=== PATIENT | female | born 1960 | race Caucasian/White ===

== ENCOUNTER → 2020-03-14 14:18 | Outpatient (BNVA) | payer MEDICAID, SELFPAY | PROVIDERS: Family Provider Nurse Practitioner; PCP Nurse Practitioner; Visit Provider Nurse Practitioner Family | DX: E78.5 Hyperlipidemia, unspecified (principal); F41.9 Anxiety disorder, unspecified; F32.9 Major depressive disorder, single episode, unspecified; M19.91 Primary osteoarthritis, unspecified site; I10 Essential (primary) hypertension; R35.0 Frequency of micturition; J44.9 Chronic obstructive pulmonary disease, unspecified; F17.200 Nicotine dependence, unspecified, uncomplicated; F51.01 Primary insomnia | CPT/HCPCS: 80053; 80061; 84443; 85025 ==

== ENCOUNTER 2020-04-22 19:43 | Emergency (ER) | payer MEDICAID, SELFPAY ==
--- NOTE | 2020-04-22 19:47 | ED_ITS ---
HPI - Abdominal Pain General: Chief Complaint: Nausea/Vomiting/Diarrhea Stated Complaint: NAUSEA/ VOMITING Time Seen by Provider: 04/22/20 19:47 Source: patient Mode of arrival: ambulatory Limitations: no limitations History of Present Illness: HPI narrative: Patient was brought in by EMS with persistent nausea and vomiting. Patient is vomiting bile-like substance. Patient had been given p.o. ondansetron and then threw up shortly afterwards. Patient appears mildly unwell. Patient reports severe headache and episode starting this morning. Patient also reports some abdominal discomfort. Associated Symptoms: Reports nausea and vomiting Review of Systems General: Reports: 10 or more systems reviewed and unremarkable except in HPI and below GI: Reports: nausea and vomiting Neuro: Reports: headache(s) PFSH ED PFSH: Medical History (Updated 04/22/20 @ 21:52 by KRISTIE Ruby) Anxiety and depression COPD (chronic obstructive pulmonary disease) Dyslipidemia Essential (primary) hypertension Insomnia Osteoarthritis Smoker Urinary frequency Surgical History History of carpal tunnel release of both wrists Hx of arthroscopic knee surgery (~2012) left Family History Other COPD (chronic obstructive pulmonary disease) Cancer Social History Smoking and tobacco status: current every day smoker Second hand smoke exposure: Yes Smoking risk assessment/counseling performed?: Yes Alcohol intake: never Desire information about alcohol rehabilitation?: No Counseling given: No Desire information about substance/drug rehabilitation?: No Counseling given: No Adopted: No Caregiver/support person: No Lives independently: Yes Household members: spouse Housing: House Marital status: service: No History of recent travel: No Current gender identity: Female Physical Exam Const: COMMON NORMALS: no acute distress and patient oriented x3 GENERAL APPEARANCE: cooperative HENMT: COMMON NORMALS: normocephalic, TM's normal bilaterally and Normal external nose present HEAD & SCALP: normal to inspection and normocephalic NOSE: Normal external nose present TYMPANIC MEMBRANE: TM's normal bilaterally MOUTH: Normal oral and palatal mucosa present THROAT: posterior oropharynx normal Eye: GENERAL EYE: appearance normal, both eyes and all related structures Neck/C-Spine: COMMON NORMALS: full ROM Lymph: LYMPHATIC: no lymphadenopathy noted Chest: COMMONS NORMALS: normal inspection of the chest Resp: COMMON NORMALS: normal respiratory effort EFFORT & INSPECTION: Yes able to speak in complete sentences Cardio: COMMON NORMALS: regular rate and regular rhythm RATE: regular rate RHYTHM: regular rhythm GI: COMMON NORMALS: Soft to palpation PALPATION: Yes Soft to palpation and Yes Tenderness to palpation present (GI) (mild epigastric) : COMMON NORMALS: Yes no CVA tenderness BLADDER/KIDNEY EXAM: Yes no CVA tenderness Back/Pelvis: COMMON NORMALS: no CVA tenderness and thoracic and lumbar spine normal to inspection Extremity: COMMON NORMALS: normal to inspection Neuro: COMMON NORMALS: patient oriented x3 and moves all extremities Psych: COMMON NORMALS: mental status grossly normal and cooperative Skin: COMMON NORMALS: no rashes or lesions noted GENERAL SKIN EXAM: no rashes or lesions noted Course Vital Signs: Vital signs: Vital Signs Temperature 98.7 F 04/22/20 20:26 Pulse Rate 62 04/22/20 22:00 Respiratory Rate 20 H 04/22/20 20:26 Blood Pressure 163/88 04/22/20 22:00 Pulse Oximetry 98 04/22/20 22:00 MDM - Abdominal Pain MDM Narrative: Medical decision making narrative: Patient comes in today with complaints of nausea and vomiting starting this morning. Exam patient's abdomen soft nontender. Vital signs are normal. Respirations are even lungs are clear to auscultation. No CVA tenderness. Bowel sounds are normal. Differential diagnosis includes but not limited to cholecystitis, pancreatitis, gastroenteritis, gastritis. Laboratory values were normal. Patient was given medication for nausea and vomiting and IV fluids. Patient did have improvement in symptoms recommend to continue with medications to control nausea and vomiting. Patient was recommended to follow-up with primary care for further treatment. Lab Data: Labs: Lab Results 04/22/20 04/22/20 04/22/20 Range/Units 20: 20: 20:15 WBC 14.8 H (4.0-10.0) 10^3/ uL RBC 4.54 (4.1-5.3) 10^6/u L Hgb 14.5 (11.5-15.3) g/dL Hct 43.6 (37.0-47.0) % MCV 96.0 (81-99) fL MCH 31.9 (28.0-34.0) pg MCHC 33.3 (30.0-36.0) g/dL RDW 12.8 (12.1-15.1) % Plt Count 244 (130-400) 10^3/c mm MPV 9.7 (7.4-10.4) fL Neut % (Auto) 84.8 % Lymph % (Auto) 10.4 % Harper % (Auto) 4.3 % Eos % (Auto) 0.0 % Baso % (Auto) 0.1 % Neut # (Auto) 12.51 H (1.8-7.7) 10^3/u L Lymph # (Auto) 1.5 (0.8-4.8) 10^3/u L Harper # (Auto) 0.6 (0.2-0.9) 10^3/u L Eos # (Auto) 0.0 (0.0-0.8) 10^3/u L Baso # (Auto) 0.0 (0.0-0.1) 10^3/u L Nucleated RBC % (a uto) 0 % Nucleated RBCs # 0.0 /100WBC Sodium 138 (136-145) mmol/L Potassium 3.6 (3.5-5.1) mmol/L Chloride 103 (98-107) mmol/L Carbon Dioxide 18 L (22-29) mmol/L Anion Gap 20.6 H (5-19) BUN 17 (6-20) mg/dL Creatinine 0.7 (0.5-0.9) mg/dL GFR Calculation 85.6 L (90-130) mL/min Glucose 144 H (65-115) mg/dL Calculated Osmolal ity 285 (285-295) mOsm/k g Calcium 9.7 (8.5-10.5) mg/dL Total Bilirubin 0.4 (0.15-1.2) mg/dL AST 26 (0-32) U/L ALT 22 (0-33) U/L Alkaline Phosphata se 64 (35-105) IU/L Troponin T Baselin e 6 (0-10) ng/L Total Protein 8.4 (6.6-8.7) g/dL Albumin 5.0 (3.5-5.2) g/dL Globulin 3.4 (1.3-4.6) g/dL Lipase 19 (13-60) U/L EKG Data ^: EKG 1: Attestation: I personally reviewed and interpreted this EKG as follows: (2004, sinus bradycardia, regular rate at 51 bpm, no ectopy or st elevation) Discharge Plan Discharge Patient Disposition: Home Clinical Impression: Nausea & vomiting Qualifiers: Vomiting type: bilious vomiting Qualified Code(s): R11.14 - Bilious vomiting Condition: Stable Prescriptions: New ondansetron HCl 4 mg tablet 4 mg PO Q8H PRN (Reason: nausea and vomiting) Qty: 10 RF: 0 No Action Anoro Ellipta 62.5-25 mcg/actuation blister with device 1 inh INHALATION Q24H Qty: 60 RF: 2 albuterol sulfate [ProAir HFA] 90 mcg/actuation HFA aerosol inhaler 2 puff INHALATION QID PRN (Reason: shortness of breath or wheezing) Qty: 18 RF: 2 aspirin [Adult Low Dose Aspirin] 81 mg tablet,delayed release (DR/EC) 81 mg PO DAILY RF: 0 atorvastatin 40 mg tablet 40 mg PO DAILY 30 Days Qty: 30 RF: 2 celecoxib 400 mg capsule 400 mg PO DAILY 30 Days Qty: 30 RF: 2 escitalopram oxalate 10 mg tablet 10 mg PO DAILY 30 Days Qty: 30 RF: 2 hydroxyzine pamoate 25 mg capsule 25 mg PO TID 30 Days Qty: 90 RF: 2 lisinopril 20 mg tablet 20 mg PO DAILY 30 Days Qty: 30 RF: 2 promethazine 6.25 mg/5 mL syrup 6.25 mg PO TID PRN (Reason: cough) 30 Days Qty: 473 RF: 0 oxybutynin chloride 5 mg tablet 5 mg PO TID 90 Days Qty: 270 RF: 0 trazodone 150 mg tablet 150 mg PO DAILY 30 Days Qty: 30 RF: 2 Referrals: Vero Moon FNP-C [Primary Care Provider] - Discharge Diet: Advance as tolerated Discharge Activity: Increase activity as tolerated Patient Instructions: Vomiting - Adult Activity Restrictions/Additional Instructions: Home and rest. Drink plenty of fluids. Start with sips increase as tolerated. Return to the emergency department for worsening symptoms, high fever, blood in vomit or stool. Follow-up with primary care as needed. Coding Level of Care Code ED Product Development Intern for Chg Fwd Exam Comprehensive
--- NOTE | 2020-04-22 19:51 | XRR_ITS ---
PROCEDURE INFORMATION: Exam: XR Chest, 1 View Exam date and time: 04/22/2020 8:22 PM Age: 59 years old Clinical indication: Dyspnea; Prior surgery; Surgery date: 6+ months; Additional info: N/v TECHNIQUE: Imaging protocol: XR of the chest Views: 1 view. COMPARISON: No relevant prior studies available. FINDINGS: Lungs: Unremarkable. No consolidation. Pleural space: Unremarkable. No pleural effusion. No pneumothorax. Heart/Mediastinum: Unremarkable. No cardiomegaly. Bones/joints: No acute abnormality. Postoperative clips in the left supraclavicular fossa are noted. XR/XR chest 1V portable [id number] IMPRESSION: No acute findings.
--- NOTE | 2020-04-22 19:52 | ECG_ITS ---
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 Measurements Intervals [place] Rate: 51 P: 74 TX: 148 QRS: 67 QRSD: 93 T: 71 QT: 460 QTc: 424 Interpretive Statements SINUS BRADYCARDIA MINIMAL ST DEPRESSION [0.025+ mV ST DEPRESSION] No previous ECG available for comparison Electronically Signed On 04-23-2020 18:10:52 CDT by Bassam Madden M.D. [id number]
--- NOTE | 2020-04-22 20:19 | CTR_ITS ---
PROCEDURE INFORMATION: Exam: CT Head Without Contrast Exam date and time: 04/22/2020 8:46 PM Age: 59 years old Clinical indication: Pain; Headache not specified; Patient HX: C/O HERBERT w n/v; Additional info: Headache, n/v TECHNIQUE: Imaging protocol: Computed tomography of the head without contrast. Radiation optimization: All CT scans at this facility use at least one of these dose optimization techniques: automated exposure control; mA and/or kV adjustment per patient size (includes targeted exams where dose is matched to clinical indication); or iterative reconstruction. COMPARISON: CT head wo con* [id number] 02/18/2015 4:20 PM RADIATION DOSE METRICS: Total DLP (mGy-cm): 620.26 FINDINGS: Brain: Normal. No hemorrhage. Unremarkable white matter. No mass effect. Ventricles: Normal. No ventriculomegaly. Bones/joints: Unremarkable. No acute fracture. Sinuses: Visualized sinuses are unremarkable. No fluid levels. Mastoid air cells: Visualized mastoid air cells are well aerated. Soft tissues: Unremarkable. CT/CT head wo con* [id number] IMPRESSION: No acute intracranial abnormality. Radiation Dose CTDIVOL = (mGy): DLP = 620.26 (mGy-cm)
[2020-04-22 20:20] LABS: Basophils % 0.1 %; Hematocrit 43.6 % (37.0-47.0); Hemoglobin 14.5 g/dL (11.5-15.3); Lymphocytes # 1.5 10^3/uL (0.8-4.8); Lymphocytes % 10.4 %; Mean Corpuscular HGB Conc 33.3 g/dL (30.0-36.0); Mean Corpuscular Hemoglobin 31.9 pg (28.0-34.0); Mean Platelet Volume 9.7 fL (7.4-10.4); Monocytes # 0.6 10^3/uL (0.2-0.9); Monocytes % 4.3 %; Neutrophils # 12.51 10^3/uL (1.8-7.7); Neutrophils % 84.8 %; Nucleated Red Blood Cells % 0 %; Platelet Count 244 10^3/cmm (130-400); Red Blood Count 4.54 10^6/uL (4.1-5.3); Red Cell Distribution Width 12.8 % (12.1-15.1); White Blood Count 14.8 10^3/uL (4.0-10.0)
[2020-04-22 20:26] VITALS: BP 156/95; PULSE 58; RESP 20; TEMP 37.1; O2SAT 99; BMI 25.3
[2020-04-22 20:43] LABS: Alanine Aminotransferase 22 U/L (0-33); Alkaline Phosphatase 64 IU/L (35-105); Blood Urea Nitrogen 17 mg/dL (6-20); Calcium 9.7 mg/dL (8.5-10.5); Carbon Dioxide 18 mmol/L (22-29); Chloride 103 mmol/L (98-107); Creatinine Clr Calc Pharmacy 72.3914; Globulin 3.4 g/dL (1.3-4.6); Glomerular Filtration Rate 85.6 mL/min (90-130); Glucose 144 mg/dL (65-115); Lipase 19 U/L (13-60); Osmolality Calculated 285 mOsm/kg (285-295); Sodium 138 mmol/L (136-145); Total Bilirubin 0.4 mg/dL (0.15-1.2); Total Protein 8.4 g/dL (6.6-8.7)
[2020-04-22] MEDS: diphenhydrAMINE 50 mg/mL SDV 1mL 25 MG IVP (20:43)
[2020-04-22] MEDS: pantoprazole 40 mg SDV 80 MG IVP (20:44)
[2020-04-22] MEDS: metoclopramide 5 mg/mL SDV 2 mL 10 MG IVP (20:44)
[2020-04-22] MEDS: sodium chloride 0.9% 500 ML 999 ML IV (20:45)
[2020-04-22 20:46] LABS: Anion Gap 20.6 (5-19); Aspartate Amino Transferase 26 U/L (0-32); Potassium 3.6 mmol/L (3.5-5.1); Troponin(5th) Baseline 6 ng/L (0-10)
--- NOTE | 2020-04-22 20:46 | PC.NURSE ---
VO WITH READBACK FROM [employer] TO JAMIE OSPINA.
[2020-04-22 21:00] VITALS: BP 155/89; PULSE 87; O2SAT 96
[2020-04-22] MEDS: sodium chloride 0.9% 1,000 ML 999 ML IV (21:58)
[2020-04-22 22:00] VITALS: BP 163/88; PULSE 62; O2SAT 98
--- NOTE | 2020-04-22 23:34 | PC.NURSE ---
REPORT GIVENVANDANA MERCEDES RN ASSUMED CARE.
[2020-04-23 00:31] VITALS: BP 133/74; PULSE 87; RESP 17; O2SAT 99
== END 2020-04-23 00:31 | disposition home or self-care (01) ==
PROVIDERS: Emergency Provider Nurse Practitioner Family; PCP Nurse Practitioner
DX: R11.14 Bilious vomiting (principal); Z79.82 Long term (current) use of aspirin; J44.9 Chronic obstructive pulmonary disease, unspecified; E78.5 Hyperlipidemia, unspecified; I10 Essential (primary) hypertension; F17.210 Nicotine dependence, cigarettes, uncomplicated
CPT/HCPCS: 12345; 70450; 71045; 80053; 83690; 84484; 85025; 93005; 96361; 96374; 96375; 99283; 99284; C9113; J1200; J2765; J7030; J7040

== ENCOUNTER → 2020-05-31 09:47 | Outpatient (BNVA) | payer MEDICAID, SELFPAY | PROVIDERS: PCP Nurse Practitioner; Visit Provider Nurse Practitioner | DX: M54.2 Cervicalgia (principal); M43.06 Spondylolysis, lumbar region; M54.6 Pain in thoracic spine; J90 Pleural effusion, not elsewhere classified | CPT/HCPCS: 72040; 72072; 72100 ==

== ENCOUNTER 2020-06-25 17:03 | Emergency (ER) | payer MEDICAID, SELFPAY ==
[2020-06-25] VITALS (8 sets, daily range): BP systolic 87–149; BP diastolic 51–97; PULSE 63–86; RESP 16–18; TEMP 36.7; O2SAT 93–100; BMI 27.1
--- NOTE | 2020-06-25 17:10 | ED_ITS ---
HPI - Nausea/Vomiting/Diarrhea General: Chief complaint: Nausea/Vomiting/Diarrhea Stated complaint: N/V Time Seen by Provider: 06/25/20 17:05 Source: patient and EMS Mode of arrival: EMS Limitations: no limitations History of Present Illness: HPI Narrative: 60-year-old female who states she woke up this morning at 630 minutes had nausea vomiting and diarrhea throughout the day. She states she has had multiple episodes of vomiting and also vomited Ruiz here. She has slight abdominal pain she states is cramping in nature. Denies any fever. Denies any worsening or improving factors. Associated nausea: Yes Associated symtoms: Reports nausea; Denies chest pain, dysuria or headache(s) Review of Systems Const: Denies: fever(s), chills, body aches or change in appetite Eyes: Denies: blurry vision or eye discomfort ENMT: Denies: throat pain or dental pain Card: Denies: chest pain Resp: Denies: dyspnea GI: Reports: nausea, vomiting and diarrhea : Denies: dysuria Musc: Denies: neck pain or back pain Skin/Breast: Denies: rash Neuro: Denies: headache(s) Psych: Denies: depression Phil/Lymph: Denies: easy bruising All/Imm: Denies: urticaria PFSH ED PFSH: Medical History Anxiety and depression COPD (chronic obstructive pulmonary disease) Dyslipidemia Essential (primary) hypertension Insomnia Osteoarthritis Smoker Urinary frequency Surgical History History of carpal tunnel release of both wrists Hx of arthroscopic knee surgery (~2012) left Family History Other COPD (chronic obstructive pulmonary disease) Cancer Social History Smoking and tobacco status: current every day smoker Second hand smoke exposure: Yes Smoking risk assessment/counseling performed?: Yes Alcohol intake: never Desire information about alcohol rehabilitation?: No Counseling given: No Desire information about substance/drug rehabilitation?: No Counseling given: No Adopted: No Caregiver/support person: No Lives independently: Yes Household members: spouse Housing: House Marital status: service: No History of recent travel: No Current gender identity: Female Physical Exam Const: COMMON NORMALS: no acute distress, patient oriented x3 and healthy appearing HENMT: COMMON NORMALS: normocephalic and atraumatic HEAD & SCALP: normocephalic and atraumatic Eye: COMMON NORMALS: Equal, round and reactive pupils present and EOMs intact bilaterally PUPIL: Yes Equal, round and reactive pupils present Neck/C-Spine: COMMON NORMALS: full ROM and supple Chest: COMMONS NORMALS: normal inspection of the chest and normal palpation of entire chest wall Resp: COMMON NORMALS: normal respiratory effort, No retractions, No use of accessory muscles and clear to auscultation bilaterally AUSCULTATION: clear to auscultation bilaterally Cardio: COMMON NORMALS: regular rate, regular rhythm and No murmurs present (Cardio) RATE: regular rate RHYTHM: regular rhythm GI: COMMON NORMALS: Normal to inspection, nondistended, normoactive bowel sounds present, Soft to palpation, non-tender and no masses PALPATION: Yes Soft to palpation Extremity: COMMON NORMALS: normal to inspection and full ROM Neuro: COMMON NORMALS: patient oriented x3, moves all extremities and no focal motor deficits Psych: COMMON NORMALS: mental status grossly normal, Normal thought process present and cooperative THOUGHT PROCESS: Normal thought process present Skin: COMMON NORMALS: no rashes or lesions noted and no wounds GENERAL SKIN EXAM: no rashes or lesions noted Course Vital Signs: Vital signs: Vital Signs Temperature 98.0 F 06/25/20 17:04 Pulse Rate 76 06/25/20 18:41 Respiratory Rate 17 06/25/20 19:17 Blood Pressure 145/97 06/25/20 17:11 Pulse Oximetry 96 06/25/20 19:17 MDM - Nausea/Vomiting/Diarrhea MDM Narrative: Medical decision making narrative: Patient presents here with nausea and vomiting that is likely viral in origin. Patient's blood work and CT scan are normal. She feels much improved here after IV nausea meds and been able to tolerate p.o. here and has had no more vomiting. She is to follow-up with PCP in 3 to 5 days return if worsening. Will prescribe her Zofran for home. Lab Data: Labs: Lab Results 06/25/20 06/25/20 06/25/20 Range/Units 17:40 17:40 18:33 WBC 15.4 H (4.0-10.0) 10^3/ uL RBC 4.60 (4.1-5.3) 10^6/u L Hgb 14.3 (11.5-15.3) g/dL Hct 42.7 (37.0-47.0) % MCV 92.8 (81-99) fL MCH 31.1 (28.0-34.0) pg MCHC 33.5 (30.0-36.0) g/dL RDW 12.8 (12.1-15.1) % Plt Count 258 (130-400) 10^3/c mm MPV 9.5 (7.4-10.4) fL Neut % (Auto) 85.9 % Lymph % (Auto) 10.6 % Mclean % (Auto) 3.0 % Eos % (Auto) 0.0 % Baso % (Auto) 0.1 % Neut # (Auto) 13.25 H (1.8-7.7) 10^3/u L Lymph # (Auto) 1.6 (0.8-4.8) 10^3/u L Mclean # (Auto) 0.5 (0.2-0.9) 10^3/u L Eos # (Auto) 0.0 (0.0-0.8) 10^3/u L Baso # (Auto) 0.0 (0.0-0.1) 10^3/u L Nucleated RBC % (a uto) 0 % Nucleated RBCs # 0.0 /100WBC Sodium 138 (136-145) mmol/L Potassium 3.4 L (3.5-5.1) mmol/L Chloride 101 (98-107) mmol/L Carbon Dioxide 21 L (22-29) mmol/L Anion Gap 19.4 H (5-19) BUN 17 (8-23) mg/dL Creatinine 0.8 (0.5-0.9) mg/dL GFR Calculation 73.2 L (90-130) mL/min Glucose 139 H (65-115) mg/dL Calculated Osmolal ity 290 (285-295) mOsm/k g Calcium 9.9 (8.5-10.5) mg/dL Total Bilirubin 0.3 (0.15-1.2) mg/dL AST 24 (0-32) U/L ALT 22 (0-33) U/L Alkaline Phosphata se 72 (35-105) IU/L Total Protein 7.9 (6.6-8.7) g/dL Albumin 4.9 (3.5-5.2) g/dL Globulin 3.0 (1.3-4.6) g/dL Lipase 20 (13-60) U/L Urine Color Yellow (Yellow) Urine Appearance Clear (CLEAR) Urine pH 6 (5-7) Ur Specific Gravit y 1.020 (1.005-1.030) Urine Protein Neg (Negative) Urine Glucose (UA) Norm (Normal) Urine Ketones 2+ H (Negative) Urine Blood 3+ H (Negative) Urine Nitrate Negative (Negative) Urine Bilirubin Neg (Negative) Urine Urobilinogen Norm (Negative) mg/dL Ur Leukocyte Elicia ase Negative (Negative) Urine RBC 25-40 H (0-2) /hpf Urine WBC 0-4 H (0-5) /hpf Ur Squamous Epith Cells 5-10 H (0-5) /hpf Amorphous Sediment Not Reportable Urine Bacteria 1+ H (NONE) /hpf Urine Mucus 2+ /hpf Imaging Data^: CT Abd/Pel: Radiologist's impression: [place] [address] CT Scan Report Signed Patient: Kasey Sousa Unit #: [id number] : 1960 Age/Sex: 60 / F ADM Date: 06/25/20 Loc: ER Room/Bed: Attending Dr: Ordering Provider/Ordering MD: Akil Benito MD Date of Service: 06/25/20 Procedure(s): CT abdomen pelvis w con* [id number] Accession Number(s): [id number] Report Number: [id number] PROCEDURE INFORMATION: Exam: CT Abdomen And Pelvis With Contrast Exam date and time: 06/25/2020 6:20 PM Age: 60 years old Clinical indication: Nausea and vomiting; Prior surgery; Surgery date: 6+ months; Surgery type: Hyst; Patient HX: C/O n/v/d and abd cramping; Additional info: Abd pain TECHNIQUE: Imaging protocol: Computed tomography of the abdomen and pelvis with intravenous contrast. Radiation optimization: All CT scans at this facility use at least one of these dose optimization techniques: automated exposure control; mA and/or kV adjustment per patient size (includes targeted exams where dose is matched to clinical indication); or iterative reconstruction. Contrast material: OMNI 300; Contrast volume: 95 ml; Contrast route: INTRAVENOUS (IV); COMPARISON: CR XR lumbar spine 2-3V* [id number] 05/31/2020 9:47 AM RADIATION DOSE METRICS: Total DLP (mGy-cm): 511.7 FINDINGS: Lungs: Limited assessment of the lung bases fails to reveal evidence for active cardiopulmonary process. Liver: Unremarkable. No mass. Gallbladder and bile ducts: Normal. No calcified stones. No ductal dilation. Pancreas: Normal. No ductal dilation. Spleen: Small benign splenic capsule calcifications most likely from an old traumatic event. Spleen otherwise unremarkable. Adrenals: Normal. No mass. Kidneys and ureters: Normal. No hydronephrosis. Stomach and bowel: Diverticulosis coli without visible evidence for diverticulitis. Nonobstructive bowel pattern. No visible adynamic or reactive ileus. Appendix: The appendix is visualized and appears noninflamed. Intraperitoneal space: No visible evidence of mesenteric lymphadenitis or active mesenteritis/panniculitis. Vasculature: The abdominal aorta is nonaneurysmal. Moderate arterial sclerotic disease. Lymph nodes: No current visible evidence of active mesenteric or retroperitoneal lymphadenopathy. Urinary bladder: Unremarkable as visualized. Reproductive: Status post hysterectomy. Bones/joints: No visible acute osseous abnormality. Bilateral spondylolysis L5/S1 with high grade 1 to early grade 2 spondylolisthesis. Advanced degenerative disc disease L5/S1 with vacuum disc phenomenon. Discogenic sclerosis. Soft tissues: Evidence of previous left herniorrhaphy. CT/CT abdomen pelvis w con* [id number] IMPRESSION: 1. Currently no visible evidence for acute abdominal or pelvic pathologic process. 2. Diverticulosis coli without evidence for diverticulitis. 3. Other nonurgent, nonemergent, chronic, and age related findings as detailed in text above. Discharge Plan Discharge Patient Disposition: Home Clinical Impression: Vomiting Qualifiers: Vomiting type: unspecified Vomiting Intractability: non-intractable Nausea presence: with nausea Qualified Code(s): R11.2 - Nausea with vomiting, unspecified Condition: Stable Prescriptions: New ondansetron 4 mg tablet,disintegrating 4 mg PO Q6H PRN (Reason: nausea and vomiting) Qty: 14 RF: 0 No Action albuterol sulfate [ProAir HFA] 90 mcg/actuation HFA aerosol inhaler 2 puff INHALATION QID PRN (Reason: shortness of breath or wheezing) Qty: 18 RF: 2 aspirin [Adult Low Dose Aspirin] 81 mg tablet,delayed release (DR/EC) 81 mg PO DAILY RF: 0 atorvastatin 40 mg tablet 40 mg PO DAILY 30 Days Qty: 30 RF: 2 celecoxib 400 mg capsule 400 mg PO DAILY 30 Days Qty: 30 RF: 2 escitalopram oxalate 10 mg tablet 10 mg PO DAILY 30 Days Qty: 30 RF: 2 hydroxyzine pamoate 25 mg capsule 25 mg PO TID 30 Days Qty: 90 RF: 2 lisinopril 20 mg tablet 20 mg PO DAILY 30 Days Qty: 30 RF: 2 trazodone 150 mg tablet 150 mg PO DAILY 30 Days Qty: 30 RF: 2 promethazine-DM 6.25-15 mg/5 mL syrup 5 ml PO Q6H PRN (Reason: cough) Qty: 120 RF: 0 Bevespi Aerosphere 9-4.8 mcg HFA aerosol inhaler 2 puff INHALATION Q12H Qty: 10.7 RF: 2 oxybutynin chloride 5 mg tablet 5 mg PO TID 30 Days Qty: 90 RF: 2 Discharge Orders: Discharge Order (Routine); Ordered 06/25/20 Ordered By: Akil Benito Referrals: Vero Moon, TOWEL INSPECTOR-C [Primary Care Provider] - 1-3 days Discharge Diet: Advance as tolerated Discharge Activity: Resume usual activity Patient Instructions: Acute Nausea and Vomiting (ED) Coding Level of Care Code ED Quality Assurance Coordinator for Chg Fwd Exam Comprehensive
[2020-06-25] MEDS: lactated ringers 1,000 ML 999 ML IV (17:38)
[2020-06-25] MEDS: ondansetron 2 mg/ML SDV 2 mL 4 MG IVP (17:39)
[2020-06-25] MEDS: morphine 4 mg/mL SDV 1 mL IVP (17:39)
[2020-06-25 17:48] LABS: Basophils % 0.1 %; Hematocrit 42.7 % (37.0-47.0); Hemoglobin 14.3 g/dL (11.5-15.3); Lymphocytes # 1.6 10^3/uL (0.8-4.8); Lymphocytes % 10.6 %; Mean Corpuscular HGB Conc 33.5 g/dL (30.0-36.0); Mean Corpuscular Hemoglobin 31.1 pg (28.0-34.0); Mean Corpuscular Volume 92.8 fL (81-99); Mean Platelet Volume 9.5 fL (7.4-10.4); Monocytes # 0.5 10^3/uL (0.2-0.9); Neutrophils # 13.25 10^3/uL (1.8-7.7); Neutrophils % 85.9 %; Nucleated Red Blood Cells % 0 %; Platelet Count 258 10^3/cmm (130-400); Red Cell Distribution Width 12.8 % (12.1-15.1); White Blood Count 15.4 10^3/uL (4.0-10.0)
--- NOTE | 2020-06-25 18:13 | CTR_ITS ---
PROCEDURE INFORMATION: Exam: CT Abdomen And Pelvis With Contrast Exam date and time: 06/25/2020 6:20 PM Age: 60 years old Clinical indication: Nausea and vomiting; Prior surgery; Surgery date: 6+ months; Surgery type: Hyst; Patient HX: C/O n/v/d and abd cramping; Additional info: Abd pain TECHNIQUE: Imaging protocol: Computed tomography of the abdomen and pelvis with intravenous contrast. Radiation optimization: All CT scans at this facility use at least one of these dose optimization techniques: automated exposure control; mA and/or kV adjustment per patient size (includes targeted exams where dose is matched to clinical indication); or iterative reconstruction. Contrast material: OMNI 300; Contrast volume: 95 ml; Contrast route: INTRAVENOUS (IV); COMPARISON: CR XR lumbar spine 2-3V* [id number] 05/31/2020 9:47 AM RADIATION DOSE METRICS: Total DLP (mGy-cm): 511.7 FINDINGS: Lungs: Limited assessment of the lung bases fails to reveal evidence for active cardiopulmonary process. Liver: Unremarkable. No mass. Gallbladder and bile ducts: Normal. No calcified stones. No ductal dilation. Pancreas: Normal. No ductal dilation. Spleen: Small benign splenic capsule calcifications most likely from an old traumatic event. Spleen otherwise unremarkable. Adrenals: Normal. No mass. Kidneys and ureters: Normal. No hydronephrosis. Stomach and bowel: Diverticulosis coli without visible evidence for diverticulitis. Nonobstructive bowel pattern. No visible adynamic or reactive ileus. Appendix: The appendix is visualized and appears noninflamed. Intraperitoneal space: No visible evidence of mesenteric lymphadenitis or active mesenteritis/panniculitis. Vasculature: The abdominal aorta is nonaneurysmal. Moderate arterial sclerotic disease. Lymph nodes: No current visible evidence of active mesenteric or retroperitoneal lymphadenopathy. Urinary bladder: Unremarkable as visualized. Reproductive: Status post hysterectomy. Bones/joints: No visible acute osseous abnormality. Bilateral spondylolysis L5/S1 with high grade 1 to early grade 2 spondylolisthesis. Advanced degenerative disc disease L5/S1 with vacuum disc phenomenon. Discogenic sclerosis. Soft tissues: Evidence of previous left herniorrhaphy. CT/CT abdomen pelvis w con* [id number] IMPRESSION: 1. Currently no visible evidence for acute abdominal or pelvic pathologic process. 2. Diverticulosis coli without evidence for diverticulitis. 3. Other nonurgent, nonemergent, chronic, and age related findings as detailed in text above. Radiation Dose CTDIVOL = (mGy): DLP = 511.7 (mGy-cm)
[2020-06-25 18:14] LABS: Alanine Aminotransferase 22 U/L (0-33); Albumin Level 4.9 g/dL (3.5-5.2); Alkaline Phosphatase 72 IU/L (35-105); Anion Gap 19.4 (5-19); Aspartate Amino Transferase 24 U/L (0-32); Blood Urea Nitrogen 17 mg/dL (8-23); Calcium 9.9 mg/dL (8.5-10.5); Carbon Dioxide 21 mmol/L (22-29); Chloride 101 mmol/L (98-107); Glomerular Filtration Rate 73.2 mL/min (90-130); Glucose 139 mg/dL (65-115); Lipase 20 U/L (13-60); Osmolality Calculated 290 mOsm/kg (285-295); Potassium 3.4 mmol/L (3.5-5.1); Sodium 138 mmol/L (136-145); Total Bilirubin 0.3 mg/dL (0.15-1.2); Total Protein 7.9 g/dL (6.6-8.7)
[2020-06-25] MEDS: iohexol 300 mg/mL 100 mL Btl IV (19:11)
[2020-06-25] MEDS: HYDROmorphone 1 mg/mL INJ 1 mL 0.5 MG IVP (19:17)
[2020-06-25] MEDS: metoclopramide 5 mg/mL SDV 2 mL IVP (19:24)
[2020-06-25] MEDS: diphenhydrAMINE 50 mg/mL SDV 1mL 25 MG IVP (19:25)
[2020-06-25 19:31] LABS: Add Urine Microscopic? YES; Bilirubin Urine Neg (Negative); Blood Urine 3+ (Negative); Glucose Urine UA Norm (Normal); Ketones Urine 2+ (Negative); Leukocyte Esterase Urine Negative (Negative); Nitrate Urine Negative (Negative); Protein Urine Neg (Negative); Urine Appearance Clear (CLEAR); Urine Color Yellow (Yellow); Urobilinogen Urine Norm (Negative); pH Urine 6 (5-7)
[2020-06-25 19:33] LABS: Bacteria Urine 1+ /hpf; Mucus Urine 2+ /hpf; RBC Urine 25-40 /hpf (0-2); WBC Urine 0-4 /hpf (0-5)
[2020-06-25 19:34] LABS: Add Urine Culture? Yes
[2020-06-25] MEDS: sodium chloride 0.9% 1,000 ML 999 ML IV (20:16)
== END 2020-06-25 21:28 | disposition home or self-care (01) ==
PROVIDERS: Emergency Provider Emergency Medicine; PCP Nurse Practitioner
DX: R11.2 Nausea with vomiting, unspecified (principal); Z79.82 Long term (current) use of aspirin; J44.9 Chronic obstructive pulmonary disease, unspecified; E78.5 Hyperlipidemia, unspecified; I10 Essential (primary) hypertension; F17.210 Nicotine dependence, cigarettes, uncomplicated
CPT/HCPCS: 12345; 74177; 80053; 81001; 83690; 85025; 87086; 96365; 96375; 99284; J1170; J1200; J2270; J2405; J2765; J7030; Q9967

== ENCOUNTER → 2020-06-27 14:47 | Outpatient (BNVA) | payer MEDICAID, SELFPAY | PROVIDERS: PCP Nurse Practitioner; Referring Provider Nurse Practitioner; Visit Provider Orthopaedic Surgery | DX: M25.562 Pain in left knee (principal) | CPT/HCPCS: 73560; 73565 ==

== ENCOUNTER 2020-08-01 17:36 | Emergency (ER) | payer MEDICAID, SELFPAY ==
[2020-08-01] VITALS (9 sets, daily range): BP systolic 96–192; BP diastolic 56–122; PULSE 62–93; RESP 16–21; TEMP 36.4; O2SAT 95–100; BMI 27.3
--- NOTE | 2020-08-01 17:41 | ECG_ITS ---
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: : 1960 Requested By: Amy Lewis Order Number: [id number] Reading MD: LISA MUÑOZ Measurements Intervals Cameron Rate: 54 P: 104 WA: 95 QRS: 65 QRSD: 85 T: 65 QT: 467 QTc: 443 Interpretive Statements SINUS BRADYCARDIA WITH SHORT WA INTERVAL WITH OCCASIONAL SUPRAVENTRICULAR PREMATURE COMPLEXES MINIMAL ST DEPRESSION [0.025+ mV ST DEPRESSION] Compared to ECG 04/22/2020 20:00:57 Short WA interval now present ST (T wave) deviation still present Electronically Signed On 08-03-2020 15:25:15 [employer] by LISA MUÑOZ [email or web address]
--- NOTE | 2020-08-01 17:44 | W.ED.NAVMDI ---
Documented by User: Amy Dumont MD 08/05/20 06:16 HPI - Nausea/Vomiting/Diarrhea General: Chief complaint: Nausea/Vomiting/Diarrhea Stated complaint: nausea, vomiting, constipation Time Seen by Provider: 08/01/20 17:38 History of Present Illness: HPI Narrative: This patient is a 60-year-old female who comes in by ambulance today with vomiting. The symptoms started this morning. She denies change in bowel habits with no diarrhea. She denies fever. She does not know why this is happening. She is difficult to get a history from. She tells me that her symptoms started in 1996. She has episodes like this apparently. She has been in the ER twice before with this in April and then again in June. It looks like prior to that she had lived in [place] so I do not have any records before the past few months. She is in quite a bit of distress and actively vomiting and not able to answer a lot of my questions. She took Zofran at home and was also given Zofran by EMS. She denies abdominal pain. When I asked her about medical history she does not answer. MD elicited complaint: nausea and vomiting Pertinent past history: other (Has had episodes like this since 1996 but she does not know why) Onset (ago): hour(s) (8) Review of Systems General: Reports: ROS unobtainable due to medical condition PFS ED PFSH: Medical History Anxiety and depression COPD (chronic obstructive pulmonary disease) Dyslipidemia Essential (primary) hypertension Glaucoma (increased eye pressure) Insomnia Osteoarthritis Smoker Urinary frequency Surgical History History of carpal tunnel release of both wrists Hx of arthroscopic knee surgery (~2012) left Family History Other COPD (chronic obstructive pulmonary disease) Cancer Social History (Updated 08/01/20 @ 17:52 by Roosevelt Hogan RN) Smoking and tobacco status: former smoker Second hand smoke exposure: Yes Smoking risk assessment/counseling performed?: Yes Alcohol intake: never Desire information about alcohol rehabilitation?: No Counseling given: No Substance/Drug Use: current Substance/Drug use frequency: daily Substance/Drug use type: Marijuana Adopted: No Caregiver/support person: No Lives independently: Yes Household members: spouse Housing: House Marital status: service: No History of recent travel: No Current gender identity: Female Physical Exam Const: EXAM LIMITATIONS: other limitations (Not answering questions due to distress over vomiting) GENERAL APPEARANCE: in distress ORIENTATION/CONSCIOUSNESS: Yes awake HENMT: HEAD & SCALP: normal to inspection FACE & SINUS: normal facial exam Eye: GENERAL EYE: appearance normal, both eyes and all related structures Neck/C-Spine: COMMON NORMALS: supple, no meningeal signs and no JVD Chest: COMMONS NORMALS: normal inspection of the chest Resp: COMMON NORMALS: normal respiratory effort, No use of accessory muscles and clear to auscultation bilaterally AUSCULTATION: clear to auscultation bilaterally Cardio: COMMON NORMALS: no JVD, regular rate, regular rhythm and No murmurs present (Cardio) RATE: regular rate RHYTHM: regular rhythm GI: COMMON NORMALS: Normal to inspection, nondistended, normoactive bowel sounds present, Soft to palpation and non-tender INSPECTION: Yes normal to inspection AUSCULTATION: Yes normoactive bowel sounds PALPATION: Yes Soft to palpation Back/Pelvis: COMMON NORMALS: thoracic and lumbar spine normal to inspection Extremity: COMMON NORMALS: normal to inspection Neuro: COMMON NORMALS: moves all extremities, no focal motor deficits and no sensory deficits noted MENINGEAL SIGNS: Yes no meningeal signs Psych: COMMON NORMALS: mental status grossly normal, cooperative and normal affect Skin: COMMON NORMALS: no rashes or lesions noted and turgor normal GENERAL SKIN EXAM: no rashes or lesions noted and turgor normal Course Vital Signs: Vital signs: Vital Signs Temperature 97.6 F 08/01/20 17:42 Pulse Rate 62 08/01/20 23:26 Respiratory Rate 18 08/01/20 22:41 Blood Pressure 96/56 08/01/20 23:26 Pulse Oximetry 95 08/01/20 23:26 MDM - Nausea/Vomiting/Diarrhea Lab Data: Labs: Lab Results 08/01/20 08/01/20 08/01/20 Range/Units 18:07 18:07 18:07 WBC 11.4 H (4.0-10.0) 10^3/ uL RBC 4.39 (4.1-5.3) 10^6/u L Hgb 13.7 (11.5-15.3) g/dL Hct 40.5 (37.0-47.0) % MCV 92.3 (81-99) fL MCH 31.2 (28.0-34.0) pg MCHC 33.8 (30.0-36.0) g/dL RDW 12.9 (12.1-15.1) % Plt Count 268 (130-400) 10^3/c mm MPV 9.8 (7.4-10.4) fL Neut % (Auto) 82.7 % Lymph % (Auto) 13.3 % Hopkins % (Auto) 3.4 % Eos % (Auto) 0.0 % Baso % (Auto) 0.1 % Neut # (Auto) 9.38 H (1.8-7.7) 10^3/u L Lymph # (Auto) 1.5 (0.8-4.8) 10^3/u L Hopkins # (Auto) 0.4 (0.2-0.9) 10^3/u L Eos # (Auto) 0.0 (0.0-0.8) 10^3/u L Baso # (Auto) 0.0 (0.0-0.1) 10^3/u L Nucleated RBC % (a uto) 0 % Nucleated RBCs # 0.0 /100WBC Sodium 139 (136-145) mmol/L Potassium 3.9 (3.5-5.1) mmol/L Chloride 104 (98-107) mmol/L Carbon Dioxide 20 L (22-29) mmol/L Anion Gap 18.9 (5-19) BUN 16 (8-23) mg/dL Creatinine 0.8 (0.5-0.9) mg/dL GFR Calculation 73.2 L (90-130) mL/min Glucose 153 H (65-115) mg/dL Calculated Osmolal ity 292 (285-295) mOsm/k g Lactic Acid 1.8 (0.5-2.2) mmol/L Calcium 9.6 (8.5-10.5) mg/dL Total Bilirubin 0.3 (0.15-1.2) mg/dL AST 26 (0-32) U/L ALT 27 (0-33) U/L Alkaline Phosphata se 71 (35-105) IU/L Troponin T Baselin e (0-10) ng/L Troponin T 120 Min [place] (0-10) ng/L Delta Troponin T (0-10) ABS# Total Protein 7.5 (6.6-8.7) g/dL Albumin 4.8 (3.5-5.2) g/dL Globulin 2.7 (1.3-4.6) g/dL Lipase 27 (13-60) U/L Urine Color (Yellow) Urine Appearance (CLEAR) Urine pH (5-7) Ur Specific Gravit y (1.005-1.030) Urine Protein (Negative) Urine Glucose (UA) (Normal) Urine Ketones (Negative) Urine Blood (Negative) Urine Nitrate (Negative) Urine Bilirubin (Negative) Prot Sulfosalicyli c Acd (Negative) Urine Urobilinogen (Negative) mg/dL Ur Leukocyte Elicia ase (Negative) Urine RBC (0-2) /hpf Urine WBC (0-5) /hpf Ur Squamous Epith Cells (0-5) /hpf Amorphous Sediment Urine Bacteria (NONE) /hpf Urine Opiates Scre en (Negative) ng/mL Ur Barbiturates Sc reen (Negative) ng/mL Ur Phencyclidine S crn (Negative) ng/mL Ur Amphetamines Sc reen (Negative) ng/mL U Benzodiazepines Scrn (Negative) ng/mL Urine Cocaine Scre en (Negative) ng/mL U Marijuana (THC) Screen (Negative) ng/mL Ethyl Alcohol < 10 (0-10) mg/dL 08/01/20 08/01/20 08/01/20 Range/Units 18:07 18:42 18:42 WBC (4.0-10.0) 10^3/ uL RBC (4.1-5.3) 10^6/u L Hgb (11.5-15.3) g/dL Hct (37.0-47.0) % MCV (81-99) fL MCH (28.0-34.0) pg MCHC (30.0-36.0) g/dL RDW (12.1-15.1) % Plt Count (130-400) 10^3/c mm MPV (7.4-10.4) fL Neut % (Auto) % Lymph % (Auto) % Hopkins % (Auto) % Eos % (Auto) % Baso % (Auto) % Neut # (Auto) (1.8-7.7) 10^3/u L Lymph # (Auto) (0.8-4.8) 10^3/u L Hopkins # (Auto) (0.2-0.9) 10^3/u L Eos # (Auto) (0.0-0.8) 10^3/u L Baso # (Auto) (0.0-0.1) 10^3/u L Nucleated RBC % (a uto) % Nucleated RBCs # /100WBC Sodium (136-145) mmol/L Potassium (3.5-5.1) mmol/L Chloride (98-107) mmol/L Carbon Dioxide (22-29) mmol/L Anion Gap (5-19) BUN (8-23) mg/dL Creatinine (0.5-0.9) mg/dL GFR Calculation (90-130) mL/min Glucose (65-115) mg/dL Calculated Osmolal ity (285-295) mOsm/k g Lactic Acid (0.5-2.2) mmol/L Calcium (8.5-10.5) mg/dL Total Bilirubin (0.15-1.2) mg/dL AST (0-32) U/L ALT (0-33) U/L Alkaline Phosphata se (35-105) IU/L Troponin T Baselin e 12 H (0-10) ng/L Troponin T 120 Min [place] (0-10) ng/L Delta Troponin T (0-10) ABS# Total Protein (6.6-8.7) g/dL Albumin (3.5-5.2) g/dL Globulin (1.3-4.6) g/dL Lipase (13-60) U/L Urine Color Yellow (Yellow) Urine Appearance Clear (CLEAR) Urine pH 8 H (5-7) Ur Specific Gravit y 1.015 (1.005-1.030) Urine Protein Neg (Negative) Urine Glucose (UA) Norm (Normal) Urine Ketones 1+ H (Negative) Urine Blood 2+ H (Negative) Urine Nitrate Negative (Negative) Urine Bilirubin Neg (Negative) Prot Sulfosalicyli c Acd Negative (Negative) Urine Urobilinogen Norm (Negative) mg/dL Ur Leukocyte Elicia ase Negative (Negative) Urine RBC 15-25 H (0-2) /hpf Urine WBC None (0-5) /hpf Ur Squamous Epith Cells 0-4 H (0-5) /hpf Amorphous Sediment Not Reportable Urine Bacteria Trace (NONE) /hpf Urine Opiates Scre en Negative (Negative) ng/mL Ur Barbiturates Sc reen Negative (Negative) ng/mL Ur Phencyclidine S crn Negative (Negative) ng/mL Ur Amphetamines Sc reen Negative (Negative) ng/mL U Benzodiazepines Scrn Negative (Negative) ng/mL Urine Cocaine Scre en Negative (Negative) ng/mL U Marijuana (THC) Screen Positive H (Negative) ng/mL Ethyl Alcohol (0-10) mg/dL 11/24/20 Range/Units 19:36 WBC (4.0-10.0) 10^3/ uL RBC (4.1-5.3) 10^6/u L Hgb (11.5-15.3) g/dL Hct (37.0-47.0) % MCV (81-99) fL MCH (28.0-34.0) pg MCHC (30.0-36.0) g/dL RDW (12.1-15.1) % Plt Count (130-400) 10^3/c mm MPV (7.4-10.4) fL Neut % (Auto) % Lymph % (Auto) % Hopkins % (Auto) % Eos % (Auto) % Baso % (Auto) % Neut # (Auto) (1.8-7.7) 10^3/u L Lymph # (Auto) (0.8-4.8) 10^3/u L Hopkins # (Auto) (0.2-0.9) 10^3/u L Eos # (Auto) (0.0-0.8) 10^3/u L Baso # (Auto) (0.0-0.1) 10^3/u L Nucleated RBC % (a uto) % Nucleated RBCs # /100WBC Sodium (136-145) mmol/L Potassium (3.5-5.1) mmol/L Chloride (98-107) mmol/L Carbon Dioxide (22-29) mmol/L Anion Gap (5-19) BUN (8-23) mg/dL Creatinine (0.5-0.9) mg/dL GFR Calculation (90-130) mL/min Glucose (65-115) mg/dL Calculated Osmolal ity (285-295) mOsm/k g Lactic Acid (0.5-2.2) mmol/L Calcium (8.5-10.5) mg/dL Total Bilirubin (0.15-1.2) mg/dL AST (0-32) U/L ALT (0-33) U/L Alkaline Phosphata se (35-105) IU/L Troponin T Baselin e (0-10) ng/L Troponin T 120 Min [place] 16.67 H (0-10) ng/L Delta Troponin T 4.67 (0-10) ABS# Total Protein (6.6-8.7) g/dL Albumin (3.5-5.2) g/dL Globulin (1.3-4.6) g/dL Lipase (13-60) U/L Urine Color (Yellow) Urine Appearance (CLEAR) Urine pH (5-7) Ur Specific Gravit y (1.005-1.030) Urine Protein (Negative) Urine Glucose (UA) (Normal) Urine Ketones (Negative) Urine Blood (Negative) Urine Nitrate (Negative) Urine Bilirubin (Negative) Prot Sulfosalicyli c Acd (Negative) Urine Urobilinogen (Negative) mg/dL Ur Leukocyte Elicia ase (Negative) Urine RBC (0-2) /hpf Urine WBC (0-5) /hpf Ur Squamous Epith Cells (0-5) /hpf Amorphous Sediment Urine Bacteria (NONE) /hpf Urine Opiates Scre en (Negative) ng/mL Ur Barbiturates Sc reen (Negative) ng/mL Ur Phencyclidine S crn (Negative) ng/mL Ur Amphetamines Sc reen (Negative) ng/mL U Benzodiazepines Scrn (Negative) ng/mL Urine Cocaine Scre en (Negative) ng/mL U Marijuana (THC) Screen (Negative) ng/mL Ethyl Alcohol (0-10) mg/dL Discharge Plan Discharge Patient Disposition: Home Clinical Impression: Vomiting and diarrhea Condition: Stable Prescriptions: New Reglan 10 mg tablet 10 mg PO Q6H PRN (Reason: nausea and vomiting) Qty: 20 RF: 0 No Action diclofenac sodium [Voltaren] 1 % gel 2 g topical QID Qty: 300 RF: 0 aspirin [Adult Low Dose Aspirin] 81 mg tablet,delayed release (DR/EC) 81 mg PO DAILY RF: 0 atorvastatin 40 mg tablet 40 mg PO DAILY 30 Days Qty: 30 RF: 2 celecoxib 400 mg capsule 400 mg PO DAILY 30 Days Qty: 30 RF: 2 escitalopram oxalate 10 mg tablet 10 mg PO DAILY 30 Days Qty: 30 RF: 2 hydroxyzine pamoate 25 mg capsule 25 mg PO TID 30 Days Qty: 90 RF: 2 lisinopril 20 mg tablet 20 mg PO DAILY 30 Days Qty: 30 RF: 2 trazodone 150 mg tablet 150 mg PO DAILY 30 Days Qty: 30 RF: 2 Bevespi Aerosphere 9-4.8 mcg HFA aerosol inhaler 2 puff INHALATION Q12H Qty: 10.7 RF: 2 oxybutynin chloride 5 mg tablet 5 mg PO TID 30 Days Qty: 90 RF: 2 albuterol sulfate [ProAir HFA] 90 mcg/actuation HFA aerosol inhaler 2 puff INHALATION QID PRN (Reason: shortness of breath or wheezing) Qty: 18 RF: 2 promethazine-DM 6.25-15 mg/5 mL syrup 5 ml PO Q6H PRN (Reason: cough) Qty: 120 RF: 0 ondansetron 4 mg tablet,disintegrating 4 mg PO Q6H PRN (Reason: nausea and vomiting) Qty: 14 RF: 0 Multivitamin Women 50 Plus 8 mg iron-400 mcg-300 mcg Tablet 1 tab PO DAILY RF: 0 latanoprost (PF) 0.005 % drops 1 drp ophthalmic (eye) BEDTIME RF: 0 Discharge Orders: Discharge Order (Routine); Ordered 08/01/20 Ordered By: Marlene Mora Referrals: Vero Moon, EP TECHNOLOGIST-C [Primary Care Provider] - 1-3 days Discharge Diet: Advance as tolerated and Clear Liquid Discharge Activity: Increase activity as tolerated Patient Instructions: Acute Nausea and Vomiting (ED), Abdominal Pain (ED) Activity Restrictions/Additional Instructions: Please return to the ER immediately for any of the signs or symptoms listed on your discharge instruction sheets, worsening/changing of your symptoms, you are not getting better as quickly as expected, or for ANY other cause or concerns. You have declined any further evaluation and care and have chosen to follow-up with your regular doctor. If your symptoms change or worsen in any way or you begin to feel sick again please return here to the ER immediately for recheck. Sign Out Sign Out Data: Patient Sign Out occurred on 08/01/20 at 18:13. Patient's care was discussed, and care was transferred from to Marlene Mora. Coding Level of Care Code ED Master Fire Control Technician for Chg Fwd Exam Comprehensive Documented by User: Marlene Mora 08/01/20 22:14 HPI - Nausea/Vomiting/Diarrhea General: Chief complaint: Nausea/Vomiting/Diarrhea Stated complaint: nausea, vomiting, constipation Time Seen by Provider: 08/01/20 17:38 PFSH ED PFSH: Medical History Anxiety and depression COPD (chronic obstructive pulmonary disease) Dyslipidemia Essential (primary) hypertension Glaucoma (increased eye pressure) Insomnia Osteoarthritis Smoker Urinary frequency Surgical History History of carpal tunnel release of both wrists Hx of arthroscopic knee surgery (~2012) left Family History Other COPD (chronic obstructive pulmonary disease) Cancer Social History (Updated 08/01/20 @ 17:52 by Roosevelt Hogan RN) Smoking and tobacco status: former smoker Second hand smoke exposure: Yes Smoking risk assessment/counseling performed?: Yes Alcohol intake: never Desire information about alcohol rehabilitation?: No Counseling given: No Substance/Drug Use: current Substance/Drug use frequency: daily Substance/Drug use type: Marijuana Adopted: No Caregiver/support person: No Lives independently: Yes Household members: spouse Housing: House Marital status: service: No History of recent travel: No Current gender identity: Female Course ED course: 1839 -Case turned over to me at change of shift from Dr. Dumont. Please see her note for history, physical exam and medical decision-making notes. Upon my examination the patient has stable vital signs but is complaining of a headache. She is no longer vomiting but continues to hold an emesis bag near her. Patient states that the symptoms today are just like all her previous episodes. She does not offer any more history than this. Patient appears to be alert and oriented x3, her heart is regular and her lungs are clear. Abdomen soft nontender. Neurologic exam is nonfocal without any deficits. I will add a head CT and continue to follow labs as they come in. Vital Signs: Vital signs: Vital Signs Temperature 97.6 F 08/01/20 17:42 Pulse Rate 62 08/01/20 23:26 Respiratory Rate 18 08/01/20 22:41 Blood Pressure 96/56 08/01/20 23:26 Pulse Oximetry 95 08/01/20 23:26 MDM - Nausea/Vomiting/Diarrhea MDM Narrative: Medical decision making narrative: 1949 -patient is feeling better at this time. States that she still feels achy all over. Patient states she has had the symptoms numerous times, several times per year. She states this time it is no different. I will get her some additional medicine of her discomfort and nausea and repeat an EKG and troponin. Patient is much more alert. Her mentation is appropriate and her neurologic exam is intact. 2212 -patient is feeling much better at this time. I have informed her about her slightly increased troponin but she adamantly denies any chest pain or shortness of breath. She states at this time she just feels achy and sore all over. When asked again the patient reiterates that she has had numerous episodes of this since 1996 of episodes of vomiting and diarrhea that at times she will have to come to the hospital for. Patient has been able to keep down fluids here but she did have a bowel movement that was diarrhea in nature. It was nonbloody and nonmelanotic. Patient still adamantly denies any abdominal pain. This time the patient appears to have a recurrence of what ever the disorder this is and she has had this worked up extensively in the outpatient setting. This time she is already called for a ride to come get her and she is asking for me to discharge her so she can be ready when they arrive. This time I see no evidence of acute life-threatening illness but I did inform the patient would like to observe her along her and even offer to admit her for observation but she declines. She does agree to return should her symptoms change or worsen. Lab Data: Attestation: I reviewed the patient's lab results. Labs: Lab Results 08/01/20 08/01/20 08/01/20 Range/Units 18:07 18:07 18:07 WBC 11.4 H (4.0-10.0) 10^3/ uL RBC 4.39 (4.1-5.3) 10^6/u L Hgb 13.7 (11.5-15.3) g/dL Hct 40.5 (37.0-47.0) % MCV 92.3 (81-99) fL MCH 31.2 (28.0-34.0) pg MCHC 33.8 (30.0-36.0) g/dL RDW 12.9 (12.1-15.1) % Plt Count 268 (130-400) 10^3/c mm MPV 9.8 (7.4-10.4) fL Neut % (Auto) 82.7 % Lymph % (Auto) 13.3 % Hopkins % (Auto) 3.4 % Eos % (Auto) 0.0 % Baso % (Auto) 0.1 % Neut # (Auto) 9.38 H (1.8-7.7) 10^3/u L Lymph # (Auto) 1.5 (0.8-4.8) 10^3/u L Hopkins # (Auto) 0.4 (0.2-0.9) 10^3/u L Eos # (Auto) 0.0 (0.0-0.8) 10^3/u L Baso # (Auto) 0.0 (0.0-0.1) 10^3/u L Nucleated RBC % (a uto) 0 % Nucleated RBCs # 0.0 /100WBC Sodium 139 (136-145) mmol/L Potassium 3.9 (3.5-5.1) mmol/L Chloride 104 (98-107) mmol/L Carbon Dioxide 20 L (22-29) mmol/L Anion Gap 18.9 (5-19) BUN 16 (8-23) mg/dL Creatinine 0.8 (0.5-0.9) mg/dL GFR Calculation 73.2 L (90-130) mL/min Glucose 153 H (65-115) mg/dL Calculated Osmolal ity 292 (285-295) mOsm/k g Lactic Acid 1.8 (0.5-2.2) mmol/L Calcium 9.6 (8.5-10.5) mg/dL Total Bilirubin 0.3 (0.15-1.2) mg/dL AST 26 (0-32) U/L ALT 27 (0-33) U/L Alkaline Phosphata se 71 (35-105) IU/L Troponin T Baselin e (0-10) ng/L Troponin T 120 Min [place] (0-10) ng/L Delta Troponin T (0-10) ABS# Total Protein 7.5 (6.6-8.7) g/dL Albumin 4.8 (3.5-5.2) g/dL Globulin 2.7 (1.3-4.6) g/dL Lipase 27 (13-60) U/L Urine Color (Yellow) Urine Appearance (CLEAR) Urine pH (5-7) Ur Specific Gravit y (1.005-1.030) Urine Protein (Negative) Urine Glucose (UA) (Normal) Urine Ketones (Negative) Urine Blood (Negative) Urine Nitrate (Negative) Urine Bilirubin (Negative) Prot Sulfosalicyli c Acd (Negative) Urine Urobilinogen (Negative) mg/dL Ur Leukocyte Elicia ase (Negative) Urine RBC (0-2) /hpf Urine WBC (0-5) /hpf Ur Squamous Epith Cells (0-5) /hpf Amorphous Sediment Urine Bacteria (NONE) /hpf Urine Opiates Scre en (Negative) ng/mL Ur Barbiturates Sc reen (Negative) ng/mL Ur Phencyclidine S crn (Negative) ng/mL Ur Amphetamines Sc reen (Negative) ng/mL U Benzodiazepines Scrn (Negative) ng/mL Urine Cocaine Scre en (Negative) ng/mL U Marijuana (THC) Screen (Negative) ng/mL Ethyl Alcohol < 10 (0-10) mg/dL 08/01/20 08/01/20 08/01/20 Range/Units 18:07 18:42 18:42 WBC (4.0-10.0) 10^3/ uL RBC (4.1-5.3) 10^6/u L Hgb (11.5-15.3) g/dL Hct (37.0-47.0) % MCV (81-99) fL MCH (28.0-34.0) pg MCHC (30.0-36.0) g/dL RDW (12.1-15.1) % Plt Count (130-400) 10^3/c mm MPV (7.4-10.4) fL Neut % (Auto) % Lymph % (Auto) % Hopkins % (Auto) % Eos % (Auto) % Baso % (Auto) % Neut # (Auto) (1.8-7.7) 10^3/u L Lymph # (Auto) (0.8-4.8) 10^3/u L Hopkins # (Auto) (0.2-0.9) 10^3/u L Eos # (Auto) (0.0-0.8) 10^3/u L Baso # (Auto) (0.0-0.1) 10^3/u L Nucleated RBC % (a uto) % Nucleated RBCs # /100WBC Sodium (136-145) mmol/L Potassium (3.5-5.1) mmol/L Chloride (98-107) mmol/L Carbon Dioxide (22-29) mmol/L Anion Gap (5-19) BUN (8-23) mg/dL Creatinine (0.5-0.9) mg/dL GFR Calculation (90-130) mL/min Glucose (65-115) mg/dL Calculated Osmolal ity (285-295) mOsm/k g Lactic Acid (0.5-2.2) mmol/L Calcium (8.5-10.5) mg/dL Total Bilirubin (0.15-1.2) mg/dL AST (0-32) U/L ALT (0-33) U/L Alkaline Phosphata se (35-105) IU/L Troponin T Baselin e 12 H (0-10) ng/L Troponin T 120 Min [place] (0-10) ng/L Delta Troponin T (0-10) ABS# Total Protein (6.6-8.7) g/dL Albumin (3.5-5.2) g/dL Globulin (1.3-4.6) g/dL Lipase (13-60) U/L Urine Color Yellow (Yellow) Urine Appearance Clear (CLEAR) Urine pH 8 H (5-7) Ur Specific Gravit y 1.015 (1.005-1.030) Urine Protein Neg (Negative) Urine Glucose (UA) Norm (Normal) Urine Ketones 1+ H (Negative) Urine Blood 2+ H (Negative) Urine Nitrate Negative (Negative) Urine Bilirubin Neg (Negative) Prot Sulfosalicyli c Acd Negative (Negative) Urine Urobilinogen Norm (Negative) mg/dL Ur Leukocyte Elicia ase Negative (Negative) Urine RBC 15-25 H (0-2) /hpf Urine WBC None (0-5) /hpf Ur Squamous Epith Cells 0-4 H (0-5) /hpf Amorphous Sediment Not Reportable Urine Bacteria Trace (NONE) /hpf Urine Opiates Scre en Negative (Negative) ng/mL Ur Barbiturates Sc reen Negative (Negative) ng/mL Ur Phencyclidine S crn Negative (Negative) ng/mL Ur Amphetamines Sc reen Negative (Negative) ng/mL U Benzodiazepines Scrn Negative (Negative) ng/mL Urine Cocaine Scre en Negative (Negative) ng/mL U Marijuana (THC) Screen Positive H (Negative) ng/mL Ethyl Alcohol (0-10) mg/dL 1124/20 Range/Units 19:36 WBC (4.0-10.0) 10^3/ uL RBC (4.1-5.3) 10^6/u L Hgb (11.5-15.3) g/dL Hct (37.0-47.0) % MCV (81-99) fL MCH (28.0-34.0) pg MCHC (30.0-36.0) g/dL RDW (12.1-15.1) % Plt Count (130-400) 10^3/c mm MPV (7.4-10.4) fL Neut % (Auto) % Lymph % (Auto) % Hopkins % (Auto) % Eos % (Auto) % Baso % (Auto) % Neut # (Auto) (1.8-7.7) 10^3/u L Lymph # (Auto) (0.8-4.8) 10^3/u L Hopkins # (Auto) (0.2-0.9) 10^3/u L Eos # (Auto) (0.0-0.8) 10^3/u L Baso # (Auto) (0.0-0.1) 10^3/u L Nucleated RBC % (a uto) % Nucleated RBCs # /100WBC Sodium (136-145) mmol/L Potassium (3.5-5.1) mmol/L Chloride (98-107) mmol/L Carbon Dioxide (22-29) mmol/L Anion Gap (5-19) BUN (8-23) mg/dL Creatinine (0.5-0.9) mg/dL GFR Calculation (90-130) mL/min Glucose (65-115) mg/dL Calculated Osmolal ity (285-295) mOsm/k g Lactic Acid (0.5-2.2) mmol/L Calcium (8.5-10.5) mg/dL Total Bilirubin (0.15-1.2) mg/dL AST (0-32) U/L ALT (0-33) U/L Alkaline Phosphata se (35-105) IU/L Troponin T Baselin e (0-10) ng/L Troponin T 120 Min [place] 16.67 H (0-10) ng/L Delta Troponin T 4.67 (0-10) ABS# Total Protein (6.6-8.7) g/dL Albumin (3.5-5.2) g/dL Globulin (1.3-4.6) g/dL Lipase (13-60) U/L Urine Color (Yellow) Urine Appearance (CLEAR) Urine pH (5-7) Ur Specific Gravit y (1.005-1.030) Urine Protein (Negative) Urine Glucose (UA) (Normal) Urine Ketones (Negative) Urine Blood (Negative) Urine Nitrate (Negative) Urine Bilirubin (Negative) Prot Sulfosalicyli c Acd (Negative) Urine Urobilinogen (Negative) mg/dL Ur Leukocyte Elicia ase (Negative) Urine RBC (0-2) /hpf Urine WBC (0-5) /hpf Ur Squamous Epith Cells (0-5) /hpf Amorphous Sediment Urine Bacteria (NONE) /hpf Urine Opiates Scre en (Negative) ng/mL Ur Barbiturates Sc reen (Negative) ng/mL Ur Phencyclidine S crn (Negative) ng/mL Ur Amphetamines Sc reen (Negative) ng/mL U Benzodiazepines Scrn (Negative) ng/mL Urine Cocaine Scre en (Negative) ng/mL U Marijuana (THC) Screen (Negative) ng/mL Ethyl Alcohol (0-10) mg/dL Imaging Data^: CT Head: Radiologist's impression: [facility] [id number] [address] Scan Report Signed Patient: Kasey Sousa Unit #: [id number] : 1960 Age/Sex: 60 / F ADM Date: 08/01/20 Loc: ER Room/Bed: Attending Dr: Ordering Provider/Ordering MD: Marlene Mora DO Date of Service: 08/01/20 Procedure(s): CT head wo con* [id number] Accession Number(s): [id number] Report Number: [id number] PROCEDURE INFORMATION: Exam: CT Head Without Contrast Exam date and time: 08/01/2020 6:43 PM Age: 60 years old Clinical indication: Pain; Other: N/v; Headache; Additional info: Headache/vomiting TECHNIQUE: Imaging protocol: Computed tomography of the head without contrast. Radiation optimization: All CT scans at this facility use at least one of these dose optimization techniques: automated exposure control; mA and/or kV adjustment per patient size (includes targeted exams where dose is matched to clinical indication); or iterative reconstruction. COMPARISON: CT head wo con* [id number] 04/22/2020 8:55 PM RADIATION DOSE METRICS: Total DLP (mGy-cm): 1333.83 FINDINGS: Limitations: The study is limited by patient motion artifact. Brain: Unremarkable. No hemorrhage. No significant white matter disease. No edema. Cerebral ventricles: No ventriculomegaly. Bones/joints: Unremarkable. No acute fracture. Paranasal sinuses: Visualized sinuses are unremarkable. No fluid levels. Mastoid air cells: Unremarkable as visualized. No mastoid effusion. Soft tissues: Unremarkable. CT/CT head wo con* [id number] IMPRESSION: 1. The study is limited by patient motion artifact. 2. No acute intracranial abnormality demonstrated. 3. There is no interval change from the prior examination. Radiation Dose CTDIVOL = (mGy): DLP = 1333.83 (mGy-cm) Dictated By: Aguilar Tillman MD Signed By: Aguilar Tillman MD Signed Date/Time: 08/01/201918 DD/ 16 EKG Data^: EKG 1: Attestation: I personally reviewed and interpreted this EKG as follows: EKG interpretation date: 08/01/20 EKG interpretation time: 18:44 Interpretation: Sinus bradycardia with a ventricular to 54 beats a minute, significant wandering baseline artifact, nonspecific ST and T wave changes. Similar to previous EKG 2: Attestation: I personally reviewed and interpreted this EKG as follows: EKG interpretation date: 08/01/20 EKG interpretation time: 20:48 Interpretation: Sinus bradycardia 58 beats a minute, no blocks, normal intervals, nonspecific ST-T wave changes. Similar to previous. Discharge Plan Discharge Patient Disposition: Home Clinical Impression: Vomiting and diarrhea Condition: Stable Prescriptions: New Reglan 10 mg tablet 10 mg PO Q6H PRN (Reason: nausea and vomiting) Qty: 20 RF: 0 No Action diclofenac sodium [Voltaren] 1 % gel 2 g topical QID Qty: 300 RF: 0 aspirin [Adult Low Dose Aspirin] 81 mg tablet,delayed release (DR/EC) 81 mg PO DAILY RF: 0 atorvastatin 40 mg tablet 40 mg PO DAILY 30 Days Qty: 30 RF: 2 celecoxib 400 mg capsule 400 mg PO DAILY 30 Days Qty: 30 RF: 2 escitalopram oxalate 10 mg tablet 10 mg PO DAILY 30 Days Qty: 30 RF: 2 hydroxyzine pamoate 25 mg capsule 25 mg PO TID 30 Days Qty: 90 RF: 2 lisinopril 20 mg tablet 20 mg PO DAILY 30 Days Qty: 30 RF: 2 trazodone 150 mg tablet 150 mg PO DAILY 30 Days Qty: 30 RF: 2 Bevespi Aerosphere 9-4.8 mcg HFA aerosol inhaler 2 puff INHALATION Q12H Qty: 10.7 RF: 2 oxybutynin chloride 5 mg tablet 5 mg PO TID 30 Days Qty: 90 RF: 2 albuterol sulfate [ProAir HFA] 90 mcg/actuation HFA aerosol inhaler 2 puff INHALATION QID PRN (Reason: shortness of breath or wheezing) Qty: 18 RF: 2 promethazine-DM 6.25-15 mg/5 mL syrup 5 ml PO Q6H PRN (Reason: cough) Qty: 120 RF: 0 ondansetron 4 mg tablet,disintegrating 4 mg PO Q6H PRN (Reason: nausea and vomiting) Qty: 14 RF: 0 Multivitamin Women 50 Plus 8 mg iron-400 mcg-300 mcg Tablet 1 tab PO DAILY RF: 0 latanoprost (PF) 0.005 % drops 1 drp ophthalmic (eye) BEDTIME RF: 0 Discharge Orders: Discharge Order (Routine); Ordered 08/01/20 Ordered By: Mralene Mora Referrals: Vero Moon, EP TECHNOLOGIST-C [Primary Care Provider] - 1-3 days Discharge Diet: Advance as tolerated and Clear Liquid Discharge Activity: Increase activity as tolerated Patient Instructions: Acute Nausea and Vomiting (ED), Abdominal Pain (ED) Activity Restrictions/Additional Instructions: Please return to the ER immediately for any of the signs or symptoms listed on your discharge instruction sheets, worsening/changing of your symptoms, you are not getting better as quickly as expected, or for ANY other cause or concerns. You have declined any further evaluation and care and have chosen to follow-up with your regular doctor. If your symptoms change or worsen in any way or you begin to feel sick again please return here to the ER immediately for recheck. Sign Out Sign Out Data: Patient Sign Out occurred on 08/01/20 at 18:13. Patient's care was discussed, and care was transferred from to Marlene Mora. Coding Level of Care Code ED Master Fire Control Technician for [place] [facility] Exam Comprehensive
[2020-08-01] MEDS: famotidine 20 mg/2 mL INJ 40 MG IVP (18:17)
[2020-08-01] MEDS: sodium chloride 0.9% 1,000 ML 999 ML IV (18:17)
[2020-08-01] MEDS: promethazine 25 mg/mL SDV 1 mL IM (18:17)
[2020-08-01 18:26] LABS: Basophils % 0.1 %; Hematocrit 40.5 % (37.0-47.0); Hemoglobin 13.7 g/dL (11.5-15.3); Lymphocytes # 1.5 10^3/uL (0.8-4.8); Lymphocytes % 13.3 %; Mean Corpuscular HGB Conc 33.8 g/dL (30.0-36.0); Mean Corpuscular Hemoglobin 31.2 pg (28.0-34.0); Mean Corpuscular Volume 92.3 fL (81-99); Mean Platelet Volume 9.8 fL (7.4-10.4); Monocytes # 0.4 10^3/uL (0.2-0.9); Monocytes % 3.4 %; Neutrophils # 9.38 10^3/uL (1.8-7.7); Neutrophils % 82.7 %; Nucleated Red Blood Cells % 0 %; Platelet Count 268 10^3/cmm (130-400); Red Blood Count 4.39 10^6/uL (4.1-5.3); Red Cell Distribution Width 12.9 % (12.1-15.1); White Blood Count 11.4 10^3/uL (4.0-10.0)
--- NOTE | 2020-08-01 18:35 | CTR_ITS ---
PROCEDURE INFORMATION: Exam: CT Head Without Contrast Exam date and time: 08/01/2020 6:43 PM Age: 60 years old Clinical indication: Pain; Other: N/v; Headache; Additional info: Headache/vomiting TECHNIQUE: Imaging protocol: Computed tomography of the head without contrast. Radiation optimization: All CT scans at this facility use at least one of these dose optimization techniques: automated exposure control; mA and/or kV adjustment per patient size (includes targeted exams where dose is matched to clinical indication); or iterative reconstruction. COMPARISON: CT head wo con* [id number] 04/22/2020 8:55 PM RADIATION DOSE METRICS: Total DLP (mGy-cm): 1333.83 FINDINGS: Limitations: The study is limited by patient motion artifact. Brain: Unremarkable. No hemorrhage. No significant white matter disease. No edema. Cerebral ventricles: No ventriculomegaly. Bones/joints: Unremarkable. No acute fracture. Paranasal sinuses: Visualized sinuses are unremarkable. No fluid levels. Mastoid air cells: Unremarkable as visualized. No mastoid effusion. Soft tissues: Unremarkable. CT/CT head wo con* [id number] IMPRESSION: 1. The study is limited by patient motion artifact. 2. No acute intracranial abnormality demonstrated. 3. There is no interval change from the prior examination. Radiation Dose CTDIVOL = (mGy): DLP = 1333.83 (mGy-cm)
[2020-08-01 18:53] LABS: Lactic Sepsis W/Reflex 1.8 mmol/L (0.5-2.2)
--- NOTE | 2020-08-01 18:53 | ECG_ITS ---
[facility] Test Date: 2020-08-01 Pat Name: Kasey Sousa Department: Room: Gender: Female Income Tax Adjuster: : 1960 Requested By: Marlene Iqbal Order Number: [id number] Zoe MD: LISA MUÑOZ Measurements Intervals [place] Rate: 58 P: 61 SD: 152 QRS: 64 QRSD: 89 T: 67 QT: 425 QTc: 419 Interpretive Statements SINUS BRADYCARDIA WITH SINUS ARRHYTHMIA Compared to ECG 08/01/2020 18:44:46 Short SD interval no longer present ST (T wave) deviation no longer present Electronically Signed On 08-03-2020 15:24:50 STORES LABORER by LISA MUÑOZ [id number]
[2020-08-01 18:54] LABS: Alanine Aminotransferase 27 U/L (0-33); Albumin Level 4.8 g/dL (3.5-5.2); Alkaline Phosphatase 71 IU/L (35-105); Anion Gap 18.9 (5-19); Aspartate Amino Transferase 26 U/L (0-32); Blood Urea Nitrogen 16 mg/dL (8-23); Calcium 9.6 mg/dL (8.5-10.5); Carbon Dioxide 20 mmol/L (22-29); Chloride 104 mmol/L (98-107); Globulin 2.7 g/dL (1.3-4.6); Glomerular Filtration Rate 73.2 mL/min (90-130); Glucose 153 mg/dL (65-115); Lipase 27 U/L (13-60); Osmolality Calculated 292 mOsm/kg (285-295); Potassium 3.9 mmol/L (3.5-5.1); Sodium 139 mmol/L (136-145); Total Bilirubin 0.3 mg/dL (0.15-1.2); Total Protein 7.5 g/dL (6.6-8.7)
[2020-08-01 18:57] LABS: Alcohol Level < 10 mg/dL (0-10)
[2020-08-01 19:02] LABS: Glucose Urine UA Norm (Normal); Protein Urine Neg (Negative); Specific Gravity, Urine 1.015 (1.005-1.030); Urine Appearance Clear (CLEAR); Urine Color Yellow (Yellow); pH Urine 8 (5-7)
[2020-08-01 19:03] LABS: Add Urine Microscopic? YES; Bilirubin Urine Neg (Negative); Blood Urine 2+ (Negative); Ketones Urine 1+ (Negative); Leukocyte Esterase Urine Negative (Negative); Nitrate Urine Negative (Negative); Sulfosalicylic Acid Urine Negative (Negative); Urobilinogen Urine Norm (Negative)
[2020-08-01 19:09] LABS: Amphetamines Screen Urine Negative (Negative); Barbiturates Screen Urine Negative (Negative); Benzodiazepines Screen Urine Negative (Negative); Cocaine Screen Urine Negative (Negative); Opiate Screen Urine Negative (Negative); PCP Screen Urine Negative (Negative); THC Screen Urine Positive (Negative)
--- NOTE | 2020-08-01 19:09 | PC.NURSE ---
Report received from ESTER Tan and care transferred to ESTER Francois
[2020-08-01 19:16] LABS: Troponin(5th) Baseline 12 ng/L (0-10)
[2020-08-01 19:17] LABS: Bacteria Urine TRACE /hpf; RBC Urine 15-25 /hpf (0-2); Squamous Epithelial Cell Urine 0-4 /hpf (0-5)
[2020-08-01 19:18] LABS: Add Urine Culture? No
[2020-08-01] MEDS: metoclopramide 5 mg/mL SDV 2 mL 10 MG IVP (20:08)
[2020-08-01] MEDS: ketorolac 30 mg/mL INJ 10 MG IVP (20:08)
[2020-08-01] MEDS: diphenhydrAMINE 50 mg/mL SDV 1mL 12.5 MG IVP (20:09)
[2020-08-01 20:16] LABS: Troponin 5 2HR 16.67 ng/L (0-10); Troponin 5 2HR Delta 4.67 ABS# (0-10)
[2020-08-01] MEDS: sodium chloride 0.9% 1,000 ML 100 ML IV (21:32)
--- NOTE | 2020-08-01 21:34 | PC.NURSE ---
patient drank water without vomiting.
[2020-08-01] MEDS: morphine 4 mg/mL SDV 1 mL 5 MG IVP (22:21)
== END 2020-08-01 23:33 | disposition home or self-care (01) ==
PROVIDERS: Emergency Medicine; Emergency Provider Emergency Medicine; PCP Nurse Practitioner
DX: R11.10 Vomiting, unspecified (principal); R19.7 Diarrhea, unspecified; Z79.82 Long term (current) use of aspirin; J44.9 Chronic obstructive pulmonary disease, unspecified; E78.5 Hyperlipidemia, unspecified; I10 Essential (primary) hypertension; Z87.891 Personal history of nicotine dependence
CPT/HCPCS: 12345; 70450; 80053; 80306; 80307; 81001; 83605; 83690; 84484; 85025; 93005; 96361; 96372; 96374; 96375; 99282; 99284; J0131; J1200; J1885; J2270; J2550; J2765; J3490; J7030

== ENCOUNTER 2020-08-18 09:41 | Emergency (ER) | payer MEDICAID, SELFPAY ==
[2020-08-18 09:46] VITALS: PULSE 62; RESP 16; TEMP 36.6; O2SAT 100; BMI 24.5
--- NOTE | 2020-08-18 09:49 | W.ED.NAVMDI ---
HPI - Nausea/Vomiting/Diarrhea General: Chief complaint: Nausea/Vomiting/Diarrhea Stated complaint: N/V Time Seen by Provider: 08/18/20 09:43 History of Present Illness: HPI Narrative: Patient is a 60-year-old female comes to the ED via EMS with nausea and vomiting. Patient says she has had these symptoms before and was seen here in the ED for same complaint on August 01. Acute nausea and vomiting started this morning when she woke up. Patient does admit to being a chronic THC user and states that the last time she was seen here in the ED on August 01 for same complaint they told her that it is likely due to the THC use. She says she has some abdominal pain that is due to her excessive vomiting this morning. Associated nausea: Yes Associated symtoms: Reports headache(s) and nausea; Denies change in vision, chest pain, dysuria, fatigue or palpitations Review of Systems Const: Denies: fever(s), chills or fatigue Eyes: Denies: change in vision or eye discomfort ENMT: Denies: throat pain, odynophagia, nasal discharge or nasal congestion Card: Denies: chest pain, palpitations, edema, swelling of feet/ankles, dyspnea on exertion or orthopnea Resp: Denies: dyspnea, productive cough or non-productive cough GI: Reports: nausea and vomiting; Denies: abdominal pain, diarrhea, constipation or hematochezia : Denies: flank pain, dysuria or hematuria Musc: Denies: neck pain, back pain or extremity swelling Skin/Breast: Denies: rash or new lesions Neuro: Reports: headache(s); Denies: numbness in extremities or weakness in extremities [facility] ED PFSH: Medical History Anxiety and depression COPD (chronic obstructive pulmonary disease) Dyslipidemia Essential (primary) hypertension Glaucoma (increased eye pressure) Insomnia Osteoarthritis Smoker Urinary frequency Surgical History History of carpal tunnel release of both wrists Hx of arthroscopic knee surgery (~2012) left Family History Other COPD (chronic obstructive pulmonary disease) Cancer Social History Smoking and tobacco status: current every day smoker Second hand smoke exposure: Yes Smoking risk assessment/counseling performed?: Yes Alcohol intake: never Desire information about alcohol rehabilitation?: No Counseling given: No Substance/Drug Use: current Substance/Drug use frequency: daily Substance/Drug use type: Marijuana Adopted: No Caregiver/support person: No Lives independently: Yes Household members: spouse Housing: House Marital status: service: No History of recent travel: No Current gender identity: Female Physical Exam Const: COMMON NORMALS: patient oriented x3 and alert GENERAL APPEARANCE: cooperative, comfortable and lethargic (Patient appears tired and sleepy.) HENMT: COMMON NORMALS: normocephalic HEAD & SCALP: normocephalic MOUTH: moist mucous membranes abnormal (mild to mod) Details: parched THROAT: posterior oropharynx normal and uvula midline Eye: COMMON NORMALS: Equal, round and reactive pupils present PUPIL: Yes Equal, round and reactive pupils present Neck/C-Spine: COMMON NORMALS: supple GENERAL: Yes normal visual inspection Resp: COMMON NORMALS: normal respiratory effort, No retractions, No use of accessory muscles and clear to auscultation bilaterally AUSCULTATION: clear to auscultation bilaterally Cardio: COMMON NORMALS: regular rate, regular rhythm, S1 normal heart sound present, S2 normal heart sound present, No gallops present (Cardio), No clicks present (Cardio), No murmurs present (Cardio) and Peripheral pulses 2+ throughout RATE: regular rate RHYTHM: regular rhythm HEART SOUNDS: S1 normal heart sound present and S2 normal heart sound present PERIPHERAL PULSES: Peripheral pulses 2+ throughout GI: COMMON NORMALS: Normal to inspection, nondistended, normoactive bowel sounds present, Soft to palpation, non-tender and no masses PALPATION: Yes Soft to palpation : COMMON NORMALS: Yes no CVA tenderness BLADDER/KIDNEY EXAM: Yes no CVA tenderness Back/Pelvis: COMMON NORMALS: no CVA tenderness Extremity: COMMON NORMALS: normal to inspection and no pedal edema Neuro: COMMON NORMALS: patient oriented x3 and moves all extremities SENSORIUM/ORIENTATION: Yes alert Skin: GENERAL SKIN EXAM: dry skin Course Reevaluation(s): Reevaluation #1: Patient has been given IV fluids and a dose of Reglan and a dose of Zofran to try to control nausea. Patient is still been nauseous and vomiting while here in the ED. I have ordered another dose of Reglan and some Ativan to see if I can get her nausea under control. Time: 13:48 Reevaluation #2: Patient says she feels better than she did earlier and her nausea has improved and she is ready to go home and rest and I told her I will send her home with some nausea meds. Time: 15:32 Vital Signs: Vital signs: Vital Signs Temperature 98 F 08/18/20 09:46 Pulse Rate 84 08/18/20 15:48 Respiratory Rate 16 08/18/20 15:48 Blood Pressure 128/91 08/18/20 15:48 Pulse Oximetry 96 08/18/20 15:48 MDM - Nausea/Vomiting/Diarrhea MDM Narrative: Medical decision making narrative: Patient is a 60-year-old female comes to the ED with acute nausea vomiting. Patient has been seen here in the ED for same complaint before and her last visit to the ED was on . Patient admits to being a chronic marijuana smoker. CBC, CMP, lipase and UA were unremarkable. Patient symptoms improved after 2 L of IV fluid and multiple doses of antinausea meds. Patient was discharged and diagnosed with cannabinoid hyperemesis syndrome. Cessation of marijuana encouraged to help with symptoms. She was sent home with a prescription for Reglan and given return to ED precautions. Follow-up with PCP in 7 to 10 days. Patient understood and agreed with plan. Lab Data: Attestation: I reviewed the patient's lab results. Labs: Lab Results 08/18/20 08/18/20 08/18/20 Range/Units 10:03 10:03 12:14 WBC 10.6 H (4.0-10.0) 10^3/ uL RBC 4.30 (4.1-5.3) 10^6/u L Hgb 13.2 (11.5-15.3) g/dL Hct 41.1 (37.0-47.0) % MCV 95.6 (81-99) fL MCH 30.7 (28.0-34.0) pg MCHC 32.1 (30.0-36.0) g/dL RDW 13.3 (12.1-15.1) % Plt Count 246 (130-400) 10^3/c mm MPV 9.8 (7.4-10.4) fL Neut % (Auto) 76.0 % Lymph % (Auto) 19.6 % [place] % (Auto) 2.8 % Eos % (Auto) 0.8 % Baso % (Auto) 0.3 % Neut # (Auto) 8.04 H (1.8-7.7) 10^3/u L Lymph # (Auto) 2.1 (0.8-4.8) 10^3/u L [place] # (Auto) 0.3 (0.2-0.9) 10^3/u L Eos # (Auto) 0.1 (0.0-0.8) 10^3/u L Baso # (Auto) 0.0 (0.0-0.1) 10^3/u L Nucleated RBC % (a uto) 0 % Nucleated RBCs # 0.0 /100WBC Sodium 137 (136-145) mmol/L Potassium 4.0 (3.5-5.1) mmol/L Chloride 105 (98-107) mmol/L Carbon Dioxide 21 L (22-29) mmol/L Anion Gap 15.0 (5-19) BUN 13 (8-23) mg/dL Creatinine 0.8 (0.5-0.9) mg/dL GFR Calculation 73.2 L (90-130) mL/min Glucose 120 H (65-115) mg/dL Calculated Osmolal ity 285 (285-295) mOsm/k g Calcium 9.1 (8.5-10.5) mg/dL Total Bilirubin 0.3 (0.15-1.2) mg/dL AST 21 (0-32) U/L ALT 17 (0-33) U/L Alkaline Phosphata se 64 (35-105) IU/L Total Protein 6.9 (6.6-8.7) g/dL Albumin 4.3 (3.5-5.2) g/dL Globulin 2.6 (1.3-4.6) g/dL Lipase 24 (13-60) U/L Urine Color Yellow (Yellow) Urine Appearance Clear (CLEAR) Urine pH 7 (5-7) Ur Specific Gravit y 1.010 (1.005-1.030) Urine Protein Neg (Negative) Urine Glucose (UA) Norm (Normal) Urine Ketones Negative (Negative) Urine Blood Neg (Negative) Urine Nitrate Negative (Negative) Urine Bilirubin Neg (Negative) Urine Urobilinogen Norm (Negative) mg/dL Ur Leukocyte Elicia ase Negative (Negative) Urine RBC 5-10 H (0-2) /hpf Urine WBC 0-4 H (0-5) /hpf Ur Squamous Epith Cells 0-4 H (0-5) /hpf Amorphous Sediment Not Reportable Urine Bacteria 1+ H (NONE) /hpf Urine Mucus Trace /hpf Discharge Plan Discharge Patient Disposition: Home Clinical Impression: Cannabinoid hyperemesis syndrome Condition: Stable Prescriptions: New Reglan 10 mg tablet 10 mg PO Q6H PRN (Reason: nausea and vomiting) Qty: 30 RF: 0 No Action diclofenac sodium [Voltaren] 1 % gel 2 g topical QID Qty: 300 RF: 0 aspirin [Adult Low Dose Aspirin] 81 mg tablet,delayed release (DR/EC) 81 mg PO DAILY@0800 RF: 0 ondansetron 4 mg tablet,disintegrating 4 mg PO Q6H PRN (Reason: nausea and vomiting) Qty: 14 RF: 2 promethazine-DM 6.25-15 mg/5 mL syrup 5 ml PO Q6H PRN (Reason: cough) Qty: 240 RF: 0 Bevespi Aerosphere 9-4.8 mcg HFA aerosol inhaler 2 puff INHALATION Q12H Qty: 10.7 RF: 2 albuterol sulfate [ProAir HFA] 90 mcg/actuation HFA aerosol inhaler 2 puff INHALATION QID PRN (Reason: shortness of breath or wheezing) Qty: 18 RF: 2 atorvastatin 40 mg tablet 40 mg PO DAILY@0800 RF: 0 lisinopril 20 mg tablet 20 mg PO DAILY@0800 RF: 0 trazodone 150 mg tablet 150 mg PO DAILY@1999 RF: 0 oxybutynin chloride 5 mg tablet 5 mg PO TID@08,12,20 RF: 0 hydroxyzine pamoate 25 mg capsule 25 mg PO TID@0800,12,20 RF: 0 escitalopram oxalate 10 mg tablet 10 mg PO DAILY@0800 RF: 0 celecoxib 400 mg capsule 400 mg PO DAILY@0800 RF: 0 Multivitamin Women 50 Plus 8 mg iron-400 mcg-300 mcg Tablet 1 tab PO DAILY@0800 RF: 0 latanoprost (PF) 0.005 % drops 1 drp ophthalmic (eye) BEDTIME@1999 RF: 0 Discharge Orders: Discharge ED (Routine); Ordered 08/18/20 Ordered By: Mg Marie Referrals: Vero Moon, SALES AND MARKETING SPECIALIST-C [Primary Care Provider] - Discharge Diet: Regular Discharge Activity: Increase activity as tolerated Patient Instructions: Acute Nausea and Vomiting (ED) Activity Restrictions/Additional Instructions: Follow-up with medical provider as directed in 5 to 7 days for reevaluation. Take medications as prescribed. Sending you with a prescription for Reglan for nausea. Make sure you are drinking plenty of fluids and staying hydrated. Cessation of THC use can help improve symptoms and reduce chances of recurrence. Return to the ER or your medical provider if condition worsens. Please read and understand discharge instructions. If any questions, please ask. Coding Level of Care Code ED Industrial Editor for [place] May[facility] Exam Comprehensive
[2020-08-18 10:08] VITALS: BP 148/103; PULSE 69; RESP 20; O2SAT 100
[2020-08-18 10:15] LABS: Basophils % 0.3 %; Eosinophils # 0.1 10^3/uL (0.0-0.8); Eosinophils % 0.8 %; Hematocrit 41.1 % (37.0-47.0); Hemoglobin 13.2 g/dL (11.5-15.3); Lymphocytes # 2.1 10^3/uL (0.8-4.8); Lymphocytes % 19.6 %; Mean Corpuscular HGB Conc 32.1 g/dL (30.0-36.0); Mean Corpuscular Hemoglobin 30.7 pg (28.0-34.0); Mean Corpuscular Volume 95.6 fL (81-99); Mean Platelet Volume 9.8 fL (7.4-10.4); Monocytes # 0.3 10^3/uL (0.2-0.9); Monocytes % 2.8 %; Neutrophils # 8.04 10^3/uL (1.8-7.7); Nucleated Red Blood Cells % 0 %; Platelet Count 246 10^3/cmm (130-400); Red Cell Distribution Width 13.3 % (12.1-15.1); White Blood Count 10.6 10^3/uL (4.0-10.0)
[2020-08-18 10:31] LABS: Alanine Aminotransferase 17 U/L (0-33); Albumin Level 4.3 g/dL (3.5-5.2); Alkaline Phosphatase 64 IU/L (35-105); Aspartate Amino Transferase 21 U/L (0-32); Blood Urea Nitrogen 13 mg/dL (8-23); Calcium 9.1 mg/dL (8.5-10.5); Carbon Dioxide 21 mmol/L (22-29); Chloride 105 mmol/L (98-107); Globulin 2.6 g/dL (1.3-4.6); Glomerular Filtration Rate 73.2 mL/min (90-130); Glucose 120 mg/dL (65-115); Lipase 24 U/L (13-60); Osmolality Calculated 285 mOsm/kg (285-295); Sodium 137 mmol/L (136-145); Total Bilirubin 0.3 mg/dL (0.15-1.2); Total Protein 6.9 g/dL (6.6-8.7)
[2020-08-18] MEDS: sodium chloride 0.9% 1,000 ML 999 ML IV ×2 (10:36→12:30)
[2020-08-18] MEDS: ondansetron 2 mg/ML SDV 2 mL 4 MG IVP (10:36)
[2020-08-18] MEDS: ketorolac 30 mg/mL INJ IVP (11:04)
[2020-08-18] MEDS: metoclopramide 5 mg/mL SDV 2 mL 10 MG IVP ×2 (12:31→14:12)
[2020-08-18 12:45] LABS: Bilirubin Urine Neg (Negative); Blood Urine Neg (Negative); Glucose Urine UA Norm (Normal); Ketones Urine Negative (Negative); Leukocyte Esterase Urine Negative (Negative); Nitrate Urine Negative (Negative); Protein Urine Neg (Negative); Urine Appearance Clear (CLEAR); Urine Color Yellow (Yellow); Urobilinogen Urine Norm (Negative); pH Urine 7 (5-7)
[2020-08-18 12:47] LABS: Add Urine Culture? No; Bacteria Urine 1+ /hpf; Mucus Urine TRACE /hpf; Squamous Epithelial Cell Urine 0-4 /hpf (0-5); WBC Urine 0-4 /hpf (0-5)
[2020-08-18] MEDS: LORazepam 2 mg/mL INJ 1 mL 1 MG IVP (14:12)
[2020-08-18 14:52] VITALS: BP 128/91; PULSE 82; RESP 18; O2SAT 99
[2020-08-18 15:48] VITALS: BP 128/91; PULSE 84; RESP 16; O2SAT 96
== END 2020-08-18 15:56 | disposition home or self-care (01) ==
PROVIDERS: Emergency Provider Physician Assistant; PCP Nurse Practitioner
DX: R11.2 Nausea with vomiting, unspecified (principal); F12.90 Cannabis use, unspecified, uncomplicated; Z79.82 Long term (current) use of aspirin; J44.9 Chronic obstructive pulmonary disease, unspecified; E78.5 Hyperlipidemia, unspecified; I10 Essential (primary) hypertension; F17.210 Nicotine dependence, cigarettes, uncomplicated
CPT/HCPCS: 12345; 80053; 81001; 83690; 85025; 96361; 96374; 96375; 96376; 99283; J1885; J2060; J2405; J2765; J7030

== ENCOUNTER 2020-08-31 13:33 | Emergency (ER) | payer MEDICAID, SELFPAY ==
[2020-08-31 13:35] VITALS: BP 159/82; PULSE 59; RESP 18; TEMP 36.6; O2SAT 95; BMI 24.5
--- NOTE | 2020-08-31 13:38 | ED_ITS ---
HPI - Nausea/Vomiting/Diarrhea General: Chief complaint: Nausea/Vomiting/Diarrhea Stated complaint: N/V Time Seen by Provider: 08/31/20 13:38 Source: patient Mode of arrival: ambulatory Limitations: no limitations History of Present Illness: HPI Narrative: Patient comes in with nausea and vomiting starting this morning at 8:00. Patient has had similar episodes since 1996. Patient's last episode that she was transported to the ER was on 18 August. Patient has been seen in the emergency room 4 times this year. Patient reports has had endoscopy which showed nothing. It was thought patient may have cannabinoid hyperemesis syndrome due to your use of marijuana. Patient states she has not used marijuana in 1 week ago. Patient denies alcohol use. Associated nausea: Yes Associated symtoms: Reports nausea Review of Systems General: Reports: 10 or more systems reviewed and unremarkable except in HPI and below GI: Reports: nausea and vomiting [facility] ED PFSH: Medical History Anxiety and depression COPD (chronic obstructive pulmonary disease) Dyslipidemia Essential (primary) hypertension Glaucoma (increased eye pressure) Insomnia Osteoarthritis Smoker Urinary frequency Surgical History History of carpal tunnel release of both wrists Hx of arthroscopic knee surgery (~2012) left Family History Other COPD (chronic obstructive pulmonary disease) Cancer Social History Smoking and tobacco status: current every day smoker Second hand smoke exposure: Yes Smoking risk assessment/counseling performed?: Yes Alcohol intake: never Desire information about alcohol rehabilitation?: No Counseling given: No Adopted: No Caregiver/support person: No Lives independently: Yes Household members: spouse Housing: House Marital status: service: No History of recent travel: No Current gender identity: Female Physical Exam Const: COMMON NORMALS: no acute distress and patient oriented x3 GENERAL APPEARANCE: cooperative HENMT: COMMON NORMALS: normocephalic and Normal external nose present HEAD & SCALP: normal to inspection and normocephalic NOSE: Normal external nose present MOUTH: Normal oral and palatal mucosa present THROAT: posterior oropharynx normal Eye: GENERAL EYE: appearance normal, both eyes and all related structures Neck/C-Spine: COMMON NORMALS: full ROM Lymph: LYMPHATIC: no lymphadenopathy noted Chest: COMMONS NORMALS: normal inspection of the chest Resp: COMMON NORMALS: normal respiratory effort EFFORT & INSPECTION: Yes able to speak in complete sentences Cardio: COMMON NORMALS: regular rate and regular rhythm RATE: regular rate RHYTHM: regular rhythm GI: COMMON NORMALS: Soft to palpation INSPECTION: Yes normal to inspection AUSCULTATION: Yes normoactive bowel sounds PALPATION: Yes Soft to palpation and Yes Tenderness to palpation present (GI) (General) : COMMON NORMALS: Yes no CVA tenderness BLADDER/KIDNEY EXAM: Yes no CVA tenderness Back/Pelvis: COMMON NORMALS: no CVA tenderness and thoracic and lumbar spine normal to inspection Extremity: COMMON NORMALS: normal to inspection Neuro: COMMON NORMALS: patient oriented x3 and moves all extremities Psych: COMMON NORMALS: mental status grossly normal and cooperative Skin: COMMON NORMALS: no rashes or lesions noted GENERAL SKIN EXAM: no rashes or lesions noted Course ED course: 1500, patient reports resolution of nausea and vomiting, does report headache. Awaiting labs and completion of IV fluids bolus. wjw Vital Signs: Vital signs: Vital Signs Temperature 97.9 F 08/31/20 13:35 Pulse Rate 84 08/31/20 15:30 Respiratory Rate 24 H 08/31/20 15:30 Blood Pressure 152/70 08/31/20 15:30 Pulse Oximetry 96 08/31/20 15:30 MDM - Nausea/Vomiting/Diarrhea MDM Narrative: Medical decision making narrative: 60-year-old female comes in with nausea vomiting starting at 8:00 this morning. Patient reports that she has had several episodes similar to this over the last 6 months. Patient reports that she has had episodes like this since 1996. Patient reports they have not been able to figure out why she gets these symptoms and severe episodes of nausea and vomiting. Patient appears mildly unwell. Abdomen was soft with some mild tenderness. Respirations were even lungs were clear to auscultation. Skin was warm and dry. Vital signs were normal. Differential diagnosis includes pancreatitis, cholecystitis, gastroenteritis, cyclic vomiting syndrome. Laboratory values noticed white count was at 13,000, urine was contaminated with large amount of skin cells but also noted some blood and some white blood cells in it. CMP noted normal liver enzymes, bilirubin, and lipase. Reviewing patient's history suspect that probably is a cyclic vomiting syndrome, we will try promethazine suppositories for patient to use to see if she can abort the episode at home without coming to the emergency department. Patient did have g ood results with IV fluids Haldol and Benadryl. Although, patient did have a headache after medication and required ketorolac for cessation of headache. Lab Data: Labs: Lab Results 08/31/20 08/31/20 08/31/20 Range/Units 14:33 14:33 14:33 WBC 13.2 H (4.0-10.0) 10^3/ uL RBC 4.65 (4.1-5.3) 10^6/u L Hgb 14.6 (11.5-15.3) g/dL Hct 43.8 (37.0-47.0) % MCV 94.2 (81-99) fL MCH 31.4 (28.0-34.0) pg MCHC 33.3 (30.0-36.0) g/dL RDW 13.3 (12.1-15.1) % Plt Count 235 (130-400) 10^3/c mm MPV 9.7 (7.4-10.4) fL Neut % (Auto) 81.5 % Lymph % (Auto) 13.9 % [place] % (Auto) 3.8 % Eos % (Auto) 0.2 % Baso % (Auto) 0.2 % Neut # (Auto) 10.76 H (1.8-7.7) 10^3/u L Lymph # (Auto) 1.8 (0.8-4.8) 10^3/u L [place] # (Auto) 0.5 (0.2-0.9) 10^3/u L Eos # (Auto) 0.0 (0.0-0.8) 10^3/u L Baso # (Auto) 0.0 (0.0-0.1) 10^3/u L Nucleated RBC % (a uto) 0 % Nucleated RBCs # 0.0 /100WBC Sodium 140 (136-145) mmol/L Potassium 3.9 (3.5-5.1) mmol/L Chloride 105 (98-107) mmol/L Carbon Dioxide 21 L (22-29) mmol/L Anion Gap 17.9 (5-19) BUN 11 (8-23) mg/dL Creatinine 0.9 (0.5-0.9) mg/dL GFR Calculation 63.9 L (90-130) mL/min Glucose 130 H (65-115) mg/dL Calculated Osmolal ity 291 (285-295) mOsm/k g Calcium 9.8 (8.5-10.5) mg/dL Total Bilirubin 0.4 (0.15-1.2) mg/dL AST 24 (0-32) U/L ALT 27 (0-33) U/L Alkaline Phosphata se 76 (35-105) IU/L Troponin T Gen 5 n g/L 6 (0-10) ng/L Total Protein 7.4 (6.6-8.7) g/dL Albumin 4.8 (3.5-5.2) g/dL Globulin 2.6 (1.3-4.6) g/dL Lipase 18 (13-60) U/L Urine Color (Yellow) Urine Appearance (CLEAR) Urine pH (5-7) Ur Specific Gravit y (1.005-1.030) Urine Protein (Negative) Urine Glucose (UA) (Normal) Urine Ketones (Negative) Urine Blood (Negative) Urine Nitrate (Negative) Urine Bilirubin (Negative) Urine Urobilinogen (Negative) mg/dL Ur Leukocyte Elicia ase (Negative) Urine RBC (0-2) /hpf Urine WBC (0-5) /hpf Ur Squamous Epith Cells (0-5) /hpf Amorphous Sediment /hpf Urine Bacteria (NONE) /hpf Hyaline Casts /lpf Urine Mucus /hpf 12/24/20 Range/Units 15:34 WBC (4.0-10.0) 10^3/ uL RBC (4.1-5.3) 10^6/u L Hgb (11.5-15.3) g/dL Hct (37.0-47.0) % MCV (81-99) fL MCH (28.0-34.0) pg MCHC (30.0-36.0) g/dL RDW (12.1-15.1) % Plt Count (130-400) 10^3/c mm MPV (7.4-10.4) fL Neut % (Auto) % Lymph % (Auto) % [place] % (Auto) % Eos % (Auto) % Baso % (Auto) % Neut # (Auto) (1.8-7.7) 10^3/u L Lymph # (Auto) (0.8-4.8) 10^3/u L [place] # (Auto) (0.2-0.9) 10^3/u L Eos # (Auto) (0.0-0.8) 10^3/u L Baso # (Auto) (0.0-0.1) 10^3/u L Nucleated RBC % (a uto) % Nucleated RBCs # /100WBC Sodium (136-145) mmol/L Potassium (3.5-5.1) mmol/L Chloride (98-107) mmol/L Carbon Dioxide (22-29) mmol/L Anion Gap (5-19) BUN (8-23) mg/dL Creatinine (0.5-0.9) mg/dL GFR Calculation (90-130) mL/min Glucose (65-115) mg/dL Calculated Osmolal ity (285-295) mOsm/k g Calcium (8.5-10.5) mg/dL Total Bilirubin (0.15-1.2) mg/dL AST (0-32) U/L ALT (0-33) U/L Alkaline Phosphata se (35-105) IU/L Troponin T Gen 5 n g/L (0-10) ng/L Total Protein (6.6-8.7) g/dL Albumin (3.5-5.2) g/dL Globulin (1.3-4.6) g/dL Lipase (13-60) U/L Urine Color Yellow (Yellow) Urine Appearance Clear (CLEAR) Urine pH 7 (5-7) Ur Specific Gravit y 1.015 (1.005-1.030) Urine Protein Neg (Negative) Urine Glucose (UA) Norm (Normal) Urine Ketones 2+ H (Negative) Urine Blood 2+ H (Negative) Urine Nitrate Negative (Negative) Urine Bilirubin Neg (Negative) Urine Urobilinogen Norm (Negative) mg/dL Ur Leukocyte Elicia ase Negative (Negative) Urine RBC 15-25 H (0-2) /hpf Urine WBC 0-4 H (0-5) /hpf Ur Squamous Epith Cells 15-25 H (0-5) /hpf Amorphous Sediment 1+ /hpf Urine Bacteria 1+ H (NONE) /hpf Hyaline Casts 0-4 H /lpf Urine Mucus 1+ /hpf EKG Data^: EKG 1: Attestation: I personally reviewed and interpreted this EKG as follows: (1405, sinus rhythm with sinus arrhythmia, irregular rate at 73 bpm, no ST elevations, no ectopy, no prior exam is noted for comparison at this time.) Discharge Plan Discharge Patient Disposition: Home Clinical Impression: Cyclic vomiting syndrome Condition: Stable Prescriptions: New Promethegan 25 mg suppository 25 mg MN Q6H PRN (Reason: nausea and vomiting) Qty: 12 RF: 0 No Action diclofenac sodium [Voltaren] 1 % gel 2 g topical QID Qty: 300 RF: 0 aspirin [Adult Low Dose Aspirin] 81 mg tablet,delayed release (DR/EC) 81 mg PO DAILY@0800 RF: 0 ondansetron 4 mg tablet,disintegrating 4 mg PO Q6H PRN (Reason: nausea and vomiting) Qty: 14 RF: 2 promethazine-DM 6.25-15 mg/5 mL syrup 5 ml PO Q6H PRN (Reason: cough) Qty: 240 RF: 0 albuterol sulfate [ProAir HFA] 90 mcg/actuation HFA aerosol inhaler 2 puff INHALATION QID PRN (Reason: shortness of breath or wheezing) Qty: 18 RF: 2 Bevespi Aerosphere 9-4.8 mcg HFA aerosol inhaler 2 puff INHALATION Q12H Qty: 10.7 RF: 2 atorvastatin 40 mg tablet 40 mg PO DAILY@0800 RF: 0 lisinopril 20 mg tablet 20 mg PO DAILY@0800 RF: 0 trazodone 150 mg tablet 150 mg PO DAILY@1999 RF: 0 oxybutynin chloride 5 mg tablet 5 mg PO TID@08,12,20 RF: 0 hydroxyzine pamoate 25 mg capsule 25 mg PO TID@0800,12,20 RF: 0 escitalopram oxalate 10 mg tablet 10 mg PO DAILY@0800 RF: 0 celecoxib 400 mg capsule 400 mg PO DAILY@0800 RF: 0 Reglan 10 mg tablet 10 mg PO Q6H PRN (Reason: nausea and vomiting) Qty: 30 RF: 0 Multivitamin Women 50 Plus 8 mg iron-400 mcg-300 mcg Tablet 1 tab PO DAILY@0800 RF: 0 latanoprost (PF) 0.005 % drops 1 drp ophthalmic (eye) BEDTIME@2000 RF: 0 Discharge Orders: Discharge ED (Routine); Ordered 08/31/20 Ordered By: Garrett Mtz Referrals: eVro Moon, [employer] [Primary Care Provider] - Discharge Diet: Usual diet Discharge Activity: Increase activity as tolerated Patient Instructions: Gastroenteritis (ED) Activity Restrictions/Additional Instructions: Home and rest. Drink plenty of fluids. Start with sips frequently and then increase to drinking as tolerated. Stay on a clear liquid diet for the next 24 hours. Use promethazine suppositories 1 every 6 hours for nausea and vomiting. Take the medicine immediately per rectum when symptoms start in order to stop episode. Follow-up with primary care for further evaluation and treatment. Return to the emergency department for worsening symptoms, high fever, or blood in vomit or stool. Coding Level of Care Code ED Blue Leather Sorter for [place] Mayes Exam Comprehensive
[2020-08-31 13:40] VITALS: BP 156/73; PULSE 84; RESP 18; O2SAT 98
--- NOTE | 2020-08-31 13:44 | ECG_ITS ---
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 Measurements Intervals [place] Rate: 73 P: 80 DC: 172 QRS: 83 QRSD: 87 T: 78 QT: 398 QTc: 440 Interpretive Statements SINUS RHYTHM WITH MARKED SINUS ARRHYTHMIA SEPTAL MYOCARDIAL INFARCTION , OF INDETERMINATE AGE [40+ ms Q WAVE IN V1/V2] Compared to ECG 08/01/2020 20:48:40 Myocardial infarct finding now present Sinus bradycardia no longer present Electronically Signed On 09-01-2020 17:57:21 SALES SUPPORT ADVISOR by George Bangura M.D. [email or web address]
--- NOTE | 2020-08-31 14:03 | PC.NURSE ---
Patient is nauseated and vomiting.
[2020-08-31] MEDS: haloperidol inj 5 mg/mL INJ 1 mL IVP (14:10)
[2020-08-31] MEDS: diphenhydrAMINE 50 mg/mL SDV 1mL 25 MG IVP (14:10)
[2020-08-31] MEDS: sodium chloride 0.9% 500 ML IV (14:19)
[2020-08-31 14:35] VITALS: BP 156/73; PULSE 84; RESP 18; O2SAT 98
[2020-08-31 14:49] LABS: Basophils % 0.2 %; Eosinophils % 0.2 %; Hematocrit 43.8 % (37.0-47.0); Hemoglobin 14.6 g/dL (11.5-15.3); Lymphocytes # 1.8 10^3/uL (0.8-4.8); Lymphocytes % 13.9 %; Mean Corpuscular HGB Conc 33.3 g/dL (30.0-36.0); Mean Corpuscular Hemoglobin 31.4 pg (28.0-34.0); Mean Corpuscular Volume 94.2 fL (81-99); Mean Platelet Volume 9.7 fL (7.4-10.4); Monocytes # 0.5 10^3/uL (0.2-0.9); Monocytes % 3.8 %; Neutrophils # 10.76 10^3/uL (1.8-7.7); Neutrophils % 81.5 %; Nucleated Red Blood Cells % 0 %; Platelet Count 235 10^3/cmm (130-400); Red Blood Count 4.65 10^6/uL (4.1-5.3); Red Cell Distribution Width 13.3 % (12.1-15.1); White Blood Count 13.2 10^3/uL (4.0-10.0)
[2020-08-31 15:13] LABS: Alanine Aminotransferase 27 U/L (0-33); Albumin Level 4.8 g/dL (3.5-5.2); Alkaline Phosphatase 76 IU/L (35-105); Anion Gap 17.9 (5-19); Aspartate Amino Transferase 24 U/L (0-32); Blood Urea Nitrogen 11 mg/dL (8-23); Calcium 9.8 mg/dL (8.5-10.5); Carbon Dioxide 21 mmol/L (22-29); Chloride 105 mmol/L (98-107); Globulin 2.6 g/dL (1.3-4.6); Glomerular Filtration Rate 63.9 mL/min (90-130); Glucose 130 mg/dL (65-115); Lipase 18 U/L (13-60); Osmolality Calculated 291 mOsm/kg (285-295); Potassium 3.9 mmol/L (3.5-5.1); Sodium 140 mmol/L (136-145); Total Bilirubin 0.4 mg/dL (0.15-1.2); Total Protein 7.4 g/dL (6.6-8.7)
[2020-08-31 15:15] LABS: Troponin T (5th) Once 6 ng/L (0-10)
[2020-08-31 15:30] VITALS: BP 152/70; PULSE 84; RESP 24; O2SAT 96
--- NOTE | 2020-08-31 15:30 | PC.NURSE ---
Bedside commode in room.
[2020-08-31 15:42] LABS: Add Urine Microscopic? YES; Bilirubin Urine Neg (Negative); Blood Urine 2+ (Negative); Glucose Urine UA Norm (Normal); Ketones Urine 2+ (Negative); Leukocyte Esterase Urine Negative (Negative); Nitrate Urine Negative (Negative); Protein Urine Neg (Negative); Specific Gravity, Urine 1.015 (1.005-1.030); Urine Appearance Clear (CLEAR); Urine Color Yellow (Yellow); Urobilinogen Urine Norm (Negative); pH Urine 7 (5-7)
[2020-08-31 16:01] LABS: Bacteria Urine 1+ /hpf; Mucus Urine 1+ /hpf; RBC Urine 15-25 /hpf (0-2); Squamous Epithelial Cell Urine 15-25 /hpf (0-5); WBC Urine 0-4 /hpf (0-5)
[2020-08-31 16:02] LABS: Add Urine Culture? No; Amorphous Sediment Urine 1+ /hpf; Hyaline Casts Urine 0-4 /lpf
[2020-08-31] MEDS: ketorolac 30 mg/mL INJ 15 MG IVP (16:23)
[2020-08-31] MEDS: LORazepam 2 mg/mL INJ 1 mL 1 MG IVP (16:23)
[2020-08-31 16:36] VITALS: BP 156/73; PULSE 78; RESP 24; TEMP 36.6; O2SAT 98
== END 2020-08-31 16:38 | disposition home or self-care (01) ==
PROVIDERS: Emergency Provider Nurse Practitioner Family; PCP Nurse Practitioner
DX: R11.15 Cyclical vomiting syndrome unrelated to migraine (principal); Z79.82 Long term (current) use of aspirin; J44.9 Chronic obstructive pulmonary disease, unspecified; E78.5 Hyperlipidemia, unspecified; I10 Essential (primary) hypertension; F17.210 Nicotine dependence, cigarettes, uncomplicated
CPT/HCPCS: 12345; 80053; 81001; 83690; 84484; 85025; 93005; 96361; 96374; 96375; 99283; 99284; J1200; J1630; J1885; J2060; J7040

== ENCOUNTER 2020-09-03 11:33 | Emergency (ER) | payer MEDICAID, SELFPAY ==
[2020-09-03 11:33] VITALS: BP 175/101; PULSE 65; RESP 18; TEMP 36.6; O2SAT 99; BMI 24.5
--- NOTE | 2020-09-03 11:39 | W.ED.NAVMDI ---
HPI - Nausea/Vomiting/Diarrhea General: Chief complaint: Nausea/Vomiting/Diarrhea Stated complaint: N/V; WEAKNESS Time Seen by Provider: 09/03/20 11:39 Source: patient and old records reviewed Mode of arrival: EMS Limitations: no limitations History of Present Illness: HPI Narrative: 6-year-old female presenting via EMS with complaints of persistent nausea and vomiting since 3:00 this morning. It woke her up from sleep. Denies any possible food poisoning exposure. No other sick contacts. No fever. She also had some diarrhea initially. She was seen here 3 days ago with similar symptoms. She has had multiple ED visits for cyclical vomiting disorder/cannabis induced hyperemesis. She says she has not smoked marijuana in 3 days since her last admission. No hematemesis. No melena. No chest pain or difficulty breathing. MD elicited complaint: nausea Associated nausea: Yes Associated symtoms: Reports diaphoresis, fatigue and nausea; Denies change in vision, chest pain, dysuria, headache(s) or palpitations Review of Systems General: Reports: 10 or more systems reviewed and unremarkable except in HPI and below Const: Reports: change in appetite, fatigue and diaphoresis; Denies: fever(s), chills or body aches Eyes: Denies: change in vision or blurry vision ENMT: Denies: throat pain or odynophagia Card: Denies: chest pain, palpitations or irregular heart rhythm Resp: Denies: dyspnea, productive cough or non-productive cough GI: Reports: abdominal pain, nausea, vomiting, heartburn and diarrhea; Denies: hematemesis, coffee ground emesis, hematochezia or melena : Denies: difficulty voiding, dysuria or urinary frequency Musc: Denies: neck pain, back pain, extremity pain or extremity swelling Skin/Breast: Denies: rash, pruritus or erythema Neuro: Denies: headache(s), numbness in extremities, weakness in extremities or lack of coordination Endo: Denies: polyuria, polydipsia or tired all the time Phil/Lymph: Denies: easy bruising or easy bleeding PFS ED PFSH: Medical History Anxiety and depression COPD (chronic obstructive pulmonary disease) Dyslipidemia Essential (primary) hypertension Glaucoma (increased eye pressure) Insomnia Osteoarthritis Smoker Urinary frequency Surgical History History of carpal tunnel release of both wrists Hx of arthroscopic knee surgery (~2012) left Family History Other COPD (chronic obstructive pulmonary disease) Cancer Social History Smoking and tobacco status: current every day smoker Second hand smoke exposure: Yes Smoking risk assessment/counseling performed?: Yes Alcohol intake: never Desire information about alcohol rehabilitation?: No Counseling given: No Adopted: No Caregiver/support person: No Lives independently: Yes Household members: spouse Housing: House Marital status: service: No History of recent travel: No Current gender identity: Female Physical Exam Const: COMMON NORMALS: patient oriented x3 GENERAL APPEARANCE: cooperative, disheveled, ill appearing and frail appearing NUTRITIONAL APPEARANCE: underweight ORIENTATION/CONSCIOUSNESS: Yes awake, Yes oriented to person, Yes oriented to place and Yes oriented to time HENMT: COMMON NORMALS: normocephalic, atraumatic and Normal external nose present HEAD & SCALP: normocephalic and atraumatic FACE & SINUS: normal facial exam and face symmetric NOSE: Normal external nose present Eye: COMMON NORMALS: Equal, round and reactive pupils present, EOMs intact bilaterally and no scleral icterus PERIORBITAL: periorbital findings abnormal positive bilateral periorbital erythema CONJUNCTIVA: Yes conjunctival abnormal positive bilateral conjunctival injection SCLERA: scleral abnormal Laterality of scleral abnormality: positive bilateral scleral injection PUPIL: Yes Equal, round and reactive pupils present Neck/C-Spine: COMMON NORMALS: full ROM, no lymphadenopathy and supple Lymph: LYMPHATIC: no lymphadenopathy noted Chest: COMMONS NORMALS: normal inspection of the chest CHEST: Yes abnormal inspection of the chest Resp: COMMON NORMALS: normal respiratory effort, No use of accessory muscles and clear to auscultation bilaterally EFFORT & INSPECTION: Yes able to speak in complete sentences, No tachypneic and No respiratory distress AUSCULTATION: clear to auscultation bilaterally Cardio: COMMON NORMALS: regular rate, regular rhythm, S1 normal heart sound present and S2 normal heart sound present RATE: regular rate RHYTHM: regular rhythm HEART SOUNDS: S1 normal heart sound present and S2 normal heart sound present GI: COMMON NORMALS: Soft to palpation INSPECTION: No abdominal wall ecchymosis, No Abdominal wall edema and No abdominal distension AUSCULTATION: Yes Hyperactive bowel sounds present PALPATION: Yes Soft to palpation, Yes Tenderness to palpation present (GI) (diffuse), No Guarding due to palpation present (GI), No Rigid due to palpation, No Pulsatile mass present and No Ascites present : COMMON NORMALS: Yes no CVA tenderness BLADDER/KIDNEY EXAM: Yes no CVA tenderness Back/Pelvis: COMMON NORMALS: no CVA tenderness THORACIC SPINE/UPPER BACK: Yes normal to inspection LUMBAR SPINE/LOWER BACK: Yes normal to inspection Extremity: COMMON NORMALS: normal to inspection, full ROM, capillary refill normal and no clubbing, cyanosis or edema Neuro: COMMON NORMALS: patient oriented x3, moves all extremities, no focal motor deficits and no sensory deficits noted SENSORIUM/ORIENTATION: Yes oriented to person, Yes oriented to place and Yes oriented to time Psych: COMMON NORMALS: mental status grossly normal, cooperative and normal affect Skin: COMMON NORMALS: no rashes or lesions noted, no wounds, no jaundice, no petechiae and no mottling GENERAL SKIN EXAM: no rashes or lesions noted Course Vital Signs: Vital signs: Vital Signs Temperature 97.9 F 09/03/20 11:33 Pulse Rate 62 09/03/20 13:40 Respiratory Rate 18 09/03/20 13:40 Blood Pressure 176/99 09/03/20 13:40 Pulse Oximetry 99 09/03/20 13:40 MDM - Nausea/Vomiting/Diarrhea MDM Narrative: Medical decision making narrative: Patient reexamined at 1350, pain had subsided, however see if she can tolerate sips of water. Still complaining of a headache, given p.o. Tylenol Covid test negative. No acute abnormalities on CBC or chemistry. No UTI. At time of discharge, patient tolerating p.o., no active vomiting. Able to ambulate without difficulty, not in any distress. Differential Diagnosis: N/V/D differential diagnosis: Likely food poisoning, gastroenteritis, drug-induced nausea and vomiting and dehydration Medical Records: Attestation: I reviewed the patient's medical records. Lab Data: Attestation: I reviewed the patient's lab results. Labs: Lab Results 09/03/20 09/03/20 09/03/20 Range/Units 11:52 11:52 11:52 WBC 11.8 H (4.0-10.0) 10^3/ uL RBC 4.46 (4.1-5.3) 10^6/u L Hgb 13.8 (11.5-15.3) g/dL Hct 41.4 (37.0-47.0) % MCV 92.8 (81-99) fL MCH 30.9 (28.0-34.0) pg MCHC 33.3 (30.0-36.0) g/dL RDW 13.1 (12.1-15.1) % Plt Count 265 (130-400) 10^3/c mm MPV 9.8 (7.4-10.4) fL Neut % (Auto) 75.5 % Lymph % (Auto) 18.5 % [place] % (Auto) 4.3 % Eos % (Auto) 0.9 % Baso % (Auto) 0.3 % Neut # (Auto) 8.87 H (1.8-7.7) 10^3/u L Lymph # (Auto) 2.2 (0.8-4.8) 10^3/u L [place] # (Auto) 0.5 (0.2-0.9) 10^3/u L Eos # (Auto) 0.1 (0.0-0.8) 10^3/u L Baso # (Auto) 0.0 (0.0-0.1) 10^3/u L Nucleated RBC % (a uto) 0 % Nucleated RBCs # 0.0 /100WBC PT 13.10 (12.1-14.9) SECO NDS INR 0.97 (0.8-1.2) Sodium 138 (136-145) mmol/L Potassium 3.9 (3.5-5.1) mmol/L Chloride 102 (98-107) mmol/L Carbon Dioxide 21 L (22-29) mmol/L Anion Gap 18.9 (5-19) BUN 11 (8-23) mg/dL Creatinine 0.8 (0.5-0.9) mg/dL GFR Calculation 73.2 L (90-130) mL/min Glucose 129 H (65-115) mg/dL Calculated Osmolal ity 287 (285-295) mOsm/k g Lactate (0.5-2.2) mmol/L Calcium 9.9 (8.5-10.5) mg/dL Magnesium 1.9 (1.7-2.3) mg/dL Total Bilirubin 0.3 (0.15-1.2) mg/dL AST 22 (0-32) U/L ALT 21 (0-33) U/L Alkaline Phosphata se 74 (35-105) IU/L Troponin T Gen 5 n g/L (0-10) ng/L Total Protein 7.6 (6.6-8.7) g/dL Albumin 4.9 (3.5-5.2) g/dL Globulin 2.7 (1.3-4.6) g/dL Lipase 26 (13-60) U/L Urine Color (Yellow) Urine Appearance (CLEAR) Urine pH (5-7) Ur Specific Gravit y (1.005-1.030) Urine Protein (Negative) Urine Glucose (UA) (Normal) Urine Ketones (Negative) Urine Blood (Negative) Urine Nitrate (Negative) Urine Bilirubin (Negative) Urine Urobilinogen (Negative) mg/dL Ur Leukocyte Elicia ase (Negative) Urine RBC (0-2) /hpf Urine WBC (0-5) /hpf Ur Squamous Epith Cells (0-5) /hpf Amorphous Sediment Urine Bacteria (NONE) /hpf Urine Mucus /hpf Urine Opiates Scre en (Negative) ng/mL Ur Barbiturates Sc reen (Negative) ng/mL Ur Phencyclidine S crn (Negative) ng/mL Ur Amphetamines Sc reen (Negative) ng/mL U Benzodiazepines Scrn (Negative) ng/mL Urine Cocaine Scre en (Negative) ng/mL U Marijuana (THC) Screen (Negative) ng/mL SARS-CoV-2 Ag (Rap id) (Negative) 09/03/20 09/03/20 09/03/20 Range/Units 11:52 11:52 12:47 WBC (4.0-10.0) 10^3/ uL RBC (4.1-5.3) 10^6/u L Hgb (11.5-15.3) g/dL Hct (37.0-47.0) % MCV (81-99) fL MCH (28.0-34.0) pg MCHC (30.0-36.0) g/dL RDW (12.1-15.1) % Plt Count (130-400) 10^3/c mm MPV (7.4-10.4) fL Neut % (Auto) % Lymph % (Auto) % [place] % (Auto) % Eos % (Auto) % Baso % (Auto) % Neut # (Auto) (1.8-7.7) 10^3/u L Lymph # (Auto) (0.8-4.8) 10^3/u L [place] # (Auto) (0.2-0.9) 10^3/u L Eos # (Auto) (0.0-0.8) 10^3/u L Baso # (Auto) (0.0-0.1) 10^3/u L Nucleated RBC % (a uto) % Nucleated RBCs # /100WBC PT (12.1-14.9) SECO NDS INR (0.8-1.2) Sodium (136-145) mmol/L Potassium (3.5-5.1) mmol/L Chloride (98-107) mmol/L Carbon Dioxide (22-29) mmol/L Anion Gap (5-19) BUN (8-23) mg/dL Creatinine (0.5-0.9) mg/dL GFR Calculation (90-130) mL/min Glucose (65-115) mg/dL Calculated Osmolal ity (285-295) mOsm/k g Lactate 1.3 (0.5-2.2) mmol/L Calcium (8.5-10.5) mg/dL Magnesium (1.7-2.3) mg/dL Total Bilirubin (0.15-1.2) mg/dL AST (0-32) U/L ALT (0-33) U/L Alkaline Phosphata se (35-105) IU/L Troponin T Gen 5 n g/L 6 (0-10) ng/L Total Protein (6.6-8.7) g/dL Albumin (3.5-5.2) g/dL Globulin (1.3-4.6) g/dL Lipase (13-60) U/L Urine Color (Yellow) Urine Appearance (CLEAR) Urine pH (5-7) Ur Specific Gravit y (1.005-1.030) Urine Protein (Negative) Urine Glucose (UA) (Normal) Urine Ketones (Negative) Urine Blood (Negative) Urine Nitrate (Negative) Urine Bilirubin (Negative) Urine Urobilinogen (Negative) mg/dL Ur Leukocyte Elicia ase (Negative) Urine RBC (0-2) /hpf Urine WBC (0-5) /hpf Ur Squamous Epith Cells (0-5) /hpf Amorphous Sediment Urine Bacteria (NONE) /hpf Urine Mucus /hpf Urine Opiates Scre en (Negative) ng/mL Ur Barbiturates Sc reen (Negative) ng/mL Ur Phencyclidine S crn (Negative) ng/mL Ur Amphetamines Sc reen (Negative) ng/mL U Benzodiazepines Scrn (Negative) ng/mL Urine Cocaine Scre en (Negative) ng/mL U Marijuana (THC) Screen (Negative) ng/mL SARS-CoV-2 Ag (Rap id) Negative (Negative) 09/03/20 09/03/20 Range/Units 13:02 13:02 WBC (4.0-10.0) 10^3/ uL RBC (4.1-5.3) 10^6/u L Hgb (11.5-15.3) g/dL Hct (37.0-47.0) % MCV (81-99) fL MCH (28.0-34.0) pg MCHC (30.0-36.0) g/dL RDW (12.1-15.1) % Plt Count (130-400) 10^3/c mm MPV (7.4-10.4) fL Neut % (Auto) % Lymph % (Auto) % [place] % (Auto) % Eos % (Auto) % Baso % (Auto) % Neut # (Auto) (1.8-7.7) 10^3/u L Lymph # (Auto) (0.8-4.8) 10^3/u L [place] # (Auto) (0.2-0.9) 10^3/u L Eos # (Auto) (0.0-0.8) 10^3/u L Baso # (Auto) (0.0-0.1) 10^3/u L Nucleated RBC % (a uto) % Nucleated RBCs # /100WBC PT (12.1-14.9) SECO NDS INR (0.8-1.2) Sodium (136-145) mmol/L Potassium (3.5-5.1) mmol/L Chloride (98-107) mmol/L Carbon Dioxide (22-29) mmol/L Anion Gap (5-19) BUN (8-23) mg/dL Creatinine (0.5-0.9) mg/dL GFR Calculation (90-130) mL/min Glucose (65-115) mg/dL Calculated Osmolal ity (285-295) mOsm/k g Lactate (0.5-2.2) mmol/L Calcium (8.5-10.5) mg/dL Magnesium (1.7-2.3) mg/dL Total Bilirubin (0.15-1.2) mg/dL AST (0-32) U/L ALT (0-33) U/L Alkaline Phosphata se (35-105) IU/L Troponin T Gen 5 n g/L (0-10) ng/L Total Protein (6.6-8.7) g/dL Albumin (3.5-5.2) g/dL Globulin (1.3-4.6) g/dL Lipase (13-60) U/L Urine Color Yellow (Yellow) Urine Appearance Sl hazy (CLEAR) Urine pH 6.5 (5-7) Ur Specific Gravit y 1.015 (1.005-1.030) Urine Protein Neg (Negative) Urine Glucose (UA) Norm (Normal) Urine Ketones 1+ H (Negative) Urine Blood 2+ H (Negative) Urine Nitrate Negative (Negative) Urine Bilirubin Neg (Negative) Urine Urobilinogen Norm (Negative) mg/dL Ur Leukocyte Elicia ase Negative (Negative) Urine RBC 5-10 H (0-2) /hpf Urine WBC None (0-5) /hpf Ur Squamous Epith Cells Rare (0-5) /hpf Amorphous Sediment Not Reportable Urine Bacteria Trace (NONE) /hpf Urine Mucus Trace /hpf Urine Opiates Scre en Negative (Negative) ng/mL Ur Barbiturates Sc reen Negative (Negative) ng/mL Ur Phencyclidine S crn Negative (Negative) ng/mL Ur Amphetamines Sc reen Negative (Negative) ng/mL U Benzodiazepines Scrn Negative (Negative) ng/mL Urine Cocaine Scre en Negative (Negative) ng/mL U Marijuana (THC) Screen Positive H (Negative) ng/mL SARS-CoV-2 Ag (Rap id) (Negative) EKG Data^: EKG 1: Attestation: I personally reviewed and interpreted this EKG as follows: EKG interpretation date: 09/03/20 EKG interpretation time: 12:30 Interpretation: Sinus rhythm, rate 62, sinus arrhythmia Normal axis, [place] short 106 QT [address] segment elevation or depression. Discharge Plan Discharge Patient Disposition: Home Clinical Impression: Cyclic vomiting syndrome, Drug-induced nausea and vomiting Gastritis Qualifiers: Gastritis type: unspecified gastritis Chronicity: chronic Gastritis bleeding: presence of bleeding unspecified Qualified Code(s): K29.50 - Unspecified chronic gastritis without bleeding Condition: Stable Prescriptions: New omeprazole 40 mg capsule,delayed release(DR/EC) 40 mg PO DAILY 28 Days RF: 0 Held celecoxib 400 mg capsule 400 mg PO DAILY@0800 RF: 0 Hold Instructions: Hold for 4 weeks No Action diclofenac sodium [Voltaren] 1 % gel 2 g topical QID Qty: 300 RF: 0 aspirin [Adult Low Dose Aspirin] 81 mg tablet,delayed release (DR/EC) 81 mg PO DAILY@0800 RF: 0 ondansetron 4 mg tablet,disintegrating 4 mg PO Q6H PRN (Reason: nausea and vomiting) Qty: 14 RF: 2 promethazine-DM 6.25-15 mg/5 mL syrup 5 ml PO Q6H PRN (Reason: cough) Qty: 240 RF: 0 albuterol sulfate [ProAir HFA] 90 mcg/actuation HFA aerosol inhaler 2 puff INHALATION QID PRN (Reason: shortness of breath or wheezing) Qty: 18 RF: 2 Bevespi Aerosphere 9-4.8 mcg HFA aerosol inhaler 2 puff INHALATION Q12H Qty: 10.7 RF: 2 atorvastatin 40 mg tablet 40 mg PO DAILY@0800 RF: 0 lisinopril 20 mg tablet 20 mg PO DAILY@0800 RF: 0 trazodone 150 mg tablet 150 mg PO DAILY@2000 RF: 0 oxybutynin chloride 5 mg tablet 5 mg PO TID@08,12,20 RF: 0 hydroxyzine pamoate 25 mg capsule 25 mg PO TID@0800,12,20 RF: 0 escitalopram oxalate 10 mg tablet 10 mg PO DAILY@0800 RF: 0 Reglan 10 mg tablet 10 mg PO Q6H PRN (Reason: nausea and vomiting) Qty: 30 RF: 0 Multivitamin Women 50 Plus 8 mg iron-400 mcg-300 mcg Tablet 1 tab PO DAILY@0800 RF: 0 latanoprost (PF) 0.005 % drops 1 drp ophthalmic (eye) BEDTIME@2000 RF: 0 Promethegan 25 mg suppository 25 mg [place] Q6H PRN (Reason: nausea and vomiting) Qty: 12 RF: 0 Discharge Orders: Discharge ED (Routine); Ordered 09/03/20 Ordered By: Amy Lyons Referrals: Vero Moon, EDUCATION TEACHER-C [Primary Care Provider] - Discharge Diet: Advance as tolerated and Usual diet Discharge Activity: Resume usual activity and Increase activity as tolerated Patient Instructions: Acute Nausea and Vomiting (ED) Activity Restrictions/Additional Instructions: Try to drink plenty of fluids over the next 24 hours. Call to schedule follow-up with your primary care doctor in the next 3 days. Return immediately to the ER if you develop fever, worsening nausea vomiting, abdominal pain, or any other concerning symptoms. Make sure to avoid all marijuana products. Coding Level of Care Code ED Hr Generalist for [facility]
[2020-09-03 12:12] LABS: Basophils % 0.3 %; Eosinophils # 0.1 10^3/uL (0.0-0.8); Eosinophils % 0.9 %; Hematocrit 41.4 % (37.0-47.0); Hemoglobin 13.8 g/dL (11.5-15.3); Lymphocytes # 2.2 10^3/uL (0.8-4.8); Lymphocytes % 18.5 %; Mean Corpuscular HGB Conc 33.3 g/dL (30.0-36.0); Mean Corpuscular Hemoglobin 30.9 pg (28.0-34.0); Mean Corpuscular Volume 92.8 fL (81-99); Mean Platelet Volume 9.8 fL (7.4-10.4); Monocytes # 0.5 10^3/uL (0.2-0.9); Monocytes % 4.3 %; Neutrophils # 8.87 10^3/uL (1.8-7.7); Neutrophils % 75.5 %; Nucleated Red Blood Cells % 0 %; Platelet Count 265 10^3/cmm (130-400); Red Blood Count 4.46 10^6/uL (4.1-5.3); Red Cell Distribution Width 13.1 % (12.1-15.1); White Blood Count 11.8 10^3/uL (4.0-10.0)
[2020-09-03] MEDS: ondansetron 2 mg/ML SDV 2 mL 4 MG IVP (12:12)
[2020-09-03] MEDS: sodium chloride 0.9% 1,000 ML 999 ML IV (12:13)
[2020-09-03 12:17] VITALS: PULSE 55; RESP 18
[2020-09-03 12:20] LABS: INR 0.97 (0.8-1.2)
--- NOTE | 2020-09-03 12:26 | XRR_ITS ---
PROCEDURE INFORMATION: Exam: XR Chest, 1 View Exam date and time: 09/03/2020 12:33 PM Age: 60 years old Clinical indication: Other: N/v; Additional info: Cough, nausea TECHNIQUE: Imaging protocol: XR of the chest Views: 1 view. COMPARISON: CR XR chest 1V portable [id number] 04/22/2020 8:08 PM FINDINGS: Lungs: Unremarkable. No consolidation. Metallic clips seen in the left lung apex stable since prior. Pleural space: Unremarkable. No pleural effusion. No pneumothorax. Heart/Mediastinum: Unremarkable. No cardiomegaly. Bones/joints: Unremarkable. There has been no interval change compared to prior examination. XR/XR chest 1V portable [id number] IMPRESSION: 1. Metallic clips left lung apex stable since prior 2. Otherwise No acute findings.
[2020-09-03] MEDS: ketorolac 30 mg/mL INJ 15 MG IVP (12:31)
[2020-09-03] MEDS: haloperidol inj 5 mg/mL INJ 1 mL IVP (12:31)
[2020-09-03 12:32] LABS: Lactate (Lactic Acid level) 1.3 mmol/L (0.5-2.2); Troponin T (5th) Once 6 ng/L (0-10)
[2020-09-03 12:34] LABS: Alanine Aminotransferase 21 U/L (0-33); Albumin Level 4.9 g/dL (3.5-5.2); Alkaline Phosphatase 74 IU/L (35-105); Anion Gap 18.9 (5-19); Aspartate Amino Transferase 22 U/L (0-32); Blood Urea Nitrogen 11 mg/dL (8-23); Calcium 9.9 mg/dL (8.5-10.5); Carbon Dioxide 21 mmol/L (22-29); Chloride 102 mmol/L (98-107); Globulin 2.7 g/dL (1.3-4.6); Glomerular Filtration Rate 73.2 mL/min (90-130); Glucose 129 mg/dL (65-115); Lipase 26 U/L (13-60); Magnesium 1.9 mg/dL (1.7-2.3); Osmolality Calculated 287 mOsm/kg (285-295); Potassium 3.9 mmol/L (3.5-5.1); Sodium 138 mmol/L (136-145); Total Bilirubin 0.3 mg/dL (0.15-1.2); Total Protein 7.6 g/dL (6.6-8.7)
[2020-09-03] MEDS: pantoprazole 40 MG in sodium chloride 0.9% (plus) 100 ML 20 MG IV (12:35)
[2020-09-03 13:27] LABS: Amphetamines Screen Urine Negative (Negative); Barbiturates Screen Urine Negative (Negative); Benzodiazepines Screen Urine Negative (Negative); Cocaine Screen Urine Negative (Negative); Opiate Screen Urine Negative (Negative); PCP Screen Urine Negative (Negative); THC Screen Urine Positive (Negative)
[2020-09-03 13:39] LABS: Add Urine Microscopic? YES; Bilirubin Urine Neg (Negative); Blood Urine 2+ (Negative); Glucose Urine UA Norm (Normal); Ketones Urine 1+ (Negative); Leukocyte Esterase Urine Negative (Negative); Nitrate Urine Negative (Negative); Protein Urine Neg (Negative); Specific Gravity, Urine 1.015 (1.005-1.030); Urine Appearance SL Hazy (CLEAR); Urine Color Yellow (Yellow); Urobilinogen Urine Norm (Negative); pH Urine 6.5 (5-7)
[2020-09-03 13:40] VITALS: BP 176/99; PULSE 62; RESP 18; O2SAT 99
[2020-09-03 13:41] LABS: Squamous Epithelial Cell Urine RARE /hpf (0-5)
[2020-09-03 13:42] LABS: Bacteria Urine TRACE /hpf; Mucus Urine TRACE /hpf
[2020-09-03 13:43] LABS: Add Urine Culture? No
[2020-09-03 13:51] LABS: SARS Covid-2 Antigen Negative (Negative)
== END 2020-09-03 14:20 | disposition home or self-care (01) ==
PROVIDERS: Emergency Provider Family Medicine; PCP Nurse Practitioner
DX: K29.50 Unspecified chronic gastritis without bleeding (principal); R11.15 Cyclical vomiting syndrome unrelated to migraine; Z79.82 Long term (current) use of aspirin; J44.9 Chronic obstructive pulmonary disease, unspecified; E78.5 Hyperlipidemia, unspecified; I10 Essential (primary) hypertension; F17.210 Nicotine dependence, cigarettes, uncomplicated
CPT/HCPCS: 12345; 71045; 80053; 80306; 81001; 83605; 83690; 83735; 84484; 85025; 85610; 87426; 96365; 96366; 96375; 99283; 99284; C9113; J1630; J1885; J2405; J7030

== ENCOUNTER 2020-09-26 22:58 | Emergency (ER) | payer MEDICAID, SELFPAY ==
[2020-09-26 23:05] VITALS: BP 168/89; PULSE 84; RESP 17; TEMP 37.6; O2SAT 99; BMI 26.4
--- NOTE | 2020-09-26 23:07 | ED_ITS ---
HPI - Nausea/Vomiting/Diarrhea General: Chief complaint: General Medical Stated complaint: HERBERT Time Seen by Provider: 09/26/20 22:58 Source: patient and EMS Mode of arrival: EMS Limitations: no limitations History of Present Illness: HPI Narrative: 60-year-old female who has a history of cyclical vomiting syndrome. She states she has been having vomiting throughout the day and has not been able to tolerate anything p.o. Patient had an episode of vomiting in route by EMS. She is given Phenergan and Zofran with no relief. States she does have some abdominal cramping along with a headache. States she gets headaches with every cycle vomiting syndrome episode. She denies any worsening improving factors currently. MD elicited complaint: nausea and vomiting Associated nausea: Yes Associated symtoms: Reports headache(s) and nausea; Denies chest pain or dysuria Review of Systems Const: Denies: fever(s), chills, body aches or change in appetite Eyes: Denies: blurry vision or eye discomfort ENMT: Denies: throat pain or dental pain Card: Denies: chest pain Resp: Denies: dyspnea GI: Reports: nausea and vomiting : Denies: dysuria Musc: Denies: neck pain or back pain Skin/Breast: Denies: rash Neuro: Reports: headache(s) Psych: Denies: depression Phil/Lymph: Denies: easy bruising All/Imm: Denies: urticaria PFSH ED PFSH: Medical History Anxiety and depression COPD (chronic obstructive pulmonary disease) Dyslipidemia Essential (primary) hypertension Glaucoma (increased eye pressure) Insomnia Osteoarthritis Smoker Urinary frequency Surgical History History of carpal tunnel release of both wrists Hx of arthroscopic knee surgery (~2012) left Family History Other COPD (chronic obstructive pulmonary disease) Cancer Social History Smoking and tobacco status: current every day smoker Second hand smoke exposure: Yes Smoking risk assessment/counseling performed?: Yes Alcohol intake: never Desire information about alcohol rehabilitation?: No Counseling given: No Adopted: No Caregiver/support person: No Lives independently: Yes Household members: spouse Housing: House Marital status: service: No History of recent travel: No Current gender identity: Female Physical Exam Const: COMMON NORMALS: no acute distress, patient oriented x3 and healthy appearing HENMT: COMMON NORMALS: normocephalic and atraumatic HEAD & SCALP: normocephalic and atraumatic Eye: COMMON NORMALS: Equal, round and reactive pupils present and EOMs intact bilaterally PUPIL: Yes Equal, round and reactive pupils present Neck/C-Spine: COMMON NORMALS: full ROM and supple Chest: COMMONS NORMALS: normal inspection of the chest and normal palpation of entire chest wall Resp: COMMON NORMALS: normal respiratory effort, No retractions, No use of accessory muscles and clear to auscultation bilaterally AUSCULTATION: clear to auscultation bilaterally Cardio: COMMON NORMALS: regular rate, regular rhythm and No murmurs present (Cardio) RATE: regular rate RHYTHM: regular rhythm GI: COMMON NORMALS: Normal to inspection, nondistended, normoactive bowel sounds present, Soft to palpation, non-tender and no masses PALPATION: Yes Soft to palpation Extremity: COMMON NORMALS: normal to inspection and full ROM Neuro: COMMON NORMALS: patient oriented x3, moves all extremities and no focal motor deficits Psych: COMMON NORMALS: mental status grossly normal, Normal thought process present and cooperative THOUGHT PROCESS: Normal thought process present Skin: COMMON NORMALS: no rashes or lesions noted and no wounds GENERAL SKIN EXAM: no rashes or lesions noted Course Vital Signs: Vital signs: Vital Signs Temperature 99.7 F H 09/26/20 23:05 Pulse Rate 90 09/27/20 03:21 Respiratory Rate 16 09/27/20 04:22 Blood Pressure 157/97 09/27/20 04:22 Pulse Oximetry 96 09/27/20 03:21 MDM - Nausea/Vomiting/Diarrhea MDM Narrative: Medical decision making narrative: Kasey presents with vomiting likely from her cyclical vomiting syndrome. She feels much improved here after Ativan and has had no more vomiting. Abdominal exam is benign. Blood work is all normal. She is stable for discharge and is to follow-up with her PCP in 2 to 4 days return if worsening. Lab Data: Labs: Lab Results 09/26/20 09/26/20 Range/Units 23:26 23:26 WBC 12.5 H (4.0-10.0) 10^3/ uL RBC 4.47 (4.1-5.3) 10^6/u L Hgb 14.1 (11.5-15.3) g/dL Hct 40.4 (37.0-47.0) % MCV 90.4 (81-99) fL MCH 31.5 (28.0-34.0) pg MCHC 34.9 (30.0-36.0) g/dL RDW 12.7 (12.1-15.1) % Plt Count 269 (130-400) 10^3/c mm MPV 9.7 (7.4-10.4) fL Neut % (Auto) 79.2 % Lymph % (Auto) 15.6 % [place] % (Auto) 4.7 % Eos % (Auto) 0.0 % Baso % (Auto) 0.2 % Neut # (Auto) 9.88 H (1.8-7.7) 10^3/u L Lymph # (Auto) 2.0 (0.8-4.8) 10^3/u L [place] # (Auto) 0.6 (0.2-0.9) 10^3/u L Eos # (Auto) 0.0 (0.0-0.8) 10^3/u L Baso # (Auto) 0.0 (0.0-0.1) 10^3/u L Nucleated RBC % (a uto) 0 % Nucleated RBCs # 0.0 /100WBC Sodium 137 (136-145) mmol/L Potassium 3.3 L (3.5-5.1) mmol/L Chloride 101 (98-107) mmol/L Carbon Dioxide 20 L (22-29) mmol/L Anion Gap 19.3 H (5-19) BUN 17 (8-23) mg/dL Creatinine 0.7 (0.5-0.9) mg/dL GFR Calculation 85.4 L (90-130) mL/min Glucose 151 H (65-115) mg/dL Calculated Osmolal ity 288 (285-295) mOsm/k g Calcium 9.9 (8.5-10.5) mg/dL Total Bilirubin 0.4 (0.15-1.2) mg/dL AST 21 (0-32) U/L ALT 17 (0-33) U/L Alkaline Phosphata se 72 (35-105) IU/L Total Protein 8.0 (6.6-8.7) g/dL Albumin 4.8 (3.5-5.2) g/dL Globulin 3.2 (1.3-4.6) g/dL Lipase 26 (13-60) U/L Discharge Plan Discharge Patient Disposition: Home Clinical Impression: Cyclical vomiting Condition: Stable Prescriptions: New Reglan 10 mg tablet 10 mg PO Q6H PRN (Reason: nausea and vomiting) Qty: 20 RF: 0 No Action diclofenac sodium [Voltaren] 1 % gel 2 g topical QID Qty: 300 RF: 0 albuterol sulfate [ProAir HFA] 90 mcg/actuation HFA aerosol inhaler 2 puff INHALATION QID PRN (Reason: shortness of breath or wheezing) Qty: 18 RF: 2 atorvastatin 40 mg tablet 40 mg PO DAILY@0800 Qty: 30 RF: 2 promethazine-DM 6.25-15 mg/5 mL syrup 5 ml PO Q6H PRN (Reason: cough) Qty: 240 RF: 2 trazodone 150 mg tablet 150 mg PO DAILY@1999 Qty: 30 RF: 2 oxybutynin chloride 5 mg tablet 5 mg PO TID@08,12,20 Qty: 90 RF: 2 Multivitamin Women 50 Plus 8 mg iron-400 mcg-300 mcg tablet 1 tab PO DAILY@0800 Qty: 30 RF: 2 lisinopril 20 mg tablet 20 mg PO DAILY@0800 Qty: 30 RF: 2 latanoprost (PF) 0.005 % drops 1 drp ophthalmic (eye) BEDTIME@1999 Qty: 7.5 RF: 2 hydroxyzine pamoate 25 mg capsule 25 mg PO TID@0800,12,20 Qty: 90 RF: 2 Bevespi Aerosphere 9-4.8 mcg HFA aerosol inhaler 2 puff INHALATION Q12H Qty: 10.7 RF: 2 escitalopram oxalate 10 mg tablet 10 mg PO DAILY@0800 Qty: 30 RF: 2 aspirin [Adult Low Dose Aspirin] 81 mg tablet,delayed release (DR/EC) 81 mg PO DAILY@0800 RF: 0 ondansetron 4 mg tablet,disintegrating 4 mg PO Q6H PRN (Reason: nausea and vomiting) Qty: 14 RF: 2 polyethylene glycol 3350 [Miralax] 17 gram/dose powder 17 g PO DAILY Qty: 238 RF: 2 celecoxib 400 mg capsule 400 mg PO DAILY@0800 RF: 0 Hold Instructions: Hold for 4 weeks omeprazole 40 mg capsule,delayed release(DR/EC) 40 mg PO DAILY 28 Days RF: 0 Discharge Orders: Discharge ED (Routine); Ordered 09/27/20 Ordered By: Akil Benito Referrals: Vero Moon, BLOCK SAW OPERATOR-C [Primary Care Provider] - 1-3 days Discharge Diet: Advance as tolerated Discharge Activity: Resume usual activity Patient Instructions: Acute Nausea and Vomiting (ED) Coding Level of Care Code ED Ultrasound Applications Specialist for [facility] Exam Comprehensive
[2020-09-26 23:08] VITALS: PULSE 76; RESP 18; O2SAT 99
[2020-09-26] MEDS: sodium chloride 0.9% 1,000 ML 999 ML IV (23:11)
[2020-09-26] MEDS: diphenhydrAMINE 50 mg/mL SDV 1mL IVP (23:11)
[2020-09-26] MEDS: metoclopramide 5 mg/mL SDV 2 mL 10 MG IVP (23:12)
[2020-09-26 23:32] LABS: Basophils % 0.2 %; Hematocrit 40.4 % (37.0-47.0); Hemoglobin 14.1 g/dL (11.5-15.3); Lymphocytes % 15.6 %; Mean Corpuscular HGB Conc 34.9 g/dL (30.0-36.0); Mean Corpuscular Hemoglobin 31.5 pg (28.0-34.0); Mean Corpuscular Volume 90.4 fL (81-99); Mean Platelet Volume 9.7 fL (7.4-10.4); Monocytes # 0.6 10^3/uL (0.2-0.9); Monocytes % 4.7 %; Neutrophils # 9.88 10^3/uL (1.8-7.7); Neutrophils % 79.2 %; Nucleated Red Blood Cells % 0 %; Platelet Count 269 10^3/cmm (130-400); Red Blood Count 4.47 10^6/uL (4.1-5.3); Red Cell Distribution Width 12.7 % (12.1-15.1); White Blood Count 12.5 10^3/uL (4.0-10.0)
[2020-09-27] VITALS: BP 154/90; PULSE 88
[2020-09-27] LABS: Alanine Aminotransferase 17 U/L (0-33); Albumin Level 4.8 g/dL (3.5-5.2); Alkaline Phosphatase 72 IU/L (35-105); Anion Gap 19.3 (5-19); Aspartate Amino Transferase 21 U/L (0-32); Blood Urea Nitrogen 17 mg/dL (8-23); Calcium 9.9 mg/dL (8.5-10.5); Carbon Dioxide 20 mmol/L (22-29); Chloride 101 mmol/L (98-107); Globulin 3.2 g/dL (1.3-4.6); Glomerular Filtration Rate 85.4 mL/min (90-130); Glucose 151 mg/dL (65-115); Lipase 26 U/L (13-60); Osmolality Calculated 288 mOsm/kg (285-295); Potassium 3.3 mmol/L (3.5-5.1); Sodium 137 mmol/L (136-145); Total Bilirubin 0.4 mg/dL (0.15-1.2)
[2020-09-27] MEDS: LORazepam 2 mg/mL INJ 1 mL IVP (00:55)
[2020-09-27 01:04] VITALS: BP 153/104; PULSE 87; RESP 15; O2SAT 95
[2020-09-27 02:03] VITALS: BP 163/101; PULSE 87; O2SAT 92
[2020-09-27 03:21] VITALS: BP 117/79; PULSE 90; RESP 17; O2SAT 96
[2020-09-27 04:22] VITALS: BP 157/97; RESP 16
[2020-09-27 06:06] VITALS: BP 105/78; PULSE 81; RESP 15; O2SAT 98
== END 2020-09-27 06:09 | disposition home or self-care (01) ==
PROVIDERS: Emergency Provider Emergency Medicine; PCP Nurse Practitioner
DX: R11.15 Cyclical vomiting syndrome unrelated to migraine (principal); Z79.82 Long term (current) use of aspirin; J44.9 Chronic obstructive pulmonary disease, unspecified; E78.5 Hyperlipidemia, unspecified; I10 Essential (primary) hypertension; F17.210 Nicotine dependence, cigarettes, uncomplicated
CPT/HCPCS: 12345; 80053; 83690; 85025; 96361; 96374; 96375; 99282; 99283; J1200; J2060; J2765; J7030

== ENCOUNTER 2020-10-20 15:06 | Emergency (ER) | payer MEDICAID, SELFPAY ==
[2020-10-20 15:14] VITALS: BP 154/87; PULSE 68; RESP 20; TEMP 36.8; O2SAT 100; BMI 26.4
[2020-10-20] MEDS: diphenhydrAMINE 50 mg/mL SDV 1mL 25 MG IVP (17:10)
[2020-10-20] MEDS: ondansetron 2 mg/ML SDV 2 mL 4 MG IVP (17:10)
[2020-10-20] MEDS: sodium chloride 0.9% 1,000 ML 999 ML IV (17:10)
--- NOTE | 2020-10-20 17:29 | PC.PHAR ---
pt states the medications we had entered before is what she takes-medications entered are what ext med history shows filled recently and what we had in a previous entered med list
[2020-10-20 17:46] LABS: Basophils % 0.1 %; Hematocrit 44.6 % (37.0-47.0); Hemoglobin 14.7 g/dL (11.5-15.3); Lymphocytes # 1.4 10^3/uL (0.8-4.8); Mean Corpuscular Hemoglobin 31.1 pg (28.0-34.0); Mean Corpuscular Volume 94.5 fL (81-99); Mean Platelet Volume 10.4 fL (7.4-10.4); Monocytes # 0.3 10^3/uL (0.2-0.9); Monocytes % 2.2 %; Neutrophils # 9.98 10^3/uL (1.8-7.7); Neutrophils % 85.3 %; Nucleated Red Blood Cells % 0 %; Platelet Count 257 10^3/cmm (130-400); Red Blood Count 4.72 10^6/uL (4.1-5.3); Red Cell Distribution Width 12.8 % (12.1-15.1); White Blood Count 11.7 10^3/uL (4.0-10.0)
[2020-10-20 17:58] LABS: Lactate (Lactic Acid level) 1.3 mmol/L (0.5-2.2)
[2020-10-20 18:01] LABS: Alanine Aminotransferase 16 U/L (0-33); Albumin Level 4.8 g/dL (3.5-5.2); Alkaline Phosphatase 69 IU/L (35-105); Aspartate Amino Transferase 20 U/L (0-32); Blood Urea Nitrogen 13 mg/dL (8-23); Calcium 9.5 mg/dL (8.5-10.5); Carbon Dioxide 22 mmol/L (22-29); Chloride 103 mmol/L (98-107); Globulin 3.2 g/dL (1.3-4.6); Glomerular Filtration Rate 85.4 mL/min (90-130); Glucose 126 mg/dL (65-115); Lipase 18 U/L (13-60); Osmolality Calculated 290 mOsm/kg (285-295); Sodium 139 mmol/L (136-145); Total Bilirubin 0.2 mg/dL (0.15-1.2)
[2020-10-20 18:09] LABS: Anion Gap 17.9 (5-19); Potassium 3.9 mmol/L (3.5-5.1)
--- NOTE | 2020-10-20 18:53 | CTR_ITS ---
PROCEDURE INFORMATION: Exam: CT Abdomen And Pelvis With Contrast Exam date and time: 10/20/2020 7:10 PM Age: 60 years old Clinical indication: Nausea and vomiting; Prior surgery; Surgery type: Hysterectomy; Patient HX: General weakness with n/v/d; Additional info: Abdominal pain/vomiting TECHNIQUE: Imaging protocol: Computed tomography of the abdomen and pelvis with contrast. Radiation optimization: All CT scans at this facility use at least one of these dose optimization techniques: automated exposure control; mA and/or kV adjustment per patient size (includes targeted exams where dose is matched to clinical indication); or iterative reconstruction. Contrast material: OMNI 300; Contrast volume: 95 ml; Contrast route: INTRAVENOUS (IV); COMPARISON: CT abdomen pelvis w con* [id number] 06/25/2020 7:05 PM RADIATION DOSE METRICS: Total DLP (mGy-cm): 517.83 FINDINGS: Mediastinal space: Mild hiatal hernia. Liver: Normal. No mass. Gallbladder and bile ducts: Normal. No calcified stones. No ductal dilation. Pancreas: Normal. No ductal dilation. Spleen: No mass. Redemonstration of linear capsular calcifications. No splenomegaly. Adrenal glands: Normal. No mass. Kidneys and ureters: Normal. No hydronephrosis. Stomach and bowel: Scattered diverticulosis coli. No acute inflammatory wall thickening of bowel loops. No features of bowel obstruction or perforation. Appendix: Normal appendix. Intraperitoneal space: No intraperitoneal fluid collection. Vasculature: Circumferential calcified atherosclerotic wall plaque of abdominal aorta without aneurysm. Lymph nodes: Unremarkable. No enlarged lymph nodes. Urinary bladder: Unremarkable as visualized. Reproductive: Hysterectomy. Bones/joints: Severe grade 1, nearly grade 2 L5-S1 spondylolisthesis secondary to bilateral L5 pars defects. Severe L5-S1 disc disease. No aggressive bone lesion. No acute pathologic fracture. Soft tissues: Surgical clips in the left groin. Ventral abdominal wall intact. CT/CT abdomen pelvis w con* [id number] IMPRESSION: 1. No acute pathology within the abdomen or pelvis identified. 2. No significant change from comparison on 06/25/2020. Radiation Dose CTDIVOL = (mGy): DLP = 517.83 (mGy-cm)
[2020-10-20] MEDS: promethazine 25 mg/mL SDV 1 mL IM (19:17)
[2020-10-20 19:34] LABS: Bilirubin Urine Neg (Negative); Blood Urine 3+ (Negative); Glucose Urine UA Norm (Normal); Ketones Urine 2+ (Negative); Nitrate Urine Negative (Negative); Protein Urine Neg (Negative); Specific Gravity, Urine 1.025 (1.005-1.030); Urine Appearance Clear (CLEAR); Urine Color Yellow (Yellow); pH Urine 5 (5-7)
[2020-10-20 19:35] LABS: Add Urine Microscopic? YES; Leukocyte Esterase Urine Negative (Negative); Urobilinogen Urine Norm (Negative)
[2020-10-20 19:44] VITALS: BP 145/86; PULSE 73; RESP 17; O2SAT 98
[2020-10-20 19:46] LABS: Add Urine Culture? Yes; Bacteria Urine TRACE /hpf; RBC Urine 15-25 /hpf (0-2); Squamous Epithelial Cell Urine 0-4 /hpf (0-5); WBC Urine 0-4 /hpf (0-5)
[2020-10-20] MEDS: iohexol 300 mg/mL 100 mL Btl IV (19:53)
--- NOTE | 2020-10-20 20:36 | ED_ITS ---
HPI - Nausea/Vomiting/Diarrhea General: Chief complaint: Nausea/Vomiting/Diarrhea Stated complaint: N/V/D Time Seen by Provider: 10/20/20 16:28 History of Present Illness: HPI Narrative: The patient is a 60-year-old female with cyclic vomiting syndrome who comes to the ER complaining of nausea and vomiting all day. She has been unable to take her Phenergan which helps her because of the vomiting. Admits diffuse abdominal pain. She admits to headache but she gets headaches with every episode of vomiting. MD elicited complaint: nausea and vomiting Associated nausea: Yes Associated abdominal pain: Yes Location of pain: Diffuse Pain consistency: intermittent Quality: cramping Associated symtoms: Reports nausea; Denies anxiety, change in vision, chest pain, dizziness, fatigue, headache(s) or palpitations Review of Systems General: Reports: 10 or more systems reviewed and unremarkable except in HPI and below Const: Denies: fatigue Eyes: Denies: change in vision, blurry vision or eye redness ENMT: Denies: throat pain, swelling of lips/tongue, ear or mastoid pain or nasal congestion Card: Denies: chest pain, palpitations, irregular heart rhythm, edema, dyspnea on exertion or orthopnea Resp: Denies: dyspnea, productive cough or non-productive cough GI: Reports: abdominal pain, nausea and vomiting : Denies: flank pain, difficulty voiding, urinary frequency or urinary urgency Musc: Denies: neck pain, back pain, extremity pain, joint pain, joint redness, limited range of motion or muscle weakness Skin/Breast: Denies: rash, pruritus, erythema, skin pain or skin tenderness Neuro: Denies: headache(s), numbness in extremities, weakness in extremities, sensory changes, difficulty walking, dizziness, confusion or Slurred speech present Psych: Denies: anxiety or depression Endo: Denies: polyuria All/Imm: Denies: urticaria, throat swelling or tongue swelling PFSH ED PFSH: Medical History Anxiety and depression COPD (chronic obstructive pulmonary disease) Dyslipidemia Essential (primary) hypertension Glaucoma (increased eye pressure) Insomnia Osteoarthritis Smoker Urinary frequency Surgical History History of carpal tunnel release of both wrists Hx of arthroscopic knee surgery (~2012) left Family History Other COPD (chronic obstructive pulmonary disease) Cancer Social History Smoking and tobacco status: current every day smoker Second hand smoke exposure: Yes Smoking risk assessment/counseling performed?: Yes Alcohol intake: never Desire information about alcohol rehabilitation?: No Counseling given: No Adopted: No Caregiver/support person: No Lives independently: Yes Household members: spouse Housing: House Marital status: service: No History of recent travel: No Current gender identity: Female Physical Exam Const: COMMON NORMALS: no acute distress, average body habitus, patient oriented x3, no limitations, healthy appearing, alert and well nourished GENERAL APPEARANCE: cooperative, comfortable, well kempt and well developed ORIENTATION/CONSCIOUSNESS: Yes awake, Yes oriented to person, Yes oriented to place and Yes oriented to time HENMT: COMMON NORMALS: normocephalic, external ears normal and Normal external nose present HEAD & SCALP: normal to inspection and normocephalic NOSE: Normal external nose present EXTERNAL EAR: Yes external ears normal MOUTH: Normal oral and palatal mucosa present THROAT: posterior oropharynx normal Eye: COMMON NORMALS: Equal, round and reactive pupils present and EOMs intact bilaterally GENERAL EYE: appearance normal, both eyes and all related structures PUPIL: Yes Equal, round and reactive pupils present Neck/C-Spine: COMMON NORMALS: full ROM, no lymphadenopathy, no meningeal signs and no JVD GENERAL: Yes normal visual inspection Lymph: LYMPHATIC: no lymphadenopathy noted Chest: COMMONS NORMALS: normal inspection of the chest and normal palpation of entire chest wall Resp: COMMON NORMALS: normal respiratory effort, No retractions, No use of accessory muscles, clear to auscultation bilaterally and percussion normal EFFORT & INSPECTION: Yes able to speak in complete sentences AUSCULTATION: clear to auscultation bilaterally PERCUSSION: percussion normal Cardio: COMMON NORMALS: no JVD, regular rate, regular rhythm, S1 normal heart sound present, S2 normal heart sound present and Peripheral pulses 2+ throughout RATE: regular rate RHYTHM: regular rhythm HEART SOUNDS: S1 normal heart sound present and S2 normal heart sound present PERIPHERAL PULSES: Peripheral pulses 2+ throughout GI: COMMON NORMALS: Soft to palpation INSPECTION: Yes normal to inspection PALPATION: Yes Soft to palpation OTHER: Mild epigastric and upper abdominal tenderness. No rebound tenderness. Soft belly. Increased bowel sounds : COMMON NORMALS: Yes no CVA tenderness BLADDER/KIDNEY EXAM: Yes no CVA tenderness Back/Pelvis: COMMON NORMALS: no CVA tenderness, thoracic and lumbar spine normal to inspection, no thoracic nor lumbar tenderness and thoraco-lumbar ROM normal Extremity: COMMON NORMALS: normal to inspection, full ROM, capillary refill normal, no joint enlargement and no pedal edema GENERAL: Yes normal exam except as noted Neuro: COMMON NORMALS: patient oriented x3, CN's II-XII intact bilaterally, moves all extremities, no focal motor deficits, no sensory deficits noted and gait normal SENSORIUM/ORIENTATION: Yes alert, Yes oriented to person, Yes oriented to place and Yes oriented to time MENINGEAL SIGNS: Yes no meningeal signs Psych: COMMON NORMALS: mental status grossly normal, Normal thought process p resent, cooperative, normal affect and speech normal APPEARANCE: Yes well kempt ATTITUDE: Yes calm SPEECH: Yes normal speech THOUGHT PROCESS: Normal thought process present Skin: COMMON NORMALS: no rashes or lesions noted GENERAL SKIN EXAM: no rashes or lesions noted Course Vital Signs: Vital signs: Vital Signs Temperature 98.2 F 10/20/20 15:14 Pulse Rate 73 10/20/20 19:44 Respiratory Rate 17 10/20/20 19:44 Blood Pressure 145/86 10/20/20 19:44 Pulse Oximetry 98 10/20/20 19:44 MDM - Nausea/Vomiting/Diarrhea MDM Narrative: Medical decision making narrative: The patient has cyclic vomiting syndrome. She was given Zofran and Phenergan IM. She responded to this well as well as IV fluids she will be discharged. Recommend following up with primary care physician in a couple days and return to the ER with worsening symptoms. She has Reglan at home she can take now. Lab Data: Labs: Lab Results 10/20/20 10/20/20 10/20/20 Range/Units 16:55 16:55 16:55 WBC 11.7 H (4.0-10.0) 10^3/ uL RBC 4.72 (4.1-5.3) 10^6/u L Hgb 14.7 (11.5-15.3) g/dL Hct 44.6 (37.0-47.0) % MCV 94.5 (81-99) fL MCH 31.1 (28.0-34.0) pg MCHC 33.0 (30.0-36.0) g/dL RDW 12.8 (12.1-15.1) % Plt Count 257 (130-400) 10^3/c mm MPV 10.4 (7.4-10.4) fL Neut % (Auto) 85.3 % Lymph % (Auto) 12.0 % [place] % (Auto) 2.2 % Eos % (Auto) 0.0 % Baso % (Auto) 0.1 % Neut # (Auto) 9.98 H (1.8-7.7) 10^3/u L Lymph # (Auto) 1.4 (0.8-4.8) 10^3/u L [place] # (Auto) 0.3 (0.2-0.9) 10^3/u L Eos # (Auto) 0.0 (0.0-0.8) 10^3/u L Baso # (Auto) 0.0 (0.0-0.1) 10^3/u L Nucleated RBC % (a uto) 0 % Nucleated RBCs # 0.0 /100WBC Sodium 139 (136-145) mmol/L Potassium 3.9 (3.5-5.1) mmol/L Chloride 103 (98-107) mmol/L Carbon Dioxide 22 (22-29) mmol/L Anion Gap 17.9 (5-19) BUN 13 (8-23) mg/dL Creatinine 0.7 (0.5-0.9) mg/dL GFR Calculation 85.4 L (90-130) mL/min Glucose 126 H (65-115) mg/dL Calculated Osmolal ity 290 (285-295) mOsm/k g Lactate 1.3 (0.5-2.2) mmol/L Calcium 9.5 (8.5-10.5) mg/dL Total Bilirubin 0.2 (0.15-1.2) mg/dL AST 20 (0-32) U/L ALT 16 (0-33) U/L Alkaline Phosphata se 69 (35-105) IU/L Total Protein 8.0 (6.6-8.7) g/dL Albumin 4.8 (3.5-5.2) g/dL Globulin 3.2 (1.3-4.6) g/dL Lipase 18 (13-60) U/L Urine Color (Yellow) Urine Appearance (CLEAR) Urine pH (5-7) Ur Specific Gravit y (1.005-1.030) Urine Protein (Negative) Urine Glucose (UA) (Normal) Urine Ketones (Negative) Urine Blood (Negative) Urine Nitrate (Negative) Urine Bilirubin (Negative) Urine Urobilinogen (Negative) mg/dL Ur Leukocyte Elicia ase (Negative) Urine RBC (0-2) /hpf Urine WBC (0-5) /hpf Ur Squamous Epith Cells (0-5) /hpf Amorphous Sediment Urine Bacteria (NONE) /hpf 10/20/20 Range/Units 19:20 WBC (4.0-10.0) 10^3/ uL RBC (4.1-5.3) 10^6/u L Hgb (11.5-15.3) g/dL Hct (37.0-47.0) % MCV (81-99) fL MCH (28.0-34.0) pg MCHC (30.0-36.0) g/dL RDW (12.1-15.1) % Plt Count (130-400) 10^3/c mm MPV (7.4-10.4) fL Neut % (Auto) % Lymph % (Auto) % [place] % (Auto) % Eos % (Auto) % Baso % (Auto) % Neut # (Auto) (1.8-7.7) 10^3/u L Lymph # (Auto) (0.8-4.8) 10^3/u L [place] # (Auto) (0.2-0.9) 10^3/u L Eos # (Auto) (0.0-0.8) 10^3/u L Baso # (Auto) (0.0-0.1) 10^3/u L Nucleated RBC % (a uto) % Nucleated RBCs # /100WBC Sodium (136-145) mmol/L Potassium (3.5-5.1) mmol/L Chloride (98-107) mmol/L Carbon Dioxide (22-29) mmol/L Anion Gap (5-19) BUN (8-23) mg/dL Creatinine (0.5-0.9) mg/dL GFR Calculation (90-130) mL/min Glucose (65-115) mg/dL Calculated Osmolal ity (285-295) mOsm/k g Lactate (0.5-2.2) mmol/L Calcium (8.5-10.5) mg/dL Total Bilirubin (0.15-1.2) mg/dL AST (0-32) U/L ALT (0-33) U/L Alkaline Phosphata se (35-105) IU/L Total Protein (6.6-8.7) g/dL Albumin (3.5-5.2) g/dL Globulin (1.3-4.6) g/dL Lipase (13-60) U/L Urine Color Yellow (Yellow) Urine Appearance Clear (CLEAR) Urine pH 5 (5-7) Ur Specific Gravit y 1.025 (1.005-1.030) Urine Protein Neg (Negative) Urine Glucose (UA) Norm (Normal) Urine Ketones 2+ H (Negative) Urine Blood 3+ H (Negative) Urine Nitrate Negative (Negative) Urine Bilirubin Neg (Negative) Urine Urobilinogen Norm (Negative) mg/dL Ur Leukocyte Elicia ase Negative (Negative) Urine RBC 15-25 H (0-2) /hpf Urine WBC 0-4 H (0-5) /hpf Ur Squamous Epith Cells 0-4 H (0-5) /hpf Amorphous Sediment Not Reportable Urine Bacteria Trace (NONE) /hpf Discharge Plan Discharge Patient Disposition: Home Clinical Impression: Cyclic vomiting syndrome Condition: Stable Prescriptions: No Action albuterol sulfate [ProAir HFA] 90 mcg/actuation HFA aerosol inhaler 2 puff INHALATION QID PRN (Reason: shortness of breath or wheezing) Qty: 18 RF: 2 promethazine-DM 6.25-15 mg/5 mL syrup 5 ml PO Q6H PRN (Reason: cough) Qty: 240 RF: 2 trazodone 150 mg tablet 150 mg PO DAILY@2000 Qty: 30 RF: 2 oxybutynin chloride 5 mg tablet 5 mg PO TID@08,12,20 Qty: 90 RF: 2 Multivitamin Women 50 Plus 8 mg iron-400 mcg-300 mcg tablet 1 tab PO DAILY@0800 Qty: 30 RF: 2 lisinopril 20 mg tablet 20 mg PO DAILY@0800 Qty: 30 RF: 2 latanoprost (PF) 0.005 % drops 1 drp ophthalmic (eye) BEDTIME@1999 Qty: 7.5 RF: 2 hydroxyzine pamoate 25 mg capsule 25 mg PO TID@0800,12,20 Qty: 90 RF: 2 Bevespi Aerosphere 9-4.8 mcg HFA aerosol inhaler 2 puff INHALATION Q12H Qty: 10.7 RF: 2 escitalopram oxalate 10 mg tablet 10 mg PO DAILY@0800 Qty: 30 RF: 2 aspirin [Adult Low Dose Aspirin] 81 mg tablet,delayed release (DR/EC) 81 mg PO DAILY@0800 RF: 0 celecoxib 400 mg capsule 400 mg PO DAILY@0800 Qty: 30 RF: 1 Hold Instructions: Hold for 4 weeks metoclopramide HCl [Reglan] 10 mg tablet 10 mg PO Q6H PRN (Reason: nausea and vomiting) Qty: 20 RF: 0 atorvastatin 40 mg tablet 40 mg PO BEDTIME RF: 0 Miralax 17 gram/dose powder 17 g PO DAILY PRN (Reason: Constipation) RF: 0 Voltaren 1 % gel 2 g topical QID PRN (Reason: Pain) RF: 0 Discharge Orders: Discharge ED (Routine); Ordered 10/20/20 Ordered By: Phong Clancy Referrals: Vero Moon, HEAD HOST/HOSTESS-C [Primary Care Provider] - Discharge Diet: Advance as tolerated Discharge Activity: Resume usual activity Patient Instructions: Opioid Safety, Vomiting - Adult Activity Restrictions/Additional Instructions: Please go home and try to drink lots of fluids and take your medicines at home to help you with nausea. Return to the ER with worsening symptoms. Coding Level of Care Code ED Parts Data Writer for [place] Fwd Exam Comprehensive
[2020-10-20 22:16] VITALS: BP 158/93; PULSE 76; RESP 18; O2SAT 98
== END 2020-10-20 22:30 | disposition home or self-care (01) ==
PROVIDERS: Emergency Provider Family Medicine; PCP Nurse Practitioner
DX: R11.15 Cyclical vomiting syndrome unrelated to migraine (principal); J44.9 Chronic obstructive pulmonary disease, unspecified; E78.5 Hyperlipidemia, unspecified; I10 Essential (primary) hypertension; F17.200 Nicotine dependence, unspecified, uncomplicated
CPT/HCPCS: 74177; 80053; 81001; 83605; 83690; 85025; 87086; 96361; 96372; 96374; 96375; 99284; J1200; J2405; J2550; J7030; Q9967

== ENCOUNTER → 2020-11-30 09:41 | Outpatient (BNVA) | payer MEDICAID, SELFPAY | PROVIDERS: PCP Nurse Practitioner; Visit Provider Nurse Practitioner | DX: R73.9 Hyperglycemia, unspecified (principal) | CPT/HCPCS: 80053; 83036; 85025 ==

== ENCOUNTER 2020-12-15 17:00 | Emergency (ER) | payer MEDICAID, SELFPAY ==
[2020-12-15 17:11] VITALS: BP 162/107; PULSE 70; RESP 18; TEMP 36.9; O2SAT 100; BMI 26.4
--- NOTE | 2020-12-15 18:51 | W.ED.NAVMDI ---
HPI - Nausea/Vomiting/Diarrhea General: Chief complaint: Abdominal Pain Stated complaint: N/V Time Seen by Provider: 12/15/20 17:02 Source: patient Mode of arrival: ambulatory Limitations: no limitations History of Present Illness: HPI Narrative: Patient is a 60-year-old female with a history of cyclic vomiting syndrome here for complaints of nausea and vomiting beginning this morning. She is having diffuse abdominal pain. Patient states her symptoms today feel similar to when she has been here previously. She is not having any diarrhea. No fevers. Reports her last marijuana use was a few weeks ago. Denies bloody or dark/coffee-ground emesis. MD elicited complaint: nausea, vomiting and abdominal pain Pertinent past history: cyclical vomiting Onset (ago): hour(s) Description of vomiting: watery Associated nausea: Yes Associated abdominal pain: Yes Location of pain: Diffuse Pain consistency: constant Quality: cramping Relieving factors: none Context: marijuana use Associated symtoms: Reports nausea; Denies change in vision, chest pain, dysuria, fatigue, headache(s) or malaise Review of Systems Const: Denies: fever(s), chills, body aches, fatigue or malaise Eyes: Denies: change in vision ENMT: Denies: odynophagia Card: Denies: chest pain Resp: Denies: dyspnea GI: Reports: abdominal pain, nausea, vomiting and GI cramping; Denies: hematemesis, heartburn, diarrhea, change in stool character, hematochezia, melena or white/light colored stool : Denies: flank pain, difficulty voiding, dysuria, urinary frequency or urinary urgency Musc: Denies: neck pain or back pain Skin/Breast: Denies: rash Neuro: Denies: headache(s) PFSH ED PFSH: Medical History Anxiety and depression COPD (chronic obstructive pulmonary disease) Dyslipidemia Essential (primary) hypertension Glaucoma (increased eye pressure) Insomnia Nasal congestion with rhinorrhea Osteoarthritis Smoker Urinary frequency Surgical History History of carpal tunnel release of both wrists Hx of arthroscopic knee surgery (~2012) left Family History Other COPD (chronic obstructive pulmonary disease) Cancer Social History Smoking and tobacco status: current every day smoker Second hand smoke exposure: Yes Smoking risk assessment/counseling performed?: Yes Alcohol intake: never Desire information about alcohol rehabilitation?: No Counseling given: No Desire information about substance/drug rehabilitation?: No Adopted: No Caregiver/support person: No Lives independently: Yes Household members: spouse Housing: House Marital status: service: No History of recent travel: No Current gender identity: Female Physical Exam Const: COMMON NORMALS: no acute distress, patient oriented x3, no limitations and alert GENERAL APPEARANCE: cooperative ORIENTATION/CONSCIOUSNESS: Yes awake, Yes oriented to person, Yes oriented to place and Yes oriented to time HENMT: COMMON NORMALS: normocephalic and atraumatic HEAD & SCALP: atraumatic Resp: COMMON NORMALS: normal respiratory effort and clear to auscultation bilaterally AUSCULTATION: clear to auscultation bilaterally Cardio: COMMON NORMALS: regular rate and regular rhythm RATE: regular rate RHYTHM: regular rhythm GI: COMMON NORMALS: Normal to inspection, nondistended, normoactive bowel sounds present, Soft to palpation, No hepatosplenomegaly present and no masses INSPECTION: Yes normal to inspection AUSCULTATION: Yes normoactive bowel sounds PALPATION: Yes Soft to palpation, Yes Tenderness to palpation present (GI) (mild diffusely-non surgical abdomen) and Yes No hepatosplenomegaly present : COMMON NORMALS: Yes no CVA tenderness BLADDER/KIDNEY EXAM: Yes no CVA tenderness Back/Pelvis: COMMON NORMALS: no CVA tenderness Extremity: COMMON NORMALS: no pedal edema Neuro: DARRIN COMA SCALE: document GCS findings Darrin coma scale eye opening: Spontaneous Darrin coma scale verbal response: Orientated Darrin coma scale motor response: Obey commands Darrin coma scale total score: 15 COMMON NORMALS: patient oriented x3 SENSORIUM/ORIENTATION: Yes alert, Yes oriented to person, Yes oriented to place and Yes oriented to time Skin: COMMON NORMALS: no rashes or lesions noted GENERAL SKIN EXAM: no rashes or lesions noted Course Vital Signs: Vital signs: Vital Signs Temperature 98.5 F 12/15/20 17:11 Pulse Rate 70 12/15/20 17:11 Respiratory Rate 18 12/15/20 17:11 Blood Pressure 162/107 12/15/20 17:11 Pulse Oximetry 100 12/15/20 17:11 MDM - Nausea/Vomiting/Diarrhea MDM Narrative: Medical decision making narrative: Reexamination reveals patient resting in no acute distress. She has not had any episodes of vomiting while here. She no longer has abdominal pain. Labs are non-concerning at this time. Her potassium was a tiny bit low at 3.3. She was given oral replacement. UA does not look infected but does have 3+ blood. It looks like patient always has hematuria on her UA comparing it to previous specimens. She tells me she has never had any evaluation regarding this. Recommend she contact her primary care provider and follow-up. She agrees. Lab Data: Labs: Lab Results 12/15/20 12/15/20 12/15/20 Range/Units 19:06 19:22 19:22 WBC 13.6 H (4.0-10.0) 10^3/ uL RBC 4.54 (4.1-5.3) 10^6/u L Hgb 14.0 (11.5-15.3) g/dL Hct 40.9 (37.0-47.0) % MCV 90.1 (81-99) fL MCH 30.8 (28.0-34.0) pg MCHC 34.2 (30.0-36.0) g/dL RDW 12.7 (12.1-15.1) % Plt Count 255 (130-400) 10^3/c mm MPV 9.4 (7.4-10.4) fL Neut % (Auto) 83.7 % Lymph % (Auto) 11.8 % [place] % (Auto) 3.8 % Eos % (Auto) 0.0 % Baso % (Auto) 0.1 % Neut # (Auto) 11.39 H (1.8-7.7) 10^3/u L Lymph # (Auto) 1.6 (0.8-4.8) 10^3/u L [place] # (Auto) 0.5 (0.2-0.9) 10^3/u L Eos # (Auto) 0.0 (0.0-0.8) 10^3/u L Baso # (Auto) 0.0 (0.0-0.1) 10^3/u L Nucleated RBC % (a uto) 0 % Nucleated RBCs # 0.0 /100WBC Sodium 136 (136-145) mmol/L Potassium 3.3 L (3.5-5.1) mmol/L Chloride 102 (98-107) mmol/L Carbon Dioxide 17 L (22-29) mmol/L Anion Gap 20.3 H (5-19) BUN 12 (8-23) mg/dL Creatinine 0.6 (0.5-0.9) mg/dL GFR Calculation 102.0 (90-130) mL/min Glucose 140 H (65-115) mg/dL Calculated Osmolal ity 284 L (285-295) mOsm/k g Calcium 9.4 (8.5-10.5) mg/dL Total Bilirubin 0.4 (0.15-1.2) mg/dL AST 24 (0-32) U/L ALT 26 (0-33) U/L Alkaline Phosphata se 76 (35-105) IU/L Total Protein 8.0 (6.6-8.7) g/dL Albumin 5.1 (3.5-5.2) g/dL Globulin 2.9 (1.3-4.6) g/dL Lipase 19 (13-60) U/L Urine Color Yellow (Yellow) Urine Appearance Clear (CLEAR) Urine pH 7 (5-7) Ur Specific Gravit y 1.010 (1.005-1.030) Urine Protein Neg (Negative) Urine Glucose (UA) Norm (Normal) Urine Ketones 3+ H (Negative) Urine Blood 3+ H (Negative) Urine Nitrate Negative (Negative) Urine Bilirubin Neg (Negative) Urine Urobilinogen Norm (Negative) mg/dL Ur Leukocyte Elicia ase Negative (Negative) Urine RBC 50-80 H (0-2) /hpf Urine WBC 0-4 H (0-5) /hpf Ur Squamous Epith Cells 15-25 H (0-5) /hpf Amorphous Sediment Not Reportable Urine Bacteria 1+ H (NONE) /hpf Urine Mucus Trace /hpf Discharge Plan Discharge Patient Disposition: Home Clinical Impression: Cyclic vomiting syndrome Hematuria Qualifiers: Hematuria type: unspecified type Qualified Code(s): R31.9 - Hematuria, unspecified Condition: Stable Prescriptions: No Action latanoprost (PF) 0.005 % drops 1 drp ophthalmic (eye) BEDTIME@2000 Qty: 7.5 RF: 2 albuterol sulfate [ProAir HFA] 90 mcg/actuation HFA aerosol inhaler 2 puff INHALATION QID PRN (Reason: shortness of breath or wheezing) Qty: 18 RF: 2 atorvastatin 40 mg tablet 40 mg PO BEDTIME Qty: 30 RF: 2 celecoxib 400 mg capsule 400 mg PO DAILY@0800 Qty: 30 RF: 2 Hold Instructions: Hold for 4 weeks escitalopram oxalate 10 mg tablet 10 mg PO DAILY@0800 Qty: 30 RF: 2 Bevespi Aerosphere 9-4.8 mcg HFA aerosol inhaler 2 puff INHALATION Q12H Qty: 10.7 RF: 2 hydroxyzine pamoate 25 mg capsule 25 mg PO TID@0800,12,20 Qty: 90 RF: 2 lisinopril 20 mg tablet 20 mg PO DAILY@0800 Qty: 30 RF: 2 Multivitamin Women 50 Plus 8 mg iron-400 mcg-300 mcg tablet 1 tab PO DAILY@0800 Qty: 30 RF: 2 oxybutynin chloride 5 mg tablet 5 mg PO TID@08,12,20 Qty: 90 RF: 2 trazodone 150 mg tablet 150 mg PO DAILY@2000 Qty: 30 RF: 2 promethazine-DM 6.25-15 mg/5 mL syrup 5 ml PO Q6H PRN (Reason: cough) Qty: 240 RF: 2 azelastine 137 mcg (0.1 %) aerosol,spray 1 spray intranasal BID Qty: 30 RF: 2 aspirin [Adult Low Dose Aspirin] 81 mg tablet,delayed release (DR/EC) 81 mg PO DAILY@0800 RF: 0 Miralax 17 gram/dose powder 17 g PO DAILY PRN (Reason: Constipation) RF: 0 Voltaren 1 % gel 2 g topical QID PRN (Reason: Pain) RF: 0 Discharge Orders: Discharge ED (Routine); Ordered 12/15/20 Ordered By: Anny Combs Referrals: Vero Moon, NAT INSTRUCTOR-C [Primary Care Provider] - Activity Restrictions/Additional Instructions: As we discussed you need to follow-up with your primary care provider regarding the blood in your urine. Recommend cessation of marijuana. Coding Level of Care Code ED Building Admin for [facility] Fwd Exam Comprehensive
[2020-12-15 19:21] LABS: Urine Appearance Clear (CLEAR); Urine Color Yellow (Yellow); pH Urine 7 (5-7)
[2020-12-15 19:22] LABS: Add Urine Culture? No; Add Urine Microscopic? YES; Bacteria Urine 1+ /hpf; Bilirubin Urine Neg (Negative); Blood Urine 3+ (Negative); Glucose Urine UA Norm (Normal); Ketones Urine 3+ (Negative); Leukocyte Esterase Urine Negative (Negative); Mucus Urine TRACE /hpf; Nitrate Urine Negative (Negative); Protein Urine Neg (Negative); RBC Urine 50-80 /hpf (0-2); Squamous Epithelial Cell Urine 15-25 /hpf (0-5); Urobilinogen Urine Norm (Negative); WBC Urine 0-4 /hpf (0-5)
[2020-12-15] MEDS: haloperidol inj 5 mg/mL INJ 1 mL 2.5 MG IVP (19:22)
[2020-12-15] MEDS: LORazepam 2 mg/mL INJ 1 mL 1 MG IVP (19:22)
[2020-12-15] MEDS: ondansetron 2 mg/ML SDV 2 mL 4 MG IVP (19:22)
[2020-12-15 19:27] LABS: Basophils % 0.1 %; Hematocrit 40.9 % (37.0-47.0); Lymphocytes # 1.6 10^3/uL (0.8-4.8); Lymphocytes % 11.8 %; Mean Corpuscular HGB Conc 34.2 g/dL (30.0-36.0); Mean Corpuscular Hemoglobin 30.8 pg (28.0-34.0); Mean Corpuscular Volume 90.1 fL (81-99); Mean Platelet Volume 9.4 fL (7.4-10.4); Monocytes # 0.5 10^3/uL (0.2-0.9); Monocytes % 3.8 %; Neutrophils # 11.39 10^3/uL (1.8-7.7); Neutrophils % 83.7 %; Nucleated Red Blood Cells % 0 %; Platelet Count 255 10^3/cmm (130-400); Red Blood Count 4.54 10^6/uL (4.1-5.3); Red Cell Distribution Width 12.7 % (12.1-15.1); White Blood Count 13.6 10^3/uL (4.0-10.0)
[2020-12-15 20:00] LABS: Alanine Aminotransferase 26 U/L (0-33); Albumin Level 5.1 g/dL (3.5-5.2); Alkaline Phosphatase 76 IU/L (35-105); Anion Gap 20.3 (5-19); Aspartate Amino Transferase 24 U/L (0-32); Blood Urea Nitrogen 12 mg/dL (8-23); Calcium 9.4 mg/dL (8.5-10.5); Carbon Dioxide 17 mmol/L (22-29); Chloride 102 mmol/L (98-107); Globulin 2.9 g/dL (1.3-4.6); Glucose 140 mg/dL (65-115); Lipase 19 U/L (13-60); Osmolality Calculated 284 mOsm/kg (285-295); Potassium 3.3 mmol/L (3.5-5.1); Sodium 136 mmol/L (136-145); Total Bilirubin 0.4 mg/dL (0.15-1.2)
== END 2020-12-15 20:47 | disposition home or self-care (01) ==
PROVIDERS: Emergency Provider Physician Assistant; PCP Nurse Practitioner
DX: R11.15 Cyclical vomiting syndrome unrelated to migraine (principal); Z79.82 Long term (current) use of aspirin; R31.9 Hematuria, unspecified
CPT/HCPCS: 80053; 81001; 83690; 85025; 96374; 96375; 99283; J1630; J2060; J2405

== ENCOUNTER → 2020-12-19 15:57 | Outpatient (BNVA) | payer MEDICAID, SELFPAY | PROVIDERS: PCP Nurse Practitioner; Visit Provider Nurse Practitioner | DX: J44.9 Chronic obstructive pulmonary disease, unspecified (principal); R11.15 Cyclical vomiting syndrome unrelated to migraine; R11.2 Nausea with vomiting, unspecified | CPT/HCPCS: 80048; 81000; 85025 ==

== ENCOUNTER → 2021-02-26 08:41 | Outpatient (BNVA) | payer MEDICAID, SELFPAY | PROVIDERS: PCP Nurse Practitioner; Visit Provider Nurse Practitioner | DX: E78.5 Hyperlipidemia, unspecified (principal); I10 Essential (primary) hypertension | CPT/HCPCS: 80053; 80061 ==

== ENCOUNTER → 2021-05-23 08:06 | Outpatient (BNVA) | payer MEDICAID, SELFPAY | PROVIDERS: PCP Nurse Practitioner; Visit Provider Nurse Practitioner | DX: I10 Essential (primary) hypertension (principal); J44.9 Chronic obstructive pulmonary disease, unspecified | CPT/HCPCS: 80053; 80061; 85025 ==

== ENCOUNTER 2021-08-26 14:18 | Emergency (ER) | payer MEDICAID, SELFPAY ==
[2021-08-26 14:19] VITALS: BP 151/84; PULSE 72; RESP 26; TEMP 35.9; O2SAT 100; BMI 26.4
--- NOTE | 2021-08-26 14:23 | ED_ITS ---
HPI - Nausea/Vomiting/Diarrhea General: Chief complaint: Nausea/Vomiting/Diarrhea Stated complaint: N/V Time Seen by Provider: 08/26/21 14:19 Source: patient and EMS Mode of arrival: EMS Limitations: no limitations History of Present Illness: HPI Narrative: 61-year-old female states she been having nausea vomiting along with diarrhea since last night. States she been having some abdominal cramping has had multiple episodes of vomiting states that she been feeling weak as well. Denies any fever states the cramping is currently a 2 out of 10 denies any worsening improving factors. Associated nausea: Yes Associated symtoms: Reports nausea; Denies chest pain, dysuria or headache(s) Review of Systems Const: Denies: fever(s), chills, body aches or change in appetite Eyes: Denies: blurry vision or eye discomfort ENMT: Denies: throat pain or dental pain Card: Denies: chest pain Resp: Denies: dyspnea GI: Reports: nausea, vomiting and diarrhea : Denies: dysuria Musc: Denies: neck pain or back pain Skin/Breast: Denies: rash Neuro: Denies: headache(s) Psych: Denies: depression Phil/Lymph: Denies: easy bruising All/Imm: Denies: urticaria PFSH ED PFSH: Medical History Anxiety and depression COPD (chronic obstructive pulmonary disease) Dyslipidemia Essential (primary) hypertension Glaucoma (increased eye pressure) Insomnia Nasal congestion with rhinorrhea Osteoarthritis Smoker Urinary frequency Surgical History History of carpal tunnel release of both wrists History of cataract extraction Bilateral 2020 Hx of arthroscopic knee surgery (~2012) left Family History Other COPD (chronic obstructive pulmonary disease) Cancer Social History Smoking and tobacco status: current every day smoker Second hand smoke exposure: Yes Smoking risk assessment/counseling performed?: Yes Alcohol intake: never Desire information about alcohol rehabilitation?: No Counseling given: No Desire information about substance/drug rehabilitation?: No Counseling given: No Adopted: No Caregiver/support person: No Lives independently: Yes Household members: spouse Housing: House Marital status: service: No History of recent travel: No Current gender identity: Female Physical Exam Const: COMMON NORMALS: no acute distress, patient oriented x3 and healthy appearing HENMT: COMMON NORMALS: normocephalic and atraumatic HEAD & SCALP: normocephalic and atraumatic Eye: COMMON NORMALS: Equal, round and reactive pupils present and EOMs intact bilaterally PUPIL: Yes Equal, round and reactive pupils present Neck/C-Spine: COMMON NORMALS: full ROM and supple Chest: COMMONS NORMALS: normal inspection of the chest and normal palpation of entire chest wall Resp: COMMON NORMALS: normal respiratory effort, No retractions, No use of accessory muscles and clear to auscultation bilaterally AUSCULTATION: clear to auscultation bilaterally Cardio: COMMON NORMALS: regular rate, regular rhythm and No murmurs present (Cardio) RATE: regular rate RHYTHM: regular rhythm GI: COMMON NORMALS: Normal to inspection, nondistended, normoactive bowel sounds present, Soft to palpation, non-tender and no masses PALPATION: Yes Soft to palpation Extremity: COMMON NORMALS: normal to inspection and full ROM Neuro: COMMON NORMALS: patient oriented x3, moves all extremities and no focal motor deficits Psych: COMMON NORMALS: mental status grossly normal, Normal thought process present and cooperative THOUGHT PROCESS: Normal thought process present Skin: COMMON NORMALS: no rashes or lesions noted and no wounds GENERAL SKIN EXAM: no rashes or lesions noted Course Vital Signs: Vital signs: Vital Signs Temperature 96.7 F L 08/26/21 14:48 Pulse Rate 74 08/26/21 14:48 Respiratory Rate 17 08/26/21 14:48 Blood Pressure 151/84 08/26/21 14:48 Pulse Oximetry 98 08/26/21 14:48 MDM - Nausea/Vomiting/Diarrhea MDM Narrative: Medical decision making narrative: Patient presents here with nausea vomiting likely viral in origin she is well-appearing here no acute distress repeat abdominal exams are benign with no tenderness she has no signs of acute surgical abdomen no signs of appendicitis she is able to tolerate p.o. here after Zofran will prescribe her Zofran for home she is to follow-up with PCP and return if worsening she understands agrees to plan. Lab Data: Labs: Lab Results 08/26/21 08/26/21 14:40 14:40 WBC 12.1 10^3/uL H 10 ^3/uL (4.0-10.0) RBC 4.52 10^6/uL 10^6 /uL (4.1-5.3) Hgb 14.2 g/dL g/dL (11.5-15.3) Hct 41.8 % % (37.0-47.0) MCV 92.5 fl fl (81-99) MCH 31.4 pg pg (28.0-34.0) MCHC 34.0 g/dL g/dL (30.0-36.0) RDW 12.9 % % (12.1-15.1) Plt Count 271 10^3/cmm 10^3 /cmm (130-400) MPV 9.6 fL fL (7.4-10.4) Neut % (Auto) 85.1 % % Lymph % (Auto) 12.0 % % [place] % (Auto) 2.1 % % Eos % (Auto) 0.0 % % Baso % (Auto) 0.3 % % Neut # (Auto) 10.30 10^3/uL H 1 0^3/uL (1.8-7.7) Lymph # (Auto) 1.5 10^3/uL 10^3/ uL (0.8-4.8) [place] # (Auto) 0.3 10^3/uL 10^3/ uL (0.2-0.9) Eos # (Auto) 0.0 10^3/uL 10^3/ uL (0.0-0.8) Baso # (Auto) 0.0 10^3/uL 10^3/ uL (0.0-0.1) Nucleated RBC % (a uto) 0 % % Nucleated RBCs # 0.0 /100WBC /100W BC Sodium 136 mmol/L mmol/L (136-145) Potassium 3.9 mmol/L mmol/L (3.5-5.1) Chloride 101 mmol/L mmol/L (98-107) Carbon Dioxide 17 mmol/L L mmol/ L (22-29) Anion Gap 21.9 H (5-19) BUN 14 mg/dL mg/dL (8-23) Creatinine 0.8 mg/dL mg/dL (0.5-0.9) GFR Calculation 72.9 mL/min L mL/ min (90-130) Glucose 142 mg/dL H mg/dL (65-115) Calculated Osmolal ity 285 mOsm/kg mOsm/ kg (285-295) Calcium 9.1 mg/dL mg/dL (8.5-10.5) Total Bilirubin 0.3 mg/dL mg/dL (0.15-1.2) AST 22 U/L U/L (0-32) ALT 20 U/L U/L (0-33) Alkaline Phosphata se 70 IU/L IU/L (35-105) Total Protein 7.6 g/dL g/dL (6.6-8.7) Albumin 4.7 g/dL g/dL (3.5-5.2) Globulin 2.9 g/dL g/dL (1.3-4.6) Lipase 21 U/L U/L (13-60) Discharge Plan Discharge Patient Disposition: Home Clinical Impression: Vomiting Qualifiers: Vomiting type: unspecified Vomiting Intractability: non-intractable Nausea presence: with nausea Qualified Code(s): R11.2 - Nausea with vomiting, unspecified Condition: Stable Prescriptions: New ondansetron 4 mg tablet,disintegrating 4 mg PO Q6H PRN (Reason: nausea and vomiting) Qty: 14 RF: 0 No Action latanoprost (PF) 0.005 % drops 1 drp ophthalmic (eye) BEDTIME@2000 Qty: 7.5 RF: 2 Multivitamin Women 50 Plus 8 mg iron-400 mcg-300 mcg tablet 1 tab PO DAILY@0800 Qty: 30 RF: 2 aspirin [Adult Low Dose Aspirin] 81 mg tablet,delayed release (DR/EC) 81 mg PO DAILY@0800 RF: 0 albuterol sulfate [ProAir HFA] 90 mcg/actuation HFA aerosol inhaler 2 puff INHALATION QID PRN (Reason: shortness of breath or wheezing) Qty: 18 RF: 2 atorvastatin 40 mg tablet 40 mg PO BEDTIME Qty: 30 RF: 2 azelastine 137 mcg (0.1 %) aerosol,spray 1 spray intranasal BID Qty: 30 RF: 2 celecoxib 400 mg capsule 400 mg PO DAILY@0800 Qty: 30 RF: 2 Hold Instructions: Hold for 4 weeks escitalopram oxalate 10 mg tablet 10 mg PO DAILY@0800 Qty: 30 RF: 2 Bevespi Aerosphere 9-4.8 mcg HFA aerosol inhaler 2 puff INHALATION Q12H Qty: 10.7 RF: 2 lisinopril 20 mg tablet 20 mg PO DAILY@0800 Qty: 30 RF: 2 quetiapine [Seroquel] 50 mg tablet See Rx Instructions PO .COMPLEX Qty: 60 RF: 0 silver sulfadiazine [Silvadene] 1 % cream 1 applic topical DAILY PRN (Reason: wound healing) Qty: 50 RF: 0 promethazine-DM 6.25-15 mg/5 mL syrup 5 ml PO Q6H PRN (Reason: cough) Qty: 240 RF: 2 Miralax 17 gram/dose powder 17 g PO DAILY PRN (Reason: Constipation) Qty: 510 RF: 2 hyoscyamine sulfate [Levsin] 0.125 mg tablet 0.125 mg PO BID Qty: 60 RF: 2 hydroxyzine pamoate 25 mg capsule 25 mg PO TID@0800,12,20 Qty: 90 RF: 2 oxybutynin chloride 5 mg tablet 5 mg PO TID@08,12,20 Qty: 90 RF: 2 Voltaren 1 % gel 2 g topical QID PRN (Reason: Pain) RF: 0 Discharge Orders: Discharge ED (Routine); Ordered 08/26/21 Ordered By: Akil Benito Referrals: Vero Moon, ST[facility] RAISER-C [Primary Care Provider] - 1-3 days Discharge Diet: Advance as tolerated Discharge Activity: Resume usual activity Patient Instructions: Acute Nausea and Vomiting (ED) Coding Level of Care Code ED Automotive Specialty Technician for Chg Fwd Exam Comprehensive
[2021-08-26 14:48] VITALS: BP 151/84; PULSE 74; RESP 17; TEMP 35.9; O2SAT 98
[2021-08-26 14:48] LABS: Basophils % 0.3 %; Hematocrit 41.8 % (37.0-47.0); Hemoglobin 14.2 g/dL (11.5-15.3); Lymphocytes # 1.5 10^3/uL (0.8-4.8); Mean Corpuscular Hemoglobin 31.4 pg (28.0-34.0); Mean Corpuscular Volume 92.5 fl (81-99); Mean Platelet Volume 9.6 fL (7.4-10.4); Monocytes # 0.3 10^3/uL (0.2-0.9); Monocytes % 2.1 %; Neutrophils % 85.1 %; Nucleated Red Blood Cells % 0 %; Platelet Count 271 10^3/cmm (130-400); Red Blood Count 4.52 10^6/uL (4.1-5.3); Red Cell Distribution Width 12.9 % (12.1-15.1); White Blood Count 12.1 10^3/uL (4.0-10.0)
[2021-08-26] MEDS: ondansetron 2 mg/ML SDV 2 mL 4 MG IVP (14:56)
[2021-08-26] MEDS: sodium chloride 0.9% 1,000 ML 999 ML IV (14:57)
[2021-08-26 15:09] LABS: Alanine Aminotransferase 20 U/L (0-33); Albumin Level 4.7 g/dL (3.5-5.2); Alkaline Phosphatase 70 IU/L (35-105); Anion Gap 21.9 (5-19); Aspartate Amino Transferase 22 U/L (0-32); Blood Urea Nitrogen 14 mg/dL (8-23); Calcium 9.1 mg/dL (8.5-10.5); Carbon Dioxide 17 mmol/L (22-29); Chloride 101 mmol/L (98-107); Globulin 2.9 g/dL (1.3-4.6); Glomerular Filtration Rate 72.9 mL/min (90-130); Glucose 142 mg/dL (65-115); Lipase 21 U/L (13-60); Osmolality Calculated 285 mOsm/kg (285-295); Potassium 3.9 mmol/L (3.5-5.1); Sodium 136 mmol/L (136-145); Total Bilirubin 0.3 mg/dL (0.15-1.2); Total Protein 7.6 g/dL (6.6-8.7)
[2021-08-26] MEDS: ketorolac 30 mg/mL INJ 15 MG IVP (16:54)
[2021-08-26] MEDS: diphenoxylate/atropine Tablet 1 TAB PO (16:54)
== END 2021-08-26 17:11 | disposition home or self-care (01) ==
PROVIDERS: Emergency Provider Emergency Medicine; PCP Nurse Practitioner
DX: R11.2 Nausea with vomiting, unspecified (principal); Z79.82 Long term (current) use of aspirin; J44.9 Chronic obstructive pulmonary disease, unspecified; E78.5 Hyperlipidemia, unspecified; I10 Essential (primary) hypertension; F17.210 Nicotine dependence, cigarettes, uncomplicated
CPT/HCPCS: 80053; 83690; 85025; 96361; 96374; 96375; 99283; 99291; J1885; J2405; J7030

== ENCOUNTER → 2021-08-27 11:47 | Outpatient (BNVA) | payer MEDICAID, SELFPAY | PROVIDERS: PCP Nurse Practitioner; Visit Provider Nurse Practitioner | DX: Z20.822 Contact with and (suspected) exposure to COVID-19 (principal) | CPT/HCPCS: 87635 ==

== ENCOUNTER → 2021-10-02 08:51 | Outpatient (BNVA) | payer MEDICAID, SELFPAY | PROVIDERS: PCP Nurse Practitioner; Visit Provider Nurse Practitioner Family | DX: M10.9 Gout, unspecified (principal) | CPT/HCPCS: 80053; 84550; 85025 ==

== ENCOUNTER 2021-10-05 13:06 | Outpatient (CLI) | payer MEDICAID, SELFPAY ==
--- NOTE | 2021-10-05 13:16 | XRR_ITS ---
PROCEDURE INFORMATION: Exam: XR Left Hand Exam date and time: 10/05/2021 1:16 PM Age: 61 years old Clinical indication: Right; Prior surgery; Surgery type: Left thumb, carpel tunnel; Patient HX: Pain and swelling to entire hand since Friday; Additional info: L03.114 - cellulitis of left upper limb, worst index finger and 1st mcp joint TECHNIQUE: Imaging protocol: XR Left hand. Views: 3 or more views. COMPARISON: No relevant prior studies available. FINDINGS: Bones/joints: No acute fracture or dislocation. Postoperative changes status post apparent resection of the trapezium, minimal deformity of the base of the 1st metacarpal. Soft tissues: Soft tissue edema. XR/XR hand LT min 3V* [id number] IMPRESSION: Soft tissue edema, postoperative change.
== END 2021-10-05 13:07 | disposition home or self-care (01) ==
LOC: RAD 13:16
PROVIDERS: PCP Nurse Practitioner; Visit Provider Nurse Practitioner Family
DX: L03.114 Cellulitis of left upper limb (principal); R60.0 Localized edema
CPT/HCPCS: 73130

== ENCOUNTER → 2021-11-13 08:30 | Outpatient (BNVA) | payer MEDICAID, SELFPAY | PROVIDERS: PCP Nurse Practitioner; Visit Provider Nurse Practitioner | DX: R30.0 Dysuria (principal) | CPT/HCPCS: 81003 ==

== ENCOUNTER 2021-11-21 15:04 | Outpatient (CLI) | payer MEDICAID, SELFPAY ==
--- NOTE | 2021-11-21 15:35 | CTR_ITS ---
PROCEDURE INFORMATION: Exam: CT Left Upper Extremity Without Contrast, Hand Exam date and time: 11/21/2021 3:35 PM Age: 61 years old Clinical indication: Condition or disease; Cellulitis; Hand; Left; Additional info: L03.114 - cellulitis of left upper limb, swelling and erythema of left hand, worst to 1st mcp joint and index finger TECHNIQUE: Imaging protocol: CT of the Left upper extremity without contrast was performed. Exam focused on the hand. Radiation optimization: All CT scans at this facility use at least one of these dose optimization techniques: automated exposure control; mA and/or kV adjustment per patient size (includes targeted exams where dose is matched to clinical indication); or iterative reconstruction. COMPARISON: CR XR hand LT min 3V* [id number] 10/05/2021 1:28 PM RADIATION DOSE METRICS: Total DLP (mGy-cm): 137.52 FINDINGS: Bones/joints: First metacarpal base productive degenerative changes. Soft tissues: Minimal subcutaneous edema overlying the region of a resected trapezium bone may reflect a cellulitis, negative for focal fluid collection or acute appearing bony abnormality. CT/CT hand LT wo con* [id number] IMPRESSION: 1. Minimal subcutaneous edema overlying the region of a resected trapezium bone may reflect a cellulitis, negative for focal fluid collection or acute appearing bony abnormality. 2. First metacarpal base productive degenerative changes.
--- NOTE | 2021-11-21 15:44 | CT_ITS ---
WS: [id number] CT head wo con* [id number] REASON FOR EXAM: R51.9 - Headache, unspecified IV CONTRAST ADMINISTERED: Noncontrast TOTAL EXAM DLP: 1081.[address] scans at [facility] use at least one of these dose optimization techniques: automat ed exposure control; mA and/or kV adjustment per patient size (includes targeted exams where dose is matched to clinical indication); or iterative reconstruction. FINDINGS: Examination is unchanged compared to previous study of 08/01/2020. No midline shift or other significant mass effect. No findings of intra or extra-axial hemorrhage. CSF spaces are of normal volume and configuration. No focal brain parenchymal abnormality is identified. Bony base of the skull and bony calvarium are intact. Minimal mucosal thickening in the anterior inferior ethmoid air cells with no significant findings of sinus disease. CT/CT head wo con* [id number] IMPRESSION: No significant abnormality.
== END 2021-11-21 15:05 | disposition home or self-care (01) ==
LOC: RAD 15:06
PROVIDERS: PCP Nurse Practitioner; Visit Provider Nurse Practitioner Family
DX: L03.114 Cellulitis of left upper limb (principal); M79.89 Other specified soft tissue disorders; R51.9 Headache, unspecified
CPT/HCPCS: 70450; 73200

== ENCOUNTER 2021-12-16 22:48 | Emergency (ER) | payer MEDICAID, SELFPAY ==
[2021-12-16 23:45] VITALS: BP 176/91; PULSE 105; RESP 20; TEMP 36.7; O2SAT 99; BMI 26.4
[2021-12-17] MEDS: ondansetron 2 mg/ML SDV 2 mL 4 MG IVP (01:20)
[2021-12-17] MEDS: sodium chloride 0.9% 1,000 ML 999 ML IV ×2 (01:20→03:33)
--- NOTE | 2021-12-17 01:20 | XRR_ITS ---
PROCEDURE INFORMATION: Exam: XR Chest Exam date and time: 12/17/2021 1:27 AM Age: 61 years old Clinical indication: Cough and fever TECHNIQUE: Imaging protocol: XR of the chest. Views: 1 view. COMPARISON: 1. CR XR chest 1V portable [id number] 2020-09-03 12:41 2. CR XR chest 1V portable [id number] 2020-04-22 20:[address] abdomen pelvis w con* [id number] 2020-10-20 20:[address] abdomen pelvis w con* [id number] 2020-06-25 19:05 FINDINGS: Lungs: Minimal chronic interstitial thickening. No focal airspace consolidation. Pleural spaces: Unremarkable. No pleural effusion. No pneumothorax. Heart/Mediastinum: Unremarkable. No cardiomegaly. Bones/joints: Unremarkable. Soft tissues: Clips in the upper chest. XR/XR chest 1V portable [id number] IMPRESSION: No acute focal airspace consolidation.
--- NOTE | 2021-12-17 01:21 | W.ED.NAVMDI ---
HPI - Nausea/Vomiting/Diarrhea General: Chief complaint: Nausea/Vomiting/Diarrhea Stated complaint: N/V/Fever Time Seen by Provider: 12/17/21 00:37 History of Present Illness: Patient is a 61-year-old female comes to the ED with nausea ,vomiting and fever. Past medical history of COPD, hypertension dyslipidemia. Patient is a current tobacco smoker. Symptoms started yesterday. She reports having a fever, chills, body aches, cough, nasal congestion and drainage, nausea and vomiting. Cough described as productive with a yellow sputum. She says she is had multiple episodes of emesis today and has not been able to keep any food or fluids down. She reports constipation and states that her last BM was approximately 24 hours ago. Denies any sick contacts and she has not had the COVID-19 vaccine. Denies any abdominal pain, chest pain or shortness of breath. Associated nausea: Yes Associated symtoms: Reports nausea; Denies change in vision, chest pain, dysuria, fatigue, headache(s) or palpitations Review of Systems Const: Reports: fever(s), chills and body aches; Denies: fatigue Eyes: Denies: change in vision or eye discomfort ENMT: Denies: throat pain, odynophagia, nasal discharge or nasal congestion Card: Denies: chest pain, palpitations, edema, swelling of feet/ankles, dyspnea on exertion or orthopnea Resp: Reports: productive cough (Yellow sputum); Denies: dyspnea or non-productive cough GI: Reports: nausea, vomiting and constipation; Denies: abdominal pain, diarrhea or hematochezia : Denies: flank pain, dysuria or hematuria Musc: Denies: neck pain, back pain or extremity swelling Skin/Breast: Denies: rash or new lesions Neuro: Denies: headache(s), numbness in extremities or weakness in extremities PFSH ED PFSH: Medical History Anxiety and depression COPD (chronic obstructive pulmonary disease) Dyslipidemia Essential (primary) hypertension Glaucoma (increased eye pressure) Insomnia Nasal congestion with rhinorrhea Osteoarthritis Smoker Urinary frequency Surgical History History of carpal tunnel release of both wrists History of cataract extraction Bilateral 2020 Hx of arthroscopic knee surgery (~2012) left Family History Other COPD (chronic obstructive pulmonary disease) Cancer Social History Smoking and tobacco status: current every day smoker Second hand smoke exposure: Yes Smoking risk assessment/counseling performed?: Yes Alcohol intake: never Desire information about alcohol rehabilitation?: No Counseling given: No Desire information about substance/drug rehabilitation?: No Counseling given: No Adopted: No Caregiver/support person: No Lives independently: Yes Household members: spouse Housing: House Marital status: service: No History of recent travel: No Current gender identity: Female Physical Exam Const: COMMON NORMALS: patient oriented x3 and alert GENERAL APPEARANCE: cooperative HENMT: COMMON NORMALS: normocephalic HEAD & SCALP: normocephalic MOUTH: moist mucous membranes abnormal Details: parched THROAT: posterior oropharynx normal and uvula midline Eye: COMMON NORMALS: Equal, round and reactive pupils present and conjunctivae normal CONJUNCTIVA: Yes conjunctivae normal PUPIL: Yes Equal, round and reactive pupils present Neck/C-Spine: COMMON NORMALS: supple GENERAL: Yes normal visual inspection Resp: COMMON NORMALS: normal respiratory effort, No retractions, No use of accessory muscles and clear to auscultation bilaterally AUSCULTATION: clear to auscultation bilaterally Cardio: COMMON NORMALS: regular rate, regular rhythm, S1 normal heart sound present, S2 normal heart sound present, No gallops present (Cardio), No clicks present (Cardio), No murmurs present (Cardio) and Peripheral pulses 2+ throughout RATE: regular rate RHYTHM: regular rhythm HEART SOUNDS: S1 normal heart sound present and S2 normal heart sound present PERIPHERAL PULSES: Peripheral pulses 2+ throughout GI: COMMON NORMALS: Normal to inspection, nondistended, normoactive bowel sounds present, Soft to palpation, non-tender and no masses PALPATION: Yes Soft to palpation OTHER: Patient has no palpable tenderness throughout the abdomen. : COMMON NORMALS: Yes no CVA tenderness BLADDER/KIDNEY EXAM: Yes no CVA tenderness Back/Pelvis: COMMON NORMALS: no CVA tenderness Extremity: COMMON NORMALS: no pedal edema Neuro: COMMON NORMALS: patient oriented x3 and moves all extremities SENSORIUM/ORIENTATION: Yes alert Skin: GENERAL SKIN EXAM: dry skin Course Vital Signs: Vital signs: Vital Signs Temperature 98.1 F 12/16/21 23:45 Pulse Rate 105 H 12/16/21 23:45 Respiratory Rate 20 H 12/16/21 23:45 Blood Pressure 176/91 12/16/21 23:45 Pulse Oximetry 99 12/16/21 23:45 MDM - Nausea/Vomiting/Diarrhea Medical Decision Making Patient is a 61-year-old female comes to the ED with fever, nausea and vomiting. Past medical history of COPD hypertension and hyperlipidemia. Symptoms started yesterday. She is also having a productive cough with yellow sputum, nasal congestion, chills and body aches. Denies any abdominal pain, chest pain or shortness of breath. Vitals are stable. Exam of patient shows some dry oral mucous membranes but rest of exam is benign and she has no palpable abdominal tenderness. White blood cell count 15.7 rest of labs are unremarkable. Chest x-ray showed no acute findings. Influenza negative. Covid negative. After patient received over a liter of IV fluids, Zofran and Reglan her symptoms improved and she is feeling better. Patient diagnosed with viral syndrome and was discharged home with a prescription for Zofran, azithromycin and prednisone. She was told to follow-up with her PCP in 3 to 5 days for reevaluation. Return to ED precautions given. Patient understood and agree with plan. Lab Data I reviewed the patient's lab results. : 12/17/21 01:46 12/17/21 01:46 Radiology Impressions Chest X-Ray 12/17/21 01:20 IMPRESSION: No acute focal airspace consolidation. Laboratory Results WBC 15.7 10^3/uL (4.0-10.0) H 12/17/21 01:46 RBC 4.39 10^6/uL (4.1-5.3) 12/17/21 01:46 Hgb 13.8 g/dL (11.5-15.3) 12/17/21 01:46 Hct 40.3 % (37.0-47.0) 12/17/21 01:46 MCV 91.8 fl (81-99) 12/17/21 01:46 MCH 31.4 pg (28.0-34.0) 12/17/21 01:46 MCHC 34.2 g/dL (30.0-36.0) 12/17/21 01:46 RDW 13.4 % (12.1-15.1) 12/17/21 01:46 Plt Count 261 10^3/cmm (130-400) 12/17/21 01:46 MPV 9.9 fL (7.4-10.4) 12/17/21 01:46 Neut % (Auto) 85.0 % 12/17/21 01:46 Lymph % (Auto) 11.0 % 12/17/21 01:46 [place] % (Auto) 3.6 % 12/17/21 01:46 Eos % (Auto) 0.0 % 12/17/21 01:46 Baso % (Auto) 0.1 % 12/17/21 01:46 Neut # (Auto) 13.33 10^3/uL (1.8-7.7) H 12/17/21 01:46 Lymph # (Auto) 1.7 10^3/uL (0.8-4.8) 12/17/21 01:46 [place] # (Auto) 0.6 10^3/uL (0.2-0.9) 12/17/21 01:46 Eos # (Auto) 0.0 10^3/uL (0.0-0.8) 12/17/21 01:46 Baso # (Auto) 0.0 10^3/uL (0.0-0.1) 12/17/21 01:46 Nucleated RBC % (auto) 0 % 12/17/21 01:46 Nucleated RBCs # 0.0 /100WBC 12/17/21 01:46 Sodium 136 mmol/L (136-145) 12/17/21 01:46 Potassium 3.4 mmol/L (3.5-5.1) L 12/17/21 01:46 Chloride 102 mmol/L (98-107) 12/17/21 01:46 Carbon Dioxide 18 mmol/L (22-29) L 12/17/21 01:46 Anion Gap 19.4 (5-19) H 12/17/21 01:46 BUN 14 mg/dL (8-23) 12/17/21 01:46 Creatinine 0.6 mg/dL (0.5-0.9) 12/17/21 01:46 GFR Calculation 101.6 mL/min (90-130) 12/17/21 01:46 Glucose 150 mg/dL (65-115) H 12/17/21 01:46 Calculated Osmolality 285 mOsm/kg (285-295) 12/17/21 01:46 Calcium 9.8 mg/dL (8.5-10.5) 12/17/21 01:46 Total Bilirubin 0.3 mg/dL (0.15-1.2) 12/17/21 01:46 AST 21 U/L (0-32) 12/17/21 01:46 ALT 21 U/L (0-33) 12/17/21 01:46 Alkaline Phosphatase 60 IU/L (35-105) 12/17/21 01:46 Total Protein 8.3 g/dL (6.6-8.7) 12/17/21 01:46 Albumin 5.0 g/dL (3.5-5.2) 12/17/21 01:46 Globulin 3.3 g/dL (1.3-4.6) 12/17/21 01:46 Lipase 23 U/L (13-60) 12/17/21 01:46 Coronavirus 229E (PCR) Not detected (NOT DETECT) 12/17/21 01:54 Influenza Type A Ag Negative (Negative) 12/17/21 01:54 Influenza Type B Ag Negative (Negative) 12/17/21 01:54 SARS-CoV-2 (PCR) Not detected (NOT DETECT) 12/17/21 01:54 Discharge Plan Discharge Patient Disposition: Home Clinical Impression: Viral syndrome Condition: Stable Prescriptions: New azithromycin 250 mg tablet 250 mg PO DAILY 4 Days Qty: 4 0RF Rx Instructions: start on day 2 of therapy ondansetron 4 mg tablet,disintegrating 4 mg PO Q8H PRN (Reason: nausea and vomiting) Qty: 15 0RF prednisone 20 mg tablet 20 mg PO BID 5 Days Qty: 10 0RF No Action latanoprost (PF) 0.005 % drops 1 drp ophthalmic (eye) BEDTIME@2000 Qty: 7.5 2RF Multivitamin Women 50 Plus 8 mg iron-400 mcg-300 mcg tablet 1 tab PO DAILY@0800 Qty: 30 2RF indomethacin 50 mg capsule 50 mg PO TID Qty: 21 0RF Rx Instructions: administer with food or milk, hold celebrex while taking aspirin [Adult Low Dose Aspirin] 81 mg tablet,delayed release (DR/EC) 81 mg PO DAILY@0800 0RF scopolamine base 1 mg over 3 days patch 3 day 1 patch transdermal Q3D PRN (Reason: nausea and vomiting) Qty: 4 1RF albuterol sulfate [ProAir HFA] 90 mcg/actuation HFA aerosol inhaler 2 puff INHALATION QID PRN (Reason: shortness of breath or wheezing) Qty: 18 2RF atorvastatin 40 mg tablet 40 mg PO BEDTIME Qty: 30 2RF azelastine 137 mcg (0.1 %) aerosol,spray 1 spray intranasal BID Qty: 30 2RF Rx Instructions: administer into each nostril celecoxib 400 mg capsule 400 mg PO DAILY@0800 Qty: 30 2RF Hold Instructions: Hold for 4 weeks escitalopram oxalate 10 mg tablet 10 mg PO DAILY@0800 Qty: 30 2RF Bevespi Aerosphere 9-4.8 mcg HFA aerosol inhaler 2 puff INHALATION Q12H Qty: 10.7 2RF hydroxyzine pamoate 25 mg capsule 25 mg PO TID@0800,12,20 Qty: 90 2RF hyoscyamine sulfate [Levsin] 0.125 mg tablet 0.125 mg PO BID Qty: 60 2RF lisinopril 20 mg tablet 20 mg PO DAILY@0800 Qty: 30 2RF oxybutynin chloride 5 mg tablet 5 mg PO TID@08,12,20 Qty: 90 2RF Miralax 17 gram/dose powder 17 g PO DAILY PRN (Reason: Constipation) Qty: 510 2RF prednisone 20 mg tablet 20 mg PO BID Qty: 10 0RF Daily Probiotic (10 Strains) 4 billion cell capsule 1 cap PO DAILY Qty: 30 2RF silver sulfadiazine [Silvadene] 1 % cream 1 applic topical DAILY PRN (Reason: wound healing) Qty: 50 0RF Rx Instructions: apply a 1.5 mm thickness promethazine-DM 6.25-15 mg/5 mL syrup 5 ml PO Q6H PRN (Reason: cough) Qty: 240 2RF quetiapine [Seroquel] 50 mg tablet See Rx Instructions PO .COMPLEX Qty: 60 2RF Rx Instructions: 50mg-100mg PO at bedtime; Stop Doxepin Voltaren 1 % gel 2 g topical QID PRN (Reason: Pain) 0RF Rx Instructions: apply to single elbow, wrist or hand; for hand includes palm/fingers/back of hand ondansetron 4 mg tablet,disintegrating 4 mg PO Q6H PRN (Reason: nausea and vomiting) Qty: 14 0RF Discharge Orders: Discharge ED (Routine); Ordered 12/17/21 Ordered By: Akil Benito Referrals: Vero Moon, VETERINARY TOXICOLOGIST-C [Primary Care Provider] - Discharge Diet: Advance as tolerated and Clear Liquid Discharge Activity: Increase activity as tolerated Patient Instructions: Viral Syndrome (ED) Activity Restrictions/Additional Instructions: Follow-up with medical provider as directed in the next 3-5 days for reevaluation. Clear liquid diet for the next 24 hours then slowly advance diet as tolerated. Take medications as prescribed. Make sure you drink plenty of fluids and stay hydrated. Return to the ER or your medical provider if condition worsens. Please read and understand discharge instructions. Thank you for choosing [facility] for your healthcare needs today. Please realize this is an emergency room and that we are providing you with a medical screening exam and this may not be complete and all inclusive of all the testing and or work up that you may need to determine your ailment or severity of your illness. It is very important that you follow up as instructed or that you return to the Emergency Department should you have concerns or if your condition changes or worsens in any way. 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
[2021-12-17 02:03] LABS: Basophils % 0.1 %; Hematocrit 40.3 % (37.0-47.0); Hemoglobin 13.8 g/dL (11.5-15.3); Lymphocytes # 1.7 10^3/uL (0.8-4.8); Mean Corpuscular HGB Conc 34.2 g/dL (30.0-36.0); Mean Corpuscular Hemoglobin 31.4 pg (28.0-34.0); Mean Corpuscular Volume 91.8 fl (81-99); Mean Platelet Volume 9.9 fL (7.4-10.4); Monocytes # 0.6 10^3/uL (0.2-0.9); Monocytes % 3.6 %; Neutrophils # 13.33 10^3/uL (1.8-7.7); Nucleated Red Blood Cells % 0 %; Platelet Count 261 10^3/cmm (130-400); Red Blood Count 4.39 10^6/uL (4.1-5.3); Red Cell Distribution Width 13.4 % (12.1-15.1); White Blood Count 15.7 10^3/uL (4.0-10.0)
[2021-12-17 02:23] LABS: Influenza A by IFA Negative (Negative); Influenza B by IFA Negative (Negative)
[2021-12-17 02:30] LABS: Alanine Aminotransferase 21 U/L (0-33); Alkaline Phosphatase 60 IU/L (35-105); Anion Gap 19.4 (5-19); Aspartate Amino Transferase 21 U/L (0-32); Blood Urea Nitrogen 14 mg/dL (8-23); Calcium 9.8 mg/dL (8.5-10.5); Carbon Dioxide 18 mmol/L (22-29); Chloride 102 mmol/L (98-107); Globulin 3.3 g/dL (1.3-4.6); Glomerular Filtration Rate 101.6 mL/min (90-130); Glucose 150 mg/dL (65-115); Lipase 23 U/L (13-60); Osmolality Calculated 285 mOsm/kg (285-295); Potassium 3.4 mmol/L (3.5-5.1); Sodium 136 mmol/L (136-145); Total Bilirubin 0.3 mg/dL (0.15-1.2); Total Protein 8.3 g/dL (6.6-8.7)
[2021-12-17] MEDS: metoclopramide 5 mg/mL SDV 2 mL 10 MG IVP (03:33)
[2021-12-17] MEDS: azithromycin 250 mg Tablet 500 MG PO (03:44)
[2021-12-17 03:51] LABS: Adenovirus Not Detected (NOT DETECT); Chlamydia Pneumoniae Not Detected (NOT DETECT); Coronavirus 229E,HKU1,NL63,OC4 Not Detected (NOT DETECT); Human Metapneumovirus Not Detected (NOT DETECT); Human Rhinovirus/Enterovirus Not Detected (NOT DETECT); Influenza A Not Detected (NOT DETECT); Influenza A H1 Not Detected (NOT DETECT); Influenza A H1-2009 Not Detected (NOT DETECT); Influenza A H3 Not Detected (NOT DETECT); Influenza B Not Detected (NOT DETECT); Mycoplasma Pneumoniae Not Detected (NOT DETECT); Parainfluenza Virus Type 1 Not Detected (NOT DETECT); Parainfluenza Virus Type 2 Not Detected (NOT DETECT); Parainfluenza Virus Type 3 Not Detected (NOT DETECT); Parainfluenza Virus Type 4 Not Detected (NOT DETECT); Respiratory Syncytial Virus A Not Detected (NOT DETECT); Respiratory Syncytial Virus B Not Detected (NOT DETECT); SARS-COV-2 Not Detected (NOT DETECT)
== END 2021-12-17 03:59 | disposition home or self-care (01) ==
PROVIDERS: Emergency Medicine; Emergency Provider Physician Assistant; PCP Nurse Practitioner
DX: B34.9 Viral infection, unspecified (principal); J44.9 Chronic obstructive pulmonary disease, unspecified; E78.5 Hyperlipidemia, unspecified; I10 Essential (primary) hypertension; F17.200 Nicotine dependence, unspecified, uncomplicated
CPT/HCPCS: 71045; 80053; 83690; 85025; 87635; 87804; 96361; 96374; 96375; 99284; J2405; J2765; J2930; J7030; Q0144

== ENCOUNTER 2021-12-19 13:43 | Emergency (ER) | payer MEDICAID, SELFPAY ==
[2021-12-19 13:49] VITALS: BMI 26.4
--- NOTE | 2021-12-19 13:49 | W.ED.NAVMDI ---
HPI - Nausea/Vomiting/Diarrhea General: Chief complaint: Nausea/Vomiting/Diarrhea Stated complaint: N/V SINCE FRIDAY Time Seen by Provider: 12/19/21 13:48 Source: patient Mode of arrival: EMS Limitations: no limitations History of Present Illness: 61-year-old female presents to the emergency room with complaint of nausea vomiting began 4 days ago. 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 She was seen in the office yesterday by Vero Moon. . She continued antiemetics and was recommended to continue antipyretics as needed on arrival here to help with abdominal [facility] nausea but did not have any vomiting. MD elicited complaint: nausea and vomiting Onset (ago): day(s) (4) Description of vomiting: watery Associated nausea: Yes Associated abdominal pain: Yes Location of pain: Diffuse Pain consistency: intermittent Severity: moderate Quality: cramping Exacerbating factors: eating Relieving factors: none Associated symtoms: Reports cough, fatigue, fevers/chills and nausea; Denies altered mental status, anxiety, bloating, change in vision, chest pain, diaphoresis, decreased urine output, dizziness, dysuria, epistaxis, fecal incontinence, headache(s), anorexia, malaise, myalgias, numbness, palpitations, rash, short of breath, syncope, tenesmus, tinnitus or weakness Review of Systems Const: Reports: fatigue; Denies: malaise or diaphoresis Eyes: Denies: change in vision ENMT: Denies: tinnitus or epistaxis Card: Denies: chest pain, palpitations or syncope Resp: Denies: dyspnea, productive cough or non-productive cough GI: Reports: nausea; Denies: bloating or fecal incontinence : Denies: dysuria Skin/Breast: Denies: rash or pruritus Neuro: Denies: headache(s) or dizziness Psych: Denies: anxiety PFSH ED PFSH: Medical History Anxiety and depression COPD (chronic obstructive pulmonary disease) Dyslipidemia Essential (primary) hypertension Glaucoma (increased eye pressure) Insomnia Nasal congestion with rhinorrhea Osteoarthritis Smoker Urinary frequency Surgical History History of carpal tunnel release of both wrists History of cataract extraction Bilateral 2020 Hx of arthroscopic knee surgery (~2012) left Family History Other COPD (chronic obstructive pulmonary disease) Cancer Social History Smoking and tobacco status: current every day smoker Second hand smoke exposure: Yes Smoking risk assessment/counseling performed?: Yes Alcohol intake: never Desire information about alcohol rehabilitation?: No Counseling given: No Desire information about substance/drug rehabilitation?: No Counseling given: No Adopted: No Caregiver/support person: No Lives independently: Yes Household members: spouse Housing: House Marital status: service: No History of recent travel: No Current gender identity: Female Physical Exam Const: EXAM LIMITATIONS: no altered mental status GENERAL APPEARANCE: cooperative HENMT: COMMON NORMALS: normocephalic, atraumatic and hearing grossly normal bilaterally HEAD & SCALP: normocephalic and atraumatic Neck/C-Spine: COMMON NORMALS: no JVD Resp: COMMON NORMALS: normal respiratory effort, No retractions, No use of accessory muscles and clear to auscultation bilaterally AUSCULTATION: clear to auscultation bilaterally Cardio: COMMON NORMALS: no JVD, regular rate, regular rhythm and No murmurs present (Cardio) RATE: regular rate RHYTHM: regular rhythm GI: COMMON NORMALS: Soft to palpation and No hepatosplenomegaly present AUSCULTATION: Yes normoactive bowel sounds PALPATION: Yes Soft to palpation, No Tenderness to palpation present (GI), No Guarding due to palpation present (GI) and Yes No hepatosplenomegaly present Extremity: COMMON NORMALS: normal to inspection, capillary refill normal, no clubbing, cyanosis or edema, no calf tenderness and no pedal edema Skin: COMMON NORMALS: no rashes or lesions noted GENERAL SKIN EXAM: no rashes or lesions noted Course Vital Signs: Vital signs: Vital Signs Temperature 99.0 F 12/19/21 14:00 Pulse Rate 76 12/19/21 15:25 Respiratory Rate 19 H 12/19/21 15:25 Blood Pressure 176/97 12/19/21 15:25 Pulse Oximetry 96 12/19/21 15:25 MDM - Nausea/Vomiting/Diarrhea Medical Decision Making Previous visit reviewed including imaging as well as today's labs. No significant abnormal lab findings fluids given patient does feel better along with antiemetics we will switch her to promethazine clear liquid diet advance as tolerated promethazine as needed Medical Records I reviewed the patient's medical records. Lab Data I reviewed the patient's lab results. : 12/19/21 14:25 12/19/21 14:25 Laboratory Results WBC 12.8 10^3/uL (4.0-10.0) H 12/19/21 14:25 RBC 4.61 10^6/uL (4.1-5.3) 12/19/21 14:25 Hgb 14.4 g/dL (11.5-15.3) 12/19/21 14: Hct 42.2 % (37.0-47.0) 12/19/21 14: MCV 91.5 fl (81-99) 12/19/21 14: MCH 31.2 pg (28.0-34.0) 12/19/21 14: MCHC 34.1 g/dL (30.0-36.0) 12/19/21 14: RDW 13.3 % (12.1-15.1) 12/19/21 14: Plt Count 256 10^3/cmm (130-400) 12/19/21 14: MPV 9.0 fL (7.4-10.4) 12/19/21 14:25 Neut % (Auto) 75.1 % 12/19/21 14: Lymph % (Auto) 18.3 % 12/19/21 14:25 [place] % (Auto) 5.9 % 12/19/21 14: Eos % (Auto) 0.0 % 12/19/21 14: Baso % (Auto) 0.2 % 12/19/21 14: Neut # (Auto) 9.61 10^3/uL (1.8-7.7) H 12/19/21 14: Lymph # (Auto) 2.3 10^3/uL (0.8-4.8) 12/19/21 14: [place] # (Auto) 0.8 10^3/uL (0.2-0.9) 12/19/21 14:25 Eos # (Auto) 0.0 10^3/uL (0.0-0.8) 12/19/21 14:25 Baso # (Auto) 0.0 10^3/uL (0.0-0.1) 12/19/21 14:25 Nucleated RBC % (auto) 0 % 12/19/21 14:25 Nucleated RBCs # 0.0 /100WBC 12/19/21 14:25 Sodium 132 mmol/L (136-145) L 12/19/21 14:25 Potassium 3.7 mmol/L (3.5-5.1) 12/19/21 14:25 Chloride 100 mmol/L (98-107) 12/19/21 14:25 Carbon Dioxide 17 mmol/L (22-29) L 12/19/21 14:25 Anion Gap 18.7 (5-19) 12/19/21 14:25 BUN 20 mg/dL (8-23) 12/19/21 14:25 Creatinine 0.6 mg/dL (0.5-0.9) 12/19/21 14:25 GFR Calculation 101.6 mL/min (90-130) 12/19/21 14:25 Glucose 122 mg/dL (65-115) H 12/19/21 14:25 Calculated Osmolality 278 mOsm/kg (285-295) L 12/19/21 14:25 Lactic Acid 1.0 mmol/L (0.5-2.2) 12/19/21 14:25 Calcium 9.5 mg/dL (8.5-10.5) 12/19/21 14:25 Total Bilirubin 0.5 mg/dL (0.15-1.2) 12/19/21 14:25 AST 16 U/L (0-32) 12/19/21 14:25 ALT 18 U/L (0-33) 12/19/21 14:25 Alkaline Phosphatase 58 IU/L (35-105) 12/19/21 14:25 Total Protein 7.0 g/dL (6.6-8.7) 12/19/21 14:25 Albumin 4.7 g/dL (3.5-5.2) 12/19/21 14:25 Globulin 2.3 g/dL (1.3-4.6) 12/19/21 14:25 Lipase 24 U/L (13-60) 12/19/21 14:25 Urine Color Yellow (Yellow) 12/19/21 14:52 Urine Appearance Clear (CLEAR) 12/19/21 14:52 Urine pH 6 (5-7) 12/19/21 14:52 Ur Specific [place] 1.015 (1.005-1.030) 12/19/21 14:52 Urine Protein Neg (Negative) 12/19/21 14:52 Urine Glucose (UA) Norm (Normal) 12/19/21 14:52 Urine Ketones 1+ (Negative) H 12/19/21 14:52 Urine Blood 3+ (Negative) H 12/19/21 14:52 Urine Nitrate Negative (Negative) 12/19/21 14:52 Urine Bilirubin Neg (Negative) 12/19/21 14:52 Urine Urobilinogen Norm mg/dL (Negative) 12/19/21 14:52 Ur Leukocyte Esterase Negative (Negative) 12/19/21 14:52 Discharge Plan Discharge Patient Disposition: Home Clinical Impression: Gastroenteritis Condition: Stable Prescriptions: New promethazine 25 mg tablet 25 mg PO Q6H PRN (Reason: nausea and vomiting) Qty: 20 0RF Discontinued ondansetron 4 mg tablet,disintegrating 4 mg PO Q6H PRN (Reason: nausea and vomiting) Qty: 14 0RF ondansetron 4 mg tablet,disintegrating 4 mg PO Q8H PRN (Reason: nausea and vomiting) Qty: 15 0RF No Action latanoprost (PF) 0.005 % drops 1 drp ophthalmic (eye) BEDTIME@2000 Qty: 7.5 2RF Multivitamin Women 50 Plus 8 mg iron-400 mcg-300 mcg tablet 1 tab PO DAILY@0800 Qty: 30 2RF indomethacin 50 mg capsule 50 mg PO TID Qty: 21 0RF Rx Instructions: administer with food or milk, hold celebrex while taking aspirin [Adult Low Dose Aspirin] 81 mg tablet,delayed release (DR/EC) 81 mg PO DAILY@0800 0RF scopolamine base 1 mg over 3 days patch 3 day 1 patch transdermal Q3D PRN (Reason: nausea and vomiting) Qty: 4 1RF albuterol sulfate [ProAir HFA] 90 mcg/actuation HFA aerosol inhaler 2 puff INHALATION QID PRN (Reason: shortness of breath or wheezing) Qty: 18 2RF atorvastatin 40 mg tablet 40 mg PO BEDTIME Qty: 30 2RF azelastine 137 mcg (0.1 %) aerosol,spray 1 spray intranasal BID Qty: 30 2RF Rx Instructions: administer into each nostril celecoxib 400 mg capsule 400 mg PO DAILY@0800 Qty: 30 2RF Hold Instructions: Hold for 4 weeks escitalopram oxalate 10 mg tablet 10 mg PO DAILY@0800 Qty: 30 2RF Bevespi Aerosphere 9-4.8 mcg HFA aerosol inhaler 2 puff INHALATION Q12H Qty: 10.7 2RF hydroxyzine pamoate 25 mg capsule 25 mg PO TID@0800,12,20 Qty: 90 2RF hyoscyamine sulfate [Levsin] 0.125 mg tablet 0.125 mg PO BID Qty: 60 2RF lisinopril 20 mg tablet 20 mg PO DAILY@0800 Qty: 30 2RF oxybutynin chloride 5 mg tablet 5 mg PO TID@08,12,20 Qty: 90 2RF Miralax 17 gram/dose powder 17 g PO DAILY PRN (Reason: Constipation) Qty: 510 2RF Daily Probiotic (10 Strains) 4 billion cell capsule 1 cap PO DAILY Qty: 30 2RF silver sulfadiazine [Silvadene] 1 % cream 1 applic topical DAILY PRN (Reason: wound healing) Qty: 50 0RF Rx Instructions: apply a 1.5 mm thickness promethazine-DM 6.25-15 mg/5 mL syrup 5 ml PO Q6H PRN (Reason: cough) Qty: 240 2RF quetiapine [Seroquel] 50 mg tablet See Rx Instructions PO .COMPLEX Qty: 60 2RF Rx Instructions: 50mg-100mg PO at bedtime; Stop Doxepin acetaminophen 325 mg suppository 325 mg DC Q6H PRN (Reason: fever or pain) Qty: 6 0RF Voltaren 1 % gel 2 g topical QID PRN (Reason: Pain) 0RF Rx Instructions: apply to single elbow, wrist or hand; for hand includes palm/fingers/back of hand azithromycin 250 mg tablet 250 mg PO DAILY 4 Days Qty: 4 0RF Rx Instructions: start on day 2 of therapy prednisone 20 mg tablet 20 mg PO BID 5 Days Qty: 10 0RF Discharge Orders: Discharge ED (Routine); Ordered 12/19/21 Ordered By: Arslan Jimenes Referrals: Vero Moon, [employer] ENGINEER[employer] [Primary Care Provider] - Patient Instructions: Opioid Safety Coding Level of Care Code ED Ye[employer] for [facility]
[2021-12-19 14:00] VITALS: BP 157/101; PULSE 82; RESP 21; TEMP 37.2; O2SAT 98
[2021-12-19] MEDS: ondansetron 2 mg/ML SDV 2 mL 4 MG IVP (14:13)
[2021-12-19] MEDS: lactated ringers 1,000 ML 999 ML IV (14:13)
--- NOTE | 2021-12-19 14:17 | PC.NURSE ---
called lab for assistance with blood draw.
[2021-12-19 14:34] LABS: Basophils % 0.2 %; Hematocrit 42.2 % (37.0-47.0); Hemoglobin 14.4 g/dL (11.5-15.3); Lymphocytes # 2.3 10^3/uL (0.8-4.8); Lymphocytes % 18.3 %; Mean Corpuscular HGB Conc 34.1 g/dL (30.0-36.0); Mean Corpuscular Hemoglobin 31.2 pg (28.0-34.0); Mean Corpuscular Volume 91.5 fl (81-99); Monocytes # 0.8 10^3/uL (0.2-0.9); Monocytes % 5.9 %; Neutrophils # 9.61 10^3/uL (1.8-7.7); Neutrophils % 75.1 %; Nucleated Red Blood Cells % 0 %; Platelet Count 256 10^3/cmm (130-400); Red Blood Count 4.61 10^6/uL (4.1-5.3); Red Cell Distribution Width 13.3 % (12.1-15.1); White Blood Count 12.8 10^3/uL (4.0-10.0)
[2021-12-19 14:42] VITALS: PULSE 100; RESP 19; O2SAT 99
[2021-12-19 15:01] LABS: Alanine Aminotransferase 18 U/L (0-33); Albumin Level 4.7 g/dL (3.5-5.2); Alkaline Phosphatase 58 IU/L (35-105); Anion Gap 18.7 (5-19); Aspartate Amino Transferase 16 U/L (0-32); Blood Urea Nitrogen 20 mg/dL (8-23); Calcium 9.5 mg/dL (8.5-10.5); Carbon Dioxide 17 mmol/L (22-29); Chloride 100 mmol/L (98-107); Globulin 2.3 g/dL (1.3-4.6); Glomerular Filtration Rate 101.6 mL/min (90-130); Glucose 122 mg/dL (65-115); Lipase 24 U/L (13-60); Osmolality Calculated 278 mOsm/kg (285-295); Potassium 3.7 mmol/L (3.5-5.1); Sodium 132 mmol/L (136-145); Total Bilirubin 0.5 mg/dL (0.15-1.2)
[2021-12-19 15:05] LABS: Charge for UA Resulting for Rev
[2021-12-19 15:25] VITALS: BP 176/97; PULSE 76; RESP 19; O2SAT 96
[2021-12-19 15:32] LABS: Blood Urine 3+ (Negative); Glucose Urine UA Norm (Normal); Ketones Urine 1+ (Negative); Protein Urine Neg (Negative); Specific Gravity, Urine 1.015 (1.005-1.030); Urine Appearance Clear (CLEAR); Urine Color Yellow (Yellow); pH Urine 6 (5-7)
[2021-12-19 15:33] LABS: Bilirubin Urine Neg (Negative); Leukocyte Esterase Urine Negative (Negative); Nitrate Urine Negative (Negative); Urobilinogen Urine Norm (Negative)
[2021-12-19 15:36] LABS: Add Urine Microscopic? NO
[2021-12-19 16:34] VITALS: BP 172/92; PULSE 81; RESP 21; O2SAT 100
== END 2021-12-19 16:36 | disposition home or self-care (01) ==
PROVIDERS: Emergency Provider Family Medicine; PCP Nurse Practitioner
DX: K52.9 Noninfective gastroenteritis and colitis, unspecified (principal); F17.210 Nicotine dependence, cigarettes, uncomplicated
CPT/HCPCS: 36415; 80053; 81003; 83605; 83690; 85025; 96361; 96374; 99284; J2405

== ENCOUNTER 2021-12-28 21:05 | Emergency (ER) | payer MEDICAID, SELFPAY ==
[2021-12-28 21:16] VITALS: BP 164/117; PULSE 91; RESP 18; TEMP 36.6; O2SAT 99; BMI 24.5
--- NOTE | 2021-12-28 21:22 | ED_ITS ---
Documented by User: Abdulkadir Rincon MD 01/02/22 21:51 HPI - General Adult General: Chief complaint: Nausea/Vomiting/Diarrhea Stated complaint: N/V/WEAKNESS Time Seen by Provider: 12/28/21 21:13 History of Present Illness: Patient is a 61-year-old female with a history of marijuana use, anxiety and COPD, hypertension presents emergency room with complaints of nausea/vomiting abdominal pain and diarrhea. Patient this is patient's fourth visit in the last 2 weeks for similar complaints. Patient says that her symptom has not improved since his discharge on 12/19/2021. Patient denies any fever or chills, cough, runny nose or sore throat, chest pain, shortness breath or palpitation. Patient still reports ongoing loose/watery stool. Patient denies any blood in the stool. Patient denies any problem with p.o. intake is able to drink water without difficulty. No urinary complaints. Patient has a prior history of hysterectomy. No prior history of renal colic. Onset:[12/17/2021 Duration:ongoing Location:home Severity:moderate Associated symptoms: Reports nausea and vomiting; Deny chest pain, dyspnea, rash or palpitations Review of Systems Const: Denies: fever(s) or chills Eyes: Denies: change in vision ENMT: Denies: mouth pain Card: Denies: chest pain or palpitations Resp: Denies: dyspnea or non-productive cough GI: Reports: abdominal pain, nausea, vomiting and diarrhea : Denies: dysuria Musc: Denies: extremity pain Skin/Breast: Denies: rash or new lesions Neuro: Denies: weakness in extremities Psych: Reports: other (Normal mood) Phil/Lymph: Denies: easy bruising PFSH ED PFSH: Medical History (Updated 01/02/22 @ 18:35 by KRISTIE Celestin-C) Anxiety and depression COPD (chronic obstructive pulmonary disease) Cyclical vomiting with nausea Dyslipidemia Essential (primary) hypertension Glaucoma (increased eye pressure) Insomnia Nasal congestion with rhinorrhea Osteoarthritis Smoker Urinary frequency Surgical History History of carpal tunnel release of both wrists History of cataract extraction Bilateral 2020 Hx of arthroscopic knee surgery (~2012) left Family History Other COPD (chronic obstructive pulmonary disease) Cancer Social History Smoking and tobacco status: current every day smoker Second hand smoke exposure: Yes Smoking risk assessment/counseling performed?: Yes Alcohol intake: never Desire information about alcohol rehabilitation?: No Counseling given: No Desire information about substance/drug rehabilitation?: No Counseling given: No Adopted: No Caregiver/support person: No Lives independently: Yes Household members: spouse Housing: House Marital status: service: No History of recent travel: No Current gender identity: Female Physical Exam Const: COMMON NORMALS: alert HENMT: COMMON NORMALS: atraumatic HEAD & SCALP: atraumatic MOUTH: moist mucous membranes not abnormal Eye: COMMON NORMALS: EOMs intact bilaterally and conjunctivae normal CONJUNCTIVA: Yes conjunctivae normal Neck/C-Spine: COMMON NORMALS: full ROM and supple Resp: COMMON NORMALS: normal respiratory effort and clear to auscultation bilaterally AUSCULTATION: clear to auscultation bilaterally Cardio: COMMON NORMALS: regular rate RATE: regular rate GI: COMMON NORMALS: Soft to palpation PALPATION: Yes Soft to palpation OTHER: +mild generalized TTP. NO guarding rebound, guarding, rigidity. No CVA tenderness to percussion. Neg Duffy/Neg McBurney's point tenderness, no suprabupic tenderness to palpation. Extremity: COMMON NORMALS: full ROM Neuro: SENSORIUM/ORIENTATION: Yes alert MOTOR EXAM: No Abnormal motor strength present and Other motor observations present (no focal motor deficits) Psych: COMMON NORMALS: speech normal SPEECH: Yes normal speech MOOD & AFFECT: Yes euthymic mood Course Vital Signs: Vital signs: Vital Signs Temperature 97.9 F 12/28/21 21:16 Pulse Rate 90 12/29/21 02:36 Respiratory Rate 16 12/29/21 02:36 Blood Pressure 113/89 12/29/21 02:36 Pulse Oximetry 96 12/29/21 02:36 [facility] - General Adult Lab Data : 12/28/21 22:25 12/28/21 22:25 Radiology Impressions Abdomen/Pelvis CT 12/28/21 22:28 IMPRESSION: 1. No acute finding in the abdomen or pelvis. 2. Diverticulosis of the distal colon without diverticulitis. Laboratory Results WBC 14.7 10^3/uL (4.0-10.0) H 12/28/21: RBC 4.21 10^6/uL (4.1-5.3) 12/28/21: Hgb 13.2 g/dL (11.5-15.3) 12/28/21: Hct 38.9 % (37.0-47.0) 12/28/21: MCV 92.4 fl (81-99) 12/28/21: MCH 31.4 pg (28.0-34.0) 12/28/21: MCHC 33.9 g/dL (30.0-36.0) 12/28/21 RDW 13.7 % (12.1-15.1) 12/28/21 Plt Count 315 10^3/cmm (130-400) 12/28/21 MPV 8.9 fL (7.4-10.4) 12/28/21: Neut % (Auto) 78.4 % 12/28/21: Lymph % (Auto) 14.8 % 12/28/21: [place] % (Auto) 6.0 % 12/28/21 Eos % (Auto) 0.0 % 12/28/21 Baso % (Auto) 0.1 % 12/28/21 Neut # (Auto) 11.53 10^3/uL (1.8-7.7) H 12/28/21 Lymph # (Auto) 2.2 10^3/uL (0.8-4.8) 12/28/21: [place] # (Auto) 0.9 10^3/uL (0.2-0.9) 12/28/21: Eos # (Auto) 0.0 10^3/uL (0.0-0.8) 12/28/21 Baso # (Auto) 0.0 10^3/uL (0.0-0.1) 12/28/21 Nucleated RBC % (auto) 0 % 12/28/21 Nucleated RBCs # 0.0 /100WBC 12/28/21 22:25 Sodium 135 mmol/L (136-145) L 12/28/21 22:25 Potassium 3.3 mmol/L (3.5-5.1) L 12/28/21 22:25 Chloride 101 mmol/L (98-107) 12/28/21 22:25 Carbon Dioxide 19 mmol/L (22-29) L 12/28/21 22:25 Anion Gap 18.3 (5-19) 12/28/21 22:25 BUN 13 mg/dL (8-23) 12/28/21 22: Creatinine 0.6 mg/dL (0.5-0.9) 12/28/21 22: GFR Calculation 101.6 mL/min (90-130) 12/28/21: Glucose 128 mg/dL (65-115) H 12/28/21 22: Calculated Osmolality 282 mOsm/kg (285-295) L 12/28/21: Lactate 1.2 mmol/L (0.5-2.2) 12/28/21: Calcium 8.4 mg/dL (8.5-10.5) L 12/28/21: Total Bilirubin 0.4 mg/dL (0.15-1.2) 12/28/21 22:25 AST 17 U/L (0-32) 12/28/21 22: ALT 20 U/L (0-33) 12/28/21 22: Alkaline Phosphatase 55 IU/L (35-105) 12/28/21 22: Total Protein 6.7 g/dL (6.6-8.7) 12/28/21 22: Albumin 4.5 g/dL (3.5-5.2) 12/28/21: Globulin 2.2 g/dL (1.3-4.6) 12/28/21 22: Lipase 19 U/L (13-60) 12/28/21 22:25 Urine Color Yellow (Yellow) 12/29/21 00:32 Urine Appearance Clear (CLEAR) 12/29/21 00:32 Urine pH 9 (5-7) H 12/29/21 00:32 Ur Specific [place] 1.010 (1.005-1.030) 12/29/21 00:32 Urine Protein Neg (Negative) 12/29/21 00:32 Urine Glucose (UA) Norm (Normal) 12/29/21 00:32 Urine Ketones 1+ (Negative) H 12/29/21 00:32 Urine Blood 3+ (Negative) H 12/29/21 00:32 Urine Nitrate Negative (Negative) 12/29/21 00:32 Urine Bilirubin Neg (Negative) 12/29/21 00:32 Prot Sulfosalicylic Acd Negative (Negative) 12/29/21 00:32 Urine Urobilinogen Norm mg/dL (Negative) 12/29/21 00:32 Ur Leukocyte Esterase Negative (Negative) 12/29/21 00:32 Urine RBC 25-40 /hpf (0-2) H 12/29/21 00:32 Urine WBC 0-4 /hpf (0-5) H 12/29/21 00:32 Ur Squamous Epith Cells 5-10 /hpf (0-5) H 12/29/21 00:32 Amorphous Sediment Not Reportable 12/29/21 00:32 Urine Bacteria 1+ /hpf (NONE) H 12/29/21 00:32 Discharge Plan Discharge Patient Disposition: Home Clinical Impression: Abdominal pain, Nausea & vomiting, Diarrhea Condition: Stable Prescriptions: New Pepcid 20 mg tablet 20 mg PO BID PRN (Reason: abdominal pain) 10 Days Qty: 20 0RF Maalox Advanced 1,000-60 mg tablet,chewable 1 tab PO TID PRN (Reason: abdominal pain) 7 Days Qty: 21 0RF No Action aspirin [Adult Low Dose Aspirin] 81 mg tablet,delayed release (DR/EC) 81 mg PO DAILY@0800 0RF scopolamine base 1 mg over 3 days patch 3 day 1 patch transdermal Q3D PRN (Reason: nausea and vomiting) Qty: 4 1RF albuterol sulfate [ProAir HFA] 90 mcg/actuation HFA aerosol inhaler 2 puff INHALATION QID PRN (Reason: shortness of breath or wheezing) Qty: 18 2RF atorvastatin 40 mg tablet 40 mg PO BEDTIME Qty: 30 2RF azelastine 137 mcg (0.1 %) aerosol,spray 1 spray intranasal BID Qty: 30 2RF Rx Instructions: administer into each nostril celecoxib 400 mg capsule 400 mg PO DAILY@0800 Qty: 30 2RF Hold Instructions: Hold for 4 weeks escitalopram oxalate 10 mg tablet 10 mg PO DAILY@0800 Qty: 30 2RF Bevespi Aerosphere 9-4.8 mcg HFA aerosol inhaler 2 puff INHALATION Q12H Qty: 10.7 2RF hydroxyzine pamoate 25 mg capsule 25 mg PO TID@0800,12,20 Qty: 90 2RF hyoscyamine sulfate [Levsin] 0.125 mg tablet 0.125 mg PO BID Qty: 60 2RF Daily Probiotic (10 Strains) 4 billion cell capsule 1 cap PO DAILY Qty: 30 2RF latanoprost (PF) 0.005 % drops 1 drp ophthalmic (eye) BEDTIME@2000 Qty: 7.5 2RF lisinopril 20 mg tablet 20 mg PO DAILY@0800 Qty: 30 2RF oxybutynin chloride 5 mg tablet 5 mg PO TID@08,12,20 Qty: 90 2RF Multivitamin Women 50 Plus 8 mg iron-400 mcg-300 mcg tablet 1 tab PO DAILY@0800 Qty: 30 2RF Miralax 17 gram/dose powder 17 g PO DAILY PRN (Reason: Constipation) Qty: 510 2RF quetiapine [Seroquel] 50 mg tablet See Rx Instructions PO .COMPLEX Qty: 60 2RF Rx Instructions: 50mg-100mg PO at bedtime; Stop Doxepin levofloxacin 250 mg tablet 250 mg PO DAILY Qty: 5 0RF silver sulfadiazine [Silvadene] 1 % cream 1 applic topical DAILY PRN (Reason: wound healing) Qty: 50 0RF Rx Instructions: apply a 1.5 mm thickness promethazine-DM 6.25-15 mg/5 mL syrup 5 ml PO Q6H PRN (Reason: cough) Qty: 240 2RF acetaminophen 325 mg suppository 325 mg [place] Q6H PRN (Reason: fever or pain) Qty: 6 0RF Voltaren 1 % gel 2 g topical QID PRN (Reason: Pain) 0RF Rx Instructions: apply to single elbow, wrist or hand; for hand includes palm/fingers/back of hand promethazine 25 mg tablet 25 mg PO Q6H PRN (Reason: nausea and vomiting) Qty: 20 0RF Discharge Orders: Discharge ED (Routine); Ordered 12/29/21 Ordered By: Tu Villareal Referrals: Vero Moon FNP-C [Primary Care Provider] - 1-3 days Discharge Diet: Advance as tolerated Discharge Activity: Increase activity as tolerated Patient Instructions: Acute Diarrhea (ED), Abdominal Pain (ED) Activity Restrictions/Additional Instructions: Please come back if you have any worsening abdominal pain, fever or chills, nausea or vomiting, diarrhea, blood in the stool, inability hold down liquid or solids, or any new concerning complaints. Coding Level of Care Code ED Mathematical Engineer for Chg Fwd Exam Comprehensive Documented by User: Tu Villareal, DO 12/29/21 02:58 HPI - General Adult General: Chief complaint: Nausea/Vomiting/Diarrhea Stated complaint: N/V/WEAKNESS Time Seen by Provider: 12/28/21 21:13 PFSH ED PFSH: Medical History (Updated 01/02/22 @ 18:35 by AQUILES Celestin) Anxiety and depression COPD (chronic obstructive pulmonary disease) Cyclical vomiting with nausea Dyslipidemia Essential (primary) hypertension Glaucoma (increased eye pressure) Insomnia Nasal congestion with rhinorrhea Osteoarthritis Smoker Urinary frequency Surgical History History of carpal tunnel release of both wrists History of cataract extraction Bilateral 2020 Hx of arthroscopic knee surgery (~2012) left Family History Other COPD (chronic obstructive pulmonary disease) Cancer Social History Smoking and tobacco status: current every day smoker Second hand smoke exposure: Yes Smoking risk assessment/counseling performed?: Yes Alcohol intake: never Desire information about alcohol rehabilitation?: No Counseling given: No Desire information about substance/drug rehabilitation?: No Counseling given: No Adopted: No Caregiver/support person: No Lives independently: Yes Household members: spouse Housing: House Marital status: service: No History of recent travel: No Current gender identity: Female Course Vital Signs: Vital signs: Vital Signs Temperature 97.9 F 12/28/21 21:16 Pulse Rate 90 12/29/21 02:36 Respiratory Rate 16 12/29/21 02:36 Blood Pressure 113/89 12/29/21 02:36 Pulse Oximetry 96 12/29/21 02:36 MDM - General Adult Medical Decision Making 61-year-old female checked out to me by the previous physician at shift change. This lady has had vomiting and diarrhea on and off for quite some time. Her white blood cell count is 14.7. Her potassium was 3.3, which is repleted. Her bicarbonate level is 19. She has vomited here in the ER. She was given haloperidol, Zofran for the symptoms with improvement. She also complained of a headache, which is improved after medication as this was her third visit to the ER with gastroenteritis type symptoms, CT was ordered. It shows no acute findings. Admits to marijuana use, which may be a culprit. She will be allowed discharge Lab Data : 12/28/21 22:25 12/28/21 22:25 Radiology Impressions Abdomen/Pelvis CT 12/28/21 22:28 IMPRESSION: 1. No acute finding in the abdomen or pelvis. 2. Diverticulosis of the distal colon without diverticulitis. Laboratory Results WBC 14.7 10^3/uL (4.0-10.0) H 12/28/21 22:25 RBC 4.21 10^6/uL (4.1-5.3) 12/28/21 22:25 Hgb 13.2 g/dL (11.5-15.3) 12/28/21 22:25 Hct 38.9 % (37.0-47.0) 12/28/21 22: MCV 92.4 fl (81-99) 12/28/21 22: MCH 31.4 pg (28.0-34.0) 12/28/21 22: MCHC 33.9 g/dL (30.0-36.0) 12/28/21 22: RDW 13.7 % (12.1-15.1) 12/28/21 22:25 Plt Count 315 10^3/cmm (130-400) 12/28/21 22: MPV 8.9 fL (7.4-10.4) 12/28/21: Neut % (Auto) 78.4 % 12/28/21: Lymph % (Auto) 14.8 % 12/28/21: [place] % (Auto) 6.0 % 12/28/21 22: Eos % (Auto) 0.0 % 12/28/21: Baso % (Auto) 0.1 % 12/28/21: Neut # (Auto) 11.53 10^3/uL (1.8-7.7) H 12/28/21: Lymph # (Auto) 2.2 10^3/uL (0.8-4.8) 12/28/21: [place] # (Auto) 0.9 10^3/uL (0.2-0.9) 12/28/21: Eos # (Auto) 0.0 10^3/uL (0.0-0.8) 12/28/21: Baso # (Auto) 0.0 10^3/uL (0.0-0.1) 12/28/21: Nucleated RBC % (auto) 0 % 12/28/21 Nucleated RBCs # 0.0 /100WBC 12/28/21: Sodium 135 mmol/L (136-145) L 12/28/21: Potassium 3.3 mmol/L (3.5-5.1) L 12/28/21: Chloride 101 mmol/L (98-107) 12/28/21: Carbon Dioxide 19 mmol/L (22-29) L 12/28/21: Anion Gap 18.3 (5-19) 12/28/21: BUN 13 mg/dL (8-23) 12/28/21: Creatinine 0.6 mg/dL (0.5-0.9) 12/28/21: GFR Calculation 101.6 mL/min (90-130) 12/28/21: Glucose 128 mg/dL (65-115) H 12/28/21: Calculated Osmolality 282 mOsm/kg (285-295) L 12/28/21 22:25 Lactate 1.2 mmol/L (0.5-2.2) 12/28/21 22:25 Calcium 8.4 mg/dL (8.5-10.5) L 12/28/21 22:25 Total Bilirubin 0.4 mg/dL (0.15-1.2) 12/28/21 22:25 AST 17 U/L (0-32) 12/28/21 22:25 ALT 20 U/L (0-33) 12/28/21 22:25 Alkaline Phosphatase 55 IU/L (35-105) 12/28/21 22: Total Protein 6.7 g/dL (6.6-8.7) 12/28/21: Albumin 4.5 g/dL (3.5-5.2) 12/28/21: Globulin 2.2 g/dL (1.3-4.6) 12/28/21 22: Lipase 19 U/L (13-60) 12/28/21 22:25 Urine Color Yellow (Yellow) 12/29/21 00:32 Urine Appearance Clear (CLEAR) 12/29/21 00:32 Urine pH 9 (5-7) H 12/29/21 00:32 Ur Specific [place] 1.010 (1.005-1.030) 12/29/21 00:32 Urine Protein Neg (Negative) 12/29/21 00:32 Urine Glucose (UA) Norm (Normal) 12/29/21 00:32 Urine Ketones 1+ (Negative) H 12/29/21 00:32 Urine Blood 3+ (Negative) H 12/29/21 00:32 Urine Nitrate Negative (Negative) 12/29/21 00:32 Urine Bilirubin Neg (Negative) 12/29/21 00:32 Prot Sulfosalicylic Acd Negative (Negative) 12/29/21 00:32 Urine Urobilinogen Norm mg/dL (Negative) 12/29/21 00:32 Ur Leukocyte Esterase Negative (Negative) 12/29/21 00:32 Urine RBC 25-40 /hpf (0-2) H 12/29/21 00:32 Urine WBC 0-4 /hpf (0-5) H 12/29/21 00:32 Ur Squamous Epith Cells 5-10 /hpf (0-5) H 12/29/21 00:32 Amorphous Sediment Not Reportable 12/29/21 00:32 Urine Bacteria 1+ /hpf (NONE) H 12/29/21 00:32 Discharge Plan Discharge Patient Disposition: Home Clinical Impression: Abdominal pain, Nausea & vomiting, Diarrhea Condition: Stable Prescriptions: New Pepcid 20 mg tablet 20 mg PO BID PRN (Reason: abdominal pain) 10 Days Qty: 20 0RF Maalox Advanced 1,000-60 mg tablet,chewable 1 tab PO TID PRN (Reason: abdominal pain) 7 Days Qty: 21 0RF No Action aspirin [Adult Low Dose Aspirin] 81 mg tablet,delayed release (DR/EC) 81 mg PO DAILY@0800 0RF scopolamine base 1 mg over 3 days patch 3 day 1 patch transdermal Q3D PRN (Reason: nausea and vomiting) Qty: 4 1RF albuterol sulfate [ProAir HFA] 90 mcg/actuation HFA aerosol inhaler 2 puff INHALATION QID PRN (Reason: shortness of breath or wheezing) Qty: 18 2RF atorvastatin 40 mg tablet 40 mg PO BEDTIME Qty: 30 2RF azelastine 137 mcg (0.1 %) aerosol,spray 1 spray intranasal BID Qty: 30 2RF Rx Instructions: administer into each nostril celecoxib 400 mg capsule 400 mg PO DAILY@0800 Qty: 30 2RF Hold Instructions: Hold for 4 weeks escitalopram oxalate 10 mg tablet 10 mg PO DAILY@0800 Qty: 30 2RF Bevespi Aerosphere 9-4.8 mcg HFA aerosol inhaler 2 puff INHALATION Q12H Qty: 10.7 2RF hydroxyzine pamoate 25 mg capsule 25 mg PO TID@0800,12,20 Qty: 90 2RF hyoscyamine sulfate [Levsin] 0.125 mg tablet 0.125 mg PO BID Qty: 60 2RF Daily Probiotic (10 Strains) 4 billion cell capsule 1 cap PO DAILY Qty: 30 2RF latanoprost (PF) 0.005 % drops 1 drp ophthalmic (eye) BEDTIME@2000 Qty: 7.5 2RF lisinopril 20 mg tablet 20 mg PO DAILY@0800 Qty: 30 2RF oxybutynin chloride 5 mg tablet 5 mg PO TID@08,12,20 Qty: 90 2RF Multivitamin Women 50 Plus 8 mg iron-400 mcg-300 mcg tablet 1 tab PO DAILY@0800 Qty: 30 2RF Miralax 17 gram/dose powder 17 g PO DAILY PRN (Reason: Constipation) Qty: 510 2RF quetiapine [Seroquel] 50 mg tablet See Rx Instructions PO .COMPLEX Qty: 60 2RF Rx Instructions: 50mg-100mg PO at bedtime; Stop Doxepin levofloxacin 250 mg tablet 250 mg PO DAILY Qty: 5 0RF silver sulfadiazine [Silvadene] 1 % cream 1 applic topical DAILY PRN (Reason: wound healing) Qty: 50 0RF Rx Instructions: apply a 1.5 mm thickness promethazine-DM 6.25-15 mg/5 mL syrup 5 ml PO Q6H PRN (Reason: cough) Qty: 240 2RF acetaminophen 325 mg suppository 325 mg [place] Q6H PRN (Reason: fever or pain) Qty: 6 0RF Voltaren 1 % gel 2 g topical QID PRN (Reason: Pain) 0RF Rx Instructions: apply to single elbow, wrist or hand; for hand includes palm/fingers/back of hand promethazine 25 mg tablet 25 mg PO Q6H PRN (Reason: nausea and vomiting) Qty: 20 0RF Discharge Orders: Discharge ED (Routine); Ordered 12/29/21 Ordered By: Tu Villareal Referrals: Vero Moon FNP-C [Primary Care Provider] - 1-3 days Discharge Diet: Advance as tolerated Discharge Activity: Increase activity as tolerated Patient Instructions: Acute Diarrhea (ED), Abdominal Pain (ED) Activity Restrictions/Additional Instructions: Please come back if you have any worsening abdominal pain, fever or chills, nausea or vomiting, diarrhea, blood in the stool, inability hold down liquid or solids, or any new concerning complaints. Coding Level of Care Code ED Mathematical Engineer for [place] Fwd Exam Comprehensive
[2021-12-28] MEDS: lidocaine 2% viscous 15 ML, aluminum-mag hydrox-simethicon 30 ML, sucralfate oral liq 1 GM PO (21:56)
[2021-12-28] MEDS: ondansetron 2 mg/ML SDV 2 mL 4 MG IVP ×2 (22:00→22:53)
--- NOTE | 2021-12-28 22:28 | CTR_ITS ---
PROCEDURE INFORMATION: Exam: CT Abdomen And Pelvis With Contrast Exam date and time: 12/28/2021 11:11 PM Age: 61 years old Clinical indication: Abdominal pain; Generalized; Prior surgery; Surgery date: 6+ months; Surgery type: Hyst; Patient HX: C/O abd pain w n/v TECHNIQUE: Imaging protocol: Computed tomography of the abdomen and pelvis with contrast. Radiation optimization: All CT scans at this facility use at least one of these dose optimization techniques: automated exposure control; mA and/or kV adjustment per patient size (includes targeted exams where dose is matched to clinical indication); or iterative reconstruction. Contrast material: OMNI 350; Contrast volume: 95 ml; Contrast route: INTRAVENOUS (IV); COMPARISON: CT abdomen pelvis w con* [id number] 10/20/2020 8:06 PM RADIATION DOSE METRICS: Total DLP (mGy-cm): 1163.47 FINDINGS: Liver: Normal. No mass. Gallbladder and bile ducts: Normal. No calcified stones. No ductal dilation. Pancreas: Normal. No ductal dilation. Spleen: Stable capsular calcifications in the spleen. Otherwise unremarkable. Adrenal glands: Normal. No mass. Kidneys and ureters: Normal. No hydronephrosis. Stomach and bowel: Diverticulosis of the distal colon. No diverticulitis. The transverse and descending colon are decompressed. The stomach and small bowel are unremarkable. No obstruction. Appendix: The appendix is visualized and is normal. Intraperitoneal space: Unremarkable. No free air. No significant fluid collection. Arteries: Arterial calcifications. No aneurysm. Lymph nodes: Unremarkable. No enlarged lymph nodes. Urinary bladder: Unremarkable as visualized. Reproductive: The uterus and ovaries are absent. 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 Severe disc space narrowing at L5-S1. No acute fracture. Soft tissues: Surgical clips in the left groin. CT/CT abdomen pelvis w con* [id number] IMPRESSION: 1. No acute finding in the abdomen or pelvis. 2. Diverticulosis of the distal colon without diverticulitis.
[2021-12-28 22:30] LABS: Basophils % 0.1 %; Hematocrit 38.9 % (37.0-47.0); Hemoglobin 13.2 g/dL (11.5-15.3); Lymphocytes # 2.2 10^3/uL (0.8-4.8); Lymphocytes % 14.8 %; Mean Corpuscular HGB Conc 33.9 g/dL (30.0-36.0); Mean Corpuscular Hemoglobin 31.4 pg (28.0-34.0); Mean Corpuscular Volume 92.4 fl (81-99); Mean Platelet Volume 8.9 fL (7.4-10.4); Monocytes # 0.9 10^3/uL (0.2-0.9); Neutrophils # 11.53 10^3/uL (1.8-7.7); Neutrophils % 78.4 %; Nucleated Red Blood Cells % 0 %; Platelet Count 315 10^3/cmm (130-400); Red Blood Count 4.21 10^6/uL (4.1-5.3); Red Cell Distribution Width 13.7 % (12.1-15.1); White Blood Count 14.7 10^3/uL (4.0-10.0)
[2021-12-28 22:52] LABS: Alanine Aminotransferase 20 U/L (0-33); Albumin Level 4.5 g/dL (3.5-5.2); Alkaline Phosphatase 55 IU/L (35-105); Anion Gap 18.3 (5-19); Aspartate Amino Transferase 17 U/L (0-32); Blood Urea Nitrogen 13 mg/dL (8-23); Calcium 8.4 mg/dL (8.5-10.5); Carbon Dioxide 19 mmol/L (22-29); Chloride 101 mmol/L (98-107); Globulin 2.2 g/dL (1.3-4.6); Glomerular Filtration Rate 101.6 mL/min (90-130); Glucose 128 mg/dL (65-115); Lactate (Lactic Acid level) 1.2 mmol/L (0.5-2.2); Lipase 19 U/L (13-60); Osmolality Calculated 282 mOsm/kg (285-295); Potassium 3.3 mmol/L (3.5-5.1); Sodium 135 mmol/L (136-145); Total Bilirubin 0.4 mg/dL (0.15-1.2); Total Protein 6.7 g/dL (6.6-8.7)
[2021-12-28] MEDS: haloperidol inj 5 mg/mL INJ 1 mL 3 MG IVP (22:52)
[2021-12-28] MEDS: iohexol 350 mg/mL 100 mL Btl IV (23:12)
[2021-12-28] MEDS: sodium chloride 0.9% 1,000 ML 999 ML IV (23:25)
[2021-12-28 23:28] VITALS: BP 119/77; PULSE 92; RESP 16; O2SAT 97
[2021-12-29 00:48] VITALS: BP 150/100; PULSE 70; O2SAT 97
[2021-12-29 01:00] VITALS: RESP 19
[2021-12-29 01:00] LABS: Urine Appearance Clear (CLEAR); Urine Color Yellow (Yellow); pH Urine 9 (5-7)
[2021-12-29] MEDS: morphine 4 mg/mL SDV 1 mL IVP (01:00)
[2021-12-29 01:01] LABS: Add Urine Microscopic? YES; Bilirubin Urine Neg (Negative); Blood Urine 3+ (Negative); Glucose Urine UA Norm (Normal); Ketones Urine 1+ (Negative); Leukocyte Esterase Urine Negative (Negative); Nitrate Urine Negative (Negative); Protein Urine Neg (Negative); Sulfosalicylic Acid Urine Negative (Negative); Urobilinogen Urine Norm (Negative)
[2021-12-29] MEDS: ketorolac 30 mg/mL INJ 15 MG IVP (01:01)
[2021-12-29 01:02] LABS: Add Urine Culture? Yes; Bacteria Urine 1+ /hpf; RBC Urine 25-40 /hpf (0-2); WBC Urine 0-4 /hpf (0-5)
[2021-12-29] MEDS: potassium chloride ER 20 mEq Tablet 40 MEQ PO (02:30)
[2021-12-29 02:36] VITALS: BP 113/89; PULSE 90; RESP 16; O2SAT 96
== END 2021-12-29 02:39 | disposition home or self-care (01) ==
PROVIDERS: Emergency Medicine; Emergency Provider Emergency Medicine; PCP Nurse Practitioner
DX: R11.2 Nausea with vomiting, unspecified (principal); R10.84 Generalized abdominal pain; R19.7 Diarrhea, unspecified; K57.90 Diverticulosis of intestine, part unspecified, without perforation or abscess without bleeding; F17.200 Nicotine dependence, unspecified, uncomplicated
CPT/HCPCS: 36415; 74177; 80053; 81001; 83605; 83690; 85025; 87077; 87086; 87186; 96361; 96374; 96375; 96376; 99284; J1630; J1885; J2270; J2405; J7030; Q9967

== ENCOUNTER 2022-01-16 09:11 | Emergency (ER) | payer MEDICAID, SELFPAY ==
[2022-01-16 09:18] VITALS: BP 137/99; PULSE 77; RESP 20; O2SAT 98; BMI 24.5
--- NOTE | 2022-01-16 10:04 | ED_ITS ---
HPI - Abdominal Pain General: Chief Complaint: Abdominal Pain Stated Complaint: N/V Time Seen by Provider: 01/16/22 09:13 Source: patient Mode of arrival: ambulatory Limitations: no limitations History of Present Illness: 61-year-old female presents to the emergency room with complaints of nausea and vomiting. She is complaining of abdominal pain. She began around 7:00 this morning she has been vomited multiple times she has a emesis bag at the bedside that is mostly full clear liquid watery fluid. She denies any hematemesis or coffee-ground emesis she denies any dysuria urgency or frequency no hematuria. No fever sweats or chills. She describes a vague abdominal pain with no radiation no specific area. She is not noticing thing exacerbates or relieves it. MD elicited complaint: abdominal pain Onset (ago): hour(s) Pain Consistency: constant Location: Diffuse Severity: moderate Quality: cramping Radiation: none Migration to: no migration Exacerbating factors: vomiting Relieving factors: nothing Associated Symptoms: Reports bloating, GI cramping, dyspepsia, nausea, poor appetite and vomiting; Denies anorexia, belching, change in bowel habits, change in stool character, chills, coffee ground emesis, constipation, diarrhea, dysuria, excessive flatus, fever(s), heartburn, hematochezia, hematuria, hematemesis, fecal incontinence, loose stools, melena and syncope Review of Systems Const: Denies: fever(s) or chills ENMT: Denies: throat pain, ear or mastoid pain, nasal discharge or nasal congestion Card: Denies: syncope Resp: Denies: dyspnea, productive cough or non-productive cough GI: Reports: abdominal pain, nausea, vomiting, bloating and GI cramping; Denies: hematemesis, coffee ground emesis, heartburn, diarrhea, constipation, belching, excessive flatus, fecal incontinence, change in bowel habits, change in stool character, hematochezia or melena : Denies: flank pain, difficulty voiding, dysuria, urinary frequency, urinary urgency or hematuria Skin/Breast: Denies: rash or pruritus Neuro: Denies: headache(s) PFSH ED PFSH: Medical History Anxiety and depression COPD (chronic obstructive pulmonary disease) Cyclical vomiting with nausea Dyslipidemia Essential (primary) hypertension Glaucoma (increased eye pressure) Insomnia Nasal congestion with rhinorrhea Osteoarthritis Smoker Urinary frequency Surgical History History of carpal tunnel release of both wrists History of cataract extraction Bilateral 2020 Hx of arthroscopic knee surgery (~2012) left Family History Other COPD (chronic obstructive pulmonary disease) Cancer Social History Smoking and tobacco status: current every day smoker Second hand smoke exposure: Yes Smoking risk assessment/counseling performed?: Yes Alcohol intake: never Desire information about alcohol rehabilitation?: No Counseling given: No Desire information about substance/drug rehabilitation?: No Counseling given: No Adopted: No Caregiver/support person: No Lives independently: Yes Household members: spouse Housing: House Marital status: service: No History of recent travel: No Current gender identity: Female Physical Exam Const: GENERAL APPEARANCE: cooperative and comfortable ORIENTATION/CONSCIOUSNESS: Yes awake, Yes oriented to person, Yes oriented to place and Yes oriented to time HENMT: COMMON NORMALS: hearing grossly normal bilaterally Eye: COMMON NORMALS: Equal, round and reactive pupils present, EOMs intact bilaterally, conjunctivae normal and no scleral icterus CONJUNCTIVA: Yes conjunctivae normal PUPIL: Yes Equal, round and reactive pupils present Neck/C-Spine: COMMON NORMALS: no JVD Lymph: LYMPHATIC: no lymphadenopathy noted and no lymphedema noted Resp: COMMON NORMALS: normal respiratory effort, No retractions, No use of accessory muscles and clear to auscultation bilaterally AUSCULTATION: clear to auscultation bilaterally Cardio: COMMON NORMALS: no JVD, regular rate, regular rhythm and No murmurs present (Cardio) RATE: regular rate RHYTHM: regular rhythm GI: COMMON NORMALS: Soft to palpation and No hepatosplenomegaly present AUSCULTATION: Yes normoactive bowel sounds PALPATION: Yes Soft to palpation, No Tenderness to palpation present (GI), No Guarding due to palpation present (GI) and Yes No hepatosplenomegaly present Extremity: COMMON NORMALS: normal to inspection, capillary refill normal, no clubbing, cyanosis or edema, no calf tenderness and no pedal edema Neuro: SENSORIUM/ORIENTATION: Yes oriented to person, Yes oriented to place and Yes oriented to time Skin: COMMON NORMALS: no rashes or lesions noted GENERAL SKIN EXAM: no rashes or lesions noted Course Vital Signs: Vital signs: Vital Signs Pulse Rate 61 01/16/22 14:00 Respiratory Rate 18 01/16/22 14:00 Blood Pressure 130/101 01/16/22 14:00 Pulse Oximetry 99 01/16/22 14:00 MDM - Abdominal Pain Medical Decision Making After Ativan and Haldol patient is improved. She also received IV fluids. Discussed her suspect her regular use of cannabis for the years is probably contributing to that she has had multiple like this in the past encourage abstinence from cannabis follow-up as needed discharged home with Ativan to use. And Phenergan to use as needed Medical Records I reviewed the patient's medical records. Lab Data I reviewed the patient's lab results. : 01/16/22 10:00 01/16/22 10:00 Labs/Radiology: Radiology Impressions Abdomen/Pelvis CT 01/16/22 10:15 IMPRESSION: 1. No acute abdominal or pelvic abnormalities are identified. 2. Mild constipation with overlapping redundant loops of colon. No obstruction. 3. No free air. 4. Sigmoid diverticular disease without diverticulitis. 5. No renal obstruction. Laboratory Results WBC 12.2 10^3/uL (4.0-10.0) H 01/16/22 10:00 RBC 4.45 10^6/uL (4.1-5.3) 01/16/22 10:00 Hgb 14.0 g/dL (11.5-15.3) 01/16/22 10:00 Hct 41.4 % (37.0-47.0) 01/16/22 10:00 MCV 93.0 fl (81-99) 01/16/22 10:00 MCH 31.5 pg (28.0-34.0) 01/16/22 10:00 MCHC 33.8 g/dL (30.0-36.0) 01/16/22 10:00 RDW 13.4 % (12.1-15.1) 01/16/22 10:00 Plt Count 270 10^3/cmm (130-400) 01/16/22 10:00 MPV 9.5 fL (7.4-10.4) 01/16/22 10:00 Neut % (Auto) 70.5 % 01/16/22 10:00 Lymph % (Auto) 22.2 % 01/16/22 10:00 [place] % (Auto) 5.8 % 01/16/22 10:00 Eos % (Auto) 0.7 % 01/16/22 10:00 Baso % (Auto) 0.2 % 01/16/22 10:00 Neut # (Auto) 8.63 10^3/uL (1.8-7.7) H 01/16/22 10:00 Lymph # (Auto) 2.7 10^3/uL (0.8-4.8) 01/16/22 10:00 [place] # (Auto) 0.7 10^3/uL (0.2-0.9) 01/16/22 10:00 Eos # (Auto) 0.1 10^3/uL (0.0-0.8) 01/16/22 10:00 Baso # (Auto) 0.0 10^3/uL (0.0-0.1) 01/16/22 10:00 Nucleated RBC % (auto) 0 % 01/16/22 10:00 Nucleated RBCs # 0.0 /100WBC 01/16/22 10:00 Sodium 134 mmol/L (136-145) L 01/16/22 10:00 Potassium 3.7 mmol/L (3.5-5.1) 01/16/22 10:00 Chloride 100 mmol/L (98-107) 01/16/22 10:00 Carbon Dioxide 19 mmol/L (22-29) L 01/16/22 10:00 Anion Gap 18.7 (5-19) 01/16/22 10:00 BUN 14 mg/dL (8-23) 01/16/22 10:00 Creatinine 0.7 mg/dL (0.5-0.9) 01/16/22 10:00 GFR Calculation 85.1 mL/min (90-130) L 01/16/22 10:00 Glucose 129 mg/dL (65-115) H 01/16/22 10:00 Calculated Osmolality 280 mOsm/kg (285-295) L 01/16/22 10:00 Calcium 10.0 mg/dL (8.5-10.5) 01/16/22 10:00 Total Bilirubin 0.4 mg/dL (0.15-1.2) 01/16/22 10:00 AST 22 U/L (0-32) 01/16/22 10:00 ALT 18 U/L (0-33) 01/16/22 10:00 Alkaline Phosphatase 57 IU/L (35-105) 01/16/22 10:00 Total Protein 7.5 g/dL (6.6-8.7) 01/16/22 10:00 Albumin 4.8 g/dL (3.5-5.2) 01/16/22 10:00 Globulin 2.7 g/dL (1.3-4.6) 01/16/22 10:00 Discharge Plan Discharge Patient Disposition: Home Clinical Impression: Cannabinoid hyperemesis syndrome Condition: Stable Prescriptions: New Ativan 2 mg tablet 2 mg PO Q8H PRN (Reason: nausea and vomiting) Qty: 10 0RF promethazine 25 mg tablet 25 mg PO Q6H PRN (Reason: nausea and vomiting) Qty: 20 0RF No Action aspirin [Adult Low Dose Aspirin] 81 mg tablet,delayed release (DR/EC) 81 mg PO DAILY@0800 0RF scopolamine base 1 mg over 3 days patch 3 day 1 patch transdermal Q3D PRN (Reason: nausea and vomiting) Qty: 4 1RF albuterol sulfate [ProAir HFA] 90 mcg/actuation HFA aerosol inhaler 2 puff INHALATION QID PRN (Reason: shortness of breath or wheezing) Qty: 18 2 RF atorvastatin 40 mg tablet 40 mg PO BEDTIME Qty: 30 2RF azelastine 137 mcg (0.1 %) aerosol,spray 1 spray intranasal BID Qty: 30 2RF Rx Instructions: administer into each nostril celecoxib 400 mg capsule 400 mg PO DAILY@0800 Qty: 30 2RF Hold Instructions: Hold for 4 weeks escitalopram oxalate 10 mg tablet 10 mg PO DAILY@0800 Qty: 30 2RF Bevespi Aerosphere 9-4.8 mcg HFA aerosol inhaler 2 puff INHALATION Q12H Qty: 10.7 2RF hydroxyzine pamoate 25 mg capsule 25 mg PO TID@0800,12,20 Qty: 90 2RF hyoscyamine sulfate [Levsin] 0.125 mg tablet 0.125 mg PO BID Qty: 60 2RF Daily Probiotic (10 Strains) 4 billion cell capsule 1 cap PO DAILY Qty: 30 2RF latanoprost (PF) 0.005 % drops 1 drp ophthalmic (eye) BEDTIME@2000 Qty: 7.5 2RF lisinopril 20 mg tablet 20 mg PO DAILY@0800 Qty: 30 2RF oxybutynin chloride 5 mg tablet 5 mg PO TID@08,12,20 Qty: 90 2RF Multivitamin Women 50 Plus 8 mg iron-400 mcg-300 mcg tablet 1 tab PO DAILY@0800 Qty: 30 2RF Miralax 17 gram/dose powder 17 g PO DAILY PRN (Reason: Constipation) Qty: 510 2RF quetiapine [Seroquel] 50 mg tablet See Rx Instructions PO .COMPLEX Qty: 60 2RF Rx Instructions: 50mg-100mg PO at bedtime; Stop Doxepin levofloxacin 250 mg tablet 250 mg PO DAILY Qty: 5 0RF silver sulfadiazine [Silvadene] 1 % cream 1 applic topical DAILY PRN (Reason: wound healing) Qty: 50 0RF Rx Instructions: apply a 1.5 mm thickness promethazine-DM 6.25-15 mg/5 mL syrup 5 ml PO Q6H PRN (Reason: cough) Qty: 240 2RF acetaminophen 325 mg suppository 325 mg [place] Q6H PRN (Reason: fever or pain) Qty: 6 0RF Voltaren 1 % gel 2 g topical QID PRN (Reason: Pain) 0RF Rx Instructions: apply to single elbow, wrist or hand; for hand includes palm/fingers/back of hand promethazine 25 mg tablet 25 mg PO Q6H PRN (Reason: nausea and vomiting) Qty: 20 0RF Discharge Orders: Discharge ED (Routine); Ordered 01/16/22 Ordered By: Arslan Jimenes Referrals: Vero Moon, HYDRAULIC DESIGN ENGINEER-C [Primary Care Provider] - Patient Instructions: Opioid Safety Activity Restrictions/Additional Instructions: Recommend decrease the use of marijuana products Coding Level of Care Code ED Geometry Professor for Chg Fwd Exam Comprehensive
[2022-01-16] MEDS: lactated ringers 1,000 ML 999 ML IV ×2 (10:05→12:21)
[2022-01-16] MEDS: ondansetron 2 mg/ML SDV 2 mL 4 MG IVP (10:05)
--- NOTE | 2022-01-16 10:15 | CT_ITS ---
WS: [id number] CT ABDOMEN AND PELVIS NONCONTRAST HISTORY: Generalized abdominal pain with nausea and vomiting. TECHNIQUE: Imaging performed through the abdomen and pelvis. Coronal and sagittal reformats are submi tted. All CT scans at [facility] use at least one of these dose optimization techniques: auto mated exposure control; mA and/or kV adjustment per patient size (includes targeted exams where dose is matched to clinical indication); or iterative reconstruction. DLP: 1102.52 mGy.cm COMPARISON: 12/28/2021 Lower thorax: Chronic emphysematous changes at the lung bases. Heart is normal size. Small hiatal her jose daniel. Liver: Normal size liver. No mass or bile duct dilatation. Gallbladder: Normal gallbladder. Pancreas: Normal size and attenuation. Normal pancreatic duct. No pancreatitis or mass. Spleen: Normal size spleen with capsular calcification. Adrenal glands: Normal. No mass. Right kidney: Normal size kidney with no mass or hydronephrosis. Left kidney: Normal size kidney with no mass or hydronephrosis. Aorta: Mild atherosclerosis abdominal aorta with no aneurysm. No free fluid, intraperitoneal air or significant lymphadenopathy. GI tract: Normal appendix. No GI tract obstruction. No mucosal inflammation or submucosal edema. Ther e are scattered diverticula in the descending colon with no acute diverticulitis. Abdominal wall: Negative. No hernia. Pelvis: Prior hysterectomy. Urinary bladder is normal. No free fluid. Postsurgical changes at the LEF T inguinal region from prior hernia repair. Osseous structures: Unremarkable. CT/CT abdomen pelvis wo con [id number] IMPRESSION: 1. No acute abdominal or pelvic abnormalities are identified. 2. Mild constipation with overlapping redundant loops of colon. No obstruction . 3. No free air. 4. Sigmoid diverticular disease without diverticulitis. 5. No renal obstruction.
[2022-01-16 10:21] LABS: Basophils % 0.2 %; Eosinophils # 0.1 10^3/uL (0.0-0.8); Eosinophils % 0.7 %; Hematocrit 41.4 % (37.0-47.0); Lymphocytes # 2.7 10^3/uL (0.8-4.8); Lymphocytes % 22.2 %; Mean Corpuscular HGB Conc 33.8 g/dL (30.0-36.0); Mean Corpuscular Hemoglobin 31.5 pg (28.0-34.0); Mean Platelet Volume 9.5 fL (7.4-10.4); Monocytes # 0.7 10^3/uL (0.2-0.9); Monocytes % 5.8 %; Neutrophils # 8.63 10^3/uL (1.8-7.7); Neutrophils % 70.5 %; Nucleated Red Blood Cells % 0 %; Platelet Count 270 10^3/cmm (130-400); Red Blood Count 4.45 10^6/uL (4.1-5.3); Red Cell Distribution Width 13.4 % (12.1-15.1); White Blood Count 12.2 10^3/uL (4.0-10.0)
[2022-01-16 10:39] LABS: Alanine Aminotransferase 18 U/L (0-33); Albumin Level 4.8 g/dL (3.5-5.2); Alkaline Phosphatase 57 IU/L (35-105); Aspartate Amino Transferase 22 U/L (0-32); Blood Urea Nitrogen 14 mg/dL (8-23); Carbon Dioxide 19 mmol/L (22-29); Chloride 100 mmol/L (98-107); Globulin 2.7 g/dL (1.3-4.6); Glomerular Filtration Rate 85.1 mL/min (90-130); Glucose 129 mg/dL (65-115); Osmolality Calculated 280 mOsm/kg (285-295); Sodium 134 mmol/L (136-145); Total Bilirubin 0.4 mg/dL (0.15-1.2); Total Protein 7.5 g/dL (6.6-8.7)
[2022-01-16 11:00] VITALS: BP 137/99; PULSE 67; RESP 18; O2SAT 100
[2022-01-16] MEDS: LORazepam 2 mg/mL INJ 1 mL IVP (11:09)
[2022-01-16] MEDS: haloperidol inj 5 mg/mL INJ 1 mL IVP (11:10)
[2022-01-16 11:22] LABS: Anion Gap 18.7 (5-19); Potassium 3.7 mmol/L (3.5-5.1)
[2022-01-16 11:30] VITALS: BP 145/84; PULSE 60; RESP 18; O2SAT 100
[2022-01-16 12:00] VITALS: BP 145/84; PULSE 69; RESP 20; O2SAT 96
[2022-01-16 14:00] VITALS: BP 130/101; PULSE 61; RESP 18; O2SAT 99
== END 2022-01-16 14:03 | disposition home or self-care (01) ==
PROVIDERS: Emergency Provider Family Medicine; PCP Nurse Practitioner
DX: R11.10 Vomiting, unspecified (principal); F12.90 Cannabis use, unspecified, uncomplicated
CPT/HCPCS: 74176; 80053; 85025; 96361; 96374; 96375; 99284; J1630; J2060; J2405

== ENCOUNTER 2022-01-28 17:42 | Emergency (ER) | payer MEDICAID, SELFPAY ==
[2022-01-28] VITALS (7 sets, daily range): BP systolic 119–182; BP diastolic 76–116; PULSE 66–103; RESP 18; TEMP 36.6; O2SAT 96–100; BMI 25.4
--- NOTE | 2022-01-28 18:19 | ED_ITS ---
HPI - Abdominal Pain General: Chief Complaint: Abdominal Pain Stated Complaint: NAUSEA/ VOMITING Time Seen by Provider: 01/28/22 18:19 History of Present Illness: Ms. Sousa is a 61-year-old lady with history of hypertension, hyperlipidemia, COPD, cyclic vomiting who presents to the emergency department due to vomiting and abdominal pain. Onset of symptoms was approximately 12 hours prior to arrival and subacute. She endorses numerous episodes of watery emesis associated with diarrhea this morning and left lower quadrant abdominal pain. Intensity of symptoms is moderate to severe. Course has persisted. She reports this is worse than prior episodes. No other specific changes in health, exacerbating, or alleviating factors identified. Onset (ago): hour(s) Pain Consistency: constant Location: LLQ Severity: moderate Quality: burning Migration to: no migration Exacerbating factors: eating and vomiting Associated Symptoms: Reports nausea and vomiting Review of Systems General: Reports: 10 or more systems reviewed and unremarkable except in HPI and below GI: Reports: nausea and vomiting PFSH ED 2 PFSH: Medical History Anxiety and depression COPD (chronic obstructive pulmonary disease) Cyclical vomiting with nausea Dyslipidemia Essential (primary) hypertension Glaucoma (increased eye pressure) Insomnia Nasal congestion with rhinorrhea Osteoarthritis Smoker Urinary frequency Surgical History History of carpal tunnel release of both wrists History of cataract extraction Bilateral 2020 Hx of arthroscopic knee surgery (~2012) left Family History Other COPD (chronic obstructive pulmonary disease) Cancer Social History Smoking and tobacco status: current every day smoker Second hand smoke exposure: Yes Smoking risk assessment/counseling performed?: Yes Alcohol intake: never Desire information about alcohol rehabilitation?: No Counseling given: No Desire information about substance/drug rehabilitation?: No Counseling given: No Adopted: No Caregiver/support person: No Lives independently: Yes Household members: spouse Housing: House Marital status: service: No History of recent travel: No Current gender identity: Female Physical Exam Const: COMMON NORMALS: alert GENERAL APPEARANCE: cooperative, well developed and ill appearing (Somewhat) HENMT: COMMON NORMALS: normocephalic and atraumatic HEAD & SCALP: normocephalic and atraumatic Eye: COMMON NORMALS: conjunctivae normal CONJUNCTIVA: Yes conjunctivae normal SCLERA: sclerae normal Neck/C-Spine: COMMON NORMALS: supple GENERAL: Yes trachea midline Resp: COMMON NORMALS: normal respiratory effort EFFORT & INSPECTION: Yes able to speak in complete sentences Cardio: COMMON NORMALS: regular rate and regular rhythm RATE: regular rate RHYTHM: regular rhythm GI: COMMON NORMALS: Soft to palpation PALPATION: Yes Soft to palpation, Yes Tenderness to palpation present (GI), No Guarding due to palpation present (GI) and No Rigid due to palpation PERCUSSION: normal to percussion Extremity: GENERAL: Yes normal exam except as noted and No edema Neuro: COMMON NORMALS: moves all extremities SENSORIUM/ORIENTATION: Yes alert and No Orientation impaired Psych: COMMON NORMALS: mental status grossly normal and Normal thought process present THOUGHT PROCESS: Normal thought process present Course ED course: - Patient was seen and evaluated by me at bedside - Patient placed on cardiac monitors, IV access obtained - Initial evaluation notable for exam as above. - Labs personally interpreted by me. EKG notable for sinus rhythm with nonspecific ST segment abnormalities. No STEMI. Symptom treatment ordered. - Labs notable for mild leukocytosis. Metabolic panel with evidence of dehydration. Urinalysis not consistent with urinary tract infection. - Imaging notable for no acute findings on CT abdomen pelvis. - Upon serial reexamination after treatment the patient was significantly improved after multiple doses of medication. She tolerated p.o. intake. - Based on patient history, evaluation, and testing as interpreted the most likely cause of the patient's condition is nausea vomiting and abdominal pain. - The results of ED evaluation were discussed with the patient including prescriptions and/or symptomatic cares (if applicable) including appropriate and responsible use, followup plan, and return precautions. The patient verbalized understanding and felt safe for discharge. - Patient discharged in satisfactory condition. Note: Click bubbles or prepopulated morocho in note writing are used for assistance with data collection and billing and are inherently more limited than narrative and other text portions of this note. Please use narrative for additional clinical history and defer to narrative/free test for any case of contradictory information. If information appears in only free text or click bubble it should be considered present or absent as reported. Please contact note ad writer for clarifications of clinical information or contradictory information. MDM is a brief summary, contradictory or erroneous seeming information should be clarified and full note should be reviewed. Vital Signs: Vital signs: Vital Signs Temperature 97.8 F 01/28/22 18:14 Pulse Rate 72 01/29/22 00:10 Respiratory Rate 16 01/29/22 00:10 Blood Pressure 110/68 01/29/22 00:10 Pulse Oximetry 97 01/29/22 00:10 MDM - Abdominal Pain Medical Decision Making 61-year old lady presenting for nausea, vomiting, abdominal pain. Laboratory studies with evidence of dehydration. CT without evidence of acute pathology. After multiple treatments patient significantly improved and able to tolerate p.o. intake. Discharged with strict return precautions. Medical Records I reviewed the patient's medical records. Lab Data I reviewed the patient's lab results. : 01/28/22 18:50 01/28/22 20:31 Labs/Radiology: Radiology Impressions Abdomen/Pelvis CT 01/28/22 18:41 IMPRESSION: No acute findings. Laboratory Results WBC 11.8 10^3/uL (4.0-10.0) H 01/28/22 18:50 RBC 4.65 10^6/uL (4.1-5.3) 01/28/22 18:50 Hgb 14.6 g/dL (11.5-15.3) 01/28/22 18:50 Hct 43.9 % (37.0-47.0) 01/28/22 18:50 MCV 94.4 fl (81-99) 01/28/22 18:50 MCH 31.4 pg (28.0-34.0) 01/28/22 18:50 MCHC 33.3 g/dL (30.0-36.0) 01/28/22 18:50 RDW 13.9 % (12.1-15.1) 01/28/22 18:50 Plt Count 292 10^3/cmm (130-400) 01/28/22 18:50 MPV 9.8 fL (7.4-10.4) 01/28/22 18:50 Neut % (Auto) 85.3 % 01/28/22 18:50 Lymph % (Auto) 10.7 % 01/28/22 18:50 [place] % (Auto) 3.3 % 01/28/22 18:50 Eos % (Auto) 0.0 % 01/28/22 18:50 Baso % (Auto) 0.2 % 01/28/22 18:50 Neut # (Auto) 10.09 10^3/uL (1.8-7.7) H 01/28/22 18:50 Lymph # (Auto) 1.3 10^3/uL (0.8-4.8) 01/28/22 18:50 [place] # (Auto) 0.4 10^3/uL (0.2-0.9) 01/28/22 18:50 Eos # (Auto) 0.0 10^3/uL (0.0-0.8) 01/28/22 18:50 Baso # (Auto) 0.0 10^3/uL (0.0-0.1) 01/28/22 18:50 Nucleated RBC % (auto) 0 % 01/28/22 18:50 Nucleated RBCs # 0.0 /100WBC 01/28/22 18:50 Sodium 137 mmol/L (136-145) 01/28/22 20:31 Potassium 3.4 mmol/L (3.5-5.1) L 01/28/22 20:31 Chloride 101 mmol/L (98-107) 01/28/22 20:31 Carbon Dioxide 17 mmol/L (22-29) L 01/28/22 20:31 Anion Gap 22.4 (5-19) H 01/28/22 20:31 BUN 15 mg/dL (8-23) 01/28/22 20:31 Creatinine 0.6 mg/dL (0.5-0.9) 01/28/22 20:31 GFR Calculation 101.6 mL/min (90-130) 01/28/22 20:31 Glucose 153 mg/dL (65-115) H 01/28/22 20:31 Calculated Osmolality 288 mOsm/kg (285-295) 01/28/22 20:31 Calcium 9.8 mg/dL (8.5-10.5) 01/28/22 20:31 Magnesium 1.8 mg/dL (1.7-2.3) 01/28/22 20:31 Total Bilirubin 0.3 mg/dL (0.15-1.2) 01/28/22 20:31 AST 22 U/L (0-32) 01/28/22 20:31 ALT 18 U/L (0-33) 01/28/22 20:31 Alkaline Phosphatase 67 IU/L (35-105) 01/28/22 20:31 Total Protein 8.1 g/dL (6.6-8.7) 01/28/22 20:31 Albumin 5.0 g/dL (3.5-5.2) 01/28/22 20: Globulin 3.1 g/dL (1.3-4.6) 01/28/22 20:31 Urine Color Yellow (Yellow) 01/28/22 20:50 Urine Appearance Clear (CLEAR) 01/28/22 20:50 Urine pH 5 (5-7) 01/28/22 20:50 Ur Specific [place] 1.025 (1.005-1.030) 01/28/22 20:50 Urine Protein Neg (Negative) 01/28/22 20:50 Urine Glucose (UA) Norm (Normal) 01/28/22 20:50 Urine Ketones 2+ (Negative) H 01/28/22 20:50 Urine Blood 3+ (Negative) H 01/28/22 20:50 Urine Nitrate Negative (Negative) 01/28/22 20:50 Urine Bilirubin Neg (Negative) 01/28/22 20:50 Urine Urobilinogen Norm mg/dL (Negative) 01/28/22 20:50 Ur Leukocyte Esterase Negative (Negative) 01/28/22 20:50 Urine RBC 0-4 /hpf (0-2) H 01/28/22 20:50 Urine WBC 0-4 /hpf (0-5) H 01/28/22 20:50 Ur Squamous Epith Cells 0-4 /hpf (0-5) H 01/28/22 20:50 Amorphous Sediment Not Reportable 01/28/22 20:50 Urine Bacteria None /hpf (NONE) 01/28/22 20:50 Discharge Plan Discharge Patient Disposition: Home Clinical Impression: Nausea and vomiting, Dehydration Condition: Stable Prescriptions: No Action aspirin [Adult Low Dose Aspirin] 81 mg tablet,delayed release (DR/EC) 81 mg PO DAILY@0800 0RF albuterol sulfate [ProAir HFA] 90 mcg/actuation HFA aerosol inhaler 2 puff INHALATION QID PRN (Reason: shortness of breath or wheezing) Qty: 18 2RF atorvastatin 40 mg tablet 40 mg PO BEDTIME Qty: 30 2RF azelastine 137 mcg (0.1 %) aerosol,spray 1 spray intranasal BID Qty: 30 2RF Rx Instructions: administer into each nostril celecoxib 400 mg capsule 400 mg PO DAILY@0800 Qty: 30 2RF Hold Instructions: Hold for 4 weeks escitalopram oxalate 10 mg tablet 10 mg PO DAILY@0800 Qty: 30 2RF Bevespi Aerosphere 9-4.8 mcg HFA aerosol inhaler 2 puff INHALATION Q12H Qty: 10.7 2RF hydroxyzine pamoate 25 mg capsule 25 mg PO TID@0800,12,20 Qty: 90 2RF hyoscyamine sulfate [Levsin] 0.125 mg tablet 0.125 mg PO BID Qty: 60 2RF Daily Probiotic (10 Strains) 4 billion cell capsule 1 cap PO DAILY Qty: 30 2RF latanoprost (PF) 0.005 % drops 1 drp ophthalmic (eye) BEDTIME@2000 Qty: 7.5 2RF lisinopril 20 mg tablet 20 mg PO DAILY@0800 Qty: 30 2RF oxybutynin chloride 5 mg tablet 5 mg PO TID@08,12,20 Qty: 90 2RF Multivitamin Women 50 Plus 8 mg iron-400 mcg-300 mcg tablet 1 tab PO DAILY@0800 Qty: 30 2RF Miralax 17 gram/dose powder 17 g PO DAILY PRN (Reason: Constipation) Qty: 510 2RF quetiapine [Seroquel] 50 mg tablet See Rx Instructions PO .COMPLEX Qty: 60 2RF Rx Instructions: 50mg-100mg PO at bedtime; Stop Doxepin levofloxacin 250 mg tablet 250 mg PO DAILY Qty: 5 0RF acetaminophen 325 mg suppository 325 mg [place] Q6H PRN (Reason: fever or pain) Qty: 6 0RF lorazepam [Ativan] 2 mg tablet 2 mg PO Q8H PRN (Reason: nausea and vomiting) Qty: 10 0RF promethazine 25 mg tablet 25 mg PO Q6H PRN (Reason: nausea and vomiting) Qty: 20 0RF Discharge Orders: Discharge ED (Routine); Ordered 01/28/22 Ordered By: Lance Hollins Referrals: Red,Glennette R, SUPERVISOR [employer]NA[employer] ROOM-C [Primary Care Provider] - Discharge Diet: Advance as tolerated and Clear Liquid Discharge Activity: Increase activity as tolerated Patient Instructions: Dehydration (ED), Acute Nausea and Vomiting (ED), Abdominal Pain (ED), Opioid Safety Activity Restrictions/Additional Instructions: Thank you for visiting the emergency department. You were seen evaluated for nausea and vomiting and abdominal pain. The exact cause of your symptoms is unclear though likely related to your chronic nausea and vomiting. I recommend follow-up with your primary care provider and gastroenterology for further outpatient testing. If it is not previously been done consideration for endoscopy. Return to the emergency department for worsening symptoms or anything else that you are concerned about a feel needs emergency department evaluation. Please continue all current medications. Coding Level of Care Code ED Airway Traffic Controller for Chg Fwd Exam Comprehensive
--- NOTE | 2022-01-28 18:41 | ECG_ITS ---
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 Measurements Intervals [place] Rate: 76 P: 75 ND: 134 QRS: 68 QRSD: 84 T: 64 QT: 422 QTc: 477 Interpretive Statements SINUS RHYTHM POSSIBLE RIGHT VENTRICULAR CONDUCTION DELAY [RSR (QR) IN V1/V2] SEPTAL MYOCARDIAL INFARCTION , OF INDETERMINATE AGE [40+ ms Q WAVE IN V1/V2] Compared to ECG 08/31/2020 13:59:48 Sinus arrhythmia no longer present Myocardial infarct finding still present Electronically Signed On 01-29-2022 18:54:24 CDT by Jack Martinez M.D. [id number]
--- NOTE | 2022-01-28 18:41 | CTR_ITS ---
PROCEDURE INFORMATION: Exam: CT Abdomen And Pelvis Without Contrast Exam date and time: 01/28/2022 8:19 PM Age: 61 years old Clinical indication: Nausea and vomiting; Abdominal pain; Generalized; Prior surgery; Surgery date: 6+ months; Surgery type: Hysterectomy; Additional info: N/v, L mid and lower abd pain TECHNIQUE: Imaging protocol: Computed tomography of the abdomen and pelvis without contrast. Radiation optimization: All CT scans at this facility use at least one of these dose optimization techniques: automated exposure control; mA and/or kV adjustment per patient size (includes targeted exams where dose is matched to clinical indication); or iterative reconstruction. COMPARISON: CT abdomen pelvis con [id number] 01/16/2022 10:34 AM RADIATION DOSE METRICS: Total DLP (mGy-cm): 1155.07 FINDINGS: Liver: Normal. No mass. Gallbladder and bile ducts: Normal. No calcified stones. No ductal dilation. Pancreas: Normal. No ductal dilation. Spleen: Normal. No splenomegaly. Adrenal glands: Normal. No mass. Kidneys and ureters: Normal. No hydronephrosis. Stomach and bowel: Moderate descending and/or sigmoid colon diverticulosis without diverticulitis. Appendix: No evidence of appendicitis. Intraperitoneal space: Unremarkable. No free air. No significant fluid collection. Vasculature: Calcification of the abdominal aorta and/or iliac arteries consistent with atherosclerotic vessel disease. Lymph nodes: Unremarkable. No enlarged lymph nodes. Urinary bladder: Unremarkable as visualized. Reproductive: Unremarkable as visualized. Bones/joints: Grade 2 anterior spondylolytic spondylolisthesis of L5 on S1. Severe L5-S1 degenerative disc disease and spondylosis with Modic type III sclerotic endplate degenerative changes. Soft tissues: Unremarkable. CT/CT abdomen pelvis con [id number] IMPRESSION: No acute findings.
[2022-01-28 18:59] LABS: Basophils % 0.2 %; Hematocrit 43.9 % (37.0-47.0); Hemoglobin 14.6 g/dL (11.5-15.3); Lymphocytes # 1.3 10^3/uL (0.8-4.8); Lymphocytes % 10.7 %; Mean Corpuscular HGB Conc 33.3 g/dL (30.0-36.0); Mean Corpuscular Hemoglobin 31.4 pg (28.0-34.0); Mean Corpuscular Volume 94.4 fl (81-99); Mean Platelet Volume 9.8 fL (7.4-10.4); Monocytes # 0.4 10^3/uL (0.2-0.9); Monocytes % 3.3 %; Neutrophils # 10.09 10^3/uL (1.8-7.7); Neutrophils % 85.3 %; Nucleated Red Blood Cells % 0 %; Platelet Count 292 10^3/cmm (130-400); Red Blood Count 4.65 10^6/uL (4.1-5.3); Red Cell Distribution Width 13.9 % (12.1-15.1); White Blood Count 11.8 10^3/uL (4.0-10.0)
[2022-01-28] MEDS: sodium chloride 0.9% 1,000 ML 999 ML IV ×2 (19:00→21:50)
[2022-01-28] MEDS: diphenhydrAMINE 50 mg/mL SDV 1mL 25 MG IVP (19:05)
[2022-01-28] MEDS: metoclopramide 5 mg/mL SDV 2 mL 10 MG IVP (19:06)
[2022-01-28] MEDS: ondansetron 2 mg/ML SDV 2 mL 4 MG IVP (19:08)
--- NOTE | 2022-01-28 19:53 | PC.PHAR ---
PT UNABLE TO VERIFY STATES [facility] SETS HER MEDS UP. [facility] SAID THEY MIGHT BE ABLE TO VERIFY TOMORROW . MEDICATIONS VERIFIED USING EXTERNAL MED LIST (LAST FILLED AND DAY SUPPLY)
[2022-01-28 21:10] LABS: Alanine Aminotransferase 18 U/L (0-33); Alkaline Phosphatase 67 IU/L (35-105); Aspartate Amino Transferase 22 U/L (0-32); Blood Urea Nitrogen 15 mg/dL (8-23); Calcium 9.8 mg/dL (8.5-10.5); Carbon Dioxide 17 mmol/L (22-29); Chloride 101 mmol/L (98-107); Globulin 3.1 g/dL (1.3-4.6); Glomerular Filtration Rate 101.6 mL/min (90-130); Glucose 153 mg/dL (65-115); Magnesium 1.8 mg/dL (1.7-2.3); Osmolality Calculated 288 mOsm/kg (285-295); Sodium 137 mmol/L (136-145); Total Bilirubin 0.3 mg/dL (0.15-1.2); Total Protein 8.1 g/dL (6.6-8.7)
[2022-01-28 21:14] LABS: Add Urine Microscopic? YES; Bilirubin Urine Neg (Negative); Blood Urine 3+ (Negative); Glucose Urine UA Norm (Normal); Ketones Urine 2+ (Negative); Leukocyte Esterase Urine Negative (Negative); Nitrate Urine Negative (Negative); Protein Urine Neg (Negative); RBC Urine 0-4 /hpf (0-2); Specific Gravity, Urine 1.025 (1.005-1.030); Squamous Epithelial Cell Urine 0-4 /hpf (0-5); Urine Appearance Clear (CLEAR); Urine Color Yellow (Yellow); Urobilinogen Urine Norm (Negative); WBC Urine 0-4 /hpf (0-5); pH Urine 5 (5-7)
[2022-01-28 21:15] LABS: Add Urine Culture? No
[2022-01-28 21:20] LABS: Anion Gap 22.4 (5-19); Potassium 3.4 mmol/L (3.5-5.1)
[2022-01-28] MEDS: acetaminophen 500 mg Tablet 1000 MG PO (21:44)
[2022-01-28] MEDS: ketorolac 30 mg/mL INJ 15 MG IVP (21:44)
[2022-01-28] MEDS: potassium chloride oral liq 20 mEq/15 mL UDC 40 MEQ PO (21:44)
[2022-01-28] MEDS: haloperidol inj 5 mg/mL INJ 1 mL 2.5 MG IVP (22:28)
[2022-01-28] MEDS: LORazepam 2 mg/mL INJ 1 mL IVP (22:29)
[2022-01-29 00:10] VITALS: BP 110/68; PULSE 72; RESP 16; O2SAT 97
--- NOTE | 2022-01-31 08:50 | DCPLANNER ---
Addendum entered by Daphney Garcia 04/11/22 10:53: Patient had a follow up appointment scheduled with Internal Medicine - patient did attend appointment. Addendum entered by Daphney Garcia 02/15/22 05:52: Patient had a follow up appointment scheduled for 02.11.22 this was rescheduled for Thursday, March 03, 2022 at 2:[address] Arredondo. Addendum entered by Daphney Garcia 02/03/22 09:56: Patient has a follow up appointment scheduled for Friday February 11, 2022 at 2:[address] Arredondo. Clinic will call patient with appointment information. Original Note: placement manager had message to schedule a followup appointment for patient with Dr. Arredondo. placement manager sent patients information to the front office staff at internal medicine. Patients information will be printed and reviewed. Clinic will call patient with appointment information.
== END 2022-01-29 | disposition home or self-care (01) ==
PROVIDERS: Emergency Provider Emergency Medicine; PCP Nurse Practitioner
DX: R11.2 Nausea with vomiting, unspecified (principal)
CPT/HCPCS: 74176; 80053; 81001; 83735; 85025; 93005; 96365; 96375; 99284; J1200; J1630; J1885; J2060; J2405; J2765; J3475; J7030

== ENCOUNTER → 2022-02-14 10:10 | Outpatient (BNVA) | payer MEDICAID, SELFPAY | PROVIDERS: PCP Nurse Practitioner; Visit Provider Nurse Practitioner | DX: E78.5 Hyperlipidemia, unspecified (principal); B34.9 Viral infection, unspecified; I10 Essential (primary) hypertension | CPT/HCPCS: 80053; 80061; 85025 ==

== ENCOUNTER → 2022-02-27 09:42 | Outpatient (BNVA) | payer MEDICAID, SELFPAY | PROVIDERS: PCP Nurse Practitioner; Visit Provider Nurse Practitioner | DX: R73.9 Hyperglycemia, unspecified (principal); R73.09 Other abnormal glucose | CPT/HCPCS: 83036 ==

== ENCOUNTER 2022-03-25 07:04 | Day surgery (SDC) | payer MEDICAID, SELFPAY ==
[2022-03-21 12:20] VITALS: BMI 24.5
[2022-03-25 07:45] VITALS: BP 114/76; PULSE 49; RESP 17; O2SAT 97
[2022-03-25] MEDS: sodium chloride 0.9% 1,000 ML 30 ML IV (07:56)
--- NOTE | 2022-03-25 08:11 | W.PM.OPSFHP ---
Same Day Surgery H&P Indication for Procedure/HPI DATE OF PROCEDURE: March 25, 2022 CHIEF COMPLAINT/INDICATIONFOR SURGICAL PROCEDURE: Cyclical nausea and vomiting, also with a history of polyps. PREOP DIAGNOSIS: N/V polyps PLANNED PROCEDURE: Operation Date: 03/25/22 08:45 Proposed Procedures p EGD and colonoscopy [id number],Z86.010,R11.15(Not Applicable) - Rip Arredondo MD s Colonoscopy(Not Applicable) - Rip Arredondo MD Medications/Allergies* Home Medications Medication Instructions Recorded Confirmed Type aspirin 81 mg tablet,delayed 81 mg PO DAILY@0800 03/14/20 03/21/22 History release (Adult Low Dose Aspirin) Allergies/Adverse Reactions Allergy/AdvReac Type Severity Reaction Status Date / Time benztropine [From Cogentin] AdvReac visual Verified 03/25/22 07:58 disturbance zolpidem [From Ambien] AdvReac Sleep walk Verified 03/25/22 07:58 Current Medications: Generic Name Dose Route Start Last Admin Trade Name Agustoq PRN Reason Stop Dose Admin Sodium Chloride 1,000 mls @ 30 mls/hr 03/25/22 07:30 03/25/22 07:56 Sodium Chloride 0.9% IV 30 mls/hr .Q24H JENNIFER Administration Pertinent History/Comorbid Conditions* Medical History (Updated 03/11/22 @ 16:46 by AQUILES Celestin) Anxiety and depression COPD (chronic obstructive pulmonary disease) Cyclical vomiting with nausea Diabetes mellitus with hyperglycemia, without long-term current use of insulin Dyslipidemia Essential (primary) hypertension Glaucoma (increased eye pressure) Insomnia due to medical condition Nasal congestion with rhinorrhea Osteoarthritis Smoker Urinary frequency Surgical History (Updated 01/23/21 @ 17:33 by AQUILES Celestin) History of carpal tunnel release of both wrists History of cataract extraction Bilateral 2020 Hx of arthroscopic knee surgery (~2012) left Family History (Updated 03/14/20 @ 10:30 by [place] LPN) COPD (chronic obstructive pulmonary disease) Cancer Social History Smoking and tobacco status: current every day smoker Second hand smoke exposure: Yes Smoking risk assessment/counseling performed?: Yes Alcohol intake: never Desire information about alcohol rehabilitation?: No Counseling given: No Desire information about substance/drug rehabilitation?: No Counseling given: No Adopted: No Caregiver/support person: No Lives independently: Yes Household members: spouse Housing: House Marital status: service: No History of recent travel: No Current gender identity: Female Pertinent Exam Findings alert, oriented x 3, clear to auscultation bilaterally, regular rate & rhythm, operative site marked and procedure specific exam findings Recommendations Surgery/Procedure today Coding Level of Care Code 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
--- NOTE | 2022-03-25 08:55 | P.ANESASSM_ITS ---
Pre-Anesthetic Assessment Height/Weight: Height 1.55 m Weight 58.967 kg Pulse Resp BP Pulse Ox 49 L 17 114/76 97 03/25/22 07:45 03/25/22 07:45 03/25/22 07:45 03/25/22 07:45 Preop Diagnosis: N/V polyps Operation Date: 03/25/22 08:45 Proposed Procedures p EGD and colonoscopy [id number],Z86.010,R11.15(Not Applicable) - Rip Arredondo MD s Colonoscopy(Not Applicable) - Rip Arredondo MD Familial anesthetic complications: None Was Beta Kassy taken within 24 hours: N/A Was Clonidine taken within 24 hours: N/A Last intake: Intake Last Liquid Date 03/24/22 Last Liquid Time 21:00 Last Solid Date 03/23/22 Last Solid Time 20:00 Social Tobacco and No alcohol Exam alert, oriented x 3, clear to auscultation bilaterally and regular rate & rhythm Airway Mallampati: Class I Dentition: other (no teeth) Pulmonary Chronic Obstructive Pulmonary Disease CV/HEM Arrythmia and Hypertension Metabolic Diabetes Mellitus Anesthetic Plan ASA status: 3 Anesthesia: MAC Risk of > 500 ml blood loss (7ml/kg in children): No Medications/Allergies Home Medications Medication Instructions Recorded Confirmed Last Taken Type aspirin 81 mg tablet,delayed 81 mg PO DAILY@0800 03/14/20 03/21/22 03/24/22 Hi story release (Adult Low Dose Aspirin) acetaminophen 325 mg rectal 325 mg LA Q6H PRN #6 ea 12/17/21 03/21/22 03/24/22 Rx suppository Lactobac 51-Bifidobac 1 cap PO DAILY #30 cap 12/24/21 03/21/22 03/24/22 Rx 3-L.lactis-S.thermophilus 4 billion cell capsule (Daily Probiotic (10 Strains)) latanoprost (PF) 0.005 % eye drops 1 drp OPHTHALMIC (EYE) 12/24/21 03/21/22 03/24/22 Rx BEDTIME@1999 #7.5 ml multivit with 1 tab PO DAILY@0800 #30 tab 12/24/21 03/21/22 03/24/22 Rx fvzaddxy-rmlj-DP-lutein 8 mg iron-400 mcg-300 mcg tablet (Multivitamin Women 50 Plus) albuterol sulfate 90 mcg/actuation 2 puff INHALATION QID PRN #18 gm 02/21/22 03/21/22 03/24/22 Rx aerosol inhaler (ProAir HFA) atorvastatin 40 mg tablet 40 mg PO BEDTIME #30 tab 02/21/22 03/21/22 03/24/22 Rx azelastine 137 mcg (0.1 %) nasal 1 spray INTRANASAL BID #30 ml 02/21/22 03/21/22 03/24/22 Rx spray aerosol celecoxib 400 mg capsule 400 mg PO DAILY@0800 #30 cap 02/21/22 03/21/22 03/24/22 Rx escitalopram oxalate 10 mg tablet 10 mg PO DAILY@0800 #30 tab 02/21/22 03/21/22 03/24/22 Rx glycopyrrolate 9 mcg-formoterol 2 puff INHALATION Q12H #10.7 gm 02/21/22 03/21/22 03/24/22 Rx 4.8 mcg HFA aerosol inhaler (Bevespi Aerosphere) hydroxyzine pamoate 25 mg capsule 25 mg PO TID@0800,12,20 #90 cap 02/21/22 03/21/22 03/24/22 Rx hyoscyamine sulfate 0.125 mg 0.125 mg PO BID #60 tab 02/21/22 03/21/22 03/24/22 Rx tablet (Levsin) lisinopril 20 mg tablet 20 mg PO DAILY@0800 #30 tab 02/21/22 03/21/22 03/24/22 Rx oxybutynin chloride 5 mg tablet 5 mg PO TID@08,12,20 #90 tab 02/21/22 03/21/22 03/24/22 Rx polyethylene glycol 3350 17 17 g PO DAILY PRN #510 g 02/21/22 03/21/22 03/24/22 Rx gram/dose oral powder (Miralax) quetiapine 50 mg tablet (Seroquel) 150 mg PO .at bedtime #90 tab 02/21/22 03/04/22 03/24/22 Rx peg 3350-electrolytes 236 240 ml PO Q10M #4000 ml 03/04/22 03/21/22 03/24/22 Rx gram-22.74 gram-6.74 gram-5.86 gram solution (Golytely) metformin 500 mg tablet,extended 500 mg PO DAILY #30 tab 03/11/22 03/21/22 03/24/22 Rx release 24 hr Allergies Allergy/AdvReac Type Severity Reaction Status Date / Time benztropine [From Cogentin] AdvReac visual Verified 03/25/22 07:58 disturbance zolpidem [From Ambien] AdvReac Sleep walk Verified 03/25/22 07:58 Current Medications Generic Name Dose Route Start Last Admin Trade Name Remigio PRN Reason Stop Dose Admin Sodium Chloride 1,000 mls @ 30 mls/hr 03/25/22 07:30 03/25/22 07:56 Sodium Chloride 0.9% IV 30 mls/hr .Q24H JENNIFER Administration PFS Anesthesia Medical History (Updated 03/11/22 @ 16:46 by KRISTIE Celestin-C) Anxiety and depression COPD (chronic obstructive pulmonary disease) Cyclical vomiting with nausea Diabetes mellitus with hyperglycemia, without long-term current use of insulin Dyslipidemia Essential (primary) hypertension Glaucoma (increased eye pressure) Insomnia due to medical condition Nasal congestion with rhinorrhea Osteoarthritis Smoker Urinary frequency Surgical History History of carpal tunnel release of both wrists History of cataract extraction Bilateral 2020 Hx of arthroscopic knee surgery (~2012) left Family History Other COPD (chronic obstructive pulmonary disease) Cancer Social History Smoking and tobacco status: current every day smoker Second hand smoke exposure: Yes Smoking risk assessment/counseling performed?: Yes Alcohol intake: never Desire information about alcohol rehabilitation?: No Counseling given: No Desire information about substance/drug rehabilitation?: No Counseling given: No Adopted: No Caregiver/support person: No Lives independently: Yes Household members: spouse Housing: House Marital status: service: No History of recent travel: No Current gender identity: Female Data Anesthesia Cardiac Studies: Holter Monitor 02/13/21
[2022-03-25 09:38] VITALS: BP 81/58; PULSE 63; RESP 17; TEMP 36.1; O2SAT 97
--- NOTE | 2022-03-25 09:41 | ANE.PACU2 ---
Inpatient post-anesthesia follow up: Airway intact: Yes Vital signs: Temperature Pulse Rate 49 Respiratory Rate 17 Blood Pressure 114/76 Pulse Oximetry 97 Oxygen Delivery Me thod Room Air Oxygen Flow Rate Fraction of Inspir ed Oxygen Hydration adequate: Yes Nausea and vomiting: No Pain level: 1 Mental status: Baseline
[2022-03-25 09:49] VITALS: BP 117/97; PULSE 70; RESP 18; O2SAT 97
== END 2022-03-25 10:13 | disposition home or self-care (01) ==
PROVIDERS: PCP Nurse Practitioner; Visit Provider Internal Medicine
PROC: 0DJ08ZZ Inspection of Upper Intestinal Tract, Via Natural or Artificial Opening Endoscopic (ICD-10-PCS; CPT 43235; principal; 2022-03-25 08:45)
PROC: 0DJD8ZZ Inspection of Lower Intestinal Tract, Via Natural or Artificial Opening Endoscopic (ICD-10-PCS; CPT 45378; 2022-03-25 08:45)
DX: Z86.010 Personal history of colon polyps (principal); R11.15 Cyclical vomiting syndrome unrelated to migraine; F17.200 Nicotine dependence, unspecified, uncomplicated; K57.30 Diverticulosis of large intestine without perforation or abscess without bleeding; J44.9 Chronic obstructive pulmonary disease, unspecified; I10 Essential (primary) hypertension; M19.90 Unspecified osteoarthritis, unspecified site; E11.65 Type 2 diabetes mellitus with hyperglycemia
CPT/HCPCS: 43235; 45378; J2704; J3490; J7030

== ENCOUNTER 2022-03-26 12:15 | Emergency (ER) | payer MEDICAID, SELFPAY ==
--- NOTE | 2022-03-26 12:28 | ECG_ITS ---
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 Measurements Intervals [place] Rate: 83 P: 92 PA: 109 QRS: 75 QRSD: 75 T: 74 QT: 411 QTc: 485 Interpretive Statements SINUS RHYTHM WITH SHORT PA INTERVAL SEPTAL MYOCARDIAL INFARCTION , OF INDETERMINATE AGE [40+ ms Q WAVE IN V1/V2] Nonspecific ST changes Compared to ECG 01/28/2022 19:03:26 Short PA interval now present Myocardial infarct finding still present Electronically Signed On 03-26-2022 20:54:12 CDT by Jack Martinez M.D. [email or web address] [id number]
[2022-03-26 12:42] VITALS: BMI 24.5
[2022-03-26] MEDS: sodium chloride 0.9% 1,000 ML 999 ML IV (12:48)
[2022-03-26] MEDS: ondansetron 2 mg/ML SDV 2 mL 4 MG IVP (12:48)
[2022-03-26 12:55] VITALS: BP 160/105; PULSE 75; RESP 18; O2SAT 100
[2022-03-26 13:01] LABS: Basophils % 0.2 %; Hematocrit 42.4 % (37.0-47.0); Hemoglobin 14.5 g/dL (11.5-15.3); Lymphocytes % 10.7 %; Mean Corpuscular HGB Conc 34.2 g/dL (30.0-36.0); Mean Corpuscular Hemoglobin 31.5 pg (28.0-34.0); Mean Platelet Volume 9.7 fL (7.4-10.4); Monocytes # 1.1 10^3/uL (0.2-0.9); Monocytes % 5.9 %; Neutrophils # 15.31 10^3/uL (1.8-7.7); Neutrophils % 82.6 %; Nucleated Red Blood Cells % 0 %; Platelet Count 256 10^3/cmm (130-400); Red Blood Count 4.61 10^6/uL (4.1-5.3); White Blood Count 18.5 10^3/uL (4.0-10.0)
[2022-03-26 13:28] LABS: Alanine Aminotransferase 19 U/L (0-33); Albumin Level 5.1 g/dL (3.5-5.2); Alkaline Phosphatase 76 IU/L (35-105); Anion Gap 23.6 (5-19); Aspartate Amino Transferase 27 U/L (0-32); Blood Urea Nitrogen 11 mg/dL (8-23); Calcium 9.9 mg/dL (8.5-10.5); Carbon Dioxide 18 mmol/L (22-29); Chloride 100 mmol/L (98-107); Globulin 2.6 g/dL (1.3-4.6); Glomerular Filtration Rate 101.6 mL/min (90-130); Glucose 137 mg/dL (65-115); Osmolality Calculated 288 mOsm/kg (285-295); Potassium 3.6 mmol/L (3.5-5.1); Sodium 138 mmol/L (136-145); Total Bilirubin 0.5 mg/dL (0.15-1.2); Total Protein 7.7 g/dL (6.6-8.7)
--- NOTE | 2022-03-26 13:31 | ED_ITS ---
HPI - Nausea/Vomiting/Diarrhea General: Chief complaint: Nausea/Vomiting/Diarrhea Stated complaint: N/V WEAKNESS Time Seen by Provider: 03/26/22 12:27 Source: patient Mode of arrival: EMS History of Present Illness: 61-year-old female who presents to the emergency room with complaints of nausea and vomiting. Yesterday she had EGD and colonoscopy said she has not been able to get her nausea or vomiting to stop since then. She usually uses marijuana on a regular basis has not for the last couple of days because of the procedure. She denies any medic easier hematemesis coffee-ground emesis. She really does not have any abdominal pain just persistent nausea and vomiting. MD elicited complaint: nausea and vomiting Onset (ago): day(s) (1) Description of vomiting: watery Associated nausea: No Associated abdominal pain: No Location of pain: None Severity: moderate Exacerbating factors: none Relieving factors: none Associated symtoms: Denies altered mental status, anxiety, bloating, change in vision, cough, diaphoresis, decreased urine output, dizziness, dysuria, epistaxis, fatigue, fecal incontinence, fevers/chills, headache(s), anorexia, malaise, myalgias, nausea, numbness, palpitations, rash, short of breath, syncope, tenesmus, tinnitus or weakness Review of Systems Const: Denies: fatigue, malaise or diaphoresis Eyes: Denies: change in vision ENMT: Denies: tinnitus or epistaxis Card: Denies: palpitations or syncope Resp: Denies: dyspnea, productive cough or non-productive cough GI: Denies: nausea, bloating or fecal incontinence : Denies: dysuria Skin/Breast: Denies: rash or pruritus Neuro: Denies: headache(s) or dizziness Psych: Denies: anxiety PFSH ED PFSH: Medical History Anxiety and depression COPD (chronic obstructive pulmonary disease) Cyclical vomiting with nausea Diabetes mellitus with hyperglycemia, without long-term current use of insulin Dyslipidemia Essential (primary) hypertension Glaucoma (increased eye pressure) Insomnia due to medical condition Nasal congestion with rhinorrhea Osteoarthritis Smoker Urinary frequency Surgical History History of carpal tunnel release of both wrists History of cataract extraction Bilateral 2020 Hx of arthroscopic knee surgery (~2012) left Family History Other COPD (chronic obstructive pulmonary disease) Cancer Social History Smoking and tobacco status: current every day smoker Second hand smoke exposure: Yes Smoking risk assessment/counseling performed?: Yes Alcohol intake: never Desire information about alcohol rehabilitation?: No Counseling given: No Desire information about substance/drug rehabilitation?: No Counseling given: No Adopted: No Caregiver/support person: No Lives independently: Yes Household members: spouse Housing: House Marital status: service: No History of recent travel: No Current gender identity: Female Physical Exam Const: COMMON NORMALS: no acute distress EXAM LIMITATIONS: no altered mental status GENERAL APPEARANCE: cooperative and comfortable ORIENTATION/CONSCIOUSNESS: Yes awake, Yes oriented to person, Yes oriented to place and Yes oriented to time HENMT: COMMON NORMALS: normocephalic, atraumatic and hearing grossly normal bilaterally HEAD & SCALP: normocephalic and atraumatic Neck/C-Spine: COMMON NORMALS: no JVD Resp: COMMON NORMALS: normal respiratory effort, No retractions, No use of accessory muscles and clear to auscultation bilaterally AUSCULTATION: clear to auscultation bilaterally Cardio: COMMON NORMALS: no JVD, regular rate, regular rhythm and No murmurs present (Cardio) RATE: regular rate RHYTHM: regular rhythm GI: COMMON NORMALS: Soft to palpation and No hepatosplenomegaly present AUSCULTATION: Yes normoactive bowel sounds PALPATION: Yes Soft to palpation, No Tenderness to palpation present (GI), No Guarding due to palpation present (GI) and Yes No hepatosplenomegaly present Extremity: COMMON NORMALS: normal to inspection, capillary refill normal, no clubbing, cyanosis or edema, no calf tenderness and no pedal edema Neuro: SENSORIUM/ORIENTATION: Yes oriented to person, Yes oriented to place and Yes oriented to time Skin: COMMON NORMALS: no rashes or lesions noted GENERAL SKIN EXAM: no rashes or lesions noted Course Vital Signs: Vital signs: Vital Signs Pulse Rate 75 03/26/22 12:55 Respiratory Rate 18 03/26/22 12:55 Blood Pressure 160/105 03/26/22 12:55 Pulse Oximetry 100 03/26/22 12:55 MDM - Nausea/Vomiting/Diarrhea Medical Decision Making Patient improved after fluids and medications discharged home with promethazine to use as needed. Discussed med use medical marijuana and potential side effects including protracted nausea and vomiting. Medical Records I reviewed the patient's medical records. Lab Data I reviewed the patient's lab results. : 03/26/22 12:52 03/26/22 12:52 Laboratory Results WBC 18.5 10^3/uL (4.0-10.0) H 03/26/22 12:52 RBC 4.61 10^6/uL (4.1-5.3) 03/26/22 12:52 Hgb 14.5 g/dL (11.5-15.3) 03/26/22 12:52 Hct 42.4 % (37.0-47.0) 03/26/22 12:52 MCV 92.0 fl (81-99) 03/26/22 12:52 MCH 31.5 pg (28.0-34.0) 03/26/22 12:52 MCHC 34.2 g/dL (30.0-36.0) 03/26/22 12:52 RDW 13.0 % (12.1-15.1) 03/26/22 12:52 Plt Count 256 10^3/cmm (130-400) 03/26/22 12:52 MPV 9.7 fL (7.4-10.4) 03/26/22 12:52 Neut % (Auto) 82.6 % 03/26/22 12:52 Lymph % (Auto) 10.7 % 03/26/22 12:52 [place] % (Auto) 5.9 % 03/26/22 12:52 Eos % (Auto) 0.0 % 03/26/22 12:52 Baso % (Auto) 0.2 % 03/26/22 12:52 Neut # (Auto) 15.31 10^3/uL (1.8-7.7) H 03/26/22 12:52 Lymph # (Auto) 2.0 10^3/uL (0.8-4.8) 03/26/22 12:52 [place] # (Auto) 1.1 10^3/uL (0.2-0.9) H 03/26/22 12:52 Eos # (Auto) 0.0 10^3/uL (0.0-0.8) 03/26/22 12:52 Baso # (Auto) 0.0 10^3/uL (0.0-0.1) 03/26/22 12:52 Nucleated RBC % (auto) 0 % 03/26/22 12:52 Nucleated RBCs # 0.0 /100WBC 03/26/22 12:52 Sodium 138 mmol/L (136-145) 03/26/22 12:52 Potassium 3.6 mmol/L (3.5-5.1) 03/26/22 12:52 Chloride 100 mmol/L (98-107) 03/26/22 12:52 Carbon Dioxide 18 mmol/L (22-29) L 03/26/22 12:52 Anion Gap 23.6 (5-19) H 03/26/22 12:52 BUN 11 mg/dL (8-23) 03/26/22 12:52 Creatinine 0.6 mg/dL (0.5-0.9) 03/26/22 12:52 GFR Calculation 101.6 mL/min (90-130) 03/26/22 12:52 Glucose 137 mg/dL (65-115) H 03/26/22 12:52 Calculated Osmolality 288 mOsm/kg (285-295) 03/26/22 12:52 Calcium 9.9 mg/dL (8.5-10.5) 03/26/22 12:52 Total Bilirubin 0.5 mg/dL (0.15-1.2) 03/26/22 12:52 AST 27 U/L (0-32) 03/26/22 12:52 ALT 19 U/L (0-33) 03/26/22 12:52 Alkaline Phosphatase 76 IU/L (35-105) 03/26/22 12:52 Total Protein 7.7 g/dL (6.6-8.7) 03/26/22 12:52 Albumin 5.1 g/dL (3.5-5.2) 03/26/22 12:52 Globulin 2.6 g/dL (1.3-4.6) 03/26/22 12:52 Discharge Plan Discharge Patient Disposition: Home Clinical Impression: Nausea and vomiting Condition: Stable Prescriptions: New promethazine 25 mg tablet 25 mg PO Q6H PRN (Reason: nausea and vomiting) Qty: 20 0RF No Action aspirin [Adult Low Dose Aspirin] 81 mg tablet,delayed release (DR/EC) 81 mg PO DAILY@0800 0RF Daily Probiotic (10 Strains) 4 billion cell capsule 1 cap PO DAILY Qty: 30 2RF latanoprost (PF) 0.005 % drops 1 drp ophthalmic (eye) BEDTIME@2000 Qty: 7.5 2RF Multivitamin Women 50 Plus 8 mg iron-400 mcg-300 mcg tablet 1 tab PO DAILY@0800 Qty: 30 2RF peg 3350-electrolytes [Golytely] 236-22.74-6.74 -5.86 gram recon soln 240 ml PO Q10M Qty: 4000 0RF Rx Instructions: until fecal effluent is clear albuterol sulfate [ProAir HFA] 90 mcg/actuation HFA aerosol inhaler 2 puff INHALATION QID PRN (Reason: shortness of breath or wheezing) Qty: 18 2RF atorvastatin 40 mg tablet 40 mg PO BEDTIME Qty: 30 2RF azelastine 137 mcg (0.1 %) aerosol,spray 1 spray intranasal BID Qty: 30 2RF Rx Instructions: administer into each nostril celecoxib 400 mg capsule 400 mg PO DAILY@0800 Qty: 30 2RF Hold Instructions: Hold for 4 weeks escitalopram oxalate 10 mg tablet 10 mg PO DAILY@0800 Qty: 30 2RF Bevespi Aerosphere 9-4.8 mcg HFA aerosol inhaler 2 puff INHALATION Q12H Qty: 10.7 2RF hydroxyzine pamoate 25 mg capsule 25 mg PO TID@0800,12,20 Qty: 90 2RF hyoscyamine sulfate [Levsin] 0.125 mg tablet 0.125 mg PO BID Qty: 60 2RF lisinopril 20 mg tablet 20 mg PO DAILY@0800 Qty: 30 2RF oxybutynin chloride 5 mg tablet 5 mg PO TID@08,12,20 Qty: 90 2RF Miralax 17 gram/dose powder 17 g PO DAILY PRN (Reason: Constipation) Qty: 510 2RF acetaminophen 325 mg suppository 325 mg [place] Q6H PRN (Reason: fever or pain) Qty: 6 0RF metformin 500 mg tablet extended release 24 hr 500 mg PO DAILY Qty: 30 2RF Seroquel 50 mg tablet 50 - 100 mg PO BEDTIME 0RF Discharge Orders: Discharge ED (Routine); Ordered 03/26/22 Ordered By: Arslan Jimenes Referrals: Vero Moon FNP-C [Primary Care Provider] - Discharge Diet: Usual diet Discharge Activity: Increase activity as tolerated Patient Instructions: Cannabis Use Disorder (ED), Opioid Safety Coding Level of Care Code ED Substance Abuse Services Director for [place] Fwd Exam Comprehensive
--- NOTE | 2022-03-26 13:34 | PC.PHAR ---
PT UNABLE TO VERIFY - VERIFIED MEDICATIONS USING EXTERNAL MED LIST AND FAX OF RECENT FILLED AND PICKED UP FROM [facility].
--- NOTE | 2022-03-26 13:43 | PC.NURSE ---
pt asleep at this time pt denies nausea
[2022-03-26 17:12] VITALS: BP 123/92; PULSE 97; RESP 16; O2SAT 98
== END 2022-03-26 17:12 | disposition home or self-care (01) ==
PROVIDERS: Emergency Provider Family Medicine; PCP Nurse Practitioner
DX: R11.2 Nausea with vomiting, unspecified (principal); Z79.82 Long term (current) use of aspirin; Z79.84 Long term (current) use of oral hypoglycemic drugs; J44.9 Chronic obstructive pulmonary disease, unspecified; E11.9 Type 2 diabetes mellitus without complications; E78.5 Hyperlipidemia, unspecified; I10 Essential (primary) hypertension; F17.210 Nicotine dependence, cigarettes, uncomplicated
CPT/HCPCS: 80053; 85025; 93005; 96374; 99284; J2405; J7030

== ENCOUNTER → 2022-03-29 10:16 | Outpatient (BNVA) | payer MEDICAID, SELFPAY | PROVIDERS: PCP Nurse Practitioner; Visit Provider Nurse Practitioner | DX: E11.65 Type 2 diabetes mellitus with hyperglycemia (principal) | CPT/HCPCS: 80053; 83036; 84443; 85025 ==

== ENCOUNTER → 2022-04-30 08:41 | Outpatient (BNVA) | payer MEDICAID, SELFPAY | PROVIDERS: PCP Nurse Practitioner; Visit Provider Nurse Practitioner | DX: E87.1 Hypo-osmolality and hyponatremia (principal); I10 Essential (primary) hypertension | CPT/HCPCS: 80048 ==

== ENCOUNTER 2022-06-14 10:21 | Emergency (ER) | payer MEDICAID, SELFPAY ==
[2022-06-14] VITALS (7 sets, daily range): BP systolic 109–139; BP diastolic 63–96; PULSE 60–84; RESP 13–20; TEMP 36.4; O2SAT 93–100; BMI 23.6
--- NOTE | 2022-06-14 11:08 | W.ED.NAVMDI ---
HPI - Nausea/Vomiting/Diarrhea General: Chief complaint: Nausea/Vomiting/Diarrhea Stated complaint: N/V Time Seen by Provider: 06/14/22 10:26 Source: patient Mode of arrival: ambulatory History of Present Illness: 62-year-old female presents emergency room with complaints of nausea and vomiting. She has had this in the past related to marijuana use. She not had any specific abdominal pain. She denies any dysuria urgency or frequency. She previously has had a hysterectomy she has some mild cramping. No hematuria no hematemesis coffee-ground emesis denies chest pain or shortness of breath. [facility] ED PFSH: Medical History Anxiety and depression COPD (chronic obstructive pulmonary disease) Cyclical vomiting with nausea Diabetes mellitus with hyperglycemia, without long-term current use of insulin Dyslipidemia Essential (primary) hypertension Glaucoma (increased eye pressure) Insomnia due to medical condition Nasal congestion with rhinorrhea Osteoarthritis Smoker Urinary frequency Surgical History History of carpal tunnel release of both wrists History of cataract extraction Bilateral 2020 Hx of arthroscopic knee surgery (~2012) left Family History Other COPD (chronic obstructive pulmonary disease) Cancer Social History Smoking and tobacco status: current every day smoker Second hand smoke exposure: Yes Smoking risk assessment/counseling performed?: Yes Alcohol intake: never Desire information about alcohol rehabilitation?: No Counseling given: No Desire information about substance/drug rehabilitation?: No Counseling given: No Adopted: No Caregiver/support person: No Lives independently: Yes Household members: spouse Housing: House Marital status: service: No History of recent travel: No Current gender identity: Female Course Vital Signs: Vital signs: Vital Signs Temperature 97.6 F 06/14/22 10:28 Pulse Rate 67 06/14/22 12:17 Respiratory Rate 18 06/14/22 12:17 Blood Pressure 109/63 06/14/22 11:28 Pulse Oximetry 94 06/14/22 12:17 Oxygen Delivery Me thod 06/14/22 12:17 MDM - Nausea/Vomiting/Diarrhea Medical Decision Making Generalized malaise no specific symptoms. Labs reviewed. Sign of any chest pain or shortness of breath I think a lot of this is probably precipitated by her COVID booster vaccine that she had yesterday advised clear liquid diet advance as tolerated and rest if symptoms worsen or change return to the emergency room. Medical Records I reviewed the patient's medical records. Lab Data I reviewed the patient's lab results. : 06/14/22 11:30 06/14/22 11:30 Laboratory Results WBC 15.7 10^3/uL (4.0-10.0) H 06/14/22 11:30 RBC 4.20 10^6/uL (4.1-5.3) 06/14/22 11:30 Hgb 13.4 g/dL (11.5-15.3) 06/14/22 11:30 Hct 39.8 % (37.0-47.0) 06/14/22 11:30 MCV 94.8 fl (81-99) 06/14/22 11:30 MCH 31.9 pg (28.0-34.0) 06/14/22 11:30 MCHC 33.7 g/dL (30.0-36.0) 06/14/22 11:30 RDW 13.5 % (12.1-15.1) 06/14/22 11:30 Plt Count 281 10^3/cmm (130-400) 06/14/22 11:30 MPV 9.6 fL (7.4-10.4) 06/14/22 11:30 Neut % (Auto) 82.2 % 06/14/22 11:30 Lymph % (Auto) 13.7 % 06/14/22 11:30 [place] % (Auto) 3.1 % 06/14/22 11:30 Eos % (Auto) 0.2 % 06/14/22 11:30 Baso % (Auto) 0.2 % 06/14/22 11:30 Neut # (Auto) 12.92 10^3/uL (1.8-7.7) H 06/14/22 11:30 Lymph # (Auto) 2.2 10^3/uL (0.8-4.8) 06/14/22 11:30 [place] # (Auto) 0.5 10^3/uL (0.2-0.9) 06/14/22 11:30 Eos # (Auto) 0.0 10^3/uL (0.0-0.8) 06/14/22 11:30 Baso # (Auto) 0.0 10^3/uL (0.0-0.1) 06/14/22 11:30 Nucleated RBC % (auto) 0 % 06/14/22 11:30 Nucleated RBCs # 0.0 /100WBC 06/14/22 11:30 Sodium 135 mmol/L (136-145) L 06/14/22 11:30 Potassium 3.7 mmol/L (3.5-5.1) 06/14/22 11:30 Chloride 98 mmol/L (98-107) 06/14/22 11:30 Carbon Dioxide 18 mmol/L (22-29) L 06/14/22 11:30 Anion Gap 22.7 (5-19) H 06/14/22 11:30 BUN 23 mg/dL (8-23) 06/14/22 11:30 Creatinine 0.8 mg/dL (0.5-0.9) 06/14/22 11:30 GFR Calculation 72.7 mL/min (90-130) L 06/14/22 11:30 Glucose 140 mg/dL (65-115) H 06/14/22 11:30 Calculated Osmolality 286 mOsm/kg (285-295) 06/14/22 11:30 Calcium 9.5 mg/dL (8.5-10.5) 06/14/22 11:30 Total Bilirubin 0.3 mg/dL (0.15-1.2) 06/14/22 11:30 AST 22 U/L (0-32) 06/14/22 11:30 ALT 21 U/L (0-33) 06/14/22 11:30 Alkaline Phosphatase 72 U/L (35-105) 06/14/22 11:30 Total Protein 7.3 g/dL (6.6-8.7) 06/14/22 11:30 Albumin 4.5 g/dL (3.5-5.2) 06/14/22 11:30 Globulin 2.8 g/dL (1.3-4.6) 06/14/22 11:30 Urine Color Yellow (Yellow) 06/14/22 10:40 Urine Appearance Clear (CLEAR) 06/14/22 10:40 Urine pH 5 (5-7) 06/14/22 10:40 Ur Specific [place] 1.020 (1.005-1.030) 06/14/22 10:40 Urine Protein Neg (Negative) 06/14/22 10:40 Urine Glucose (UA) 4+ (Normal) H 06/14/22 10:40 Urine Ketones 2+ (Negative) H 06/14/22 10:40 Urine Blood 2+ (Negative) H 06/14/22 10:40 Urine Nitrate Negative (Negative) 06/14/22 10:40 Urine Bilirubin Neg (Negative) 06/14/22 10:40 Urine Urobilinogen Neg mg/dL (Negative) 06/14/22 10:40 Ur Leukocyte Esterase Trace (Negative) H 06/14/22 10:40 Urine RBC None /hpf (0-2) 06/14/22 10:40 Urine WBC None /hpf (0-5) 06/14/22 10:40 Ur Squamous Epith Cells 5-10 /hpf (0-5) H 06/14/22 10:40 Amorphous Sediment Not Reportable 06/14/22 10:40 Urine Bacteria None /hpf (NONE) 06/14/22 10:40 Discharge Plan Discharge Condition: Stable Prescriptions: No Action aspirin [Adult Low Dose Aspirin] 81 mg tablet,delayed release (DR/EC) 81 mg PO DAILY@0800 Daily Probiotic (10 Strains) 4 billion cell capsule 1 cap PO DAILY Qty: 30 2RF latanoprost (PF) 0.005 % drops 1 drp ophthalmic (eye) BEDTIME@2000 Qty: 7.5 2RF Multivitamin Women 50 Plus 8 mg iron-400 mcg-300 mcg tablet 1 tab PO DAILY@0800 Qty: 30 2RF peg 3350-electrolytes [Golytely] 236-22.74-6.74 -5.86 gram recon soln 240 ml PO Q10M Qty: 4000 0RF Rx Instructions: until fecal effluent is clear albuterol sulfate [ProAir HFA] 90 mcg/actuation HFA aerosol inhaler 2 puff INHALATION QID PRN (Reason: shortness of breath or wheezing) Qty: 18 2RF azelastine 137 mcg (0.1 %) aerosol,spray 1 spray intranasal BID Qty: 30 2RF Rx Instructions: administer into each nostril celecoxib 400 mg capsule 400 mg PO DAILY@0800 Qty: 30 2RF Hold Instructions: Hold for 4 weeks Bevespi Aerosphere 9-4.8 mcg HFA aerosol inhaler 2 puff INHALATION Q12H Qty: 10.7 2RF Miralax 17 gram/dose powder 17 g PO DAILY PRN (Reason: Constipation) Qty: 510 2RF sodium chloride 1 gram tablet 1,000 mg PO .COMPLEX Qty: 30 1RF Rx Instructions: 1,000 mg orally on MWF; escitalopram oxalate 20 mg tablet 20 mg PO DAILY@0800 Qty: 30 0RF Rx Instructions: dose increase acetaminophen 325 mg suppository 325 mg SC Q6H PRN (Reason: fever or pain) Qty: 6 0RF Farxiga 5 mg tablet 5 mg PO QAM Qty: 30 2RF Rx Instructions: stop metformin due to nausea and vomiting sucralfate [Carafate] 1 gram tablet 1 g PO BID Qty: 60 2RF hydroxyzine pamoate 25 mg capsule 25 mg PO TID@0800,12,20 Qty: 90 2RF hyoscyamine sulfate [Levsin] 0.125 mg tablet 0.125 mg PO BID Qty: 60 2RF lisinopril 20 mg tablet 20 mg PO DAILY@0800 Qty: 30 2RF oxybutynin chloride 5 mg tablet 5 mg PO TID@08,12,20 Qty: 90 2RF atorvastatin 40 mg tablet 40 mg PO BEDTIME Qty: 30 2RF Seroquel 50 mg tablet 50 - 100 mg PO BEDTIME promethazine 25 mg tablet 25 mg PO Q6H PRN (Reason: nausea and vomiting) Qty: 20 0RF Referrals: Vero Moon, FLATWORK ASSEMBLER-C [Primary Care Provider] - Coding Level of Care Code ED Flatbed Truck Driver for [facility]
[2022-06-14 11:28] LABS: Bilirubin Urine Neg (Negative); Blood Urine 2+ (Negative); Glucose Urine UA 4+ (Normal); Ketones Urine 2+ (Negative); Leukocyte Esterase Urine Trace (Negative); Nitrate Urine Negative (Negative); Protein Urine Neg (Negative); Urine Appearance Clear (CLEAR); Urine Color Yellow (Yellow); Urobilinogen Urine Neg (Negative); pH Urine 5 (5-7)
[2022-06-14 11:31] LABS: Add Urine Culture? No
[2022-06-14 11:32] LABS: Add Urine Microscopic? YES
[2022-06-14 11:36] LABS: Basophils % 0.2 %; Eosinophils % 0.2 %; Hematocrit 39.8 % (37.0-47.0); Hemoglobin 13.4 g/dL (11.5-15.3); Lymphocytes # 2.2 10^3/uL (0.8-4.8); Lymphocytes % 13.7 %; Mean Corpuscular HGB Conc 33.7 g/dL (30.0-36.0); Mean Corpuscular Hemoglobin 31.9 pg (28.0-34.0); Mean Corpuscular Volume 94.8 fl (81-99); Mean Platelet Volume 9.6 fL (7.4-10.4); Monocytes # 0.5 10^3/uL (0.2-0.9); Monocytes % 3.1 %; Neutrophils # 12.92 10^3/uL (1.8-7.7); Neutrophils % 82.2 %; Nucleated Red Blood Cells % 0 %; Platelet Count 281 10^3/cmm (130-400); Red Cell Distribution Width 13.5 % (12.1-15.1); White Blood Count 15.7 10^3/uL (4.0-10.0)
[2022-06-14] MEDS: sodium chloride 0.9% 1,000 ML 999 ML IV (11:42)
[2022-06-14] MEDS: haloperidol inj 5 mg/mL INJ 1 mL 2.5 MG IVP (11:43)
[2022-06-14] MEDS: midazolam 1 mg/mL INJ 2 mL 2 MG IVP (11:44)
[2022-06-14 11:55] LABS: Alanine Aminotransferase 21 U/L (0-33); Albumin Level 4.5 g/dL (3.5-5.2); Alkaline Phosphatase 72 U/L (35-105); Anion Gap 22.7 (5-19); Aspartate Amino Transferase 22 U/L (0-32); Blood Urea Nitrogen 23 mg/dL (8-23); Calcium 9.5 mg/dL (8.5-10.5); Carbon Dioxide 18 mmol/L (22-29); Chloride 98 mmol/L (98-107); Globulin 2.8 g/dL (1.3-4.6); Glomerular Filtration Rate 72.7 mL/min (90-130); Glucose 140 mg/dL (65-115); Osmolality Calculated 286 mOsm/kg (285-295); Potassium 3.7 mmol/L (3.5-5.1); Sodium 135 mmol/L (136-145); Total Bilirubin 0.3 mg/dL (0.15-1.2); Total Protein 7.3 g/dL (6.6-8.7)
--- NOTE | 2022-06-14 12:46 | PC.PHAR ---
PT BEING UNCOOPERATIVE VERIFYING MEDICATIONS- MEDICATIONS VERIFIED USING EXTERNAL MED LIST LAST FILLED AND PICKED UP
== END 2022-06-14 15:42 | disposition home or self-care (01) ==
PROVIDERS: Emergency Provider Family Medicine; PCP Nurse Practitioner
DX: R11.2 Nausea with vomiting, unspecified (principal); Z79.82 Long term (current) use of aspirin; F17.210 Nicotine dependence, cigarettes, uncomplicated; J44.9 Chronic obstructive pulmonary disease, unspecified; E11.9 Type 2 diabetes mellitus without complications; E78.5 Hyperlipidemia, unspecified; I10 Essential (primary) hypertension
CPT/HCPCS: 80053; 81001; 85025; 96361; 96374; 96375; 99284; J1630; J2250; J7030

== ENCOUNTER → 2022-07-22 07:58 | Outpatient (BNVA) | payer MEDICAID, SELFPAY | PROVIDERS: PCP Nurse Practitioner; Visit Provider Nurse Practitioner | DX: E11.65 Type 2 diabetes mellitus with hyperglycemia (principal) | CPT/HCPCS: 80053; 80061; 83036 ==

== ENCOUNTER 2022-09-27 19:37 | Emergency (ER) | payer MEDICAID, SELFPAY ==
[2022-09-27 20:10] VITALS: BP 141/87; PULSE 86; RESP 18; TEMP 37.3; O2SAT 100; BMI 21.7
--- NOTE | 2022-09-27 20:11 | W.ED.ABDPA2 ---
HPI - Abdominal Pain General: Chief Complaint: Abdominal Pain Stated Complaint: ABD PAIN/N/V Time Seen by Provider: 09/27/22 20:11 History of Present Illness: Ms Sousa is a 62-year-old lady with history of diabetes, cyclic vomiting, gastroparesis, COPD, hypertension, hyperlipidemia presenting to the emergency department due to nausea and vomiting with diarrhea. Onset of symptoms this morning approximately 4 AM. She reports numerous episodes of emesis, she did not look at it however does not think that there was blood in it. Also had multiple hours in the toilet with loose stools. Intensity symptoms is moderate. Diffuse abdominal cramping. Course has persisted. No other specific changes in health, exacerbating, or alleviating factors identified. Pertinent past history: other Onset (ago): hour(s) Pain Consistency: constant Severity: moderate Quality: cramping Radiation: none Migration to: no migration Exacerbating factors: eating and vomiting Relieving factors: nothing Associated Symptoms: Reports diarrhea, nausea, poor appetite and vomiting; Denies coffee ground emesis, hematochezia and hematemesis Review of Systems General: Reports: 10 or more systems reviewed and unremarkable except in HPI and below GI: Reports: nausea, vomiting and diarrhea; Denies: hematemesis, coffee ground emesis or hematochezia PFSH ED PFSH: Medical History Anxiety and depression COPD (chronic obstructive pulmonary disease) Cyclical vomiting with nausea Diabetes mellitus with hyperglycemia, without long-term current use of insulin Dyslipidemia Essential (primary) hypertension Glaucoma (increased eye pressure) Insomnia due to medical condition Nasal congestion with rhinorrhea Osteoarthritis Smoker Urinary frequency Surgical History History of carpal tunnel release of both wrists History of cataract extraction Bilateral 2020 Hx of arthroscopic knee surgery (~2012) left Family History Other COPD (chronic obstructive pulmonary disease) Cancer Social History Smoking and tobacco status: current every day smoker Second hand smoke exposure: Yes Smoking risk assessment/counseling performed?: Yes Alcohol intake: never Desire information about alcohol rehabilitation?: No Counseling given: No Desire information about substance/drug rehabilitation?: No Counseling given: No Adopted: No Caregiver/support person: No Lives independently: Yes Household members: spouse Housing: House Marital status: service: No History of recent travel: No Current gender identity: Female Physical Exam Const: COMMON NORMALS: alert GENERAL APPEARANCE: cooperative and well developed HENMT: COMMON NORMALS: normocephalic and atraumatic HEAD & SCALP: normocephalic and atraumatic Eye: COMMON NORMALS: conjunctivae normal CONJUNCTIVA: Yes conjunctivae normal SCLERA: sclerae normal Neck/C-Spine: COMMON NORMALS: supple GENERAL: Yes trachea midline Resp: COMMON NORMALS: normal respiratory effort EFFORT & INSPECTION: Yes able to speak in complete sentences Cardio: COMMON NORMALS: regular rate and regular rhythm RATE: regular rate RHYTHM: regular rhythm GI: COMMON NORMALS: Soft to palpation PALPATION: Yes Soft to palpation, Yes Tenderness to palpation present (GI), No Guarding due to palpation present (GI) and No Rigid due to palpation Extremity: GENERAL: Yes normal exam except as noted and No edema Neuro: COMMON NORMALS: moves all extremities SENSORIUM/ORIENTATION: Yes alert and No Orientation impaired Psych: COMMON NORMALS: mental status grossly normal and Normal thought process present THOUGHT PROCESS: Normal thought process present Course Vital Signs: Vital signs: Vital Signs Temperature 99.2 F 09/27/22 20:10 Pulse Rate 94 09/27/22 22:22 Respiratory Rate 17 09/27/22 22:45 Blood Pressure 107/87 09/28/22 00:08 Pulse Oximetry 92 09/27/22 22:45 Oxygen Delivery Me thod 09/27/22 22:22 MDM - Abdominal Pain Medical Decision Making 62-year-old lady with history of gastroparesis and vomiting presenting with GI symptoms and abdominal pain. Exam as above, patient is nontoxic and there is no evidence of acute surgical abdomen. Labs notable for mild leukocytosis, normal hemoglobin and white count. Metabolic panel improved from prior without significant electrolyte derangement. Ketones and hematuria present without other evidence of urinary tract infection. CT demonstrates colitis and other incidental findings were discussed with patient. It was compared to prior CTs of the abdomen pelvis. The patient feel significantly proved with analgesia, IV fluids, antiemetic. Given CT findings in combination with leukocytosis and clinical history I will plan to treat for infectious colitis with antibiotics. She is able to tolerate p.o. intake and is comfortable with outpatient management. The results of ED evaluation were discussed with the patient including prescriptions and/or symptomatic cares (if applicable) including appropriate and responsible use, followup plan, and return precautions. The patient verbalized understanding and felt safe for discharge. Medical Records I reviewed the patient's medical records. Lab Data I reviewed the patient's lab results. 09/27/22 20:25 09/27/22 20: Labs/Radiology: Radiology Impressions Abdomen/Pelvis CT 09/27/22 20: IMPRESSION: Infectious or inflammatory colitis from the splenic flexure to the sigmoid colon. Diverticulosis in the sigmoid colon without clear evidence of focal diverticulitis. 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 Laboratory Results WBC 14.2 10^3/uL (4.0-10.0) H 09/27/22 20:25 RBC 4.47 10^6/uL (4.1-5.3) 09/27/22 20: Hgb 13.8 g/dL (11.5-15.3) 09/27/22 20: Hct 41.3 % (37.0-47.0) 09/27/22 20: MCV 92.4 fl (81-99) 09/27/22 20: MCH 30.9 pg (28.0-34.0) 09/27/22 20: MCHC 33.4 g/dL (30.0-36.0) 09/27/22 20: RDW 13.5 % (12.1-15.1) 09/27/22 20: Plt Count 301 10^3/cmm (130-400) 09/27/22 20: MPV 9.1 fL (7.4-10.4) 09/27/22 20: Neut % (Auto) 84.9 % 09/27/22: Lymph % (Auto) 10.1 % 09/27/22: [place] % (Auto) 4.3 % 09/27/22 20:25 Eos % (Auto) 0.0 % 09/27/22 20: Baso % (Auto) 0.1 % 09/27/22: Neut # (Auto) 12.00 10^3/uL (1.8-7.7) H 09/27/22 20:25 Lymph # (Auto) 1.4 10^3/uL (0.8-4.8) 09/27/22 20:25 [place] # (Auto) 0.6 10^3/uL (0.2-0.9) 09/27/22 20:25 Eos # (Auto) 0.0 10^3/uL (0.0-0.8) 09/27/22 20:25 Baso # (Auto) 0.0 10^3/uL (0.0-0.1) 09/27/22 20:25 Nucleated RBC % (auto) 0 % 09/27/22: Nucleated RBCs # 0.0 /100WBC 09/27/22 20:25 Sodium 138 mmol/L (136-145) 09/27/22 20:25 Potassium 3.8 mmol/L (3.5-5.1) 09/27/22 20:25 Chloride 102 mmol/L (98-107) 09/27/22 20: Carbon Dioxide 21 mmol/L (22-29) L 09/27/22 20:25 Anion Gap 18.8 (5-19) 09/27/22 20:25 BUN 18 mg/dL (8-23) 09/27/22 20:25 Creatinine 0.6 mg/dL (0.5-0.9) 09/27/22 20:25 GFR Calculation 101.3 mL/min (90-130) 09/27/22 20: Glucose 154 mg/dL (65-115) H 09/27/22 20:25 Calculated Osmolality 291 mOsm/kg (285-295) 09/27/22 20:25 Calcium 9.6 mg/dL (8.5-10.5) 09/27/22 20:25 Total Bilirubin 0.4 mg/dL (0.15-1.2) 09/27/22 20:25 AST 28 U/L (0-32) 09/27/22 20:25 ALT 30 U/L (0-33) 09/27/22 20:25 Alkaline Phosphatase 68 U/L (35-105) 09/27/22 20:25 Total Protein 7.8 g/dL (6.6-8.7) 09/27/22 20: Albumin 4.7 g/dL (3.5-5.2) 09/27/22 20:25 Globulin 3.1 g/dL (1.3-4.6) 09/27/22 20:25 Lipase 24 U/L (13-60) 09/27/22 20:25 Urine Color Yellow (Yellow) 09/27/22 21:24 Urine Appearance Clear (CLEAR) 09/27/22 21:24 Urine pH 6 (5-7) 09/27/22 21:24 Ur Specific [place] 1.015 (1.005-1.030) 09/27/22 21:24 Urine Protein Neg (Negative) 09/27/22 21:24 Urine Glucose (UA) 4+ (Normal) H 09/27/22 21:24 Urine Ketones 2+ (Negative) H 09/27/22 21:24 Urine Blood 3+ (Negative) H 09/27/22 21:24 Urine Nitrate Negative (Negative) 09/27/22 21:24 Urine Bilirubin Neg (Negative) 09/27/22 21:24 Urine Urobilinogen Neg mg/dL (Negative) 09/27/22 21:24 Ur Leukocyte Esterase Negative (Negative) 09/27/22 21:24 Urine RBC 10-15 /hpf (0-2) H 09/27/22 21:24 Urine WBC 0-4 /hpf (0-5) H 09/27/22 21:24 Ur Squamous Epith Cells 0-4 /hpf (0-5) H 09/27/22 21:24 Amorphous Sediment Not Reportable 09/27/22 21:24 Urine Bacteria Trace /hpf (NONE) 09/27/22 21:24 Urine Mucus Trace /hpf 09/27/22 21:24 Discharge Plan Discharge Patient Disposition: Home Clinical Impression: Abdominal pain, Dehydration, Colitis, Hematuria Condition: Stable Prescriptions: New ondansetron 4 mg tablet,disintegrating 4 mg PO Q8H PRN (Reason: nausea and vomiting) Qty: 15 0RF oxycodone 5 mg tablet 5 mg PO Q4H PRN (Reason: pain) Qty: 10 0RF amoxicillin-pot clavulanate 875-125 mg tablet 1 tab PO BID Qty: 20 0RF No Action aspirin [Adult Low Dose Aspirin] 81 mg tablet,delayed release (DR/EC) 81 mg PO DAILY@0800 latanoprost (PF) 0.005 % drops 1 drp ophthalmic (eye) BEDTIME@2000 Qty: 7.5 2RF albuterol sulfate [ProAir HFA] 90 mcg/actuation HFA aerosol inhaler 2 puff INHALATION QID PRN (Reason: shortness of breath or wheezing) Qty: 18 2RF atorvastatin 40 mg tablet 40 mg PO BEDTIME Qty: 30 2RF azelastine 137 mcg (0.1 %) aerosol,spray 1 spray intranasal BID Qty: 30 2RF Rx Instructions: administer into each nostril celecoxib 400 mg capsule 400 mg PO DAILY@0800 Qty: 30 2RF Hold Instructions: Hold for 4 weeks Farxiga 5 mg tablet 5 mg PO QAM Qty: 30 2RF escitalopram oxalate 20 mg tablet 20 mg PO DAILY@0800 Qty: 30 2RF Bevespi Aerosphere 9-4.8 mcg HFA aerosol inhaler 2 puff INHALATION Q12H Qty: 10.7 2RF hydroxyzine pamoate 25 mg capsule 25 mg PO TID@0800,12,20 Qty: 90 2RF hyoscyamine sulfate [Levsin] 0.125 mg tablet 0.125 mg PO BID Qty: 60 2RF Daily Probiotic (10 Strains) 4 billion cell capsule 1 cap PO DAILY Qty: 30 2RF lisinopril 20 mg tablet 20 mg PO DAILY@0800 Qty: 30 2RF oxybutynin chloride 5 mg tablet 5 mg PO TID@08,12,20 Qty: 90 2RF Miralax 17 gram/dose powder 17 g PO DAILY PRN (Reason: Constipation) Qty: 510 2RF sucralfate [Carafate] 1 gram tablet 1 g PO BID Qty: 60 2RF Multivitamin Women 50 Plus 8 mg iron-400 mcg-300 mcg tablet 1 tab PO DAILY@0800 Qty: 30 2RF triamcinolone acetonide 0.1 % cream 1 applic topical BID Qty: 15 0RF Rx Instructions: to left hand mupirocin 2 % ointment 1 applic topical BID Qty: 15 0RF Rx Instructions: right ear clindamycin HCl 300 mg capsule 300 mg PO TID Qty: 30 0RF acetaminophen 325 mg suppository 325 mg [place] Q6H PRN (Reason: fever or pain) Qty: 6 0RF quetiapine 150 mg tablet 150 mg PO BEDTIME Qty: 30 2RF sodium chloride 1 gram tablet 1,000 mg PO DAILY Qty: 30 2RF promethazine 25 mg tablet 25 mg PO Q6H PRN (Reason: nausea and vomiting) Qty: 20 0RF Discharge Orders: Discharge ED (Routine); Ordered 09/27/22 Ordered By: Lance Hollins Referrals: Vero Moon, ORGANIZATIONAL RESEARCH CONSULTANT-C [Primary Care Provider] - Discharge Diet: Advance as tolerated and Clear Liquid Discharge Activity: Increase activity as tolerated Patient Instructions: Hematuria (ED), Abdominal Pain (ED), Colitis (ED), Opioid Safety Activity Restrictions/Additional Instructions: Thank you for visiting the emergency department. You were seen and evaluated for nausea, vomiting, diarrhea, abdominal pain. The most likely cause of your symptoms is colitis and you have some dehydration. We are pleased that you had improvement in symptoms. I will prescribe antibiotics for the colitis in addition to pain medication and antinausea medication. I would expect improvement in the next few days. Please follow-up with a primary care provider. Return to the emergency department for uncontrolled symptoms or anything else that you are concerned about a feel needs emergency department evaluation. Coding Level of Care Code ED Senior Manager for [facility]
--- NOTE | 2022-09-27 20:17 | CTR_ITS ---
PROCEDURE INFORMATION: Exam: CT Abdomen And Pelvis With Contrast Exam date and time: 09/27/2022 10:10 PM Age: 62 years old Clinical indication: Nausea and vomiting and other: Diarrhea; Abdominal pain; Generalized; Additional info: N/v/d, diffuse pain TECHNIQUE: Imaging protocol: Computed tomography of the abdomen and pelvis with contrast. Radiation optimization: All CT scans at this facility use at least one of these dose optimization techniques: automated exposure control; mA and/or kV adjustment per patient size (includes targeted exams where dose is matched to clinical indication); or iterative reconstruction. Contrast material: OMNI 350; Contrast volume: 75 ml; Contrast route: INTRAVENOUS (IV); COMPARISON: CT abdomen pelvis wo con [id number] 01/28/2022 8:19 PM RADIATION DOSE METRICS: Total DLP (mGy-cm): 326.3 FINDINGS: Liver: Normal. No mass. Gallbladder and bile ducts: Normal. No calcified stones. No ductal dilation. Pancreas: Normal. No ductal dilation. Spleen: Normal. No splenomegaly. Adrenal glands: Normal. No mass. Kidneys and ureters: Normal. No hydronephrosis. Stomach and bowel: Scattered diverticula without evidence of acute diverticulitis or perforation. There is a more diffuse distribution of wall thickening from the splenic flexure through the distal descending colon and sigmoid colon consistent with probable infectious or inflammatory colitis. Appendix: No evidence of appendicitis. Intraperitoneal space: Unremarkable. No free air. No significant fluid collection. Vasculature: Unremarkable. No abdominal aortic aneurysm. Lymph nodes: Unremarkable. No enlarged lymph nodes. Urinary bladder: Unremarkable as visualized. Reproductive: Unremarkable as visualized. Bones/joints: Bilateral pars defects at L5 with 9.1 mm anterolisthesis of L5 on S1 and severe degenerative changes. Soft tissues: There are surgical clips in the left inguinal region from a probable prior hernia repair. CT/CT abdomen pelvis w con* [id number] IMPRESSION: Infectious or inflammatory colitis from the splenic flexure to the sigmoid colon. Diverticulosis in the sigmoid colon without clear evidence of focal diverticulitis. 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
[2022-09-27 20:27] VITALS: RESP 14
[2022-09-27] MEDS: ondansetron 2 mg/ML SDV 2 mL 4 MG IVP (20:27)
[2022-09-27] MEDS: morphine 4 mg/mL SDV 1 mL IVP ×2 (20:27→22:45)
[2022-09-27 20:34] LABS: Basophils % 0.1 %; Hematocrit 41.3 % (37.0-47.0); Hemoglobin 13.8 g/dL (11.5-15.3); Lymphocytes # 1.4 10^3/uL (0.8-4.8); Lymphocytes % 10.1 %; Mean Corpuscular HGB Conc 33.4 g/dL (30.0-36.0); Mean Corpuscular Hemoglobin 30.9 pg (28.0-34.0); Mean Corpuscular Volume 92.4 fl (81-99); Mean Platelet Volume 9.1 fL (7.4-10.4); Monocytes # 0.6 10^3/uL (0.2-0.9); Monocytes % 4.3 %; Neutrophils % 84.9 %; Nucleated Red Blood Cells % 0 %; Platelet Count 301 10^3/cmm (130-400); Red Blood Count 4.47 10^6/uL (4.1-5.3); Red Cell Distribution Width 13.5 % (12.1-15.1); White Blood Count 14.2 10^3/uL (4.0-10.0)
[2022-09-27 20:56] LABS: Alanine Aminotransferase 30 U/L (0-33); Albumin Level 4.7 g/dL (3.5-5.2); Alkaline Phosphatase 68 U/L (35-105); Anion Gap 18.8 (5-19); Aspartate Amino Transferase 28 U/L (0-32); Blood Urea Nitrogen 18 mg/dL (8-23); Calcium 9.6 mg/dL (8.5-10.5); Carbon Dioxide 21 mmol/L (22-29); Chloride 102 mmol/L (98-107); Globulin 3.1 g/dL (1.3-4.6); Glomerular Filtration Rate 101.3 mL/min (90-130); Glucose 154 mg/dL (65-115); Lipase 24 U/L (13-60); Osmolality Calculated 291 mOsm/kg (285-295); Potassium 3.8 mmol/L (3.5-5.1); Sodium 138 mmol/L (136-145); Total Bilirubin 0.4 mg/dL (0.15-1.2); Total Protein 7.8 g/dL (6.6-8.7)
[2022-09-27 21:42] LABS: Add Urine Microscopic? YES; Bilirubin Urine Neg (Negative); Blood Urine 3+ (Negative); Glucose Urine UA 4+ (Normal); Ketones Urine 2+ (Negative); Leukocyte Esterase Urine Negative (Negative); Nitrate Urine Negative (Negative); Protein Urine Neg (Negative); Specific Gravity, Urine 1.015 (1.005-1.030); Urine Appearance Clear (CLEAR); Urine Color Yellow (Yellow); Urobilinogen Urine Neg (Negative); pH Urine 6 (5-7)
[2022-09-27] MEDS: sodium chloride 0.9% 1,000 ML 999 ML IV (21:54)
[2022-09-27 21:57] LABS: Squamous Epithelial Cell Urine 0-4 /hpf (0-5); WBC Urine 0-4 /hpf (0-5)
[2022-09-27 21:58] LABS: Add Urine Culture? No; Bacteria Urine TRACE /hpf; Mucus Urine TRACE /hpf
[2022-09-27] MEDS: iohexol 350 mg/mL 500 mL Btl (per mL) IV (22:03)
[2022-09-27 22:22] VITALS: BP 157/99; PULSE 94; RESP 14; O2SAT 100
[2022-09-27] MEDS: diphenhydrAMINE 50 mg/mL SDV 1mL 12.5 MG IVP (22:44)
[2022-09-27 22:45] VITALS: RESP 17; O2SAT 92
[2022-09-27] MEDS: metoclopramide 5 mg/mL SDV 2 mL IVP (22:45)
[2022-09-28] MEDS: amoxicillin-clav 875-125 mg Tablet 1 TAB PO (00:02)
[2022-09-28 00:08] VITALS: BP 107/87
== END 2022-09-28 00:11 | disposition home or self-care (01) ==
PROVIDERS: Emergency Medicine; Emergency Provider Emergency Medicine; PCP Nurse Practitioner
DX: K52.9 Noninfective gastroenteritis and colitis, unspecified (principal); R31.9 Hematuria, unspecified; Z79.82 Long term (current) use of aspirin; J44.9 Chronic obstructive pulmonary disease, unspecified; E11.9 Type 2 diabetes mellitus without complications; E78.5 Hyperlipidemia, unspecified; I10 Essential (primary) hypertension; F17.210 Nicotine dependence, cigarettes, uncomplicated
CPT/HCPCS: 36415; 74177; 80053; 81001; 83690; 85025; 96374; 96375; 96376; 99285; J1200; J2270; J2405; J2765; J7030; Q9967

== ENCOUNTER → 2022-10-24 08:05 | Outpatient (BNVA) | payer MEDICAID, SELFPAY | PROVIDERS: PCP Nurse Practitioner; Visit Provider Nurse Practitioner | DX: E11.65 Type 2 diabetes mellitus with hyperglycemia (principal) | CPT/HCPCS: 80053; 80061; 84443; 85025 ==

== ENCOUNTER → 2022-10-25 08:23 | Outpatient (BNVA) | payer MEDICAID, SELFPAY | PROVIDERS: PCP Nurse Practitioner; Visit Provider Nurse Practitioner | DX: E11.65 Type 2 diabetes mellitus with hyperglycemia (principal) | CPT/HCPCS: 81000 ==

== ENCOUNTER → 2023-02-14 08:32 | Outpatient (BNVA) | payer MEDICAID, SELFPAY | PROVIDERS: PCP Nurse Practitioner; Visit Provider Nurse Practitioner | DX: E11.65 Type 2 diabetes mellitus with hyperglycemia (principal) | CPT/HCPCS: 80053; 80061; 83036 ==

== ENCOUNTER 2023-02-18 18:00 | Emergency (ER) | payer MEDICAID, SELFPAY ==
[2023-02-18] VITALS (7 sets, daily range): BP systolic 130–175; BP diastolic 76–107; PULSE 66–103; RESP 14–24; TEMP 36.5–36.9; O2SAT 96–100
[2023-02-18] MEDS: sodium chloride 0.9% 1,000 ML 999 ML IV (18:58)
[2023-02-18] MEDS: metoclopramide 5 mg/mL SDV 2 mL 10 MG IVP (19:01)
[2023-02-18 19:04] LABS: Basophils % 0.2 %; Hematocrit 43.3 % (37.0-47.0); Hemoglobin 14.8 g/dL (11.5-15.3); Lymphocytes # 1.2 10^3/uL (0.8-4.8); Lymphocytes % 6.6 %; Mean Corpuscular HGB Conc 34.2 g/dL (30.0-36.0); Mean Corpuscular Hemoglobin 30.6 pg (28.0-34.0); Mean Corpuscular Volume 89.5 fl (81-99); Mean Platelet Volume 9.6 fL (7.4-10.4); Monocytes # 0.5 10^3/uL (0.2-0.9); Neutrophils # 16.08 10^3/uL (1.8-7.7); Neutrophils % 89.6 %; Nucleated Red Blood Cells % 0 %; Platelet Count 255 10^3/cmm (130-400); Red Blood Count 4.84 10^6/uL (4.1-5.3); Red Cell Distribution Width 13.2 % (12.1-15.1)
--- NOTE | 2023-02-18 19:13 | ED_ITS ---
HPI - Nausea/Vomiting/Diarrhea General: Chief complaint: Nausea/Vomiting/Diarrhea Stated complaint: N/V Time Seen by Provider: 02/18/23 18:39 History of Present Illness: This 62-year-old female presents to the ER with nausea, vomiting and diarrhea that started this morning. She has vomited about 15-20 times and has had about 10-12 bowel movements. It is all watery. There is no blood in the vomitus or the stool. Patient has no fever. She denies any sick contacts. She notes that she has had multiple episodes of nausea/vomiting/diarrhea in the past. No clear cause has been determined. Patient denies eating anything that could have triggered her symptoms. She appears clinically stable. Associated nausea: Yes Associated symtoms: Reports nausea; Denies change in vision, chest pain, dysuria or headache(s) Review of Systems Const: Denies: chills, body aches or change in appetite Eyes: Denies: change in vision or eye discharge ENMT: Denies: throat pain, dental pain or nasal discharge Card: Denies: chest pain or lightheadedness GI: Reports: abdominal pain, nausea, vomiting and diarrhea : Denies: dysuria Musc: Denies: neck pain or back pain Neuro: Denies: headache(s) or weakness in extremities Psych: Denies: depression Phil/Lymph: Denies: easy bruising All/Imm: Denies: urticaria, tongue swelling or facial swelling PFSH ED PFSH: Medical History Anxiety and depression COPD (chronic obstructive pulmonary disease) Cyclical vomiting with nausea Diabetes mellitus with hyperglycemia, without long-term current use of insulin Dyslipidemia Essential (primary) hypertension Glaucoma (increased eye pressure) Insomnia due to medical condition Nasal congestion with rhinorrhea Osteoarthritis Smoker Urinary frequency Surgical History History of carpal tunnel release of both wrists History of cataract extraction Bilateral 2020 Hx of arthroscopic knee surgery (~2012) left Family History Other COPD (chronic obstructive pulmonary disease) Cancer Social History Smoking and tobacco status: current every day smoker e-cigarettes Second hand smoke exposure: Yes Smoking risk assessment/counseling performed?: Yes Alcohol intake: never Desire information about alcohol rehabilitation?: No Counseling given: No Substance/Drug Use: unknown Desire information about substance/drug rehabilitation?: No Counseling given: No Adopted: No Caregiver/support person: No Lives independently: Yes Household members: spouse Housing: House Marital status: service: No Do you think of yourself as: Straight/Heterosexual Current gender identity: Female Physical Exam Const: COMMON NORMALS: no acute distress, patient oriented x3, no limitations and alert HENMT: COMMON NORMALS: normocephalic HEAD & SCALP: normocephalic Eye: COMMON NORMALS: EOMs intact bilaterally Neck/C-Spine: COMMON NORMALS: full ROM and supple Chest: COMMONS NORMALS: normal inspection of the chest Resp: COMMON NORMALS: normal respiratory effort, No retractions, No use of accessory muscles and clear to auscultation bilaterally AUSCULTATION: clear to auscultation bilaterally Cardio: COMMON NORMALS: regular rate, regular rhythm and No murmurs present (C ardio) RATE: regular rate RHYTHM: regular rhythm GI: COMMON NORMALS: Normal to inspection, nondistended, normoactive bowel sounds present, Soft to palpation and non-tender PALPATION: Yes Soft to palpation, Yes Tenderness to palpation present (GI) (Epigastric area) and Yes Other GI palpation findings present (Minimal tenderness in the epigastric area.) : COMMON NORMALS: Yes no CVA tenderness BLADDER/KIDNEY EXAM: Yes no CVA tenderness Back/Pelvis: COMMON NORMALS: no CVA tenderness and no thoracic nor lumbar tenderness Extremity: GENERAL: Yes normal exam except as noted Neuro: COMMON NORMALS: patient oriented x3 and no focal motor deficits SENSORIUM/ORIENTATION: Yes alert Psych: COMMON NORMALS: mental status grossly normal and cooperative Course Vital Signs: Vital signs: Vital Signs Temperature 98.4 F 02/18/23 19:52 Pulse Rate 103 H 02/18/23 21:15 Respiratory Rate 16 02/18/23 21:59 Blood Pressure 130/76 02/18/23 21:59 Pulse Oximetry 99 02/18/23 21:59 Oxygen Delivery Me thod Room Air 02/18/23 21:15 MDM - Nausea/Vomiting/Diarrhea Medical Decision Making Medical decision making: Patient presents with abdominal pain, nausea and, vomiting and diarrhea that started earlier this morning. On exam, she has mild abdominal tenderness. CT abdomen/pelvis is indicative of colitis. She will be treated with antibiotics and pain medications. Return instructions provided. Lab Data 02/18/23 18:25 02/18/23 18:25 Radiology Impressions Abdomen/Pelvis CT 02/18/23 19:17 IMPRESSION: 1. Prominent fluid in the stomach and small bowel with small bowel wall thickening may reflect an enterocolitis. 2. Diverticulosis without diverticulitis. 3. Bilateral L4 pars interarticularis defects with grade 1 anterolisthesis of L4 relative to L5 appears chronic. 4. Small hiatal hernia. 5. Emphysematous changes. 6. Hepatic steatosis. Laboratory Results WBC 18.0 10^3/uL (4.0-10.0) H 02/18/23 18:25 RBC 4.84 10^6/uL (4.1-5.3) 02/18/23 18:25 Hgb 14.8 g/dL (11.5-15.3) 02/18/23 18:25 Hct 43.3 % (37.0-47.0) 02/18/23 18: MCV 89.5 fl (81-99) 02/18/23 18:25 MCH 30.6 pg (28.0-34.0) 02/18/23 18:25 MCHC 34.2 g/dL (30.0-36.0) 02/18/23 18: RDW 13.2 % (12.1-15.1) 02/18/23 18: Plt Count 255 10^3/cmm (130-400) 02/18/23 18:25 MPV 9.6 fL (7.4-10.4) 02/18/23 18:25 Neut % (Auto) 89.6 % 02/18/23 18:25 Lymph % (Auto) 6.6 % 02/18/23 18:25 [place] % (Auto) 3.0 % 02/18/23 18:25 Eos % (Auto) 0.0 % 02/18/23 18: Baso % (Auto) 0.2 % 02/18/23 18: Neut # (Auto) 16.08 10^3/uL (1.8-7.7) H 02/18/23 18:25 Lymph # (Auto) 1.2 10^3/uL (0.8-4.8) 02/18/23 18:25 [place] # (Auto) 0.5 10^3/uL (0.2-0.9) 02/18/23 18:25 Eos # (Auto) 0.0 10^3/uL (0.0-0.8) 02/18/23 18:25 Baso # (Auto) 0.0 10^3/uL (0.0-0.1) 02/18/23 18:25 Nucleated RBC % (auto) 0 % 02/18/23 18:25 Nucleated RBCs # 0.0 /100WBC 02/18/23 18:25 Sodium 139 mmol/L (136-145) 02/18/23 18:25 Potassium 3.7 mmol/L (3.5-5.1) 02/18/23 18:25 Chloride 102 mmol/L (98-107) 02/18/23 18:25 Carbon Dioxide 18 mmol/L (22-29) L 02/18/23 18:25 Anion Gap 22.7 (5-19) H 02/18/23 18:25 BUN 21 mg/dL (8-23) 02/18/23 18:25 Creatinine 0.8 mg/dL (0.5-0.9) 02/18/23 18:25 GFR Calculation 72.7 mL/min (90-130) L 02/18/23 18:25 Glucose 160 mg/dL (65-115) H 02/18/23 18:25 Calculated Osmolality 294 mOsm/kg (285-295) 02/18/23 18:25 Calcium 9.7 mg/dL (8.5-10.5) 02/18/23 18:25 Total Bilirubin 0.5 mg/dL (0.15-1.2) 02/18/23 18:25 AST 22 U/L (0-32) 02/18/23 18:25 ALT 19 U/L (0-33) 02/18/23 18:25 Alkaline Phosphatase 63 U/L (35-105) 02/18/23 18:25 Total Protein 8.1 g/dL (6.6-8.7) 02/18/23 18:25 Albumin 5.3 g/dL (3.5-5.2) H 02/18/23 18:25 Globulin 2.8 g/dL (1.3-4.6) 02/18/23 18:25 Lipase 15 U/L (13-60) 02/18/23 18:25 Urine Color Yellow (Yellow) 02/18/23 19:11 Urine Appearance Clear (CLEAR) 02/18/23 19:11 Urine pH 6 (5-7) 02/18/23 19:11 Ur Specific [place] 1.020 (1.005-1.030) 02/18/23 19:11 Urine Protein Neg (Negative) 02/18/23 19:11 Urine Glucose (UA) 4+ (Normal) H 02/18/23 19:11 Urine Ketones 2+ (Negative) H 02/18/23 19:11 Urine Blood 2+ (Negative) H 02/18/23 19:11 Urine Nitrate Negative (Negative) 02/18/23 19:11 Urine Bilirubin Neg (Negative) 02/18/23 19:11 Urine Urobilinogen Norm mg/dL (Negative) 02/18/23 19:11 Ur Leukocyte Esterase Negative (Negative) 02/18/23 19:11 Urine RBC 5-10 /hpf (0-2) H 02/18/23 19:11 Urine WBC 0-4 /hpf (0-5) H 02/18/23 19:11 Ur Squamous Epith Cells 0-4 /hpf (0-5) H 02/18/23 19:11 Amorphous Sediment Not Reportable 02/18/23 19:11 Urine Bacteria Not Reportable 02/18/23 19:11 Discharge Plan Discharge Patient Disposition: Home Clinical Impression: Colitis Condition: Stable Prescriptions: New ciprofloxacin HCl 500 mg tablet 500 mg PO Q12H 7 Days Qty: 14 0RF metronidazole 500 mg tablet 500 mg PO Q8H 7 Days Qty: 21 0RF Reglan 10 mg tablet 10 mg PO TID Qty: 14 0RF No Action aspirin [Adult Low Dose Aspirin] 81 mg tablet,delayed release (DR/EC) 81 mg PO DAILY@0800 latanoprost (PF) 0.005 % drops 1 drp ophthalmic (eye) BEDTIME@2000 Qty: 7.5 2RF Multivitamin Women 50 Plus 8 mg iron-400 mcg-300 mcg tablet 1 tab PO DAILY@0800 Qty: 30 2RF triamcinolone acetonide 0.1 % cream 1 applic topical BID Qty: 15 0RF Rx Instructions: to left hand mupirocin 2 % ointment 1 applic topical BID Qty: 15 0RF Rx Instructions: right ear albuterol sulfate [ProAir HFA] 90 mcg/actuation HFA aerosol inhaler 2 puff INHALATION QID PRN (Reason: shortness of breath or wheezing) Qty: 18 2RF atorvastatin 40 mg tablet 40 mg PO BEDTIME Qty: 30 2RF azelastine 137 mcg (0.1 %) aerosol,spray 1 spray intranasal BID Qty: 30 2RF Rx Instructions: administer into each nostril celecoxib 400 mg capsule 400 mg PO DAILY@0800 Qty: 30 2RF Hold Instructions: Hold for 4 weeks Farxiga 5 mg tablet 5 mg PO QAM Qty: 30 2RF escitalopram oxalate 20 mg tablet 20 mg PO DAILY@0800 Qty: 30 2RF hydroxyzine pamoate 25 mg capsule 25 mg PO TID@0800,12,20 Qty: 90 2RF hyoscyamine sulfate [Levsin] 0.125 mg tablet 0.125 mg PO BID Qty: 60 2RF Daily Probiotic (10 Strains) 4 billion cell capsule 1 cap PO DAILY Qty: 30 2RF lisinopril 20 mg tablet 20 mg PO DAILY@0800 Qty: 30 2RF oxybutynin chloride 5 mg tablet 5 mg PO TID@08,12,20 Qty: 90 2RF Miralax 17 gram/dose powder 17 g PO DAILY PRN (Reason: Constipation) Qty: 510 2RF quetiapine 150 mg tablet 150 mg PO BEDTIME Qty: 30 2RF sodium chloride 1 gram tablet 1,000 mg PO DAILY Qty: 30 2RF sucralfate [Carafate] 1 gram tablet 1 g PO BID Qty: 60 2RF Anoro Ellipta 62.5-25 mcg/actuation blister with device 1 inh inhalation Q24H Qty: 60 2RF acetaminophen 325 mg suppository 325 mg ME Q6H PRN (Reason: fever or pain) Qty: 6 0RF ondansetron 4 mg tablet,disintegrating 4 mg PO Q8H PRN (Reason: nausea and vomiting) Qty: 15 0RF Discharge Orders: Discharge ED (Routine); Ordered 02/18/23 Ordered By: Timbo Pereira Referrals: Vero Moon, GUIDANCE SECRETARY-C [Primary Care Provider] - Discharge Diet: Usual diet Discharge Activity: Resume usual activity Patient Instructions: Opioid Safety, Pain Management Activity Restrictions/Additional Instructions: Take ciprofloxacin and Flagyl as prescribed. Take Zofran as needed for nausea/vomiting. Maintain adequate fluid intake. Follow-up with your primary care physician in 5 to 7 days for reevaluation. Return with new or worsening symptoms. Coding Level of Care Code ED Ear Specialist for [facility]
--- NOTE | 2023-02-18 19:17 | CTR_ITS ---
PROCEDURE INFORMATION: Exam: CT Abdomen And Pelvis With Contrast Exam date and time: 02/18/2023 7:25 PM Age: 62 years old Clinical indication: Abdominal pain; Epigastric; Prior surgery; Surgery date: 6+ months; Surgery type: Hyst; Additional info: Epigastric pain TECHNIQUE: Imaging protocol: Computed tomography of the abdomen and pelvis with contrast. Radiation optimization: All CT scans at this facility use at least one of these dose optimization techniques: automated exposure control; mA and/or kV adjustment per patient size (includes targeted exams where dose is matched to clinical indication); or iterative reconstruction. Contrast material: OMNI 350; Contrast volume: 100 ml; Contrast route: INTRAVENOUS (IV); REPORTING DATA: Count of CT and Cardiac NM exams in prior 12 months: This patient has received [address] and 0 known cardiac nuclear medicine studies in the 12 months prior to the current study. COMPARISON: CT abdomen pelvis w con* [id number] 09/27/2022 10:10 PM RADIATION DOSE METRICS: Total DLP (mGy-cm): 441 FINDINGS: Lungs: Emphysematous changes. Diaphragm: Small hiatal hernia. Liver: Hepatic steatosis. Gallbladder and bile ducts: Normal. No calcified stones. No ductal dilation. Pancreas: Normal. No ductal dilation. Spleen: Normal. No splenomegaly. Adrenal glands: Normal. No mass. Kidneys and ureters: Normal. No hydronephrosis. Stomach and bowel: Prominent fluid in the stomach and small bowel with small bowel wall thickening may reflect an enterocolitis. Diverticulosis without diverticulitis. Appendix: No evidence of appendicitis. Intraperitoneal space: Unremarkable. No free air. No significant fluid collection. Vasculature: Unremarkable. No abdominal aortic aneurysm. Lymph nodes: Unremarkable. No enlarged lymph nodes. Urinary bladder: Unremarkable as visualized. Reproductive: Unremarkable as visualized. Bones/joints: Bilateral L4 pars interarticularis defects with grade 1 anterolisthesis of L4 relative to L5 appears chronic. Soft tissues: Unremarkable. CT/CT abdomen pelvis w con* [id number] IMPRESSION: 1. Prominent fluid in the stomach and small bowel with small bowel wall thickening may reflect an enterocolitis. 2. Diverticulosis without diverticulitis. 3. Bilateral L4 pars interarticularis defects with grade 1 anterolisthesis of L4 relative to L5 appears chronic. 4. Small hiatal hernia. 5. Emphysematous changes. 6. Hepatic steatosis.
[2023-02-18] MEDS: iohexol 350 mg/mL 500 mL Btl (per mL) IV (19:35)
[2023-02-18 19:40] LABS: Add Urine Microscopic? YES; Bilirubin Urine Neg (Negative); Blood Urine 2+ (Negative); Glucose Urine UA 4+ (Normal); Ketones Urine 2+ (Negative); Leukocyte Esterase Urine Negative (Negative); Nitrate Urine Negative (Negative); Protein Urine Neg (Negative); Urine Appearance Clear (CLEAR); Urine Color Yellow (Yellow); Urobilinogen Urine Norm (Negative); WBC Urine 0-4 /hpf (0-5); pH Urine 6 (5-7)
[2023-02-18 19:41] LABS: Alanine Aminotransferase 19 U/L (0-33); Albumin Level 5.3 g/dL (3.5-5.2); Alkaline Phosphatase 63 U/L (35-105); Anion Gap 22.7 (5-19); Aspartate Amino Transferase 22 U/L (0-32); Blood Urea Nitrogen 21 mg/dL (8-23); Calcium 9.7 mg/dL (8.5-10.5); Carbon Dioxide 18 mmol/L (22-29); Chloride 102 mmol/L (98-107); Globulin 2.8 g/dL (1.3-4.6); Glomerular Filtration Rate 72.7 mL/min (90-130); Glucose 160 mg/dL (65-115); Lipase 15 U/L (13-60); Osmolality Calculated 294 mOsm/kg (285-295); Potassium 3.7 mmol/L (3.5-5.1); Sodium 139 mmol/L (136-145); Total Bilirubin 0.5 mg/dL (0.15-1.2); Total Protein 8.1 g/dL (6.6-8.7)
[2023-02-18 19:41] LABS: Add Urine Culture? No; Squamous Epithelial Cell Urine 0-4 /hpf (0-5)
[2023-02-18] MEDS: morphine 4 mg/mL SDV 1 mL IVP (21:15)
[2023-02-18] MEDS: ciprofloxacin 500 mg Tablet PO (21:54)
[2023-02-18] MEDS: metroNIDAZOLE 500 MG Tablet PO (21:54)
== END 2023-02-18 22:07 | disposition home or self-care (01) ==
PROVIDERS: Emergency Provider Family Medicine; PCP Nurse Practitioner
DX: K52.9 Noninfective gastroenteritis and colitis, unspecified (principal)
CPT/HCPCS: 74177; 80053; 81001; 83690; 85025; 96361; 96374; 96375; 99285; J2270; J2765; J7030; Q9967

== ENCOUNTER → 2023-03-03 09:40 | Outpatient (BNVA) | payer MEDICAID, SELFPAY | PROVIDERS: PCP Nurse Practitioner; Visit Provider Family Medicine | DX: E03.9 Hypothyroidism, unspecified (principal); E87.1 Hypo-osmolality and hyponatremia; K52.9 Noninfective gastroenteritis and colitis, unspecified; M19.90 Unspecified osteoarthritis, unspecified site | CPT/HCPCS: 80053; 84443; 85025; 86140; 86160; 86162; 86235; 86255; 86376 ==

== ENCOUNTER 2023-03-07 18:17 | Emergency (ER) | payer MEDICAID, SELFPAY ==
[2023-03-07 18:40] VITALS: BMI 26.4
[2023-03-07 18:45] VITALS: BP 118/100; PULSE 96; RESP 18; TEMP 36.4; O2SAT 99
--- NOTE | 2023-03-07 18:56 | W.ED.WEAKNES ---
HPI - Weakness General: Chief complaint: Weakness Stated complaint: generalized weakness/ n/v Time Seen by Provider: 03/07/23 18:46 History of Present Illness: Patient is a 62-year-old female comes to the ED with nausea vomiting and generalized weakness. Patient says she has been having these episodes of severe nausea and vomiting for over 20 years. She was here in the ED for same complaint back on February 18. Symptoms started about 9:00 this morning. She had abrupt onset of nausea, vomiting and diarrhea. She has had multiple episodes of diarrhea and vomiting since onset of symptoms. She is having trouble keeping any food or fluids down. She did get some relief when she took a hot shower just before coming to the ED. Endorses having diarrhea but denies any blood in the stool. Patient does admit to being a chronic marijuana user. Patient also endorses having some bilateral lower abdominal pain that she rates as a 7 out of 10. Endorses a headache. Denies fevers, chills, chest pain, shortness of breath, dysuria or hematuria. Patient endorses having chronic lower back pain and that she is been on pain management in the past for it but did not want to take any more pain pills and did not want surgery so she just been managing at home. Denies any new acute back pain issues. Associated symptoms: Reports headache(s), nausea and vomiting; Denies chest pain, chills, dysuria or fever(s) Review of Systems Const: Reports: fatigue; Denies: fever(s) or chills Eyes: Denies: change in vision or eye discomfort ENMT: Denies: throat pain, odynophagia, nasal discharge or nasal congestion Card: Denies: chest pain, palpitations, edema, swelling of feet/ankles, dyspnea on exertion or orthopnea Resp: Denies: dyspnea, productive cough or non-productive cough GI: Reports: abdominal pain, nausea, vomiting and diarrhea; Denies: constipation or hematochezia : Denies: flank pain, dysuria or hematuria Musc: Reports: back pain (Chronic lower back pain); Denies: neck pain or extremity swelling Skin/Breast: Denies: rash or new lesions Neuro: Reports: headache(s); Denies: numbness in extremities or weakness in extremities PFS ED PFSH: Medical History Anxiety and depression COPD (chronic obstructive pulmonary disease) Cyclical vomiting with nausea Diabetes mellitus with hyperglycemia, without long-term current use of insulin Dyslipidemia Essential (primary) hypertension Glaucoma (increased eye pressure) Insomnia due to medical condition Nasal congestion with rhinorrhea Osteoarthritis Smoker Urinary frequency Surgical History History of carpal tunnel release of both wrists History of cataract extraction Bilateral 2020 Hx of arthroscopic knee surgery (~2012) left Family History Other COPD (chronic obstructive pulmonary disease) Cancer Social History Smoking and tobacco status: current every day smoker e-cigarettes Second hand smoke exposure: Yes Smoking risk assessment/counseling performed?: Yes Alcohol intake: never Desire information about alcohol rehabilitation?: No Counseling given: No Substance/Drug Use: unknown Desire information about substance/drug rehabilitation?: No Counseling given: No Adopted: No Caregiver/support person: No Lives independently: Yes Household members: spouse Housing: House Marital status: service: No Do you think of yourself as: Straight/Heterosexual Current gender identity: Female Physical Exam Const: COMMON NORMALS: patient oriented x3 and alert GENERAL APPEARANCE: cooperative HENMT: COMMON NORMALS: normocephalic HEAD & SCALP: normocephalic MOUTH: Normal oral and palatal mucosa present THROAT: posterior oropharynx normal and uvula midline Neck/C-Spine: COMMON NORMALS: supple GENERAL: Yes normal visual inspection Resp: COMMON NORMALS: normal respiratory effort, No retractions, No use of accessory muscles and clear to auscultation bilaterally AUSCULTATION: clear to auscultation bilaterally Cardio: COMMON NORMALS: regular rate, regular rhythm, S1 normal heart sound present, S2 normal heart sound present, No gallops present (Cardio), No clicks present (Cardio), No murmurs present (Cardio) and Peripheral pulses 2+ throughout RATE: regular rate RHYTHM: regular rhythm HEART SOUNDS: S1 normal heart sound present and S2 normal heart sound present PERIPHERAL PULSES: Peripheral pulses 2+ throughout GI: COMMON NORMALS: Normal to inspection, nondistended, normoactive bowel sounds present, Soft to palpation and no masses PALPATION: Yes Soft to palpation and Yes Tenderness to palpation present (GI) (Mild bilateral lower abdominal tenderness.) Details: LLQ and RLQ OTHER: No signs of an acute abdomen upon exam. : COMMON NORMALS: Yes no CVA tenderness BLADDER/KIDNEY EXAM: Yes no CVA tenderness Back/Pelvis: COMMON NORMALS: no CVA tenderness Neuro: COMMON NORMALS: patient oriented x3 SENSORIUM/ORIENTATION: Yes alert GAIT: Yes Normal gait present Skin: GENERAL SKIN EXAM: dry skin Course Vital Signs: Vital signs: Vital Signs Temperature 97.6 F 03/07/23 18:45 Pulse Rate 86 03/07/23 23:04 Respiratory Rate 18 03/07/23 18:45 Blood Pressure 114/83 03/07/23 23:04 Pulse Oximetry 99 03/07/23 23:04 Oxygen Delivery Me thod Room Air 03/07/23 22:00 MDM - Weakness Medical Decision Making Patient is a 62-year-old female comes to the ED with nausea vomiting and generalized weakness. Patient says she has been having these episodes of severe nausea and vomiting for over 20 years. She was here in the ED for same complaint back on February 18. Symptoms started about 9:00 this morning. She had abrupt onset of nausea, vomiting and diarrhea. She has had multiple episodes of diarrhea and vomiting since onset of symptoms. She is having trouble keeping any food or fluids down. She did get some relief when she took a hot shower just before coming to the ED. Endorses having diarrhea but denies any blood in the stool. Patient does admit to being a chronic marijuana user. Patient also endorses having some bilateral lower abdominal pain that she rates as a 7 out of 10. Endorses a headache. Denies fevers, chills, chest pain, shortness of breath, dysuria or hematuria. Patient endorses having chronic lower back pain and that she is been on pain management in the past for it but did not want to take any more pain pills and did not want surgery so she just been managing at home. Denies any new acute back pain issues. Patient has some mild generalized tenderness in the lower abdomen bilaterally but no signs of an acute abdomen. Ostomy exam is benign vitals are stable. White blood cell count 14.5 and the rest of CBC CMP, lipase and UA were unremarkable. Lactic acid was normal at 1.9. CT abdomen pelvis showed chronic degenerative disc changes in the lumbar spine but no acute abdominal findings. Patient's symptoms improved after 2 L of IV fluids, nausea meds, morphine and Toradol. She felt a lot better and her nausea/vomiting had resolved. She was able to tolerate p.o. fluids here in the ED. Patient was stable for discharge home and diagnosed with cyclic vomiting syndrome. She was sent home with a prescription for Zofran and told to follow-up with her PCP within the next week for reevaluation. Return to ED precautions given. Patient understood and agreed with plan. Lab Data I reviewed the patient's lab results. 03/07/23 19:06 03/07/23 19:06 Radiology Impressions Abdomen/Pelvis CT 03/07/23 19:50 IMPRESSION: 1. Grade 1/2 anterior spondylolytic spondylolisthesis of L4 on L5. 2. Severe L4-L5 degenerative disc disease and spondylosis with extensive Modic type 3 sclerotic endplate degenerative changes. 3. Stable hysterectomy. 4. Mild left colonic diverticulosis. Laboratory Results WBC 14.5 10^3/uL (4.0-10.0) H 03/07/23 19:06 RBC 4.33 10^6/uL (4.1-5.3) 03/07/23 19:06 Hgb 13.3 g/dL (11.5-15.3) 03/07/23 19:06 Hct 40.5 % (37.0-47.0) 03/07/23 19:06 MCV 93.5 fl (81-99) 03/07/23 19:06 MCH 30.7 pg (28.0-34.0) 03/07/23 19:06 MCHC 32.8 g/dL (30.0-36.0) 03/07/23 19:06 RDW 13.8 % (12.1-15.1) 03/07/23 19:06 Plt Count 281 10^3/cmm (130-400) 03/07/23 19:06 MPV 8.8 fL (7.4-10.4) 03/07/23 19:06 Neut % (Auto) 87.5 % 03/07/23 19:06 Lymph % (Auto) 8.9 % 03/07/23 19:06 [place] % (Auto) 3.0 % 03/07/23 19:06 Eos % (Auto) 0.0 % 03/07/23 19:06 Baso % (Auto) 0.1 % 03/07/23 19:06 Neut # (Auto) 12.67 10^3/uL (1.8-7.7) H 03/07/23 19:06 Lymph # (Auto) 1.3 10^3/uL (0.8-4.8) 03/07/23 19:06 [place] # (Auto) 0.4 10^3/uL (0.2-0.9) 03/07/23 19:06 Eos # (Auto) 0.0 10^3/uL (0.0-0.8) 03/07/23 19:06 Baso # (Auto) 0.0 10^3/uL (0.0-0.1) 03/07/23 19:06 Nucleated RBC % (auto) 0 % 03/07/23 19:06 Nucleated RBCs # 0.0 /100WBC 03/07/23 19:06 Sodium 139 mmol/L (136-145) 03/07/23 19:06 Potassium 3.8 mmol/L (3.5-5.1) 03/07/23 19:06 Chloride 104 mmol/L (98-107) 03/07/23 19:06 Carbon Dioxide 18 mmol/L (22-29) L 03/07/23 19:06 Anion Gap 20.8 (5-19) H 03/07/23 19:06 BUN 18 mg/dL (8-23) 03/07/23 19:06 Creatinine 0.7 mg/dL (0.5-0.9) 03/07/23 19:06 GFR Calculation 84.8 mL/min (90-130) L 03/07/23 19:06 Glucose 134 mg/dL (65-115) H 03/07/23 19:06 Calculated Osmolality 292 mOsm/kg (285-295) 03/07/23 19:06 Lactic Acid 1.9 mmol/L (0.5-2.2) 03/07/23 19:06 Calcium 9.1 mg/dL (8.5-10.5) 03/07/23 19:06 Total Bilirubin 0.4 mg/dL (0.15-1.2) 03/07/23 19:06 AST 17 U/L (0-32) 03/07/23 19:06 ALT 17 U/L (0-33) 03/07/23 19:06 Alkaline Phosphatase 49 U/L (35-105) 03/07/23 19:06 C-Reactive Protein 3.0 mg/L (0.0-4.9) 03/07/23 19:06 Total Protein 7.3 g/dL (6.6-8.7) 03/07/23 19:06 Albumin 4.7 g/dL (3.5-5.2) 03/07/23 19:06 Globulin 2.6 g/dL (1.3-4.6) 03/07/23 19:06 Lipase 25 U/L (13-60) 03/07/23 19:06 Urine Color Colorless (Yellow) 03/07/23 21:30 Urine Appearance Clear (CLEAR) 03/07/23 21:30 Urine pH 5 (5-7) 03/07/23 21:30 Ur Specific [place] 1.020 (1.005-1.030) 03/07/23 21:30 Urine Protein Trace (Negative) 03/07/23 21:30 Urine Glucose (UA) 4+ (Normal) H 03/07/23 21:30 Urine Ketones 2+ (Negative) H 03/07/23 21:30 Urine Blood 3+ (Negative) H 03/07/23 21:30 Urine Nitrate Negative (Negative) 03/07/23 21:30 Urine Bilirubin Neg (Negative) 03/07/23 21:30 Urine Urobilinogen Norm mg/dL (Negative) 03/07/23 21:30 Ur Leukocyte Esterase Trace (Negative) H 03/07/23 21:30 Urine RBC 25-40 /hpf (0-2) H 03/07/23 21:30 Urine WBC 0-4 /hpf (0-5) H 03/07/23 21:30 Ur Squamous Epith Cells 0-4 /hpf (0-5) H 03/07/23 21:30 Amorphous Sediment Not Reportable 03/07/23 21:30 Urine Bacteria Trace /hpf (NONE) 03/07/23 21:30 Discharge Plan Discharge Patient Disposition: Home Clinical Impression: Cyclic vomiting syndrome Condition: Stable Prescriptions: New ondansetron 4 mg tablet,disintegrating 4 mg PO Q8H PRN (Reason: nausea and vomiting) Qty: 20 0RF No Action aspirin [Adult Low Dose Aspirin] 81 mg tablet,delayed release (DR/EC) 81 mg PO DAILY@0800 latanoprost (PF) 0.005 % drops 1 drp ophthalmic (eye) BEDTIME@2000 Qty: 7.5 2RF prednisone 10 mg tablet See Rx Instructions PO DAILY Qty: 13 0RF Rx Instructions: 2 po qday x 3 days, then 1 po qday x 7 days orally daily Multivitamin Women 50 Plus 8 mg iron-400 mcg-300 mcg tablet 1 tab PO DAILY@0800 Qty: 30 2RF triamcinolone acetonide 0.1 % cream 1 applic topical BID Qty: 15 0RF Rx Instructions: to left hand mupirocin 2 % ointment 1 applic topical BID Qty: 15 0RF Rx Instructions: right ear albuterol sulfate [ProAir HFA] 90 mcg/actuation HFA aerosol inhaler 2 puff INHALATION QID PRN (Reason: shortness of breath or wheezing) Qty: 18 2RF atorvastatin 40 mg tablet 40 mg PO BEDTIME Qty: 30 2RF azelastine 137 mcg (0.1 %) aerosol,spray 1 spray intranasal BID Qty: 30 2RF Rx Instructions: administer into each nostril celecoxib 400 mg capsule 400 mg PO DAILY@0800 Qty: 30 2RF Hold Instructions: Hold for 4 weeks Farxiga 5 mg tablet 5 mg PO QAM Qty: 30 2RF escitalopram oxalate 20 mg tablet 20 mg PO DAILY@0800 Qty: 30 2RF hydroxyzine pamoate 25 mg capsule 25 mg PO TID@0800,12,20 Qty: 90 2RF hyoscyamine sulfate [Levsin] 0.125 mg tablet 0.125 mg PO BID Qty: 60 2RF Daily Probiotic (10 Strains) 4 billion cell capsule 1 cap PO DAILY Qty: 30 2RF lisinopril 20 mg tablet 20 mg PO DAILY@0800 Qty: 30 2RF oxybutynin chloride 5 mg tablet 5 mg PO TID@08,12,20 Qty: 90 2RF Miralax 17 gram/dose powder 17 g PO DAILY PRN (Reason: Constipation) Qty: 510 2RF quetiapine 150 mg tablet 150 mg PO BEDTIME Qty: 30 2RF sodium chloride 1 gram tablet 1,000 mg PO DAILY Qty: 30 2RF sucralfate [Carafate] 1 gram tablet 1 g PO BID Qty: 60 2RF Anoro Ellipta 62.5-25 mcg/actuation blister with device 1 inh inhalation Q24H Qty: 60 2RF acetaminophen 325 mg suppository 325 mg [place] Q6H PRN (Reason: fever or pain) Qty: 6 0RF ondansetron 4 mg tablet,disintegrating 4 mg PO Q8H PRN (Reason: nausea and vomiting) Qty: 15 0RF Reglan 10 mg tablet 10 mg PO TID Qty: 14 0RF Discharge Orders: Discharge ED (Routine); Ordered 03/07/23 Ordered By: Mg Marie Referrals: Vero Mono, [facility] [Primary Care Provider] - Discharge Diet: Advance as tolerated and Clear Liquid Discharge Activity: Increase activity as tolerated Patient Instructions: Cyclic Vomiting Syndrome (ED) Activity Restrictions/Additional Instructions: Follow-up with medical provider as directed in the next 3 to 5 days for reevaluation. Clear liquid diet for the next 12 to 24 hours then advance diet as tolerated. Take medications as prescribed. Return to the ER or your medical provider if condition worsens. Please read and understand discharge instructions. Thank you for choosing [facility] for your healthcare needs today. Please realize this is an emergency room and that we are providing you with a medical screening exam and this may not be complete and all inclusive of all the testing and or work up that you may need to determine your ailment or severity of your illness. It is very important that you follow up as instructed or that you return to the Emergency Department should you have concerns or if your condition changes or worsens in any way. Coding Level of Care Code ED Tag Machine Operator for Ventura Mayes
[2023-03-07] MEDS: diphenhydrAMINE 50 mg/mL SDV 1mL IVP (19:03)
[2023-03-07] MEDS: metoclopramide 5 mg/mL SDV 2 mL 10 MG IVP (19:03)
[2023-03-07] MEDS: morphine 4 mg/mL SDV 1 mL 2 MG IVP (19:03)
[2023-03-07] MEDS: sodium chloride 0.9% 1,000 ML 999 ML IV ×2 (19:03→21:56)
[2023-03-07 19:16] LABS: Basophils % 0.1 %; Hematocrit 40.5 % (37.0-47.0); Hemoglobin 13.3 g/dL (11.5-15.3); Lymphocytes # 1.3 10^3/uL (0.8-4.8); Lymphocytes % 8.9 %; Mean Corpuscular HGB Conc 32.8 g/dL (30.0-36.0); Mean Corpuscular Hemoglobin 30.7 pg (28.0-34.0); Mean Corpuscular Volume 93.5 fl (81-99); Mean Platelet Volume 8.8 fL (7.4-10.4); Monocytes # 0.4 10^3/uL (0.2-0.9); Neutrophils # 12.67 10^3/uL (1.8-7.7); Neutrophils % 87.5 %; Nucleated Red Blood Cells % 0 %; Platelet Count 281 10^3/cmm (130-400); Red Blood Count 4.33 10^6/uL (4.1-5.3); Red Cell Distribution Width 13.8 % (12.1-15.1); White Blood Count 14.5 10^3/uL (4.0-10.0)
[2023-03-07 19:43] LABS: Alanine Aminotransferase 17 U/L (0-33); Albumin Level 4.7 g/dL (3.5-5.2); Alkaline Phosphatase 49 U/L (35-105); Anion Gap 20.8 (5-19); Aspartate Amino Transferase 17 U/L (0-32); Blood Urea Nitrogen 18 mg/dL (8-23); Calcium 9.1 mg/dL (8.5-10.5); Carbon Dioxide 18 mmol/L (22-29); Chloride 104 mmol/L (98-107); Globulin 2.6 g/dL (1.3-4.6); Glomerular Filtration Rate 84.8 mL/min (90-130); Glucose 134 mg/dL (65-115); Lipase 25 U/L (13-60); Osmolality Calculated 292 mOsm/kg (285-295); Potassium 3.8 mmol/L (3.5-5.1); Sodium 139 mmol/L (136-145); Total Bilirubin 0.4 mg/dL (0.15-1.2); Total Protein 7.3 g/dL (6.6-8.7)
[2023-03-07 19:46] LABS: Lactic Sepsis W/Reflex 1.9 mmol/L (0.5-2.2)
--- NOTE | 2023-03-07 19:50 | CTR_ITS ---
PROCEDURE INFORMATION: Exam: CT Abdomen And Pelvis With Contrast Exam date and time: 03/07/2023 7:59 PM Age: 62 years old Clinical indication: Nausea and vomiting; Abdominal pain; Localized; Left lower quadrant (llq); Prior surgery; Surgery date: 6+ months; Surgery type: Hysterectomy; Patient HX: Llq pain with n/v/d. ; Additional info: Left lower quadrant abdominal pain, n/v/d TECHNIQUE: Imaging protocol: Computed tomography of the abdomen and pelvis with contrast. Radiation optimization: All CT scans at this facility use at least one of these dose optimization techniques: automated exposure control; mA and/or kV adjustment per patient size (includes targeted exams where dose is matched to clinical indication); or iterative reconstruction. Contrast material: OMNI 350; Contrast volume: 100 ml; Contrast route: INTRAVENOUS (IV); REPORTING DATA: Count of CT and Cardiac NM exams in prior 12 months: This patient has received 2 known CTs and 0 known cardiac nuclear medicine studies in the 12 months prior to the current study. COMPARISON: CT abdomen pelvis w con* [id number] 02/18/2023 7:25 PM RADIATION DOSE METRICS: Total DLP (mGy-cm): 445.19 FINDINGS: Diaphragm: Stable small intrathoracic hiatal hernia. Liver: Normal. No mass. Gallbladder and bile ducts: Normal. No calcified stones. No ductal dilation. Pancreas: Normal. No ductal dilation. Spleen: Normal. No splenomegaly. Adrenal glands: Normal. No mass. Kidneys and ureters: Normal. No hydronephrosis. Stomach and bowel: Mild left colonic diverticulosis. Appendix: No evidence of appendicitis. Intraperitoneal space: Unremarkable. No free air. No significant fluid collection. Vasculature: Calcification of the abdominal aorta and/or iliac arteries consistent with atherosclerotic vessel disease. Lymph nodes: Unremarkable. No enlarged lymph nodes. Urinary bladder: Unremarkable as visualized. Reproductive: Stable hysterectomy. Bones/joints: Partial sacralization of L5 with bilateral sacral elements and hypoplastic L5-S1 disc. Grade 1/2 anterior spondylolytic spondylolisthesis of L4 on L5. Severe L4-L5 degenerative disc disease and spondylosis with extensive Modic type 3 sclerotic endplate degenerative changes. Soft tissues: Unremarkable. CT/CT abdomen pelvis w con* [id number] IMPRESSION: 1. Grade 1/2 anterior spondylolytic spondylolisthesis of L4 on L5. 2. Severe L4-L5 degenerative disc disease and spondylosis with extensive Modic type 3 sclerotic endplate degenerative changes. 3. Stable hysterectomy. 4. Mild left colonic diverticulosis.
[2023-03-07] MEDS: iohexol 350 mg/mL 500 mL Btl (per mL) IV (20:05)
[2023-03-07 20:52] VITALS: BP 144/85; PULSE 92; O2SAT 94
[2023-03-07 21:52] LABS: Glucose Urine UA 4+ (Normal); Ketones Urine 2+ (Negative); Protein Urine Trace (Negative); Urine Appearance Clear (CLEAR); Urine Color Colorless (Yellow); pH Urine 5 (5-7)
[2023-03-07 21:53] LABS: Add Urine Microscopic? YES; Bilirubin Urine Neg (Negative); Blood Urine 3+ (Negative); Leukocyte Esterase Urine Trace (Negative); Nitrate Urine Negative (Negative); Urobilinogen Urine Norm (Negative)
[2023-03-07 21:54] LABS: Squamous Epithelial Cell Urine 0-4 /hpf (0-5); WBC Urine 0-4 /hpf (0-5)
[2023-03-07 21:55] LABS: Add Urine Culture? Yes; Bacteria Urine TRACE /hpf; RBC Urine 25-40 /hpf (0-2)
[2023-03-07] MEDS: ondansetron 2 mg/ML SDV 2 mL 4 MG IVP (21:56)
[2023-03-07] MEDS: ketorolac 30 mg/mL INJ IVP (21:56)
[2023-03-07 22:00] VITALS: BP 123/79; PULSE 84; O2SAT 98
[2023-03-07 23:04] VITALS: BP 114/83; PULSE 86; O2SAT 99
== END 2023-03-07 23:05 | disposition home or self-care (01) ==
PROVIDERS: Emergency Medicine; Emergency Provider Physician Assistant; PCP Nurse Practitioner
DX: R11.15 Cyclical vomiting syndrome unrelated to migraine (principal); Z79.82 Long term (current) use of aspirin; F17.290 Nicotine dependence, other tobacco product, uncomplicated; J44.9 Chronic obstructive pulmonary disease, unspecified; E11.9 Type 2 diabetes mellitus without complications; E78.5 Hyperlipidemia, unspecified; I10 Essential (primary) hypertension
CPT/HCPCS: 36415; 74177; 80053; 81001; 83605; 83690; 85025; 86140; 87086; 96361; 96374; 96375; 99285; J1200; J1885; J2270; J2405; J2765; J7030; Q9967

== ENCOUNTER 2023-03-14 09:07 | Emergency (ER) | payer MEDICAID, SELFPAY ==
[2023-03-14 09:13] VITALS: BP 155/84; PULSE 64; RESP 17; TEMP 36.3; O2SAT 100; BMI 24.5
[2023-03-14] MEDS: sodium chloride 0.9% 1,000 ML 999 ML IV (10:11)
[2023-03-14 10:15] VITALS: BP 153/85; PULSE 59; RESP 18; O2SAT 100
[2023-03-14 10:31] LABS: Basophils % 0.3 %; Eosinophils % 0.4 %; Hematocrit 37.7 % (37.0-47.0); Hemoglobin 12.8 g/dL (11.5-15.3); Lymphocytes # 1.8 10^3/uL (0.8-4.8); Lymphocytes % 15.7 %; Mean Corpuscular Hemoglobin 31.5 pg (28.0-34.0); Mean Corpuscular Volume 92.9 fl (81-99); Mean Platelet Volume 8.9 fL (7.4-10.4); Monocytes # 0.4 10^3/uL (0.2-0.9); Monocytes % 3.8 %; Neutrophils # 8.83 10^3/uL (1.8-7.7); Neutrophils % 79.3 %; Nucleated Red Blood Cells % 0 %; Platelet Count 240 10^3/cmm (130-400); Red Blood Count 4.06 10^6/uL (4.1-5.3); Red Cell Distribution Width 13.6 % (12.1-15.1); White Blood Count 11.1 10^3/uL (4.0-10.0)
--- NOTE | 2023-03-14 10:38 | ED_ITS ---
HPI - Nausea/Vomiting/Diarrhea General: Chief complaint: Nausea/Vomiting/Diarrhea Stated complaint: nausea/ vomiting Time Seen by Provider: 03/14/23 10:06 History of Present Illness: 60-year-old female with a history of cyclical vomiting. She presents emergency room complaining nausea vomiting began suddenly this morning she also reports she been constipated yesterday discharge to digitally disimpact herself did note a little bit of blood on the gloved finger after she attempted this. She denies any fever sweats or chills dysuria urgency or frequency. She has had multiple episodes like this in the past including going to [address] abdomen pelvis at that time was negative. MD elicited complaint: nausea and vomiting [facility] ED PFSH: Medical History Anxiety and depression COPD (chronic obstructive pulmonary disease) Cyclical vomiting with nausea Diabetes mellitus with hyperglycemia, without long-term current use of insulin Dyslipidemia Essential (primary) hypertension Glaucoma (increased eye pressure) Insomnia due to medical condition Nasal congestion with rhinorrhea Osteoarthritis Smoker Urinary frequency Surgical History History of carpal tunnel release of both wrists History of cataract extraction Bilateral 2020 Hx of arthroscopic knee surgery (~2012) left Family History Other COPD (chronic obstructive pulmonary disease) Cancer Social History Smoking and tobacco status: current every day smoker e-cigarettes Second hand smoke exposure: Yes Smoking risk assessment/counseling performed?: Yes Alcohol intake: never Desire information about alcohol rehabilitation?: No Counseling given: No Substance/Drug Use: unknown Desire information about substance/drug rehabilitation?: No Counseling given: No Adopted: No Caregiver/support person: No Lives independently: Yes Household members: spouse Housing: House Marital status: service: No Do you think of yourself as: Straight/Heterosexual Current gender identity: Female Course Vital Signs: Vital signs: Vital Signs Temperature 97.4 F L 03/14/23 09:13 Pulse Rate 71 03/14/23 12:16 Respiratory Rate 18 03/14/23 10:15 Blood Pressure 158/99 03/14/23 12:16 Pulse Oximetry 100 03/14/23 12:16 Oxygen Delivery Me thod Room Air 03/14/23 10:15 MDM - Nausea/Vomiting/Diarrhea Medical Decision Making Patient with recurrent episodes of nausea and vomiting. She continues to use cannabinoid products as well. Improved with Haldol and Ativan we will discharge patient home use promethazine as needed. Clear liquid diet and advance as tolerated Medical Records I reviewed the patient's medical records. Lab Data I reviewed the patient's lab results. 03/14/23 10:25 03/14/23 10:25 Laboratory Results WBC 11.1 10^3/uL (4.0-10.0) H 03/14/23 10:25 RBC 4.06 10^6/uL (4.1-5.3) L 03/14/23 10:25 Hgb 12.8 g/dL (11.5-15.3) 03/14/23 10:25 Hct 37.7 % (37.0-47.0) 03/14/23 10:25 MCV 92.9 fl (81-99) 03/14/23 10:25 MCH 31.5 pg (28.0-34.0) 03/14/23 10:25 MCHC 34.0 g/dL (30.0-36.0) 03/14/23 10:25 RDW 13.6 % (12.1-15.1) 03/14/23 10:25 Plt Count 240 10^3/cmm (130-400) 03/14/23 10:25 MPV 8.9 fL (7.4-10.4) 03/14/23 10:25 Neut % (Auto) 79.3 % 03/14/23 10:25 Lymph % (Auto) 15.7 % 03/14/23 10:25 [place] % (Auto) 3.8 % 03/14/23 10:25 Eos % (Auto) 0.4 % 03/14/23 10:25 Baso % (Auto) 0.3 % 03/14/23 10:25 Neut # (Auto) 8.83 10^3/uL (1.8-7.7) H 03/14/23 10:25 Lymph # (Auto) 1.8 10^3/uL (0.8-4.8) 03/14/23 10:25 [place] # (Auto) 0.4 10^3/uL (0.2-0.9) 03/14/23 10:25 Eos # (Auto) 0.0 10^3/uL (0.0-0.8) 03/14/23 10:25 Baso # (Auto) 0.0 10^3/uL (0.0-0.1) 03/14/23 10:25 Nucleated RBC % (auto) 0 % 03/14/23 10:25 Nucleated RBCs # 0.0 /100WBC 03/14/23 10:25 Sodium 138 mmol/L (136-145) 03/14/23 10:25 Potassium 3.5 mmol/L (3.5-5.1) 03/14/23 10:25 Chloride 107 mmol/L (98-107) 03/14/23 10:25 Carbon Dioxide 16 mmol/L (22-29) L 03/14/23 10:25 Anion Gap 18.5 (5-19) 03/14/23 10:25 BUN 18 mg/dL (8-23) 03/14/23 10:25 Creatinine 0.7 mg/dL (0.5-0.9) 03/14/23 10:25 GFR Calculation 84.8 mL/min (90-130) L 03/14/23 10:25 Glucose 127 mg/dL (65-115) H 03/14/23 10:25 Calculated Osmolality 289 mOsm/kg (285-295) 03/14/23 10:25 Calcium 8.5 mg/dL (8.5-10.5) 03/14/23 10:25 Total Bilirubin 0.3 mg/dL (0.15-1.2) 03/14/23 10:25 AST 16 U/L (0-32) 03/14/23 10:25 ALT 15 U/L (0-33) 03/14/23 10:25 Alkaline Phosphatase 44 U/L (35-105) 03/14/23 10:25 Total Protein 6.5 g/dL (6.6-8.7) L 03/14/23 10:25 Albumin 4.3 g/dL (3.5-5.2) 03/14/23 10:25 Globulin 2.2 g/dL (1.3-4.6) 03/14/23 10:25 Lipase 20 U/L (13-60) 03/14/23 10:25 Discharge Plan Discharge Patient Disposition: Home Clinical Impression: Cyclical vomiting with nausea Condition: Stable Prescriptions: New promethazine 25 mg tablet 25 mg PO Q6H PRN (Reason: nausea and vomiting) Qty: 20 0RF No Action aspirin [Adult Low Dose Aspirin] 81 mg tablet,delayed release (DR/EC) 81 mg PO DAILY@0800 latanoprost (PF) 0.005 % drops 1 drp ophthalmic (eye) BEDTIME@2000 Qty: 7.5 2RF prednisone 10 mg tablet See Rx Instructions PO DAILY Qty: 13 0RF Rx Instructions: 2 po qday x 3 days, then 1 po qday x 7 days orally daily Multivitamin Women 50 Plus 8 mg iron-400 mcg-300 mcg tablet 1 tab PO DAILY@0800 Qty: 30 2RF triamcinolone acetonide 0.1 % cream 1 applic topical BID Qty: 15 0RF Rx Instructions: to left hand mupirocin 2 % ointment 1 applic topical BID Qty: 15 0RF Rx Instructions: right ear albuterol sulfate [ProAir HFA] 90 mcg/actuation HFA aerosol inhaler 2 puff INHALATION QID PRN (Reason: shortness of breath or wheezing) Qty: 18 2RF atorvastatin 40 mg tablet 40 mg PO BEDTIME Qty: 30 2RF azelastine 137 mcg (0.1 %) aerosol,spray 1 spray intranasal BID Qty: 30 2RF Rx Instructions: administer into each nostril celecoxib 400 mg capsule 400 mg PO DAILY@0800 Qty: 30 2RF Hold Instructions: Hold for 4 weeks Farxiga 5 mg tablet 5 mg PO QAM Qty: 30 2RF escitalopram oxalate 20 mg tablet 20 mg PO DAILY@0800 Qty: 30 2RF hydroxyzine pamoate 25 mg capsule 25 mg PO TID@0800,12,20 Qty: 90 2RF hyoscyamine sulfate [Levsin] 0.125 mg tablet 0.125 mg PO BID Qty: 60 2RF Daily Probiotic (10 Strains) 4 billion cell capsule 1 cap PO DAILY Qty: 30 2RF lisinopril 20 mg tablet 20 mg PO DAILY@0800 Qty: 30 2RF oxybutynin chloride 5 mg tablet 5 mg PO TID@08,12,20 Qty: 90 2RF Miralax 17 gram/dose powder 17 g PO DAILY PRN (Reason: Constipation) Qty: 510 2RF quetiapine 150 mg tablet 150 mg PO BEDTIME Qty: 30 2RF sodium chloride 1 gram tablet 1,000 mg PO DAILY Qty: 30 2RF sucralfate [Carafate] 1 gram tablet 1 g PO BID Qty: 60 2RF Anoro Ellipta 62.5-25 mcg/actuation blister with device 1 inh inhalation Q24H Qty: 60 2RF acetaminophen 325 mg suppository 325 mg [place] Q6H PRN (Reason: fever or pain) Qty: 6 0RF ondansetron 4 mg tablet,disintegrating 4 mg PO Q8H PRN (Reason: nausea and vomiting) Qty: 15 0RF ondansetron 4 mg tablet,disintegrating 4 mg PO Q8H PRN (Reason: nausea and vomiting) Qty: 20 0RF Reglan 10 mg tablet 10 mg PO TID Qty: 14 0RF Discharge Orders: Discharge ED (Routine); Ordered 03/14/23 Ordered By: Arslan Jimenes Referrals: Vero Moon, [employer] [Primary Care Provider] - Discharge Diet: Clear Liquid Discharge Activity: Increase activity as tolerated Patient Instructions: Opioid Safety, Pain Management Activity Restrictions/Additional Instructions: Clear liquid diet for 24 to 48 hours and advance as tolerated use promethazine as needed for nausea vomiting Coding Level of Care Code ED Graphic Production Artist for Ventura Mayes
[2023-03-14 10:50] LABS: Alanine Aminotransferase 15 U/L (0-33); Albumin Level 4.3 g/dL (3.5-5.2); Alkaline Phosphatase 44 U/L (35-105); Anion Gap 18.5 (5-19); Aspartate Amino Transferase 16 U/L (0-32); Blood Urea Nitrogen 18 mg/dL (8-23); Calcium 8.5 mg/dL (8.5-10.5); Carbon Dioxide 16 mmol/L (22-29); Chloride 107 mmol/L (98-107); Globulin 2.2 g/dL (1.3-4.6); Glomerular Filtration Rate 84.8 mL/min (90-130); Glucose 127 mg/dL (65-115); Lipase 20 U/L (13-60); Osmolality Calculated 289 mOsm/kg (285-295); Potassium 3.5 mmol/L (3.5-5.1); Sodium 138 mmol/L (136-145); Total Bilirubin 0.3 mg/dL (0.15-1.2); Total Protein 6.5 g/dL (6.6-8.7)
[2023-03-14] MEDS: LORazepam 2 mg/mL INJ 1 mL 1 MG IVP (11:18)
[2023-03-14] MEDS: haloperidol inj 5 mg/mL INJ 1 mL 2.5 MG IVP (11:18)
[2023-03-14 11:20] VITALS: BP 146/92; PULSE 85; O2SAT 100
[2023-03-14] MEDS: ketorolac 30 mg/mL INJ 15 MG IVP (12:14)
[2023-03-14 12:16] VITALS: BP 158/99; PULSE 71; O2SAT 100
[2023-03-14 12:36] VITALS: BP 158/99; PULSE 91; O2SAT 99
[2023-03-14 12:48] LABS: Add Urine Culture? No; Add Urine Microscopic? YES; Bilirubin Urine Neg (Negative); Blood Urine 2+ (Negative); Glucose Urine UA 4+ (Normal); Ketones Urine 2+ (Negative); Leukocyte Esterase Urine Negative (Negative); Nitrate Urine Negative (Negative); Protein Urine Neg (Negative); RBC Urine 0-4 /hpf (0-2); Specific Gravity, Urine 1.015 (1.005-1.030); Squamous Epithelial Cell Urine 0-4 /hpf (0-5); Urine Appearance Clear (CLEAR); Urine Color Yellow (Yellow); Urobilinogen Urine Norm (Negative); WBC Urine 0-4 /hpf (0-5); pH Urine 6 (5-7)
== END 2023-03-14 12:39 | disposition home or self-care (01) ==
PROVIDERS: Physician Assistant; Emergency Provider Family Medicine; PCP Nurse Practitioner
DX: R11.15 Cyclical vomiting syndrome unrelated to migraine (principal); Z79.82 Long term (current) use of aspirin; F17.290 Nicotine dependence, other tobacco product, uncomplicated; J44.9 Chronic obstructive pulmonary disease, unspecified; E11.9 Type 2 diabetes mellitus without complications; E78.5 Hyperlipidemia, unspecified; I10 Essential (primary) hypertension
CPT/HCPCS: 36415; 80053; 81001; 83690; 85025; 96361; 96374; 96375; 99284; J1630; J1885; J2060; J7030

== ENCOUNTER 2023-03-21 17:00 | Observation (INO) | payer MEDICAID, SELFPAY ==
[2023-03-21] VITALS (18 sets, daily range): BP systolic 72–173; BP diastolic 44–124; PULSE 71–99; RESP 16–18; TEMP 36.9–39.1; O2SAT 91–100
[2023-03-21 18:11] LABS: Basophils % 0.2 %; Hematocrit 41.8 % (37.0-47.0); Hemoglobin 13.8 g/dL (11.5-15.3); Lymphocytes # 1.4 10^3/uL (0.8-4.8); Lymphocytes % 12.4 %; Mean Corpuscular Hemoglobin 30.9 pg (28.0-34.0); Mean Corpuscular Volume 93.5 fl (81-99); Mean Platelet Volume 9.6 fL (7.4-10.4); Monocytes # 0.4 10^3/uL (0.2-0.9); Monocytes % 3.4 %; Neutrophils % 83.4 %; Nucleated Red Blood Cells % 0 %; Platelet Count 259 10^3/cmm (130-400); Red Blood Count 4.47 10^6/uL (4.1-5.3); Red Cell Distribution Width 13.5 % (12.1-15.1); White Blood Count 10.9 10^3/uL (4.0-10.0)
[2023-03-21 18:14] LABS: Bilirubin Urine Neg (Negative); Blood Urine 2+ (Negative); Glucose Urine UA 4+ (Normal); Ketones Urine 2+ (Negative); Leukocyte Esterase Urine Negative (Negative); Nitrate Urine Negative (Negative); Protein Urine Trace (Negative); Urine Appearance Clear (CLEAR); Urine Color Yellow (Yellow); Urobilinogen Urine Norm (Negative); pH Urine 7 (5-7)
[2023-03-21 18:15] LABS: Add Urine Microscopic? YES
[2023-03-21 18:20] LABS: Erythrocyte Sedimentation Rate 4 mm/hr (0-15)
[2023-03-21 18:33] LABS: Bacteria Urine TRACE /hpf; RBC Urine 0-4 /hpf (0-2); Squamous Epithelial Cell Urine 0-4 /hpf (0-5)
[2023-03-21 18:34] LABS: Alanine Aminotransferase 16 U/L (0-33); Albumin Level 4.8 g/dL (3.5-5.2); Alkaline Phosphatase 56 U/L (35-105); Anion Gap 18.5 (5-19); Aspartate Amino Transferase 20 U/L (0-32); Blood Urea Nitrogen 17 mg/dL (8-23); Calcium 9.4 mg/dL (8.5-10.5); Carbon Dioxide 21 mmol/L (22-29); Chloride 101 mmol/L (98-107); Globulin 2.8 g/dL (1.3-4.6); Glomerular Filtration Rate 84.8 mL/min (90-130); Glucose 116 mg/dL (65-115); Lipase 19 U/L (13-60); Magnesium 2.2 mg/dL (1.7-2.3); Osmolality Calculated 287 mOsm/kg (285-295); Potassium 3.5 mmol/L (3.5-5.1); Sodium 137 mmol/L (136-145); Total Bilirubin 0.4 mg/dL (0.15-1.2); Total Protein 7.6 g/dL (6.6-8.7)
[2023-03-21] MEDS: metoclopramide 5 mg/mL SDV 2 mL 10 MG IVP (18:37)
[2023-03-21] MEDS: sodium chloride 0.9% 1,000 ML 999 ML IV ×2 (18:37→20:25)
[2023-03-21 18:39] LABS: Ketone (Acetest) Serum Negative (Negative)
[2023-03-21 18:40] LABS: Procalcitonin 0.03 ng/mL (0-0.5)
--- NOTE | 2023-03-21 18:55 | W.ED.NAVMDI ---
HPI - Nausea/Vomiting/Diarrhea General: Chief complaint: Nausea/Vomiting/Diarrhea Stated complaint: nausea/ vomiting x 1 day Time Seen by Provider: 03/21/23 17:37 Source: patient Mode of arrival: EMS Limitations: no limitations History of Present Illness: Patient presents emergency department today for evaluation treatment of continued vomiting. Patient has a history of cyclical vomiting syndrome and has been seen multiple times to the emergency department. She was seen at an outside clinic earlier today where she was found to be nontoxic but vomiting. After discussing her options, she indicated she would go home and try and tolerate her symptoms but, states that after multiple episodes of continued vomiting this afternoon, has come into the emergency department. She is complaining of low abdominal pain. She deals with constipation but states she took a laxative yesterday and this afternoon did have a bowel movement. Patient denies history of recent headache, sore throat, nasal congestion or cough. She states she has not tolerated any p.o. intake today-including fluids. She has not taken any of her chronic medication due to her vomiting. Review of Systems General: Reports: 10 or more systems reviewed and unremarkable except in HPI and below PFSH ED PFSH: Medical History Anxiety and depression COPD (chronic obstructive pulmonary disease) Cyclical vomiting with nausea Diabetes mellitus with hyperglycemia, without long-term current use of insulin Dyslipidemia Essential (primary) hypertension Glaucoma (increased eye pressure) Insomnia due to medical condition Nasal congestion with rhinorrhea Osteoarthritis Smoker Urinary frequency Surgical History History of carpal tunnel release of both wrists History of cataract extraction Bilateral 2020 Hx of arthroscopic knee surgery (~2012) left Family History Other COPD (chronic obstructive pulmonary disease) Cancer Social History Smoking and tobacco status: current every day smoker e-cigarettes Second hand smoke exposure: Yes Smoking risk assessment/counseling performed?: Yes Alcohol intake: never Desire information about alcohol rehabilitation?: No Counseling given: No Substance/Drug Use: unknown Desire information about substance/drug rehabilitation?: No Counseling given: No Adopted: No Caregiver/support person: No Lives independently: Yes Household members: spouse Housing: House Marital status: service: No Do you think of yourself as: Straight/Heterosexual Current gender identity: Female Physical Exam Const: COMMON NORMALS: patient oriented x3 and alert OTHER: Patient appears unwell and very uncomfortable in the bed. HENMT: COMMON NORMALS: normocephalic, atraumatic, hearing grossly normal bilaterally and moist oral mucous membranes HEAD & SCALP: normocephalic and atraumatic Eye: COMMON NORMALS: Equal, round and reactive pupils present, EOMs intact bilaterally and conjunctivae normal CONJUNCTIVA: Yes conjunctivae normal PUPIL: Yes Equal, round and reactive pupils present Neck/C-Spine: COMMON NORMALS: full ROM and no JVD Lymph: LYMPHATIC: no lymphadenopathy noted Resp: COMMON NORMALS: normal respiratory effort, No retractions, No use of accessory muscles and clear to auscultation bilaterally AUSCULTATION: clear to auscultation bilaterally Cardio: COMMON NORMALS: no JVD, regular rate and regular rhythm RATE: regular rate RHYTHM: regular rhythm GI: OTHER: Decreased bowel sounds. Tender on palpation diffusely across the lower abdomen. Abdomen is soft. : COMMON NORMALS: Yes no CVA tenderness BLADDER/KIDNEY EXAM: Yes no CVA tenderness Back/Pelvis: COMMON NORMALS: no CVA tenderness, no thoracic nor lumbar tenderness and thoraco-lumbar ROM normal Extremity: COMMON NORMALS: normal to inspection, full ROM and capillary refill normal Neuro: COMMON NORMALS: patient oriented x3 SENSORIUM/ORIENTATION: Yes alert Psych: COMMON NORMALS: mental status grossly normal, Normal thought process present, cooperative, normal affect and activity/motor behavior normal THOUGHT PROCESS: Normal thought process present Skin: COMMON NORMALS: no rashes or lesions noted and no wounds GENERAL SKIN EXAM: no rashes or lesions noted Course Vital Signs: Vital signs: Vital Signs Temperature 98.4 F 03/21/23 19:57 Pulse Rate 90 03/21/23 19:45 Respiratory Rate 16 03/21/23 19:45 Blood Pressure 123/86 03/21/23 19:45 Pulse Oximetry 97 03/21/23 19:45 Oxygen Delivery Me thod Room Air 03/21/23 17:04 MDM - Nausea/Vomiting/Diarrhea Medical Decision Making Patient presented to the emergency department brought by EMS for continued vomiting, low abdominal pain. Patient was found to be febrile upon arrival. Initial HPI was somewhat difficult as the patient was vomiting frequently during her evaluation. Very little stomach material was brought up but, patient was retching quite regularly. Patient had received 500 LR and Phenergan prior to arrival. We provided more fluids as well as Reglan. Patient is a diabetic and POC glucose was stable. Urinalysis showed 4+ glucose and 2+ ketones but, serum ketones are negative. Patient's lab work indicated she was not acidotic. Patient with a mild elevated white blood cell count. I discussed with Dr. Villareal my concerns of the continued vomiting without p.o. intake toleration since yesterday. She has not taken any of her medications. She is also febrile with more specific low abdominal complaints. Her previous CT examination showed she does have diverticulosis and there was concern for an active diverticulitis. We did proceed on the CT examination which ruled out diverticulitis but, was diagnosed with gastroenterocolitis. Again, after discussing with Dr. Villareal, it was recommended patient be admitted to hospitalist services for fluids and treatment. I was able to speak with the hospitalist services who agreed patient can be admitted for observation. I did discuss this with the patient and she was in agreement to the admission. Hospitalist services to bedside for further evaluation. We will defer care at this time for further evaluation, treatment, and intervention. Differential Diagnosis Likely traveler's diarrhea, food poisoning, gastroenteritis, clostridium difficile infection, drug-induced nausea and vomiting and dehydration Lab Data 03/21/23 17:53 03/21/23 17:53 Radiology Impressions Abdomen/Pelvis CT 03/21/23 19:53 IMPRESSION: 1. Prominent fluid in the stomach, small bowel and colon may reflect a 2. Gastroenterocolitis. 3. Diverticulosis without diverticulitis. 4. Bilateral L4 pars interarticularis defects with anterolisthesis of L4 relative to L5 of 8 mm. 5. Hepatic steatosis. Chest X-Ray 03/21/23 19:53 IMPRESSION: No acute findings. Laboratory Results WBC 10.9 10^3/uL (4.0-10.0) H 03/21/23 17:53 RBC 4.47 10^6/uL (4.1-5.3) 03/21/23 17:53 Hgb 13.8 g/dL (11.5-15.3) 03/21/23 17:53 Hct 41.8 % (37.0-47.0) 03/21/23 17:53 MCV 93.5 fl (81-99) 03/21/23 17:53 MCH 30.9 pg (28.0-34.0) 03/21/23 17:53 MCHC 33.0 g/dL (30.0-36.0) 03/21/23 17:53 RDW 13.5 % (12.1-15.1) 03/21/23 17:53 Plt Count 259 10^3/cmm (130-400) 03/21/23 17:53 MPV 9.6 fL (7.4-10.4) 03/21/23 17:53 Neut % (Auto) 83.4 % 03/21/23 17:53 Lymph % (Auto) 12.4 % 03/21/23 17:53 [place] % (Auto) 3.4 % 03/21/23 17:53 Eos % (Auto) 0.0 % 03/21/23 17:53 Baso % (Auto) 0.2 % 03/21/23 17:53 Neut # (Auto) 9.10 10^3/uL (1.8-7.7) H 03/21/23 17:53 Lymph # (Auto) 1.4 10^3/uL (0.8-4.8) 03/21/23 17:53 [place] # (Auto) 0.4 10^3/uL (0.2-0.9) 03/21/23 17:53 Eos # (Auto) 0.0 10^3/uL (0.0-0.8) 03/21/23 17:53 Baso # (Auto) 0.0 10^3/uL (0.0-0.1) 03/21/23 17:53 Nucleated RBC % (auto) 0 % 03/21/23 17:53 Nucleated RBCs # 0.0 /100WBC 03/21/23 17:53 ESR 4 mm/hr (0-15) 03/21/23 17:53 Sodium 137 mmol/L (136-145) 03/21/23 17:53 Potassium 3.5 mmol/L (3.5-5.1) 03/21/23 17:53 Chloride 101 mmol/L (98-107) 03/21/23 17:53 Carbon Dioxide 21 mmol/L (22-29) L 03/21/23 17:53 Anion Gap 18.5 (5-19) 03/21/23 17:53 BUN 17 mg/dL (8-23) 03/21/23 17:53 Creatinine 0.7 mg/dL (0.5-0.9) 03/21/23 17:53 GFR Calculation 84.8 mL/min (90-130) L 03/21/23 17:53 Glucose 116 mg/dL (65-115) H 03/21/23 17:53 Calculated Osmolality 287 mOsm/kg (285-295) 03/21/23 17:53 Calcium 9.4 mg/dL (8.5-10.5) 03/21/23 17:53 Magnesium 2.2 mg/dL (1.7-2.3) 03/21/23 17:53 Total Bilirubin 0.4 mg/dL (0.15-1.2) 03/21/23 17:53 AST 20 U/L (0-32) 03/21/23 17:53 ALT 16 U/L (0-33) 03/21/23 17:53 Alkaline Phosphatase 56 U/L (35-105) 03/21/23 17:53 C-Reactive Protein 3.0 mg/L (0.0-4.9) 03/21/23 17:53 Total Protein 7.6 g/dL (6.6-8.7) 03/21/23 17:53 Albumin 4.8 g/dL (3.5-5.2) 03/21/23 17:53 Globulin 2.8 g/dL (1.3-4.6) 03/21/23 17:53 Lipase 19 U/L (13-60) 03/21/23 17:53 Procalcitonin 0.03 ng/mL (0-0.5) 03/21/23 17:53 Urine Color Yellow (Yellow) 03/21/23 18:05 Urine Appearance Clear (CLEAR) 03/21/23 18:05 Urine pH 7 (5-7) 03/21/23 18:05 Ur Specific [place] 1.010 (1.005-1.030) 03/21/23 18:05 Urine Protein Trace (Negative) 03/21/23 18:05 Urine Glucose (UA) 4+ (Normal) H 03/21/23 18:05 Urine Ketones 2+ (Negative) H 03/21/23 18:05 Urine Blood 2+ (Negative) H 03/21/23 18:05 Urine Nitrate Negative (Negative) 03/21/23 18:05 Urine Bilirubin Neg (Negative) 03/21/23 18:05 Urine Urobilinogen Norm mg/dL (Negative) 03/21/23 18:05 Ur Leukocyte Esterase Negative (Negative) 03/21/23 18:05 Urine RBC 0-4 /hpf (0-2) H 03/21/23 18:05 Urine WBC None /hpf (0-5) 03/21/23 18:05 Ur Squamous Epith Cells 0-4 /hpf (0-5) H 03/21/23 18:05 Amorphous Sediment Not Reportable 03/21/23 18:05 Urine Bacteria Trace /hpf (NONE) 03/21/23 18:05 Serum Ketones Negative (Negative) 03/21/23 17:53 Discharge Plan Discharge Patient Disposition: Placed in Observation Clinical Impression: Gastroenteritis, Diabetes mellitus with hyperglycemia, without long-term current use of insulin, Essential (primary) hypertension, Vomiting Coding Level of Care Code ED [employer] for Ventura Mayes
[2023-03-21] MEDS: ketorolac 30 mg/mL INJ IVP (19:11)
--- NOTE | 2023-03-21 19:53 | CTR_ITS ---
PROCEDURE INFORMATION: Exam: CT Abdomen And Pelvis With Contrast Exam date and time: 03/21/2023 8:26 PM Age: 62 years old Clinical indication: Nausea and vomiting; Abdominal pain; Localized; Prior surgery; Surgery date: 6+ months; Surgery type: Hysterectomy; Patient HX: C/O lower abd pain with n/v. ; Additional info: Low abdominal pain, vomiting, low abd pain, fever, known diverticulosis TECHNIQUE: Imaging protocol: Computed tomography of the abdomen and pelvis with contrast. Radiation optimization: All CT scans at this facility use at least one of these dose optimization techniques: automated exposure control; mA and/or kV adjustment per patient size (includes targeted exams where dose is matched to clinical indication); or iterative reconstruction. Contrast material: OMNI 350; Contrast volume: 100 ml; Contrast route: INTRAVENOUS (IV); REPORTING DATA: Count of CT and Cardiac NM exams in prior 12 months: This patient has received 3 known CTs and 0 known cardiac nuclear medicine studies in the 12 months prior to the current study. COMPARISON: CT abdomen pelvis w con* [id number] 03/07/2023 7:59 PM RADIATION DOSE METRICS: Total DLP (mGy-cm): 437.94 FINDINGS: Liver: Hepatic steatosis. Gallbladder and bile ducts: Normal. No calcified stones. No ductal dilation. Pancreas: Normal. No ductal dilation. Spleen: Normal. No splenomegaly. Adrenal glands: Normal. No mass. Kidneys and ureters: Normal. No hydronephrosis. Stomach and bowel: Prominent fluid in the stomach, small bowel and colon may reflect a. gastroenterocolitis. Diverticulosis without diverticulitis. Appendix: No evidence of appendicitis. Intraperitoneal space: Unremarkable. No free air. No significant fluid collection. Vasculature: Unremarkable. No abdominal aortic aneurysm. Lymph nodes: Unremarkable. No enlarged lymph nodes. Urinary bladder: Unremarkable as visualized. Reproductive: Unremarkable as visualized. Bones/joints: Bilateral L4 pars interarticularis defects with anterolisthesis of L4 relative to L5 of 8 mm. Soft tissues: Unremarkable. CT/CT abdomen pelvis w con* [id number] IMPRESSION: 1. Prominent fluid in the stomach, small bowel and colon may reflect a 2. Gastroenterocolitis. 3. Diverticulosis without diverticulitis. 4. Bilateral L4 pars interarticularis defects with anterolisthesis of L4 relative to L5 of 8 mm. 5. Hepatic steatosis.
--- NOTE | 2023-03-21 19:53 | XRR_ITS ---
PROCEDURE INFORMATION: Exam: XR Chest Exam date and time: 03/21/2023 8:17 PM Age: 62 years old Clinical indication: Fever; Additional info: Fever, fuo TECHNIQUE: Imaging protocol: Radiologic exam of the chest. Views: 1 view. COMPARISON: CR XR chest 1V portable [id number] 12/17/2021 1:27 AM FINDINGS: Lungs: Unremarkable. No consolidation. Pleural spaces: Unremarkable. No pleural effusion. No pneumothorax. Heart/Mediastinum: Unremarkable. No cardiomegaly. Bones/joints: Unremarkable. XR/XR chest 1V [id number] IMPRESSION: No acute findings.
[2023-03-21] MEDS: iohexol 350 mg/mL 500 mL Btl (per mL) IV (20:33)
[2023-03-21 23:19] LABS: Glucose Point of Care 116 mg/dL (70-110)
--- NOTE | 2023-03-21 23:30 | PM.HP ---
Providers/Chief Complaint Admitting Physician: Tyesha Cisse MD Primary Care Provider: Vero Moon, [employer]LF [employer] Chief Complaint: nausea/ vomiting x 1 day History of Present Illness Kasey Sousa is a 62 year old female with a past medical history of gastroparesis, cyclical vomiting, on and off on steroids for suspected inflammatory bowel disease,, though with normal colonoscopy and EGD from 2021. She has had multiple recent ER visits for complaints of persistent nausea and vomiting, most recently seen in ER on March 14 for the same symptoms. Today she presented to her primary care provider with recurrent nausea vomiting multiple episodes not able to be tolerating any p.o. intake. However her new symptoms today included chills and fever up to 102 Fahrenheit. She has had constipation all of last week for which she took MiraLAX and did have bowel movement yesterday. Since having the bowel movement she has also now developed abdominal pain which she does not typically experience. No blood in her stools. Upon ER Lybrel she was noted to have a fever of 102.3 Fahrenheit and hypotension with a blood pressure of 72/44. She received 2 L fluid bolus following which her blood pressure improved to 120/75 at the time of my assessment. CT of her abdomen today shows prominent fluid in the stomach small bowel and colon which was thought to be service support representative of a gastroenterocolitis. Pancreas and biliary system was noted to be normal. Review of Systems General: Reports: 10 or more systems reviewed and unremarkable except in HPI and below Const: Denies: fever(s), chills or body aches Eyes: Denies: change in vision, blurry vision or photophobia ENMT: Reports: hoarseness; Denies: throat pain, enlarged tonsils, odynophagia or nasal congestion Card: Denies: chest pain, palpitations, irregular heart rhythm, edema, swelling of feet/ankles, lightheadedness, pre-syncope, dyspnea on exertion or orthopnea Resp: Denies: dyspnea, productive cough, non-productive cough, wheezing, stridor, pain on inspiration, change in phlegm color, hemoptysis or chest congestion GI: Denies: abdominal pain, nausea, vomiting, hematemesis, coffee ground emesis, dysphagia, heartburn, diarrhea, constipation, GI cramping, change in stool character, hematochezia or melena : Denies: flank pain, difficulty voiding, dysuria, urinary frequency, urinary urgency, urinary hesitancy or hematuria Musc: Denies: neck pain, back pain, extremity pain, joint swelling, joint warmth or deformity Neuro: Denies: headache(s), numbness in extremities, weakness in extremities, sensory changes, difficulty walking, frequent falls, dizziness, vertigo, behavioral changes, Slurred speech present or seizure-like activity Psych: Denies: anxiety, depression, suicidal ideation or homicidal ideation Endo: Denies: polyuria, polydipsia, tired all the time, cold intolerance or hot flashes Phil/Lymph: Denies: easy bruising or easy bleeding Medications/Allergies Home Medications Medication Instructions Recorded Confirmed Last Taken Type aspirin 81 mg tablet,delayed 81 mg PO DAILY@0800 03/14/20 03/21/23 03/20/23 History release (Adult Low Dose Aspirin) acetaminophen 325 mg rectal 325 mg [place] Q6H PRN fever or pain #6 12/17/21 03/21/23 03/24/22 Rx suppository ea latanoprost (PF) 0.005 % eye drops 1 drp ophthalmic (eye) 12/24/21 03/21/23 03/20/23 Rx BEDTIME@1999 #7.5 mL multivit with 1 tab PO DAILY@0800 #30 tabs 07/18/22 03/21/23 03/20/23 Rx yptwvxyt-sosg-GR-lutein 8 mg iron-400 mcg-300 mcg tablet (Multivitamin Women 50 Plus) mupirocin 2 % topical ointment 1 applic topical BID #15 grams 08/16/22 03/21/23 Unknown Rx triamcinolone acetonide 0.1 % 1 applic topical BID #15 grams 08/16/22 03/21/23 Unknown Rx topical cream Lactobac 51-Bifidobac 1 cap PO DAILY #30 caps 02/17/23 03/21/23 03/20/23 Rx 3-L.lactis-S.thermophilus 4 billion cell capsule (Daily Probiotic (10 Strains)) albuterol sulfate 90 mcg/actuation 2 puff inhalation QID PRN 02/17/23 03/21/23 03/20/23 Rx aerosol inhaler (ProAir HFA) shortness of breath or wheezing #18 grams atorvastatin 40 mg tablet 40 mg PO BEDTIME #30 tabs 02/17/23 03/21/23 03/20/23 Rx azelastine 137 mcg (0.1 %) nasal 1 spray intranasal BID #30 mL 02/17/23 03/21/23 03/20/23 Rx spray aerosol celecoxib 400 mg capsule 400 mg PO DAILY@0800 #30 caps 02/17/23 03/21/23 03/20/23 Rx dapagliflozin 5 mg tablet (Farxiga) 5 mg PO QAM #30 tabs 02/17/23 03/21/23 03/20/23 Rx escitalopram oxalate 20 mg tablet 20 mg PO DAILY@0800 #30 tabs 02/17/23 03/21/23 03/20/23 Rx hydroxyzine pamoate 25 mg capsule 25 mg PO TID@0800,12,20 #90 caps 02/17/23 03/21/23 03/20/23 Rx hyoscyamine sulfate 0.125 mg 0.125 mg PO BID #60 tabs 02/17/23 03/21/23 03/20/23 Rx tablet (Levsin) lisinopril 20 mg tablet 20 mg PO DAILY@0800 #30 tabs 02/17/23 03/21/23 03/20/23 Rx oxybutynin chloride 5 mg tablet 5 mg PO TID@08,,20 #90 tabs 02/17/23 03/21/23 03/20/23 Rx polyethylene glycol 3350 17 17 g PO DAILY PRN Constipation 02/17/23 03/21/23 03/20/23 Rx gram/dose oral powder (Miralax) #510 grams quetiapine 150 mg tablet 150 mg PO BEDTIME #30 tabs 02/17/23 03/21/23 03/20/23 Rx sodium chloride 1 gram tablet 1,000 mg PO DAILY #30 tabs 02/17/23 03/21/23 03/20/23 Rx sucralfate 1 gram tablet (Carafate) 1 g PO BID #60 tabs 02/17/23 03/21/23 03/21/23 Rx umeclidinium 62.5 mcg-vilanterol 1 inh inhalation Q24H #60 ea 02/17/23 03/21/23 03/20/23 Rx 25 mcg/actuation powdr for inhalation (Anoro Ellipta) metoclopramide HCl 10 mg tablet 10 mg PO TID #14 tabs 02/18/23 03/21/23 03/20/23 Rx (Reglan) prednisone 10 mg tablet See Rx Instructions PO DAILY 02/21/23 03/21/23 03/20/23 Rx intestine inflammation #13 tabs ondansetron 4 mg disintegrating 4 mg PO Q8H PRN nausea and 03/07/23 03/21/23 03/21/23 Rx tablet vomiting #20 tabs promethazine 25 mg tablet 25 mg PO Q6H PRN nausea and 03/14/23 03/21/23 03/21/23 Rx vomiting #20 tabs ondansetron 4 mg disintegrating 4 mg PO Q4H PRN nausea and 03/21/23 03/21/23 03/21/23 Rx tablet vomiting #20 tabs prochlorperazine maleate 10 mg 10 mg PO Q8H PRN nausea and 03/21/23 03/21/23 03/21/23 Rx tablet (Compazine) vomiting #10 tabs Allergies Allergy/AdvReac Type Severity Reaction Status Date / Time benztropine [From Cogentin] AdvReac visual Verified 03/21/23 17:10 disturbance zolpidem [From Ambien] AdvReac Sleep walk Verified 03/21/23 17:10 PFSH Acute PFSH: Medical History Anxiety and depression COPD (chronic obstructive pulmonary disease) Cyclical vomiting with nausea Diabetes mellitus with hyperglycemia, without long-term current use of insulin Dyslipidemia Essential (primary) hypertension Glaucoma (increased eye pressure) Insomnia due to medical condition Nasal congestion with rhinorrhea Osteoarthritis Smoker Urinary frequency Surgical History History of carpal tunnel release of both wrists History of cataract extraction Bilateral 2020 Hx of arthroscopic knee surgery (~2012) left Family History Other COPD (chronic obstructive pulmonary disease) Cancer Social History Smoking and tobacco status: current every day smoker e-cigarettes Second hand smoke exposure: Yes Smoking risk assessment/counseling performed?: Yes Alcohol intake: never Desire information about alcohol rehabilitation?: No Counseling given: No Substance/Drug Use: unknown Desire information about substance/drug rehabilitation?: No Counseling given: No Adopted: No Caregiver/support person: No Lives independently: Yes Household members: spouse Housing: House Marital status: service: No Do you think of yourself as: Straight/Heterosexual Current gender identity: Female Vitals/I&O/Wt Last Vital Signs Temp 98.7 F 03/22/23 03:54 Pulse 74 03/22/23 03:54 Resp 16 03/22/23 03:54 BP 99/62 03/22/23 03:54 Pulse Ox 96 03/22/23 03:54 O2 Del Method Room Air 03/22/23 03:54 03/21/23 03/21/23 03/22/23 14:59 22:59 06:59 Intake Total 1000 / 1000 1110 / 2110 Balance 1000 / 1000 1110 / 2110 Weight last 48 hrs Weight 58.967 kg Physical Exam Narrative: General: No acute distress, AO x3 HEENT: PERRLA, pupils bilaterally equal and reactive, pallors not present Chest: Normal vesicular breath sounds, no added sounds, equal good air entry bilaterally CVS: S1-S2 regular, no murmurs, no tachycardia, no gallops, no rubs Abdomen: Soft, nontender, no organomegaly, bowel sounds present Neuro: No focal deficits, no facial deformity, AO x3, power 5/5 in all limbs Data 03/22/23 05:54 03/22/23 05:54 Micro: Microbiology 03/21/23 17:53 Blood Culture - Preliminary Blood SPECIMEN COLLECTED 03/21/23 17:53 Blood Culture - Preliminary Blood SPECIMEN COLLECTED A&P Assessment and plan (1) Gastroenteritis: (2) Colitis: Plan 62-year-old lady with a known history of cyclical vomiting and gastroparesis presenting to the emergency room with recurrent episodes of vomiting, unable to tolerate any p.o. intake and abdominal pain. She has had 1 episode of loose bowel movements however has been taking laxatives over the past week. Her outpatient notes review notes a history of inflammatory bowel disease, however unable to find any pathology reports regarding the same. Last EGD and colonoscopy from March 2022 showed evidence of diverticulosis but otherwise normal. CT today shows gastroenterocolitis which may be the cause of her current fevers. Started on empiric antibiotic coverage with piperacillin/tazobactam Check fecal lactoferrin, C. difficile, enteric panel. She has been on multiple episodes rounds of oral antibiotics recently, however unable to tell me if this was for UTI or her recurrent bowel symptoms. She had an empiric course of steroids for inflammatory bowel disease in February 2023. She is currently not able to tolerate any p.o. intake and is being admitted for need of IV hydration and IV antibiotics with symptomatic management of abdominal pain and nausea As needed Zofran and Reglan alternating. Place scopolamine patch additionally to help with the nausea. Continue Protonix 40 mg p.o. daily. IV fluid normal saline at 75 cc an hour. Attestations Medical Necessity Statement*: Anticipate less than 2 midnight stay at this point in time for IV hydration and antibiotics while she is unable to tolerate p.o. intake. Once improving symptomatically she may be able to be discharged with oral medications. Coding Level of Care Code Acute Code for Ventura Mayes Diagnoses Gastroenteritis K52.9 Colitis K52.9
[2023-03-21] MEDS: quetiapine 100 mg Tablet 150 MG PO (23:41)
[2023-03-21] MEDS: scopolamine 1.5 Patch 1 PATCH TRANSDERMA (23:41)
[2023-03-22] VITALS (10 sets, daily range): BP systolic 99–120; BP diastolic 62–75; PULSE 67–81; RESP 16–17; TEMP 36.8–37.1; O2SAT 95–98
[2023-03-22] MEDS: sodium chloride 0.9% 1,000 ML 75 ML IV ×2 (00:42→12:46)
[2023-03-22] MEDS: piperacillin-tazobactam 3.375 GM in sodium chloride 0.9% (plus) 50 ML IV ×2 (00:42→09:23)
[2023-03-22 02:15] LABS: Adenovirus Not Detected (NOT DETECT); Chlamydia Pneumoniae Not Detected (NOT DETECT); Coronavirus 229E,HKU1,NL63,OC4 Not Detected (NOT DETECT); Human Metapneumovirus Not Detected (NOT DETECT); Human Rhinovirus/Enterovirus Not Detected (NOT DETECT); Influenza A Not Detected (NOT DETECT); Influenza A H1 Not Detected (NOT DETECT); Influenza A H1-2009 Not Detected (NOT DETECT); Influenza A H3 Not Detected (NOT DETECT); Influenza B Not Detected (NOT DETECT); Mycoplasma Pneumoniae Not Detected (NOT DETECT); Parainfluenza Virus Type 1 Not Detected (NOT DETECT); Parainfluenza Virus Type 2 Not Detected (NOT DETECT); Parainfluenza Virus Type 3 Not Detected (NOT DETECT); Parainfluenza Virus Type 4 Not Detected (NOT DETECT); Respiratory Syncytial Virus A Not Detected (NOT DETECT); Respiratory Syncytial Virus B Not Detected (NOT DETECT); SARS-COV-2 Not Detected (NOT DETECT)
[2023-03-22] MEDS: ipratropium-albuterol 3 mL Neb INHALATION ×3 (03:40→14:08)
[2023-03-22 06:05] LABS: Basophils % 0.2 %; Eosinophils # 0.2 10^3/uL (0.0-0.8); Eosinophils % 1.8 %; Hematocrit 32.4 % (37.0-47.0); Hemoglobin 10.5 g/dL (11.5-15.3); Lymphocytes # 3.8 10^3/uL (0.8-4.8); Lymphocytes % 42.7 %; Mean Corpuscular HGB Conc 32.4 g/dL (30.0-36.0); Mean Corpuscular Hemoglobin 30.3 pg (28.0-34.0); Mean Corpuscular Volume 93.6 fl (81-99); Monocytes # 0.8 10^3/uL (0.2-0.9); Monocytes % 9.1 %; Neutrophils # 4.11 10^3/uL (1.8-7.7); Neutrophils % 45.9 %; Nucleated Red Blood Cells % 0 %; Platelet Count 194 10^3/cmm (130-400); Red Blood Count 3.46 10^6/uL (4.1-5.3)
[2023-03-22 06:27] LABS: Alanine Aminotransferase 12 U/L (0-33); Albumin Level 3.7 g/dL (3.5-5.2); Alkaline Phosphatase 40 U/L (35-105); Anion Gap 13.1 (5-19); Aspartate Amino Transferase 16 U/L (0-32); Blood Urea Nitrogen 12 mg/dL (8-23); Calcium 7.6 mg/dL (8.5-10.5); Carbon Dioxide 18 mmol/L (22-29); Chloride 109 mmol/L (98-107); Globulin 1.7 g/dL (1.3-4.6); Glomerular Filtration Rate 72.7 mL/min (90-130); Glucose 98 mg/dL (65-115); Osmolality Calculated 284 mOsm/kg (285-295); Potassium 3.1 mmol/L (3.5-5.1); Sodium 137 mmol/L (136-145); Total Bilirubin 0.4 mg/dL (0.15-1.2); Total Protein 5.4 g/dL (6.6-8.7)
[2023-03-22] MEDS: oxybutynin 5 mg Tablet PO ×2 (09:25→12:46)
[2023-03-22] MEDS: pantoprazole DR 40 mg Tablet PO (09:25)
[2023-03-22] MEDS: aspirin 81 mg EC Tablet PO (09:25)
[2023-03-22] MEDS: escitalopram 10 mg Tablet 20 MG PO (09:25)
[2023-03-22] MEDS: hyDROXYzine 25 mg Capsule PO ×2 (09:25→12:46)
[2023-03-22] MEDS: acetaminophen 325 mg Tablet 650 MG PO (10:27)
--- NOTE | 2023-03-22 15:07 | P.DS_ITS ---
Discharge Providers Date of Admission: 03/21/23 23:19 Date of Discharge: March 22, 2023 Attending Provider at Admission: Tyesha Cisse MD Attending Provider at Discharge: Mg Singh MD Consults: None Primary Care Provider: AQUILES Celestin Diagnoses at Discharge Discharge Diagnosis (1) Gastroenteritis: Status: Resolved (2) Colitis: Status: Inactive Reason for Visit Reason for Visit: nausea/ vomiting x 1 day Hospital Course Hospital Course Kasey Sousa is a 62-year-old female with a past medical history significant for gastroparesis, cyclic vomiting, suspected inflammatory bowel disease, COPD, and type 2 diabetes mellitus who presented with nausea and vomiting, found to have gastroenteritis. Patient was admitted for IV antibiotics, IV fluids and supportive care. Patient's symptoms improved with treatment. Nausea and vomiting resolved. She was tolerating oral intake. Patient discharged to home on oral antibiotics. She is to follow up with PCP for further care. Physical Exam Const: COMMON NORMALS: no acute distress and alert HENMT: COMMON NORMALS: normocephalic and atraumatic HEAD & SCALP: normocephalic and atraumatic Chest: COMMONS NORMALS: normal inspection of the chest Resp: COMMON NORMALS: normal respiratory effort, No retractions, No use of accessory muscles and clear to auscultation bilaterally AUSCULTATION: clear to auscultation bilaterally GI: COMMON NORMALS: Normal to inspection, nondistended, normoactive bowel sounds present, Soft to palpation and non-tender PALPATION: Yes Soft to palpation Extremity: COMMON NORMALS: normal to inspection and no clubbing, cyanosis or edema Neuro: SENSORIUM/ORIENTATION: Yes alert Discharge Data Studies Completed and Pending Completed Studies During Hospitalization Category Date Time Status CT abdomen pelvis w con* [id number] Stat Cat Scan 03/21/23 19:53 Completed XR chest 1V [id number] Stat Exams 03/21/23 19:53 Completed Pending at discharge Category Date Time Status Blood Culture Stat Lab 03/21/23 17:53 Results C DIFF [Clostridioides Difficile PCR] Routine Lab 03/21/23 23:22 Received Enteric Bacterial Panel by PCR Routine Lab 03/21/23 23:22 Received Enteric Parasite Panel by PCR Routine Lab 03/21/23 23:34 Received Radiology Impressions Abdomen/Pelvis CT 03/21/23 19:53 IMPRESSION: 1. Prominent fluid in the stomach, small bowel and colon may reflect a 2. Gastroenterocolitis. 3. Diverticulosis without diverticulitis. 4. Bilateral L4 pars interarticularis defects with anterolisthesis of L4 relative to L5 of 8 mm. 5. Hepatic steatosis. Chest X-Ray 03/21/23 19:53 IMPRESSION: No acute findings. Laboratory Results WBC 9.0 10^3/uL (4.0-10.0) 03/22/23 05:54 RBC 3.46 10^6/uL (4.1-5.3) L 03/22/23 05:54 Hgb 10.5 g/dL (11.5-15.3) L 03/22/23 05:54 Hct 32.4 % (37.0-47.0) L 03/22/23 05:54 MCV 93.6 fl (81-99) 03/22/23 05:54 MCH 30.3 pg (28.0-34.0) 03/22/23 05:54 MCHC 32.4 g/dL (30.0-36.0) 03/22/23 05:54 RDW 14.0 % (12.1-15.1) 03/22/23 05:54 Plt Count 194 10^3/cmm (130-400) 03/22/23 05:54 MPV 9.0 fL (7.4-10.4) 03/22/23 05:54 Neut % (Auto) 45.9 % 03/22/23 05:54 Lymph % (Auto) 42.7 % 03/22/23 05:54 [place] % (Auto) 9.1 % 03/22/23 05:54 Eos % (Auto) 1.8 % 03/22/23 05:54 Baso % (Auto) 0.2 % 03/22/23 05:54 Neut # (Auto) 4.11 10^3/uL (1.8-7.7) 03/22/23 05:54 Lymph # (Auto) 3.8 10^3/uL (0.8-4.8) 03/22/23 05:54 Nash # (Auto) 0.8 10^3/uL (0.2-0.9) 03/22/23 05:54 Eos # (Auto) 0.2 10^3/uL (0.0-0.8) 03/22/23 05:54 Baso # (Auto) 0.0 10^3/uL (0.0-0.1) 03/22/23 05:54 Nucleated RBC % (auto) 0 % 03/22/23 05:54 Nucleated RBCs # 0.0 /100WBC 03/22/23 05:54 ESR 4 mm/hr (0-15) 03/21/23 17:53 Sodium 137 mmol/L (136-145) 03/22/23 05:54 Potassium 3.1 mmol/L (3.5-5.1) L 03/22/23 05:54 Chloride 109 mmol/L (98-107) H 03/22/23 05:54 Carbon Dioxide 18 mmol/L (22-29) L 03/22/23 05:54 Anion Gap 13.1 (5-19) 03/22/23 05:54 BUN 12 mg/dL (8-23) 03/22/23 05:54 Creatinine 0.8 mg/dL (0.5-0.9) 03/22/23 05:54 GFR Calculation 72.7 mL/min (90-130) L 03/22/23 05:54 Glucose 98 mg/dL (65-115) 03/22/23 05:54 POC Glucose 116 mg/dL (70-110) H 03/21/23 17:46 Calculated Osmolality 284 mOsm/kg (285-295) L 03/22/23 05:54 Calcium 7.6 mg/dL (8.5-10.5) L 03/22/23 05:54 Magnesium 2.2 mg/dL (1.7-2.3) 03/21/23 17:53 Total Bilirubin 0.4 mg/dL (0.15-1.2) 03/22/23 05:54 AST 16 U/L (0-32) 03/22/23 05:54 ALT 12 U/L (0-33) 03/22/23 05:54 Alkaline Phosphatase 40 U/L (35-105) 03/22/23 05:54 C-Reactive Protein 3.0 mg/L (0.0-4.9) 03/21/23 17:53 Total Protein 5.4 g/dL (6.6-8.7) L D 03/22/23 05:54 Albumin 3.7 g/dL (3.5-5.2) 03/22/23 05:54 Globulin 1.7 g/dL (1.3-4.6) 03/22/23 05:54 Lipase 19 U/L (13-60) 03/21/23 17:53 Procalcitonin 0.03 ng/mL (0-0.5) 03/21/23 17:53 Urine Color Yellow (Yellow) 03/21/23 18:05 Urine Appearance Clear (CLEAR) 03/21/23 18:05 Urine pH 7 (5-7) 03/21/23 18:05 Ur Specific [place] 1.010 (1.005-1.030) 03/21/23 18:05 Urine Protein Trace (Negative) 03/21/23 18:05 Urine Glucose (UA) 4+ (Normal) H 03/21/23 18:05 Urine Ketones 2+ (Negative) H 03/21/23 18:05 Urine Blood 2+ (Negative) H 03/21/23 18:05 Urine Nitrate Negative (Negative) 03/21/23 18:05 Urine Bilirubin Neg (Negative) 03/21/23 18:05 Urine Urobilinogen Norm mg/dL (Negative) 03/21/23 18:05 Ur Leukocyte Esterase Negative (Negative) 03/21/23 18:05 Urine RBC 0-4 /hpf (0-2) H 03/21/23 18:05 Urine WBC None /hpf (0-5) 03/21/23 18:05 Ur Squamous Epith Cells 0-4 /hpf (0-5) H 03/21/23 18:05 Amorphous Sediment Not Reportable 03/21/23 18:05 Urine Bacteria Trace /hpf (NONE) 03/21/23 18:05 Nasal Influ A H1 2009 PCR Not detected (NOT DETECT) 03/22/23 00:25 Serum Ketones Negative (Negative) 03/21/23 17:53 Adenovirus (PCR) Not detected (NOT DETECT) 03/22/23 00:25 C. pneumoniae DNA (PCR) Not detected (NOT DETECT) 03/22/23 00:25 Coronavirus 229E (PCR) Not detected (NOT DETECT) 03/22/23 00:25 Human Metapneumovir PCR Not detected (NOT DETECT) 03/22/23 00:25 Influenza A (H1) PCR Not detected (NOT DETECT) 03/22/23 00:25 Influenza A (H3) PCR Not detected (NOT DETECT) 03/22/23 00:25 Influenza Type A (PCR) Not detected (NOT DETECT) 03/22/23 00:25 Influenza Type B (PCR) Not detected (NOT DETECT) 03/22/23 00:25 M. pneumoniae (PCR) Not detected (NOT DETECT) 03/22/23 00:25 Parainfluenza 1 (PCR) Not detected (NOT DETECT) 03/22/23 00:25 Parainfluenza 2 (PCR) Not detected (NOT DETECT) 03/22/23 00:25 Parainfluenza 3 (PCR) Not detected (NOT DETECT) 03/22/23 00:25 Parainfluenza 4 (PCR) Not detected (NOT DETECT) 03/22/23 00:25 RSV Type A (PCR) Not detected (NOT DETECT) 03/22/23 00:25 RSV Type B (PCR) Not detected (NOT DETECT) 03/22/23 00:25 Entero/Rhino (PCR) Not detected (NOT DETECT) 03/22/23 00:25 SARS-CoV-2 (PCR) Not detected (NOT DETECT) 03/22/23 00:25 Vitals Last Vital Signs Temp 98.3 F 03/22/23 12:00 Pulse 70 03/22/23 14:12 Resp 16 03/22/23 14:08 BP 120/73 03/22/23 12:00 Pulse Ox 95 03/22/23 14:08 O2 Del Method Room Air 03/22/23 14:08 Discharge Plan Discharge Patient Disposition: Home Condition: Stable Prescriptions: New Augmentin 500-125 mg tablet 1 tab PO BID Qty: 14 0RF Continued aspirin [Adult Low Dose Aspirin] 81 mg tablet,delayed release (DR/EC) 81 mg PO DAILY@0800 latanoprost (PF) 0.005 % drops 1 drp ophthalmic (eye) BEDTIME@2000 Qty: 7.5 2RF prednisone 10 mg tablet See Rx Instructions PO DAILY Qty: 13 0RF Rx Instructions: 2 po qday x 3 days, then 1 po qday x 7 days orally daily prochlorperazine maleate [Compazine] 10 mg tablet 10 mg PO Q8H PRN (Reason: nausea and vomiting) Qty: 10 0RF ondansetron 4 mg tablet,disintegrating 4 mg PO Q4H PRN (Reason: nausea and vomiting) Qty: 20 0RF Multivitamin Women 50 Plus 8 mg iron-400 mcg-300 mcg tablet 1 tab PO DAILY@0800 Qty: 30 2RF triamcinolone acetonide 0.1 % cream 1 applic topical BID Qty: 15 0RF Rx Instructions: to left hand mupirocin 2 % ointment 1 applic topical BID Qty: 15 0RF Rx Instructions: right ear albuterol sulfate [ProAir HFA] 90 mcg/actuation HFA aerosol inhaler 2 puff INHALATION QID PRN (Reason: shortness of breath or wheezing) Qty: 18 2RF atorvastatin 40 mg tablet 40 mg PO BEDTIME Qty: 30 2RF azelastine 137 mcg (0.1 %) aerosol,spray 1 spray intranasal BID Qty: 30 2RF Rx Instructions: administer into each nostril celecoxib 400 mg capsule 400 mg PO DAILY@0800 Qty: 30 2RF Hold Instructions: Hold for 4 weeks Farxiga 5 mg tablet 5 mg PO QAM Qty: 30 2RF escitalopram oxalate 20 mg tablet 20 mg PO DAILY@0800 Qty: 30 2RF hydroxyzine pamoate 25 mg capsule 25 mg PO TID@0800,12,20 Qty: 90 2RF hyoscyamine sulfate [Levsin] 0.125 mg tablet 0.125 mg PO BID Qty: 60 2RF Daily Probiotic (10 Strains) 4 billion cell capsule 1 cap PO DAILY Qty: 30 2RF lisinopril 20 mg tablet 20 mg PO DAILY@0800 Qty: 30 2RF oxybutynin chloride 5 mg tablet 5 mg PO TID@08,12,20 Qty: 90 2RF Miralax 17 gram/dose powder 17 g PO DAILY PRN (Reason: Constipation) Qty: 510 2RF quetiapine 150 mg tablet 150 mg PO BEDTIME Qty: 30 2RF sodium chloride 1 gram tablet 1,000 mg PO DAILY Qty: 30 2RF sucralfate [Carafate] 1 gram tablet 1 g PO BID Qty: 60 2RF Anoro Ellipta 62.5-25 mcg/actuation blister with device 1 inh inhalation Q24H Qty: 60 2RF acetaminophen 325 mg suppository 325 mg [place] Q6H PRN (Reason: fever or pain) Qty: 6 0RF ondansetron 4 mg tablet,disintegrating 4 mg PO Q8H PRN (Reason: nausea and vomiting) Qty: 20 0RF metoclopramide HCl [Reglan] 10 mg tablet 10 mg PO TID Qty: 14 0RF promethazine 25 mg tablet 25 mg PO Q6H PRN (Reason: nausea and vomiting) Qty: 20 0RF Discharge Orders: Discharge Order (Routine); Ordered 03/22/23 Ordered By: Mg Singh Referrals: Vero Moon, PASTRY CHEF-C [Primary Care Provider] - 4-7 days ([facility] will call with your appointment.) Discharge Diet: Advance as tolerated Discharge Activity: Resume usual activity and Increase activity as tolerated Patient Instructions: Amoxicillin/Clavulanate Potassium (By mouth), Gastroenteritis (GEN), Opioid Safety Activity Restrictions/Additional Instructions: 1. Advance diet as tolerated 2. Use home anti-emetics as needed 3. Avoid marijuana products Discharge Attestations Time Spent in Discharge Care*: greater than 30 min Quality Metrics Clinical Quality Measures [ No reported AMI, CVA or VTE this stay] Coding Level of Care Code Acute Code for Chg Fwd Diagnoses Gastroenteritis K52.9 Colitis K52.9
== END 2023-03-22 17:06 | disposition home or self-care (01) ==
LOC: ER 23:12 → MEDSURG 23:38
PROVIDERS: Emergency Medicine; Admitting Provider Student in an Organized Health Care Education/Training Program; Emergency Provider Physician Assistant; PCP Nurse Practitioner; Visit Provider Internal Medicine
DX: K52.9 Noninfective gastroenteritis and colitis, unspecified (principal); J44.9 Chronic obstructive pulmonary disease, unspecified; E11.9 Type 2 diabetes mellitus without complications; Z79.82 Long term (current) use of aspirin; Z79.52 Long term (current) use of systemic steroids; F17.290 Nicotine dependence, other tobacco product, uncomplicated; F41.9 Anxiety disorder, unspecified; F32.A Depression, unspecified; I10 Essential (primary) hypertension; E78.5 Hyperlipidemia, unspecified
CPT/HCPCS: 36415; 36416; 71045; 74177; 80053; 81001; 82009; 82962; 83630; 83690; 83735; 84145; 85025; 85651; 86140; 87040; 87486; 87493; 87506; 87581; 87633; 94640; 96361; 96365; 96375; 99285; G0378; J1885; J2543; J2765; J7030; Q9967

== ENCOUNTER → 2023-03-24 12:37 | Outpatient (BNVA) | payer MEDICAID, SELFPAY | PROVIDERS: PCP Nurse Practitioner; Visit Provider Family Medicine | DX: E87.6 Hypokalemia (principal); K52.9 Noninfective gastroenteritis and colitis, unspecified; D64.9 Anemia, unspecified | CPT/HCPCS: 80053; 85025 ==

== ENCOUNTER → 2023-04-07 09:36 | Outpatient (BNVA) | payer MEDICAID, SELFPAY | PROVIDERS: PCP Nurse Practitioner; Visit Provider Nurse Practitioner Family | DX: R22.42 Localized swelling, mass and lump, left lower limb (principal); M25.569 Pain in unspecified knee; G89.29 Other chronic pain | CPT/HCPCS: 73562 ==

== ENCOUNTER 2023-04-23 09:14 | Outpatient (CLI) | payer MEDICAID, SELFPAY ==
--- NOTE | 2023-04-23 09:30 | MR_ITS ---
WS: [id number] MRI LEFT KNEE NONCONTRAST TECHNIQUE: Axial PD, coronal PD fat sat, coronal PD, sagittal PD, and sagittal PD fat-sat images obta ined. CLINICAL INFORMATION: R22.42 - Localized swelling, mass and lump, left lower limb COMPARISON: Radiograph 04/07/2023 and MRI 2013 FINDINGS: Distal quadriceps and patellar tendons are intact. ACL and PCL appear intact. Mucoid degeneration of the ACL. Tiny suprapatellar effusion. Moderate chondromalacia patella. Medial and lateral patellar re tinaculum appear intact. Advanced arthritis involving the medial and lateral joint compartments with grade IV chondromalacia. Large lobulated parameniscal cyst arising from the posterior medial meniscus . This is progressed compared to previous and today measures approximately 3.7 x 4.7 x 3.8 cm AP by t ransverse by craniocaudal. Subchondral cystic change involving the medial tibial plateau. Hypertrophic changes along the joint l ine. Chronic tears of the medial and lateral meniscus previously discussed now with chronic thinning and [id number] articulation. Lateral collateral ligament appears intact. Medial collateral ligament appears intact. IMPRESSION: 1. Progressed advanced tricompartmental arthritis with [id number] articulation in the medial and l ateral joint compartments. 2. Advanced chondromalacia medial and lateral joint compartments with subchondral cystic change. 3. Large lobulated progressed parameniscal cyst involving the posterior medial meniscus. This measur es 3.7 x 4.7 x 3.8 cm AP by transverse by craniocaudal. 4. Moderate chondromalacia patella. 5. ACL and PCL appear intact. Mucoid degeneration ACL. Outbridge grading: grade IV: full-thickness cartilage loss with underlying bone reactive changes
== END 2023-04-23 09:15 | disposition home or self-care (01) ==
PROVIDERS: PCP Nurse Practitioner; Visit Provider Nurse Practitioner Family
DX: M17.12 Unilateral primary osteoarthritis, left knee (principal); R22.42 Localized swelling, mass and lump, left lower limb; M22.42 Chondromalacia patellae, left knee; G89.29 Other chronic pain
CPT/HCPCS: 73562; 73721

== ENCOUNTER → 2023-05-28 08:50 | Outpatient (BNVA) | payer MEDICAID, SELFPAY | PROVIDERS: PCP Nurse Practitioner; Referring Provider Nurse Practitioner Family; Visit Provider Specialist | DX: M17.12 Unilateral primary osteoarthritis, left knee (principal) | CPT/HCPCS: 73560; 73565; 80053; 80061; 83036; 84443; 85025; 99204 ==

== ENCOUNTER → 2023-06-20 09:28 | Outpatient (BNVA) | payer MEDICAID, SELFPAY | PROVIDERS: PCP Nurse Practitioner; Visit Provider Nurse Practitioner Family | DX: M25.531 Pain in right wrist (principal); M25.431 Effusion, right wrist; M18.11 Unilateral primary osteoarthritis of first carpometacarpal joint, right hand | CPT/HCPCS: 73110 ==

== ENCOUNTER 2023-06-28 17:55 | Emergency (ER) | payer MEDICAID, SELFPAY ==
[2023-06-28 18:10] VITALS: BP 175/124; PULSE 92; RESP 22; TEMP 37.2; O2SAT 99; BMI 26.4
--- NOTE | 2023-06-28 18:17 | ED_ITS ---
HPI - Abdominal Pain General: Chief Complaint: Nausea/Vomiting/Diarrhea Stated Complaint: N/V Time Seen by Provider: 06/28/23 18:10 Source: patient Mode of arrival: EMS Limitations: no limitations History of Present Illness: Patient presents to the emergency department today brought by EMS for evaluation treatment of recurrent vomiting. Patient reports around 7:00 this morning she began having all over body pains, nausea, and vomiting. EMS reports that she was actively vomiting upon their arrival. She received 12.5 of Phenergan and Dilaudid in route and patient has not had retching or vomiting since medication administration. Patient denies fevers. She denies specific abdominal pain stating it hurts all across her abdomen and, her whole body. She denies being sick recently-denying cough, congestion, or sore throat. She states no others at home are similarly ill. She reports some urinary symptoms. Chart review shows patient has a history of cyclical vomiting. Review of Systems General: Reports: 10 or more systems reviewed and unremarkable except in HPI and below PFSH ED PFSH: Medical History Anxiety and depression COPD (chronic obstructive pulmonary disease) Cyclical vomiting with nausea Diabetes mellitus with hyperglycemia, without long-term current use of insulin Dyslipidemia Essential (primary) hypertension Glaucoma (increased eye pressure) Insomnia due to medical condition Nasal congestion with rhinorrhea Osteoarthritis Smoker Urinary frequency Surgical History History of carpal tunnel release of both wrists History of cataract extraction Bilateral 2020 Hx of arthroscopic knee surgery (~2012) left Family History Other COPD (chronic obstructive pulmonary disease) Cancer Social History Smoking and tobacco/nicotine status: current every day tobacco/nicotine user e- cigarettes Second hand smoke exposure: Yes Alcohol intake: never Substance/Drug Use: unknown Adopted: No Caregiver/support person: No Lives independently: Yes Household members: spouse Housing: House Marital status: service: No Do you think of yourself as: Straight/Heterosexual Current gender identity: Female Physical Exam Const: COMMON NORMALS: no acute distress, patient oriented x3 and alert HENMT: COMMON NORMALS: normocephalic, atraumatic, hearing grossly normal bilaterally and moist oral mucous membranes HEAD & SCALP: normocephalic and atraumatic Eye: COMMON NORMALS: Equal, round and reactive pupils present, EOMs intact bilaterally and conjunctivae normal CONJUNCTIVA: Yes conjunctivae normal PUPIL: Yes Equal, round and reactive pupils present Neck/C-Spine: COMMON NORMALS: full ROM and no JVD Lymph: LYMPHATIC: no lymphadenopathy noted Resp: COMMON NORMALS: normal respiratory effort, No retractions, No use of accessory muscles and clear to auscultation bilaterally AUSCULTATION: clear to auscultation bilaterally Cardio: COMMON NORMALS: no JVD, regular rate and regular rhythm RATE: regular rate RHYTHM: regular rhythm GI: OTHER: Abdomen is tender. Difficult to hear bowel sounds due to patient movement. : COMMON NORMALS: Yes no CVA tenderness BLADDER/KIDNEY EXAM: Yes no CVA tenderness Back/Pelvis: COMMON NORMALS: no CVA tenderness, no thoracic nor lumbar tenderness and thoraco-lumbar ROM normal Extremity: COMMON NORMALS: normal to inspection, full ROM and capillary refill normal Neuro: COMMON NORMALS: patient oriented x3 SENSORIUM/ORIENTATION: Yes alert Psych: COMMON NORMALS: mental status grossly normal, Normal thought process present, cooperative, normal affect and activity/motor behavior normal THOUGHT PROCESS: Normal thought process present Skin: COMMON NORMALS: no rashes or lesions noted and no wounds GENERAL SKIN EXAM: no rashes or lesions noted Course Vital Signs: Vital signs: Vital Signs Temperature 98.9 F 06/28/23 18:10 Pulse Rate 105 H 06/28/23 22:30 Respiratory Rate 18 06/28/23 23:23 Blood Pressure 149/93 06/28/23 20:03 Pulse Oximetry 98 06/28/23 22:30 Oxygen Delivery Me thod Room Air 06/28/23 22:30 MDM - Abdominal Pain Medical Decision Making Patient's chart review shows a history of cyclical vomiting syndrome however, I did personally seen and evaluate this patient several months ago for something similar. She had tried outpatient treatment for an acute flareup and was unsuccessful. Patient wanted to being admitted at that time. Patient's evaluation today showed no signs of any acute concerns and her lab work. Evaristo adler, abdominal CT shows gastritis and left descending colon colitis. Still, patient was treated here in the emergency department had no further vomiting. She appeared much more comfortable after fluids, antinausea medication, and pain meds. In fact, we discussed treatment at home and sticking to a clear liquid diet with antinausea medication, she indicated that was fine with her and, we were able to chat briefly and she showed me pictures of family and pets on her phone. She looked much more comfortable at discharge than on arrival. Strict return precautions for any continued or worsening symptoms were discussed and patient verbalized understanding and agreement to treatment plan. Differential Diagnosis Likely abdominal pain and gastroenteritis; Unlikely acute appendicitis, calculus of kidney, constipation, diverticulitis, pancreatitis or small bowel obstruction Lab Data 06/28/23 18:18 06/28/23 18:18 Labs/Radiology: Radiology Impressions Abdomen/Pelvis CT 06/28/23 21:01 IMPRESSION: 1. Prominent fluid in the stomach may reflect a gastritis. 2. Coronary artery atherosclerotic calcifications. 3. Emphysematous changes. 4. Hepatic steatosis. 5. Diverticulosis without diverticulitis. 6. Left colon mild wall thickening, please correlate for a colitis. 7. Bilateral L4 chronic pars interarticularis defects with grade 1 anterolisthesis of L5 relative to S1. Laboratory Results WBC 11.65 10^3/uL (3.29-11.43) H 06/28/23 18:18 RBC 4.07 10^6/uL (3.85-5.65) 06/28/23 18:18 Hgb 12.70 g/dL (11.27-16.99) 06/28/23 18:18 Hct 38.6 % (36-47) 06/28/23 18:18 MCV 94.8 fl (85-98) 06/28/23 18:18 MCH 31.2 pg (27-33) 06/28/23 18:18 MCHC 32.9 g/dL (30-55) 06/28/23 18:18 RDW 13.1 % (12.1-15.1) 06/28/23 18:18 Plt Count 254 10^3/cmm (157-399) 06/28/23 18:18 MPV 8.8 fL (7.4-10.4) 06/28/23 18:18 Neut % (Auto) 85.2 % 06/28/23 18:18 Lymph % (Auto) 9.3 % 06/28/23 18:18 [place] % (Auto) 4.3 % 06/28/23 18:18 Eos % (Auto) 0.1 % 06/28/23 18:18 Baso % (Auto) 0.2 % 06/28/23 18:18 Neut # (Auto) 9.94 10^3/uL (1.8-7.7) H 06/28/23 18:18 Lymph # (Auto) 1.1 10^3/uL (0.8-4.8) 06/28/23 18:18 [place] # (Auto) 0.5 10^3/uL (0.2-0.9) 06/28/23 18:18 Eos # (Auto) 0.0 10^3/uL (0.0-0.8) 06/28/23 18:18 Baso # (Auto) 0.0 10^3/uL (0.0-0.1) 06/28/23 18:18 Nucleated RBC % (auto) 0 % 06/28/23 18:18 Nucleated RBCs # 0.0 /100WBC 06/28/23 18:18 ESR 13 mm/hr (0-15) 06/28/23 18:18 Sodium 139 mmol/L (136-145) 06/28/23 18:18 Potassium 3.7 mmol/L (3.5-5.1) 06/28/23 18:18 Chloride 105 mmol/L (98-107) 06/28/23 18:18 Carbon Dioxide 22 mmol/L (22-29) 06/28/23 18:18 Anion Gap 15.7 (5-19) 06/28/23 18:18 BUN 18 mg/dL (8-23) 06/28/23 18:18 Creatinine 0.8 mg/dL (0.5-0.9) 06/28/23 18:18 GFR Calculation 72.4 mL/min (90-130) L 06/28/23 18:18 Glucose 134 mg/dL (65-115) H 06/28/23 18:18 Calculated Osmolality 292 mOsm/kg (285-295) 06/28/23 18:18 Calcium 9.1 mg/dL (8.5-10.5) 06/28/23 18:18 Total Bilirubin 0.2 mg/dL (0.15-1.2) 06/28/23 18:18 AST 22 U/L (0-32) 06/28/23 18:18 ALT 31 U/L (0-33) 06/28/23 18:18 Alkaline Phosphatase 68 U/L (35-105) 06/28/23 18:18 C-Reactive Protein 4.4 mg/L (0.0-4.9) 06/28/23 18:18 Total Protein 7.3 g/dL (6.6-8.7) 06/28/23 18:18 Albumin 4.4 g/dL (3.5-5.2) 06/28/23 18:18 Globulin 2.9 g/dL (1.3-4.6) 06/28/23 18:18 Lipase 19 U/L (13-60) 06/28/23 18:18 Procalcitonin 0.03 ng/mL (0-0.5) 06/28/23 18:18 Urine Color Yellow (Yellow) 06/28/23 20:13 Urine Appearance Clear (CLEAR) 06/28/23 20:13 Urine pH 7 (5-7) 06/28/23 20:13 Ur Specific [place] 1.010 (1.005-1.030) 06/28/23 20:13 Urine Protein Neg (Negative) 06/28/23 20:13 Urine Glucose (UA) 4+ (Normal) H 06/28/23 20:13 Urine Ketones 1+ (Negative) H 06/28/23 20:13 Urine Blood 2+ (Negative) H 06/28/23 20:13 Urine Nitrate Negative (Negative) 06/28/23 20:13 Urine Bilirubin Neg (Negative) 06/28/23 20:13 Urine Urobilinogen Neg mg/dL (Negative) 06/28/23 20:13 Ur Leukocyte Esterase Negative (Negative) 06/28/23 20:13 Urine RBC 5-10 /hpf (0-2) H 06/28/23 20:13 Urine WBC 0-4 /hpf (0-5) H 06/28/23 20:13 Ur Squamous Epith Cells 0-4 /hpf (0-5) H 06/28/23 20:13 Amorphous Sediment Not Reportable 06/28/23 20:13 Urine Bacteria Trace /hpf (NONE) 06/28/23 20:13 Urine Yeast Trace /hpf 06/28/23 20:13 All radiology interpretation(s) finalized by discharge Discharge Plan Discharge Patient Disposition: Home Clinical Impression: Colitis, Gastritis Condition: Stable Prescriptions: New ondansetron 4 mg tablet,disintegrating 4 mg PO Q8H 5 Days Qty: 15 0RF No Action aspirin [Adult Low Dose Aspirin] 81 mg tablet,delayed release (DR/EC) 81 mg PO DAILY@0800 latanoprost (PF) 0.005 % drops 1 drp ophthalmic (eye) BEDTIME@2000 Qty: 7.5 2RF ondansetron 4 mg tablet,disintegrating 4 mg PO Q4H PRN (Reason: nausea and vomiting) Qty: 20 0RF Multivitamin Women 50 Plus 8 mg iron-400 mcg-300 mcg tablet 1 tab PO DAILY@0800 Qty: 30 2RF triamcinolone acetonide 0.1 % cream 1 applic topical BID Qty: 15 0RF Rx Instructions: to left hand mupirocin 2 % ointment 1 applic topical BID Qty: 15 0RF Rx Instructions: right ear albuterol sulfate [ProAir HFA] 90 mcg/actuation HFA aerosol inhaler 2 puff INHALATION QID PRN (Reason: shortness of breath or wheezing) Qty: 18 2RF atorvastatin 40 mg tablet 40 mg PO BEDTIME Qty: 30 2RF azelastine 137 mcg (0.1 %) aerosol,spray 1 spray intranasal BID Qty: 30 2RF Rx Instructions: administer into each nostril celecoxib 400 mg capsule 400 mg PO DAILY@0800 Qty: 30 2RF Hold Instructions: Hold for 4 weeks Farxiga 5 mg tablet 5 mg PO QAM Qty: 30 2RF escitalopram oxalate 20 mg tablet 20 mg PO DAILY@0800 Qty: 30 2RF hydroxyzine pamoate 25 mg capsule 25 mg PO TID@0800,12,20 Qty: 90 2RF hyoscyamine sulfate [Levsin] 0.125 mg tablet 0.125 mg PO BID Qty: 60 2RF Daily Probiotic (10 Strains) 4 billion cell capsule 1 cap PO DAILY Qty: 30 2RF lisinopril 20 mg tablet 20 mg PO DAILY@0800 Qty: 30 2RF oxybutynin chloride 5 mg tablet 5 mg PO TID@08,12,20 Qty: 90 2RF Miralax 17 gram/dose powder 17 g PO DAILY PRN (Reason: Constipation) Qty: 510 2RF sodium chloride 1 gram tablet 1,000 mg PO DAILY Qty: 30 2RF sucralfate [Carafate] 1 gram tablet 1 g PO BID Qty: 60 2RF Anoro Ellipta 62.5-25 mcg/actuation blister with device 1 inh inhalation Q24H Qty: 60 2RF trazodone 100 mg tablet See Rx Instructions PO .at bedtime Qty: 60 2RF Rx Instructions: 100mg-200mg orally AT BEDTIME; prednisone 10 mg tablets,dose pack See Rx Instructions PO PER PKG DIR Qty: 21 0RF Rx Instructions: PO PER PKG DIR acetaminophen 325 mg suppository 325 mg [place] Q6H PRN (Reason: fever or pain) Qty: 6 0RF quetiapine 150 mg tablet extended release 24 hr 150 mg PO DAILY Qty: 30 1RF Discharge Orders: Discharge ED (Routine); Ordered 06/28/23 Ordered By: Shantelle Dodd Referrals: Vero Moon, KRISTIE-C [Primary Care Provider] - Discharge Diet: Clear Liquid Discharge Activity: Increase activity as tolerated Patient Instructions: Gastroenteritis (ED), Colitis (ED) Activity Restrictions/Additional Instructions: Labs today are generally unremarkable. No signs of acute infection. CT scan confirms colitis and gastritis today indicating irritation of the GI tract. We encourage you to stay well-hydrated and push fluids. You may wish to stick to a clear liquid diet for the next couple of days until symptoms resolve. We provided you antinausea medication to help with vomiting in an effort to keep you more successful with your fluids. Watch for any new onset of fever, bloody stools, or continued vomiting without ability to tolerate liquids. If this occurs need to return to the ER. Coding Level of Care Code ED Contact Center Representative for [facility] Mayes
[2023-06-28 18:21] VITALS: BP 177/108; PULSE 80; O2SAT 94
[2023-06-28] MEDS: sodium chloride 0.9% 1,000 ML 999 ML IV (18:29)
[2023-06-28 18:31] LABS: Basophils % 0.2 %; Eosinophils % 0.1 %; Hematocrit 38.6 % (36-47); Lymphocytes # 1.1 10^3/uL (0.8-4.8); Lymphocytes % 9.3 %; Mean Corpuscular HGB Conc 32.9 g/dL (30-55); Mean Corpuscular Hemoglobin 31.2 pg (27-33); Mean Corpuscular Volume 94.8 fl (85-98); Mean Platelet Volume 8.8 fL (7.4-10.4); Monocytes # 0.5 10^3/uL (0.2-0.9); Monocytes % 4.3 %; Neutrophils # 9.94 10^3/uL (1.8-7.7); Neutrophils % 85.2 %; Nucleated Red Blood Cells % 0 %; Platelet Count 254 10^3/cmm (157-399); Red Blood Count 4.07 10^6/uL (3.85-5.65); Red Cell Distribution Width 13.1 % (12.1-15.1); White Blood Count 11.65 10^3/uL (3.29-11.43)
[2023-06-28 19:09] LABS: Erythrocyte Sedimentation Rate 13 mm/hr (0-15)
[2023-06-28 19:28] LABS: Alanine Aminotransferase 31 U/L (0-33); Albumin Level 4.4 g/dL (3.5-5.2); Alkaline Phosphatase 68 U/L (35-105); Anion Gap 15.7 (5-19); Aspartate Amino Transferase 22 U/L (0-32); Blood Urea Nitrogen 18 mg/dL (8-23); C Reactive Protein 4.4 mg/L (0.0-4.9); Calcium 9.1 mg/dL (8.5-10.5); Carbon Dioxide 22 mmol/L (22-29); Chloride 105 mmol/L (98-107); Globulin 2.9 g/dL (1.3-4.6); Glomerular Filtration Rate 72.4 mL/min (90-130); Glucose 134 mg/dL (65-115); Lipase 19 U/L (13-60); Osmolality Calculated 292 mOsm/kg (285-295); Potassium 3.7 mmol/L (3.5-5.1); Sodium 139 mmol/L (136-145); Total Bilirubin 0.2 mg/dL (0.15-1.2); Total Protein 7.3 g/dL (6.6-8.7)
[2023-06-28 19:34] LABS: Procalcitonin 0.03 ng/mL (0-0.5)
[2023-06-28 20:03] VITALS: BP 149/93; RESP 17; O2SAT 96
[2023-06-28 20:50] LABS: Add Urine Microscopic? YES; Bacteria Urine TRACE /hpf; Bilirubin Urine Neg (Negative); Blood Urine 2+ (Negative); Glucose Urine UA 4+ (Normal); Ketones Urine 1+ (Negative); Leukocyte Esterase Urine Negative (Negative); Nitrate Urine Negative (Negative); Protein Urine Neg (Negative); Squamous Epithelial Cell Urine 0-4 /hpf (0-5); Urine Appearance Clear (CLEAR); Urine Color Yellow (Yellow); Urobilinogen Urine Neg (Negative); WBC Urine 0-4 /hpf (0-5); pH Urine 7 (5-7)
[2023-06-28 20:51] LABS: Add Urine Culture? Yes
--- NOTE | 2023-06-28 21:01 | CTR_ITS ---
PROCEDURE INFORMATION: Exam: CT Abdomen And Pelvis With Contrast Exam date and time: 06/28/2023 9:11 PM Age: 63 years old Clinical indication: Nausea and vomiting; Abdominal pain; Localized; Patient HX: Lower abd pain with n/v. Minimally elevated wbc. History of diverticulitis. ; Additional info: Low abd pain, n/v, HX divertic. Mild white count TECHNIQUE: Imaging protocol: Computed tomography of the abdomen and pelvis with contrast. Radiation optimization: All CT scans at this facility use at least one of these dose optimization techniques: automated exposure control; mA and/or kV adjustment per patient size (includes targeted exams where dose is matched to clinical indication); or iterative reconstruction. Contrast material: OMNI 350; Contrast volume: 100 ml; Contrast route: INTRAVENOUS (IV); REPORTING DATA: Count of CT and Cardiac NM exams in prior 12 months: This patient has received 4 known CTs and 0 known cardiac nuclear medicine studies in the 12 months prior to the current study. COMPARISON: CT abdomen pelvis w con* [id number] 03/21/2023 8:26 PM RADIATION DOSE METRICS: Total DLP (mGy-cm): 1458.79 FINDINGS: Lungs: Emphysematous changes. Coronary arteries: Coronary artery atherosclerotic calcifications. Liver: Hepatic steatosis. Gallbladder and bile ducts: Normal. No calcified stones. No ductal dilation. Pancreas: Normal. No ductal dilation. Spleen: Normal. No splenomegaly. Adrenal glands: Normal. No mass. Kidneys and ureters: Normal. No hydronephrosis. Stomach and bowel: Prominent fluid in the stomach may reflect a gastritis. Diverticulosis without diverticulitis. Left colon mild wall thickening, please correlate for a colitis. Appendix: No evidence of appendicitis. Intraperitoneal space: Unremarkable. No free air. No significant fluid collection. Vasculature: Unremarkable. No abdominal aortic aneurysm. Lymph nodes: Unremarkable. No enlarged lymph nodes. Urinary bladder: Unremarkable as visualized. Reproductive: Unremarkable as visualized. Bones/joints: Bilateral L4 chronic pars interarticularis defects with grade 1 anterolisthesis of L5 relative to S1. Soft tissues: Unremarkable. CT/CT abdomen pelvis w con* [id number] IMPRESSION: 1. Prominent fluid in the stomach may reflect a gastritis. 2. Coronary artery atherosclerotic calcifications. 3. Emphysematous changes. 4. Hepatic steatosis. 5. Diverticulosis without diverticulitis. 6. Left colon mild wall thickening, please correlate for a colitis. 7. Bilateral L4 chronic pars interarticularis defects with grade 1 anterolisthesis of L5 relative to S1.
[2023-06-28] MEDS: iohexol 350 mg/mL 500 mL Btl (per mL) IV (21:13)
[2023-06-28 22:26] VITALS: RESP 25; O2SAT 100
[2023-06-28] MEDS: morphine 4 mg/mL SDV 1 mL IVP (22:26)
[2023-06-28 22:30] VITALS: PULSE 105; RESP 23; O2SAT 98
[2023-06-28 23:23] VITALS: RESP 18
== END 2023-06-28 23:30 | disposition home or self-care (01) ==
PROVIDERS: Emergency Provider Physician Assistant; PCP Nurse Practitioner
DX: K29.70 Gastritis, unspecified, without bleeding (principal); K52.9 Noninfective gastroenteritis and colitis, unspecified; Z79.82 Long term (current) use of aspirin; J44.9 Chronic obstructive pulmonary disease, unspecified; E11.9 Type 2 diabetes mellitus without complications; E78.5 Hyperlipidemia, unspecified; I10 Essential (primary) hypertension; F17.290 Nicotine dependence, other tobacco product, uncomplicated
CPT/HCPCS: 36415; 74177; 80053; 81001; 83690; 84145; 85025; 85651; 86140; 87086; 96361; 96374; 99285; J2270; J7030; Q9967

== ENCOUNTER 2023-07-13 11:39 | Emergency (ER) | payer MEDICAID, SELFPAY ==
[2023-07-13 11:41] VITALS: BP 168/99; PULSE 91; TEMP 36.8; O2SAT 98; BMI 26.4
--- NOTE | 2023-07-13 11:54 | ECG_ITS ---
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 Measurements Intervals [place] Rate: 68 P: 61 WA: 174 QRS: 56 QRSD: 98 T: 55 QT: 401 QTc: 429 Interpretive Statements SINUS RHYTHM WITH MARKED SINUS ARRHYTHMIA MINIMAL ST DEPRESSION [0.025+ mV ST DEPRESSION] Compared to ECG 03/26/2022 12:37:05 Short WA interval no longer present Myocardial infarct finding no longer present ST (T wave) deviation still present Electronically Signed On 07-13-2023 15:32:04 BOAT DECKHAND by Radhika Bergeron M.D. [id number]
--- NOTE | 2023-07-13 11:54 | ED_ITS ---
HPI - Nausea/Vomiting/Diarrhea General: Chief complaint: Nausea/Vomiting/Diarrhea Stated complaint: N/V; WEAKNESS Time Seen by Provider: 07/13/23 11:54 History of Present Illness: Patient presents to the ER by EMS with complaints of nausea and vomiting since 4:00 this morning. Patient states she has this intermittently and chronically ever since approximately 1996. The last episode was about 2 weeks ago. Patient was given 12.5-minute milligrams of Phenergan on route by EMS. Patient says the pain is diffuse. Review of Systems General: Reports: 10 or more systems reviewed and unremarkable except in HPI and below PFSH ED PFSH: Medical History Anxiety and depression COPD (chronic obstructive pulmonary disease) Cyclical vomiting with nausea Diabetes mellitus with hyperglycemia, without long-term current use of insulin Dyslipidemia Essential (primary) hypertension Glaucoma (increased eye pressure) Insomnia due to medical condition Nasal congestion with rhinorrhea Osteoarthritis Smoker Urinary frequency Surgical History History of carpal tunnel release of both wrists History of cataract extraction Bilateral 2020 Hx of arthroscopic knee surgery (~2012) left Family History Other COPD (chronic obstructive pulmonary disease) Cancer Social History Smoking and tobacco/nicotine status: current every day tobacco/nicotine user e- cigarettes Second hand smoke exposure: Yes Alcohol intake: never Substance/Drug Use: unknown Adopted: No Caregiver/support person: No Lives independently: Yes Household members: spouse Housing: House Marital status: service: No Current occupational status: unemployed Current occupational exposures/hazards: No Do you think of yourself as: Straight/Heterosexual Current gender identity: Female Physical Exam Const: COMMON NORMALS: no acute distress, average body habitus, patient oriented x3, no limitations, healthy appearing, alert and well nourished HENMT: COMMON NORMALS: normocephalic, atraumatic, hearing grossly normal bilaterally, external ears normal, Normal external nose present, moist oral mucous membranes and oropharynx normal HEAD & SCALP: normocephalic and atraumatic NOSE: Normal external nose present EXTERNAL EAR: Yes external ears normal Neck/C-Spine: COMMON NORMALS: no JVD Chest: COMMONS NORMALS: normal inspection of the chest and normal palpation of entire chest wall Resp: COMMON NORMALS: normal respiratory effort, No retractions, No use of accessory muscles and clear to auscultation bilaterally AUSCULTATION: clear to auscultation bilaterally Cardio: COMMON NORMALS: no JVD, regular rate, regular rhythm, S1 normal heart sound present, S2 normal heart sound present, No gallops present (Cardio), No clicks present (Cardio), No murmurs present (Cardio) and No rub (Cardio) RATE: regular rate RHYTHM: regular rhythm HEART SOUNDS: S1 normal heart sound present and S2 normal heart sound present GI: COMMON NORMALS: Normal to inspection, nondistended, normoactive bowel sounds present, Soft to palpation, No hepatosplenomegaly present and no masses; negative for non-tender (Diffusely tender) PALPATION: Yes Soft to palpation and Yes No hepatosplenomegaly present Neuro: COMMON NORMALS: patient oriented x3 SENSORIUM/ORIENTATION: Yes alert Course Vital Signs: Vital signs: Vital Signs Temperature 98.2 F 07/13/23 11:41 Pulse Rate 84 07/13/23 14:30 Respiratory Rate 18 07/13/23 14:30 Blood Pressure 161/94 07/13/23 14:30 Pulse Oximetry 99 07/13/23 14:30 Oxygen Delivery Me thod Room Air 07/13/23 14:30 MDM - Nausea/Vomiting/Diarrhea Medical Decision Making Patient presents to the ER with her chronic abdominal pain. This pain started this morning. She was worked up in the normal abdominal pain fashion with labs which were essentially benign. Patient said this is this her same pain that she always has. Patient's last abdomen and pelvis CT scan was on 1020 so we did not repeat that this time. Patient was given multiple doses of pain medicine and nausea medicine which helped relieve the pain. Patient will be discharged home to follow-up with her PCP for chronic pain management. Differential Diagnosis Likely gastroenteritis; Unlikely traveler's diarrhea, food poisoning, clostridium difficile infection, drug-induced nausea and vomiting or dehydration Medical Records I reviewed the patient's medical records. Lab Data I reviewed the patient's lab results. 07/13/23 12:02 07/13/23 12:02 Laboratory Results WBC 9.49 10^3/uL (3.29-11.43) 07/13/23 12:02 RBC 4.49 10^6/uL (3.85-5.65) 07/13/23 12:02 Hgb 14.00 g/dL (11.27-16.99) 07/13/23 12:02 Hct 43.0 % (36-47) 07/13/23 12:02 MCV 95.8 fl (85-98) 07/13/23 12:02 MCH 31.2 pg (27-33) 07/13/23 12:02 MCHC 32.6 g/dL (30-55) 07/13/23 12:02 RDW 13.1 % (12.1-15.1) 07/13/23 12:02 Plt Count 260 10^3/cmm (157-399) 07/13/23 12:02 MPV 9.2 fL (7.4-10.4) 07/13/23 12:02 Neut % (Auto) 79.8 % 07/13/23 12:02 Lymph % (Auto) 15.9 % 07/13/23 12:02 Izard % (Auto) 3.2 % 07/13/23 12:02 Eos % (Auto) 0.2 % 07/13/23 12:02 Baso % (Auto) 0.2 % 07/13/23 12:02 Neut # (Auto) 7.57 10^3/uL (1.8-7.7) 07/13/23 12:02 Lymph # (Auto) 1.5 10^3/uL (0.8-4.8) 07/13/23 12:02 Izard # (Auto) 0.3 10^3/uL (0.2-0.9) 07/13/23 12:02 Eos # (Auto) 0.0 10^3/uL (0.0-0.8) 07/13/23 12:02 Baso # (Auto) 0.0 10^3/uL (0.0-0.1) 07/13/23 12:02 Nucleated RBC % (auto) 0 % 07/13/23 12:02 Nucleated RBCs # 0.0 /100WBC 07/13/23 12:02 Sodium 135 mmol/L (136-145) L 07/13/23 12:02 Potassium 3.8 mmol/L (3.5-5.1) 07/13/23 12:02 Chloride 101 mmol/L (98-107) 07/13/23 12:02 Carbon Dioxide 21 mmol/L (22-29) L 07/13/23 12:02 Anion Gap 16.8 (5-19) 07/13/23 12:02 BUN 16 mg/dL (8-23) 07/13/23 12:02 Creatinine 0.9 mg/dL (0.5-0.9) 07/13/23 12:02 GFR Calculation 63.2 mL/min (90-130) L 07/13/23 12:02 Glucose 140 mg/dL (65-115) H 07/13/23 12:02 Calculated Osmolality 283 mOsm/kg (285-295) L 07/13/23 12:02 Calcium 9.7 mg/dL (8.5-10.5) 07/13/23 12:02 Magnesium 2.1 mg/dL (1.7-2.3) 07/13/23 12:02 Total Bilirubin 0.2 mg/dL (0.15-1.2) 07/13/23 12:02 AST 18 U/L (0-32) 07/13/23 12:02 ALT 17 U/L (0-33) 07/13/23 12:02 Alkaline Phosphatase 61 U/L (35-105) 07/13/23 12:02 Total Protein 7.7 g/dL (6.6-8.7) 07/13/23 12:02 Albumin 4.9 g/dL (3.5-5.2) 07/13/23 12:02 Globulin 2.8 g/dL (1.3-4.6) 07/13/23 12:02 Lipase 21 U/L (13-60) 07/13/23 12:02 Urine Color Yellow (Yellow) 07/13/23 13:58 Urine Appearance Clear (CLEAR) 07/13/23 13:58 Urine pH 5 (5-7) 07/13/23 13:58 Ur Specific [place] 1.025 (1.005-1.030) 07/13/23 13:58 Urine Protein Neg (Negative) 07/13/23 13:58 Urine Glucose (UA) 4+ (Normal) H 07/13/23 13:58 Urine Ketones 1+ (Negative) H 07/13/23 13:58 Urine Blood 2+ (Negative) H 07/13/23 13:58 Urine Nitrate Negative (Negative) 07/13/23 13:58 Urine Bilirubin Neg (Negative) 07/13/23 13:58 Urine Urobilinogen Norm mg/dL (Negative) 07/13/23 13:58 Ur Leukocyte Esterase Negative (Negative) 07/13/23 13:58 Urine RBC Rare /hpf (0-2) 07/13/23 13:58 Urine WBC 0-4 /hpf (0-5) H 07/13/23 13:58 Ur Squamous Epith Cells 0-4 /hpf (0-5) H 07/13/23 13:58 Amorphous Sediment Not Reportable 07/13/23 13:58 Urine Bacteria 1+ /hpf (NONE) H 07/13/23 13:58 Urine Mucus 2+ /hpf 07/13/23 13:58 All radiology interpretation(s) finalized by discharge EKG Data EKG 1: I personally reviewed and interpreted this EKG as follows: EKG interpretation date: 07/13/23 EKG interpretation time: 12:03 Prior EKG tracings: not available for review Interpretation: EKG shows ventricular rate 68 bpm, UT interval 174, QRS duration 98, QTc of 419, sinus rhythm with marked sinus arrhythmia, minimal ST depression Discharge Plan Discharge Patient Disposition: Home Clinical Impression: Abdominal pain, chronic, generalized Condition: Stable Prescriptions: No Action aspirin [Adult Low Dose Aspirin] 81 mg tablet,delayed release (DR/EC) 81 mg PO DAILY@0800 latanoprost (PF) 0.005 % drops 1 drp ophthalmic (eye) BEDTIME@1999 Qty: 7.5 2RF Multivitamin Women 50 Plus 8 mg iron-400 mcg-300 mcg tablet 1 tab PO DAILY@0800 Qty: 30 2RF albuterol sulfate [ProAir HFA] 90 mcg/actuation HFA aerosol inhaler 2 puff INHALATION QID PRN (Reason: shortness of breath or wheezing) Qty: 18 2RF atorvastatin 40 mg tablet 40 mg PO BEDTIME Qty: 30 2RF azelastine 137 mcg (0.1 %) aerosol,spray 1 spray intranasal BID Qty: 30 2RF Rx Instructions: administer into each nostril Farxiga 5 mg tablet 5 mg PO QAM Qty: 30 2RF escitalopram oxalate 20 mg tablet 20 mg PO DAILY@0800 Qty: 30 2RF hydroxyzine pamoate 25 mg capsule 25 mg PO TID@0800,12,20 Qty: 90 2RF hyoscyamine sulfate [Levsin] 0.125 mg tablet 0.125 mg PO BID Qty: 60 2RF Daily Probiotic (10 Strains) 4 billion cell capsule 1 cap PO DAILY Qty: 30 2RF lisinopril 20 mg tablet 20 mg PO DAILY@0800 Qty: 30 2RF Miralax 17 gram/dose powder 17 g PO DAILY PRN (Reason: Constipation) Qty: 510 2RF sodium chloride 1 gram tablet 1,000 mg PO DAILY Qty: 30 2RF sucralfate [Carafate] 1 gram tablet 1 g PO BID Qty: 60 2RF Anoro Ellipta 62.5-25 mcg/actuation blister with device 1 inh inhalation Q24H Qty: 60 2RF trazodone 100 mg tablet See Rx Instructions PO .at bedtime Qty: 60 2RF Rx Instructions: 100mg-200mg orally AT BEDTIME; quetiapine [Seroquel XR] 300 mg tablet extended release 24 hr 300 mg PO .at bedtime for sleep Qty: 30 1RF promethazine-DM 6.25-15 mg/5 mL syrup 5 ml PO Q6H PRN (Reason: cough) Qty: 240 0RF Discharge Orders: Discharge ED (Routine); Ordered 07/13/23 Ordered By: Flash Spencer Referrals: Vero Moon, MACHINE B[facility] [Primary Care Provider] - 1 week Patient Instructions: Abdominal Pain (ED) Activity Restrictions/Additional Instructions: Please follow-up with your family practice physician in the next 7 to 10 days for further evaluation and treatment of your chronic abdominal pain. Coding Level of Care Code ED Motor Vehicle Compliance Analyst for [place] Mayes
[2023-07-13] MEDS: sodium chloride 0.9% 1,000 ML 999 ML IV (12:38)
[2023-07-13] MEDS: ondansetron 2 mg/ML SDV 2 mL 8 MG IVP (12:38)
[2023-07-13 12:39] LABS: Alanine Aminotransferase 17 U/L (0-33); Albumin Level 4.9 g/dL (3.5-5.2); Alkaline Phosphatase 61 U/L (35-105); Anion Gap 16.8 (5-19); Aspartate Amino Transferase 18 U/L (0-32); Blood Urea Nitrogen 16 mg/dL (8-23); Calcium 9.7 mg/dL (8.5-10.5); Carbon Dioxide 21 mmol/L (22-29); Chloride 101 mmol/L (98-107); Globulin 2.8 g/dL (1.3-4.6); Glomerular Filtration Rate 63.2 mL/min (90-130); Glucose 140 mg/dL (65-115); Lipase 21 U/L (13-60); Magnesium 2.1 mg/dL (1.7-2.3); Osmolality Calculated 283 mOsm/kg (285-295); Potassium 3.8 mmol/L (3.5-5.1); Sodium 135 mmol/L (136-145); Total Bilirubin 0.2 mg/dL (0.15-1.2); Total Protein 7.7 g/dL (6.6-8.7)
[2023-07-13] MEDS: ketorolac 30 mg/mL INJ IVP (12:40)
[2023-07-13 12:43] LABS: Basophils % 0.2 %; Eosinophils % 0.2 %; Lymphocytes # 1.5 10^3/uL (0.8-4.8); Lymphocytes % 15.9 %; Mean Corpuscular HGB Conc 32.6 g/dL (30-55); Mean Corpuscular Hemoglobin 31.2 pg (27-33); Mean Corpuscular Volume 95.8 fl (85-98); Mean Platelet Volume 9.2 fL (7.4-10.4); Monocytes # 0.3 10^3/uL (0.2-0.9); Monocytes % 3.2 %; Neutrophils # 7.57 10^3/uL (1.8-7.7); Neutrophils % 79.8 %; Nucleated Red Blood Cells % 0 %; Platelet Count 260 10^3/cmm (157-399); Red Blood Count 4.49 10^6/uL (3.85-5.65); Red Cell Distribution Width 13.1 % (12.1-15.1); White Blood Count 9.49 10^3/uL (3.29-11.43)
[2023-07-13 13:45] VITALS: BP 156/87; O2SAT 94
--- NOTE | 2023-07-13 14:12 | PC.PHAR ---
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 SHE DOES NOT KNOW WHAT SHE IS TAKING. USED MED LIST ON FILE AND PUT LAST DATES FILLED IN THE NOTES. PT USES [facility] ON CURRENT MEDS. 07/13/23
[2023-07-13 14:16] LABS: Protein Urine Neg (Negative); Specific Gravity, Urine 1.025 (1.005-1.030); Urine Appearance Clear (CLEAR); Urine Color Yellow (Yellow); pH Urine 5 (5-7)
[2023-07-13 14:17] LABS: Add Urine Culture? No; Add Urine Microscopic? YES; Bacteria Urine 1+ /hpf; Bilirubin Urine Neg (Negative); Blood Urine 2+ (Negative); Glucose Urine UA 4+ (Normal); Ketones Urine 1+ (Negative); Leukocyte Esterase Urine Negative (Negative); Mucus Urine 2+ /hpf; Nitrate Urine Negative (Negative); RBC Urine RARE /hpf (0-2); Squamous Epithelial Cell Urine 0-4 /hpf (0-5); Urobilinogen Urine Norm (Negative); WBC Urine 0-4 /hpf (0-5)
[2023-07-13 14:30] VITALS: BP 161/94; PULSE 84; RESP 18; O2SAT 99
[2023-07-13] MEDS: morphine 4 mg/mL SDV 1 mL IVP (14:30)
== END 2023-07-13 17:02 | disposition home or self-care (01) ==
PROVIDERS: Emergency Provider Emergency Medicine; PCP Nurse Practitioner
DX: G89.29 Other chronic pain (principal); R10.84 Generalized abdominal pain; Z79.82 Long term (current) use of aspirin; J44.9 Chronic obstructive pulmonary disease, unspecified; E11.9 Type 2 diabetes mellitus without complications; E78.5 Hyperlipidemia, unspecified; I10 Essential (primary) hypertension
CPT/HCPCS: 36415; 80053; 81001; 83690; 83735; 85025; 93005; 96361; 96374; 96375; 99284; J1885; J2270; J2405; J7030

== ENCOUNTER → 2023-07-17 12:56 | Outpatient (BNVA) | payer MEDICAID, SELFPAY | PROVIDERS: PCP Nurse Practitioner; Referring Provider Nurse Practitioner; Visit Provider Internal Medicine | DX: E11.51 Type 2 diabetes mellitus with diabetic peripheral angiopathy without gangrene (principal); I10 Essential (primary) hypertension; E11.65 Type 2 diabetes mellitus with hyperglycemia; I25.10 Atherosclerotic heart disease of native coronary artery without angina pectoris; F17.290 Nicotine dependence, other tobacco product, uncomplicated | CPT/HCPCS: 99204 ==

== ENCOUNTER 2023-08-04 07:41 | Outpatient (CLI) | payer MEDICAID, SELFPAY ==
--- NOTE | 2023-08-04 08:00 | USCV_ITS ---
Kasey Sousa Age: 63 Gender: F : 1960 Exam Date: 08/04/2023 08:12 Ordering Phys: George Bangura M.D ([email or web address]) Technologist: Yari Ramos [place] [facility] [place]: CP, SOB BP: 112 / 70 HR: 77 Rhythm: Sinus Technical Quality: Good MEASUREMENTS (Male / Female) Normal Values 2D ECHO LV Diastolic Diameter PLAX 3.5 cm 4.2 - 5.9 / 3.9 - 5.3 cm LV Systolic Diameter PLAX 2.1 cm IVS Diastolic Thickness 0.9 cm 0.6 - 1.0 / 0.6 - 0.9 cm IVS Systolic Thickness 1.2 cm LVPW Diastolic Thickness 0.8 cm 0.6 - 1.0 / 0.6 - 0.9 cm LVPW Systolic Thickness 1.2 cm LVOT Diameter 2.1 cm LV Ejection Fraction 2D Teich 72.2 % LV Ejection Fraction MOD 2C 75.2 % LV Ejection Fraction 2C AL 74.3 % LA Diameter 2.0 cm LA Width 2.4 cm LA Height 3.4 cm RA Width 2.4 cm RA Height 3.5 cm Aorta at Sinotubular Diameter 2.8 cm IVC Diameter 0.9 cm M-MODE Aortic Annulus Diameter 2.8 cm LA Ao Ratio MM 0.8 MV E Point Septal Separation 0.4 cm DOPPLER AV Peak Velocity 118.0 cm/s LVOT Peak Velocity 121.0 cm/s AV Area Cont Eq vti 3.8 cm squared AV Area Cont Eq pk 3.5 cm squared MV Peak Velocity 95.0 cm/s MV Area PHT 2.8 cm squared Mitral E to A Ratio 1.0 MV E' Velocity 50.5 cm/s Mitral E to MV E' Ratio 10.3 Mitral E to LV E' Lateral Ratio 13.2 Mitral E to LV E' Septal Ratio 8.5 TR Peak Velocity 84.8 cm/s TR Peak Gradient 2.9 mmHg Right Atrial Pressure 5.0 mmHg Pulmonary Artery Systolic Pressu 7.9 mmHg PV Peak Velocity 78.0 cm/s RV Acceleration Time 0.1 s RV Ejection Time 0.3 s RV AcT/ET 0.5 FINDINGS Left Ventricle Normal left ventricular size, systolic function and wall thickness, with no regional wall motion abnormalities. Left ventricular ejection fraction is estimated at 70 %. Normal diastolic function. Right Ventricle Normal right ventricular size and systolic function. Right ventricular systolic pressure 7.9 mmHg. Right Atrium Normal right atrial size. Left Atrium Normal left atrial size. Mitral Valve Structurally normal mitral valve. No mitral valve stenosis. Trace mitral valve regurgitation. Aortic Valve Structurally normal trileaflet aortic valve. No aortic valve stenosis. No aortic valve regurgitation. Tricuspid Valve Structurally normal tricuspid valve. No tricuspid valve stenosis. No tricuspid valve regurgitation Pulmonic Valve Pulmonic valve not well visualized. Pericardium No pericardial effusion. Aorta Normal size aortic root and proximal ascending aorta. IVC Normal IVC dimension with >50% respiratory change of the inferior vena cava. CONCLUSIONS 1. Normal left ventricular size, systolic function and wall thickness, with no regional wall motion abnormalities. Left ventricular ejection fraction is estimated at 70 %. Normal diastolic function. 2. No significant valvular abnormality. 3. No prior similar studies to compare. Radhika Bergeron MD (Electronically Signed) Final Date: 04 August 2023 22:39 S
== END 2023-08-04 07:42 | disposition home or self-care (01) ==
LOC: RAD 07:41
PROVIDERS: PCP Nurse Practitioner; Visit Provider Internal Medicine
DX: R07.9 Chest pain, unspecified (principal); R06.02 Shortness of breath
CPT/HCPCS: 93306

== ENCOUNTER 2023-08-04 08:41 | Outpatient (CLI) | payer MEDICAID, SELFPAY ==
[2023-08-04 09:25] VITALS: BMI 26.4
--- NOTE | 2023-08-04 09:39 | ECG_ITS ---
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 Interpretive Statements NAME OF STUDY: LEXISCAN SESTAMIBI STRESS TEST INDICATION: Chest Pain; Shortness of Breath RESULTS TO DR BANGURA PROCEDURE: At the baseline, the EKG revealed sinus bradycardia with a rate of 57 bpm. Poor R wave progression. Features of old septal OR. Some nonspecific T wave changes. The baseline heart was 57 bpm with a blood pressue of 120/80 mm of Hg Lexiscan was infused over a period of 20 seconds. A total of 0.4 milligrams of Lexiscan was infused. The stress phase was continued for a total of 5 minutes. Heart rate at the end of the stress phase was 85 bpm with a blood pressure 111/73 mm of Hg. The EKG at the peak infusion revealed no significant changes. Sestamibi was injected 20 seconds after the Lexiscan infusion. Heart rate at the end of the recovery phase was 87 bpm with a blood pressure of 147/81 mm of Hg. CONCLUSION: 1. No significant EKG changes with the LexiScan infusion 2. No LexiScan induced chest pain or cardiac arrhythmia 3. Normal blood pressure and heart rate response 4. Sestamibi/sestamibi perfusion scan pending; see separate report. Electronically Signed On 08-21-2023 9:08:53 CLAIMS ACCOUNT SPECIALIST by Jack Martinez M.D. [id number]
--- NOTE | 2023-08-04 09:40 | NMCV_ITS ---
NM joselin perf SPECT r/s* [id number] Kasey Sousa Age: 63 Gender: F : 1960 Exam Date: 08/04/2023 09:40 Ordering Phys: George Bangura M.D ([email or web address]) Technologist: RAJ Nicholas Exam Location: [facility] Indications: CHEST PAIN STRESS TEST [facility] IMAGE PROTOCOL Rest/Stress 1 Lexiscan Day Radiopharmaceutical Dose (mCi) Administration Site Administered by Rest: Tc-99m 10.7 IV RAJ Berg Sestamibi Stress:Tc-99m 33.0 IV RAJ Berg Sestamibi Rest: 04-Aug-2023 60 Discovery 630 Stress: 04-Aug-2023 30 Discovery 630 0.4mg Lexiscan. Images obtained in supine and prone position. SPECT RESULTS Technical Quality: Excellent Raw Data Analysis: Normal Image Corrections: No attenuation or motion correction applied Summed Stress Score: 2 Summed Rest Score: 2 Summed Difference Score: 1 PERFUSION FINDINGS Small area of minimal to moderately decreased tracer uptake was noted in the apical inferior wall region with some reversibility with the supine imaging. However with the prone imaging, no significant reversibility was noted FUNCTIONAL RESULTS (calculated via Gated SPECT) Stress Image LV EF (%): 86 Stress EDV (mL):51 TID: 1.13 Stress ESV (mL):7 FUNCTIONAL FINDINGS: Segmental wall motion analysis revealing no gross wall motion abnormalities IMPRESSIONS 1. Myocardial perfusion imaging revealing a small area inconsistent reversible defect of the wrist defect in the apical inferior wall region with a segment the supine imaging. Suggesting ischemia in the distribution of the right coronary artery . However because of inconsistency with the prone imaging, the the reliability is questionable. 2. Normal LV ejection fraction of 86%. 3. LV wall motion analysis revealing no gross wall motion abnormalities. 4. Normal LV volume No similar previous studies are available for comparison Dr Jack Martinez MD [facility] (Electronically Signed) Final Date: 05 August 2023 14:41 S
[2023-08-04] MEDS: regadenoson 0.4 Mg/5 ml Syringe IVP (11:47)
[2023-08-04 12:05] VITALS: BP 147/81; PULSE 87
== END 2023-08-04 08:42 | disposition home or self-care (01) ==
LOC: CDL 08:41
PROVIDERS: PCP Nurse Practitioner; Visit Provider Internal Medicine
DX: R07.9 Chest pain, unspecified (principal); R06.02 Shortness of breath
CPT/HCPCS: 36415; 78452; 93017; 96374; A9500; J2785

== ENCOUNTER → 2023-11-10 11:20 | Outpatient (BNVA) | payer MEDICAID, SELFPAY | PROVIDERS: PCP Nurse Practitioner; Visit Provider Nurse Practitioner | DX: I10 Essential (primary) hypertension (principal); R73.9 Hyperglycemia, unspecified | CPT/HCPCS: 80053; 81000; 83036 ==

== ENCOUNTER 2023-12-10 20:07 | Emergency (ER) | payer MEDICAID, SELFPAY ==
[2023-12-10 20:08] VITALS: BP 140/86; PULSE 84; RESP 18; TEMP 36.8; O2SAT 98; BMI 28.3
--- NOTE | 2023-12-10 20:23 | ED_ITS ---
HPI - Nausea/Vomiting/Diarrhea 2 General: Chief complaint: Nausea/Vomiting/Diarrhea Stated complaint: N/V Time Seen by Provider: 12/10/23 20:09 History of Present Illness: Patient presents to the ER with headache and nausea vomiting. Patient has cyclical vomiting syndrome and chronic headaches. This been going on for over 7 years. This episodes been going on for about 3 days. She was seen at the urgent care today given a shot of Phenergan which she says did not help she received more Phenergan unwrap with IV by EMS. Patient said this is just her normal nausea vomiting and headache with no changes. Review of Systems 2 General: Reports: 10 or more systems reviewed and unremarkable except in HPI and below PFSH ED 2 PFSH: Medical History Diabetes mellitus with hyperglycemia, without long-term current use of insulin Insomnia due to medical condition Cyclical vomiting with nausea Nasal congestion with rhinorrhea Glaucoma (increased eye pressure) Smoker Urinary frequency COPD (chronic obstructive pulmonary disease) Dyslipidemia Osteoarthritis Anxiety and depression Essential (primary) hypertension Surgical History History of cataract extraction Bilateral 2020 Hx of arthroscopic knee surgery (~2012) left History of carpal tunnel release of both wrists Family History Other COPD (chronic obstructive pulmonary disease) Cancer Social History Smoking and tobacco/nicotine status: current every day tobacco/nicotine user e- cigarettes Second hand smoke exposure: Yes Alcohol intake: never Substance/Drug Use: unknown Adopted: No Caregiver/support person: No Lives independently: Yes Household members: spouse Housing: House Marital status: service: No Current occupational status: unemployed Current occupational exposures/hazards: No Do you think of yourself as: Straight/Heterosexual Current gender identity: Female Physical Exam 2 Const: COMMON NORMALS: no acute distress, average body habitus, patient oriented x3, no limitations, healthy appearing, alert and well nourished HENMT: COMMON NORMALS: normocephalic, atraumatic, hearing grossly normal bilaterally, external ears normal, Normal external nose present, moist oral mucous membranes and oropharynx normal HEAD & SCALP: normocephalic and atraumatic NOSE: Normal external nose present EXTERNAL EAR: Yes external ears normal Neck/C-Spine: COMMON NORMALS: no JVD Chest: COMMONS NORMALS: normal inspection of the chest and normal palpation of entire chest wall Resp: COMMON NORMALS: normal respiratory effort, No retractions, No use of accessory muscles and clear to auscultation bilaterally AUSCULTATION: clear to auscultation bilaterally Cardio: COMMON NORMALS: no JVD, regular rate, regular rhythm, S1 normal heart sound present, S2 normal heart sound present, No gallops present (Cardio), No clicks present (Cardio), No murmurs present (Cardio) and No rub (Cardio) R ATE: regular rate RHYTHM: regular rhythm HEART SOUNDS: S1 normal heart sound present and S2 normal heart sound present GI: COMMON NORMALS: Normal to inspection, nondistended, normoactive bowel sounds present, Soft to palpation, non-tender, No hepatosplenomegaly present and no masses PALPATION: Yes Soft to palpation and Yes No hepatosplenomegaly present Neuro: COMMON NORMALS: patient oriented x3 SENSORIUM/ORIENTATION: Yes alert Course 2 Vital Signs: Vital signs: Vital Signs Temperature 98.3 F 12/10/23 20:08 Pulse Rate 84 12/10/23 20:08 Respiratory Rate 18 12/10/23 20:08 Blood Pressure 140/86 12/10/23 20:08 Pulse Oximetry 98 12/10/23 20:08 MDM - Nausea/Vomiting/Diarrhea Medical Decision Making Lab work was obtained which was essentially benign. Patient was given 4 mg morphine 25 mg Benadryl 10 mg Reglan and 1 L fluid which helped the nausea patient still complaining of headache. We will give her another 4 mg morphine. Anticipate discharge Differential Diagnosis Likely gastroenteritis; Unlikely traveler's diarrhea, food poisoning, clostridium difficile infection, drug-induced nausea and vomiting or dehydration Medical Records I reviewed the patient's medical records. Lab Data I reviewed the patient's lab results. 12/10/23 20:21 12/10/23 20:21 Laboratory Results WBC 12.81 10^3/uL (3.29-11.43) H 12/10/23 20:21 RBC 4.20 10^6/uL (3.85-5.65) 12/10/23 20:21 Hgb 12.80 g/dL (11.27-16.99) 12/10/23 20:21 Hct 38.6 % (36-47) 12/10/23 20:21 MCV 91.9 fl (85-98) 12/10/23 20:21 MCH 30.5 pg (27-33) 12/10/23 20:21 MCHC 33.2 g/dL (30-55) 12/10/23 20:21 RDW 13.2 % (12.1-15.1) 12/10/23 20:21 Plt Count 308 10^3/cmm (157-399) 12/10/23 20:21 MPV 9.1 fL (7.4-10.4) 12/10/23 20:21 Neut % (Auto) 87.0 % 12/10/23 20:21 Lymph % (Auto) 8.5 % 12/10/23 20:21 [place] % (Auto) 3.9 % 12/10/23 20:21 Eos % (Auto) 0.0 % 12/10/23 20:21 Baso % (Auto) 0.1 % 12/10/23 20:21 Neut # (Auto) 11.14 10^3/uL (1.8-7.7) H 12/10/23 20:21 Lymph # (Auto) 1.1 10^3/uL (0.8-4.8) 12/10/23 20:21 [place] # (Auto) 0.5 10^3/uL (0.2-0.9) 12/10/23 20:21 Eos # (Auto) 0.0 10^3/uL (0.0-0.8) 12/10/23 20:21 Baso # (Auto) 0.0 10^3/uL (0.0-0.1) 12/10/23 20:21 Nucleated RBC % (auto) 0 % 12/10/23 20:21 Nucleated RBCs # 0.0 /100WBC 12/10/23 20:21 Sodium 139 mmol/L (136-145) 12/10/23 20:21 Potassium 3.6 mmol/L (3.5-5.1) 12/10/23 20:21 Chloride 102 mmol/L (98-107) 12/10/23 20:21 Carbon Dioxide 19 mmol/L (22-29) L 12/10/23 20:21 Anion Gap 21.6 (5-19) H 12/10/23 20:21 BUN 17 mg/dL (8-23) 12/10/23 20:21 Creatinine 0.9 mg/dL (0.5-0.9) 12/10/23 20:21 GFR Calculation 63.2 mL/min (90-130) L 12/10/23 20:21 Glucose 149 mg/dL (65-115) H 12/10/23 20:21 Calculated Osmolality 292 mOsm/kg (285-295) 12/10/23 20:21 Calcium 9.8 mg/dL (8.5-10.5) 12/10/23 20:21 Magnesium 1.9 mg/dL (1.7-2.3) 12/10/23 20:21 Total Bilirubin 0.2 mg/dL (0.15-1.2) 12/10/23 20:21 AST 24 U/L (0-32) 12/10/23 20:21 ALT 19 U/L (0-33) 12/10/23 20:21 Alkaline Phosphatase 43 U/L (35-105) 12/10/23 20:21 Total Protein 8.0 g/dL (6.6-8.7) 12/10/23 20:21 Albumin 4.8 g/dL (3.5-5.2) 12/10/23 20:21 Globulin 3.2 g/dL (1.3-4.6) 12/10/23 20:21 Urine Color Yellow (Yellow) 12/10/23 21:37 Urine Appearance Clear (CLEAR) 12/10/23 21:37 Urine pH 6 (5-7) 12/10/23 21:37 Ur Specific [place] 1.020 (1.005-1.030) 12/10/23 21:37 Urine Protein Trace (Negative) 12/10/23 21:37 Urine Glucose (UA) 4+ (Normal) H 12/10/23 21:37 Urine Ketones 2+ (Negative) H 12/10/23 21:37 Urine Blood 3+ (Negative) H 12/10/23 21:37 Urine Nitrate Negative (Negative) 12/10/23 21:37 Urine Bilirubin Neg (Negative) 12/10/23 21:37 Urine Urobilinogen Neg mg/dL (Negative) 12/10/23 21:37 Ur Leukocyte Esterase Negative (Negative) 12/10/23 21:37 Urine RBC 5-10 /hpf (0-2) H 12/10/23 21:37 Urine WBC 0-4 /hpf (0-5) H 12/10/23 21:37 Ur Squamous Epith Cells 5-10 /hpf (0-5) H 12/10/23 21:37 Amorphous Sediment 1+ /hpf 12/10/23 21:37 Urine Bacteria Trace /hpf (NONE) 12/10/23 21:37 Urine Mucus 1+ /hpf 12/10/23 21:37 All radiology interpretation(s) finalized by discharge Discharge Plan Discharge Patient Disposition: Home Clinical Impression: Cyclical vomiting with nausea Headache Qualifiers: Headache type: unspecified Headache chronicity pattern: acute headache I ntractability: not intractable Qualified Code(s): R51.9 - Headache, unspecified Condition: Stable Prescriptions: No Action aspirin [Adult Low Dose Aspirin] 81 mg tablet,delayed release (DR/EC) 81 mg PO DAILY@0800 Multivitamin Women 50 Plus 8 mg iron-400 mcg-300 mcg tablet 1 tab PO DAILY@0800 Qty: 30 2RF Daily Probiotic (10 Strains) 4 billion cell capsule 1 cap PO DAILY Qty: 30 2RF albuterol sulfate [ProAir HFA] 90 mcg/actuation HFA aerosol inhaler 2 puff INHALATION QID PRN (Reason: shortness of breath or wheezing) Qty: 18 5RF atorvastatin 40 mg tablet 40 mg PO BEDTIME Qty: 30 5RF azelastine 137 mcg (0.1 %) aerosol,spray 1 spray intranasal BID Qty: 30 5RF Rx Instructions: administer into each nostril Farxiga 5 mg tablet 5 mg PO QAM Qty: 30 5RF escitalopram oxalate 20 mg tablet 20 mg PO DAILY@0800 Qty: 30 5RF fenofibrate nanocrystallized [Tricor] 145 mg tablet 145 mg PO DAILY Qty: 30 5RF hydroxyzine pamoate 25 mg capsule 25 mg PO TID@0800,12,20 Qty: 90 5RF hyoscyamine sulfate [Levsin] 0.125 mg tablet 0.125 mg PO BID Qty: 60 5RF latanoprost (PF) 0.005 % drops 1 drp ophthalmic (eye) BEDTIME@2000 Qty: 7.5 2RF lisinopril 20 mg tablet 20 mg PO DAILY@0800 Qty: 30 5RF Miralax 17 gram/dose powder 17 g PO DAILY PRN (Reason: Constipation) Qty: 510 5RF quetiapine [Seroquel XR] 300 mg tablet extended release 24 hr 300 mg PO .at bedtime for sleep Qty: 30 5RF sodium chloride 1 gram tablet 1,000 mg PO DAILY Qty: 30 5RF sucralfate [Carafate] 1 gram tablet 1 g PO BID Qty: 60 5RF trazodone 100 mg tablet See Rx Instructions PO .at bedtime Qty: 60 5RF Rx Instructions: 100mg-200mg orally AT BEDTIME; Anoro Ellipta 62.5-25 mcg/actuation blister with device 1 inh inhalation Q24H Qty: 60 5RF fluticasone propionate [Flonase Allergy Relief] 50 mcg/actuation spray,suspension 1 spray intranasal DAILY Qty: 16 2RF Rx Instructions: administer into each nostril Discharge Orders: Discharge ED (Routine); Ordered 12/10/23 Ordered By: Flash Spencer Referrals: Vero Moon, KEESHAC [Primary Care Provider] - 1 week Patient Instructions: Headache, Acute Nausea and Vomiting (ED) Activity Restrictions/Additional Instructions: Activity restrictions/additional instructions: Thank you for choosing [facility] for your healthcare needs today. Please realize that you were seen in the emergency department and that we are providing you with an emergency medical screening exam and this may not be a complete and all exclusive of all testing and/or medical workup we may need to determine your element or severity of your illness. It is very important that you follow-up as instructed with your primary care provider or specialist for the additional evaluation and to discuss your medical treatment plan. You may return to the emergency department should you have concerns or if your condition changes or worsens in any way. Coding Level of Care Code ED Yarn Cleaner for Ventura Mayes
[2023-12-10 20:32] LABS: Basophils % 0.1 %; Hematocrit 38.6 % (36-47); Lymphocytes # 1.1 10^3/uL (0.8-4.8); Lymphocytes % 8.5 %; Mean Corpuscular HGB Conc 33.2 g/dL (30-55); Mean Corpuscular Hemoglobin 30.5 pg (27-33); Mean Corpuscular Volume 91.9 fl (85-98); Mean Platelet Volume 9.1 fL (7.4-10.4); Monocytes # 0.5 10^3/uL (0.2-0.9); Monocytes % 3.9 %; Neutrophils # 11.14 10^3/uL (1.8-7.7); Nucleated Red Blood Cells % 0 %; Platelet Count 308 10^3/cmm (157-399); Red Cell Distribution Width 13.2 % (12.1-15.1); White Blood Count 12.81 10^3/uL (3.29-11.43)
[2023-12-10] MEDS: diphenhydrAMINE 50 mg/mL SDV 1mL 25 MG IVP (20:37)
[2023-12-10] MEDS: sodium chloride 0.9% 1,000 ML 999 ML IV (20:37)
[2023-12-10] MEDS: morphine 4 mg/mL SDV 1 mL IVP ×2 (20:37→22:21)
[2023-12-10] MEDS: metoclopramide 5 mg/mL SDV 2 mL 10 MG IVP (20:37)
[2023-12-10 20:44] LABS: Alanine Aminotransferase 19 U/L (0-33); Albumin Level 4.8 g/dL (3.5-5.2); Alkaline Phosphatase 43 U/L (35-105); Anion Gap 21.6 (5-19); Aspartate Amino Transferase 24 U/L (0-32); Blood Urea Nitrogen 17 mg/dL (8-23); Calcium 9.8 mg/dL (8.5-10.5); Carbon Dioxide 19 mmol/L (22-29); Chloride 102 mmol/L (98-107); Creatinine Clr Calc Pharmacy 56.4563; Globulin 3.2 g/dL (1.3-4.6); Glomerular Filtration Rate 63.2 mL/min (90-130); Glucose 149 mg/dL (65-115); Osmolality Calculated 292 mOsm/kg (285-295); Potassium 3.6 mmol/L (3.5-5.1); Sodium 139 mmol/L (136-145); Total Bilirubin 0.2 mg/dL (0.15-1.2)
[2023-12-10 20:52] LABS: Magnesium 1.9 mg/dL (1.7-2.3)
[2023-12-10 22:03] LABS: Add Urine Microscopic? YES; Bilirubin Urine Neg (Negative); Blood Urine 3+ (Negative); Glucose Urine UA 4+ (Normal); Ketones Urine 2+ (Negative); Leukocyte Esterase Urine Negative (Negative); Nitrate Urine Negative (Negative); Protein Urine Trace (Negative); Urine Appearance Clear (CLEAR); Urine Color Yellow (Yellow); Urobilinogen Urine Neg (Negative); pH Urine 6 (5-7)
[2023-12-10 22:04] LABS: Add Urine Culture? No; Amorphous Sediment Urine 1+ /hpf; Bacteria Urine TRACE /hpf; Mucus Urine 1+ /hpf; WBC Urine 0-4 /hpf (0-5)
[2023-12-10 22:23] VITALS: BP 154/97; PULSE 95; RESP 16; O2SAT 95
[2023-12-10 22:32] VITALS: BP 154/97; PULSE 95; RESP 16; TEMP 36.8; O2SAT 95
== END 2023-12-10 22:47 | disposition home or self-care (01) ==
PROVIDERS: Emergency Provider Emergency Medicine; PCP Nurse Practitioner
DX: R51.9 Headache, unspecified (principal); R11.15 Cyclical vomiting syndrome unrelated to migraine; R11.0 Nausea; Z79.82 Long term (current) use of aspirin; F17.290 Nicotine dependence, other tobacco product, uncomplicated; E11.9 Type 2 diabetes mellitus without complications; J44.9 Chronic obstructive pulmonary disease, unspecified; E78.5 Hyperlipidemia, unspecified; I10 Essential (primary) hypertension
CPT/HCPCS: 80053; 81001; 83735; 85025; 96361; 96374; 96375; 96376; 99284; J1200; J2270; J2765; J7030

== ENCOUNTER → 2023-12-17 16:09 | Outpatient (BNVA) | payer MEDICAID, SELFPAY | PROVIDERS: PCP Nurse Practitioner; Visit Provider Specialist | DX: M17.12 Unilateral primary osteoarthritis, left knee (principal); S89.90XA Unspecified injury of unspecified lower leg, initial encounter; X58.XXXA Exposure to other specified factors, initial encounter | CPT/HCPCS: 36415; 73560; 73565; 80053; 81003; 85025; 99204 ==

== ENCOUNTER → 2023-12-23 12:31 | Outpatient (BNVA) | payer MEDICAID, SELFPAY | PROVIDERS: PCP Nurse Practitioner; Visit Provider Internal Medicine | DX: E11.51 Type 2 diabetes mellitus with diabetic peripheral angiopathy without gangrene (principal); E11.65 Type 2 diabetes mellitus with hyperglycemia; Z79.84 Long term (current) use of oral hypoglycemic drugs; I10 Essential (primary) hypertension; I25.10 Atherosclerotic heart disease of native coronary artery without angina pectoris; F17.290 Nicotine dependence, other tobacco product, uncomplicated | CPT/HCPCS: 99214 ==

== ENCOUNTER 2023-12-29 16:33 | Emergency (ER) | payer MEDICAID, SELFPAY ==
[2023-12-29 16:46] VITALS: BP 137/92; PULSE 92; RESP 18; TEMP 36.8; O2SAT 99
--- NOTE | 2023-12-29 16:50 | W.ED.NAVMDI ---
HPI - Nausea/Vomiting/Diarrhea General: Chief complaint: Nausea/Vomiting/Diarrhea Stated complaint: N/V Time Seen by Provider: 12/29/23 16:36 History of Present Illness: Patient with known history of diabetes, hypertension, depression, COPD, cyclic vomiting and cannabis induced cyclic vomiting who presents to the emergency room with vomiting. Said this started this morning about 7 AM. No focal abdominal pain. She was unable to get her Phenergan or Zofran down that she normally does. She says she last smoked marijuana yesterday. No chest pain no shortness of breath. No altered mental status. No focal motor deficits. Review of Systems Narrative: Constitutional symptoms: Negative except as documented in HPI. Skin symptoms: Negative except as documented in HPI. Eye symptoms: Negative except as documented in HPI. ENMT symptoms: Negative except as documented in HPI. Respiratory symptoms: Negative except as documented in HPI. Cardiovascular symptoms: Negative except as documented in HPI. Gastrointestinal symptoms: Negative except as documented in HPI. Genitourinary symptoms: Negative except as documented in HPI. Musculoskeletal symptoms: Negative except as documented in HPI. Neurologic symptoms: Negative except as documented in HPI. Psychiatric symptoms: Negative except as documented in HPI. Endocrine symptoms: Negative except as documented in HPI. PFSH ED PFSH: Medical History Diabetes mellitus with hyperglycemia, without long-term current use of insulin Insomnia due to medical condition Cyclical vomiting with nausea Nasal congestion with rhinorrhea Glaucoma (increased eye pressure) Smoker Urinary frequency COPD (chronic obstructive pulmonary disease) Dyslipidemia Osteoarthritis Anxiety and depression Essential (primary) hypertension Surgical History History of cataract extraction Bilateral 2020 Hx of arthroscopic knee surgery (~2012) left History of carpal tunnel release of both wrists Family History Other COPD (chronic obstructive pulmonary disease) Cancer Social History Smoking and tobacco/nicotine status: current every day tobacco/nicotine user e-cigarettes Second hand smoke exposure: Yes Alcohol intake: never Substance/Drug Use: unknown Adopted: No Caregiver/support person: No Lives independently: Yes Household members: spouse Housing: House Marital status: service: No Current occupational status: unemployed Current occupational exposures/hazards: No Do you think of yourself as: Straight/Heterosexual Current gender identity: Female Physical Exam Narrative: EXAM NARRATIVE: General: Alert, no acute distress. Skin: Warm, dry. Head: Normocephalic, atraumatic. Neck: Supple, trachea midline. Eye: Extraocular movements are intact. Ears, nose, mouth and throat: Dry oral mucosa Cardiovascular: Regular, Normal peripheral perfusion. Respiratory: Lungs are clear to auscultation, respirations are non-labored, breath sounds are equal, Symmetrical chest wall expansion. Gastrointestinal: Soft, Nontender, Non distended, Normal bowel sounds. Musculoskeletal: Normal ROM, no deformity. Neurological: Alert and oriented, No focal neurological deficit observed. Psychiatric: Cooperative, appropriate mood & affect. Course Vital Signs: Vital signs: Vital Signs Temperature 98.2 F 12/29/23 16:46 Pulse Rate 98 12/29/23 19:26 Respiratory Rate 15 12/29/23 19:26 Blood Pressure 110/93 12/29/23 19:26 Pulse Oximetry 95 12/29/23 19:26 Oxygen Delivery Me thod Room Air 12/29/23 19:26 MDM - Nausea/Vomiting/Diarrhea Medical Decision Making Medical decision making: Differential diagnosis including but not limited to and based on the above HPI, review of systems and physical exam: Patient likely is just having an exacerbation of her usual cyclic vomiting. However will check basic lab work to rule out renal failure. Urinalysis to rule out any kind of urinary tract infection. Lipase to rule out pancreatitis. Hepatic panel Orders placed to evaluate differential diagnosis based on the above differential, HPI and physical exam Lab Review: Laboratory results were reviewed and interpreted by myself the emergency room physician. White count is 11. Hemoglobin 13.4. No renal failure. Her BUN and creatinine are 19 and 0.9. Urinalysis shows a urinary tract infection. I reviewed the patient's medical record. Lab Data 12/29/23 17:24 12/29/23 17:24 Laboratory Results WBC 11.17 10^3/uL (3.29-11.43) 12/29/23 17:24 RBC 4.38 10^6/uL (3.85-5.65) 12/29/23 17:24 Hgb 13.40 g/dL (11.27-16.99) 12/29/23 17: Hct 40.6 % (36-47) 12/29/23: MCV 92.7 fl (85-98) 12/29/23 17:24 MCH 30.6 pg (27-33) 12/29/23: MCHC 33.0 g/dL (30-55) 12/29/23: RDW 13.3 % (12.1-15.1) 12/29/23: Plt Count 391 10^3/cmm (157-399) 12/29/23: MPV 9.1 fL (7.4-10.4) 12/29/23: Neut % (Auto) 86.5 % 12/29/23: Lymph % (Auto) 9.9 % 12/29/23: [place] % (Auto) 2.9 % 12/29/23: Eos % (Auto) 0.0 % 12/29/23: Baso % (Auto) 0.2 % 12/29/23: Neut # (Auto) 9.66 10^3/uL (1.8-7.7) H 12/29/23: Lymph # (Auto) 1.1 10^3/uL (0.8-4.8) 12/29/23: [place] # (Auto) 0.3 10^3/uL (0.2-0.9) 12/29/23: Eos # (Auto) 0.0 10^3/uL (0.0-0.8) 12/29/23: Baso # (Auto) 0.0 10^3/uL (0.0-0.1) 12/29/23: Nucleated RBC % (auto) 0 % 12/29/23: Nucleated RBCs # 0.0 /100WBC 12/29/23 17: Sodium 140 mmol/L (136-145) 12/29/23:24 Potassium 3.6 mmol/L (3.5-5.1) 12/29/23: Chloride 103 mmol/L (98-107) 12/29/23 17:24 Carbon Dioxide 22 mmol/L (22-29) 12/29/23 17:24 Anion Gap 18.6 (5-19) 12/29/23 17:24 BUN 19 mg/dL (8-23) 12/29/23 17:24 Creatinine 0.9 mg/dL (0.5-0.9) 12/29/23 17:24 GFR Calculation 63.2 mL/min (90-130) L 12/29/23 17:24 Glucose 152 mg/dL (65-115) H 12/29/23 17:24 Calculated Osmolality 295 mOsm/kg (285-295) 12/29/23 17:24 Calcium 9.5 mg/dL (8.5-10.5) 12/29/23 17:24 Total Bilirubin 0.4 mg/dL (0.15-1.2) 12/29/23 17:24 AST 25 U/L (0-32) 12/29/23 17:24 ALT 18 U/L (0-33) 12/29/23 17:24 Alkaline Phosphatase 50 U/L (35-105) 12/29/23 17:24 C-Reactive Protein 3.0 mg/L (0.0-4.9) 12/29/23 17:24 Total Protein 8.2 g/dL (6.6-8.7) 12/29/23 17:24 Albumin 5.1 g/dL (3.5-5.2) 12/29/23 17:24 Globulin 3.1 g/dL (1.3-4.6) 12/29/23 17:24 Lipase 30 U/L (13-60) 12/29/23 17:24 Urine Color Dark yellow (Yellow) 12/29/23 19:17 Urine Appearance Clear (CLEAR) 12/29/23 19:17 Urine pH 6 (5-7) 12/29/23 19:17 Ur Specific [place] 1.015 (1.005-1.030) 12/29/23 19:17 Urine Protein 1+ (Negative) H 12/29/23 19:17 Urine Glucose (UA) 4+ (Normal) H 12/29/23 19:17 Urine Ketones 1+ (Negative) H 12/29/23 19:17 Urine Blood 3+ (Negative) H 12/29/23 19:17 Urine Nitrate Negative (Negative) 12/29/23 19:17 Urine Bilirubin Neg (Negative) 12/29/23 19:17 Urine Urobilinogen Norm mg/dL (Negative) 12/29/23 19:17 Ur Leukocyte Esterase Trace (Negative) H 12/29/23 19:17 Urine RBC 10-15 /hpf (0-2) H 12/29/23 19:17 Urine WBC 5-10 /hpf (0-5) H 12/29/23 19:17 Ur Squamous Epith Cells 5-10 /hpf (0-5) H 12/29/23 19:17 Amorphous Sediment Not Reportable 12/29/23 19:17 Urine Bacteria 1+ /hpf (NONE) H 12/29/23 19:17 No radiology studies performed this visit Other Data Assessment and plan: Cyclic vomiting Urinary tract infection -I had ordered fluids for the patient but she had lost her IV and declines any further IV medications. She received IV Zofran Compazine and Benadryl. She then received IM Phenergan. She also received IM Rocephin for UTI - Discharged home - Discussed findings and plan with patient. Answered any questions. - All laboratory values were reviewed and interpreted personally by myself, the ER physician - All imaging was reviewed and interpreted personally by myself, the ER physician. - Evaluation and treatment of this problem were appropriate in the emergency setting Discharge Plan Discharge Patient Disposition: Home Clinical Impression: Cyclical vomiting with nausea, Urinary tract infection Condition: Stable Prescriptions: New promethazine 25 mg suppository 25 mg DC Q6H PRN (Reason: nausea and vomiting) Qty: 12 0RF ondansetron 8 mg tablet,disintegrating 8 mg PO .q6 PRN (Reason: nausea and vomiting) Qty: 14 0RF cefdinir 300 mg capsule 300 mg PO BID 5 Days Qty: 10 0RF No Action aspirin [Adult Low Dose Aspirin] 81 mg tablet,delayed release (DR/EC) 81 mg PO DAILY@0800 Multivitamin Women 50 Plus 8 mg iron-400 mcg-300 mcg tablet 1 tab PO DAILY@0800 Qty: 30 2RF Daily Probiotic (10 Strains) 4 billion cell capsule 1 cap PO DAILY Qty: 30 2RF albuterol sulfate [ProAir HFA] 90 mcg/actuation HFA aerosol inhaler 2 puff INHALATION QID PRN (Reason: shortness of breath or wheezing) Qty: 18 5RF atorvastatin 40 mg tablet 40 mg PO BEDTIME Qty: 30 5RF azelastine 137 mcg (0.1 %) aerosol,spray 1 spray intranasal BID Qty: 30 5RF Rx Instructions: administer into each nostril Farxiga 5 mg tablet 5 mg PO QAM Qty: 30 5RF escitalopram oxalate 20 mg tablet 20 mg PO DAILY@0800 Qty: 30 5RF fenofibrate nanocrystallized [Tricor] 145 mg tablet 145 mg PO DAILY Qty: 30 5RF hydroxyzine pamoate 25 mg capsule 25 mg PO TID@0800,12,20 Qty: 90 5RF hyoscyamine sulfate [Levsin] 0.125 mg tablet 0.125 mg PO BID Qty: 60 5RF latanoprost (PF) 0.005 % drops 1 drp ophthalmic (eye) BEDTIME@2000 Qty: 7.5 2RF lisinopril 20 mg tablet 20 mg PO DAILY@0800 Qty: 30 5RF Miralax 17 gram/dose powder 17 g PO DAILY PRN (Reason: Constipation) Qty: 510 5RF quetiapine [Seroquel XR] 300 mg tablet extended release 24 hr 300 mg PO .at bedtime for sleep Qty: 30 5RF sodium chloride 1 gram tablet 1,000 mg PO DAILY Qty: 30 5RF sucralfate [Carafate] 1 gram tablet 1 g PO BID Qty: 60 5RF trazodone 100 mg tablet See Rx Instructions PO .at bedtime Qty: 60 5RF Rx Instructions: 100mg-200mg orally AT BEDTIME; Anoro Ellipta 62.5-25 mcg/actuation blister with device 1 inh inhalation Q24H Qty: 60 5RF fluticasone propionate [Flonase Allergy Relief] 50 mcg/actuation spray,suspension 1 spray intranasal DAILY Qty: 16 2RF Rx Instructions: administer into each nostril promethazine 12.5 mg suppository 12.5 mg DC Q6H PRN (Reason: nausea and vomiting) Qty: 12 0RF Discharge Orders: Discharge ED (Routine); Ordered 12/29/23 Ordered By: Cecille Munson Referrals: Vero Moon, [employer] [Primary Care Provider] - (You have been screened and evaluated and felt safe for discharge. Health conditions do change or evolve sometimes and as such it is important that you follow up with your Primary Doctor to be re checked, 3-5 days is a general good time frame for follow up. You are always welcome to return to the ED for re assessment if your symptoms are worsening or you have new concerns) Discharge Diet: Advance as tolerated Discharge Activity: Increase activity as tolerated Patient Instructions: Cyclic Vomiting Syndrome (ED), Opioid Safety, Pain Management Coding Level of Care Code ED Showroom Executive Director for Ventura Mayes
[2023-12-29] MEDS: sodium chloride 0.9% 1,000 ML 999 ML IV (16:54)
[2023-12-29] MEDS: ondansetron 2 mg/ML SDV 2 mL 8 MG IVP (16:56)
[2023-12-29] MEDS: prochlorperazine 10 mg/2 mL Inj IVP (16:57)
[2023-12-29] MEDS: diphenhydrAMINE 50 mg/mL SDV 1mL 25 MG IVP (16:59)
[2023-12-29 17:51] LABS: Basophils % 0.2 %; Hematocrit 40.6 % (36-47); Lymphocytes # 1.1 10^3/uL (0.8-4.8); Lymphocytes % 9.9 %; Mean Corpuscular Hemoglobin 30.6 pg (27-33); Mean Corpuscular Volume 92.7 fl (85-98); Mean Platelet Volume 9.1 fL (7.4-10.4); Monocytes # 0.3 10^3/uL (0.2-0.9); Monocytes % 2.9 %; Neutrophils # 9.66 10^3/uL (1.8-7.7); Neutrophils % 86.5 %; Nucleated Red Blood Cells % 0 %; Platelet Count 391 10^3/cmm (157-399); Red Blood Count 4.38 10^6/uL (3.85-5.65); Red Cell Distribution Width 13.3 % (12.1-15.1); White Blood Count 11.17 10^3/uL (3.29-11.43)
[2023-12-29 18:03] LABS: Alanine Aminotransferase 18 U/L (0-33); Albumin Level 5.1 g/dL (3.5-5.2); Alkaline Phosphatase 50 U/L (35-105); Anion Gap 18.6 (5-19); Aspartate Amino Transferase 25 U/L (0-32); Blood Urea Nitrogen 19 mg/dL (8-23); Calcium 9.5 mg/dL (8.5-10.5); Carbon Dioxide 22 mmol/L (22-29); Chloride 103 mmol/L (98-107); Globulin 3.1 g/dL (1.3-4.6); Glomerular Filtration Rate 63.2 mL/min (90-130); Glucose 152 mg/dL (65-115); Lipase 30 U/L (13-60); Osmolality Calculated 295 mOsm/kg (285-295); Potassium 3.6 mmol/L (3.5-5.1); Sodium 140 mmol/L (136-145); Total Bilirubin 0.4 mg/dL (0.15-1.2); Total Protein 8.2 g/dL (6.6-8.7)
[2023-12-29 19:26] VITALS: BP 110/93; PULSE 98; RESP 15; O2SAT 95
[2023-12-29] MEDS: promethazine 25 mg/mL SDV 1 mL 50 MG IM (19:59)
[2023-12-29 20:11] LABS: Bilirubin Urine Neg (Negative); Blood Urine 3+ (Negative); Glucose Urine UA 4+ (Normal); Ketones Urine 1+ (Negative); Leukocyte Esterase Urine Trace (Negative); Nitrate Urine Negative (Negative); Protein Urine 1+ (Negative); Specific Gravity, Urine 1.015 (1.005-1.030); Urine Appearance Clear (CLEAR); Urine Color Dark Yellow (Yellow); Urobilinogen Urine Norm (Negative); pH Urine 6 (5-7)
[2023-12-29 20:12] LABS: Bacteria Urine 1+ /hpf
[2023-12-29 20:13] LABS: Add Urine Culture? Yes
[2023-12-29] MEDS: cefTRIAXone 1,000 MG in water for injection-sterile 2.1 ML 2.10000000000000009 MG IM (20:31)
--- NOTE | 2023-12-29 20:37 | XRR_ITS ---
PROCEDURE INFORMATION: Exam: XR Abdomen Exam date and time: 12/29/2023 8:41 PM Age: 63 years old Clinical indication: Nausea and vomiting; Prior surgery; Surgery date: 6+ months; Surgery type: Hyst TECHNIQUE: Imaging protocol: Radiologic exam of the abdomen. Views: 2 Views. Upright and supine views. COMPARISON: CR (CHEST, ) 03/21/2023 8:17 PM FINDINGS: Gastrointestinal tract: Normal. No bowel dilation. Normal stool amount. Intraperitoneal space: Normal. No free air. Bones/joints: Unremarkable for age. XR/XR acute abdomen series [id number] IMPRESSION: No acute findings.
[2023-12-29] MEDS: haloperidol inj 5 mg/mL INJ 1 mL 10 MG IM (20:55)
[2023-12-29 22:04] VITALS: BP 153/98; PULSE 94; RESP 18; O2SAT 95
== END 2023-12-29 22:18 | disposition home or self-care (01) ==
PROVIDERS: Emergency Provider Emergency Medicine; PCP Nurse Practitioner
DX: R11.15 Cyclical vomiting syndrome unrelated to migraine (principal); N39.0 Urinary tract infection, site not specified; Z79.82 Long term (current) use of aspirin; F17.290 Nicotine dependence, other tobacco product, uncomplicated; E11.9 Type 2 diabetes mellitus without complications; J44.9 Chronic obstructive pulmonary disease, unspecified; E78.5 Hyperlipidemia, unspecified; I10 Essential (primary) hypertension
CPT/HCPCS: 36415; 74022; 80053; 81001; 83690; 85025; 86140; 87086; 96361; 96372; 96374; 96375; 99284; J0696; J0780; J1200; J1630; J2405; J2550; J7030

== ENCOUNTER 2024-01-01 07:41 | Outpatient (CLI) | payer MEDICAID, SELFPAY ==
--- NOTE | 2024-01-01 08:00 | CT_ITS ---
WS: [id number] CT LEFT knee, noncontrast HISTORY: SURGERY TECHNIQUE: Protocol for CINDY total knee replacement has been obtained. This includes axial imaging th rough the LEFT hip, LEFT knee and LEFT ankle. DLP: 858.31 mGy.cm COMPARISON: None available. Pelvis: Symmetric appearance of the pelvis and hips. No fractures. Scattered sigmoid diverticula. No acute diverticulitis. There is a loop of GI tract at the orifice of the RIGHT inguinal canal but no h erniation. Prior surgical sutures LEFT inguinal region. Mild to moderate tricompartment osteoarthritis. Marginal osteophytes. No fractures or destruction. No rmal patellar position. There is a large fluid collection along the medial knee with a central calcif ication. No significant suprapatellar joint effusion. Negative LEFT ankle. IMPRESSION: CT imaging provided for [facility] robotic total knee replacement.
== END 2024-01-01 07:42 | disposition home or self-care (01) ==
LOC: RAD 07:42
PROVIDERS: PCP Nurse Practitioner; Visit Provider Specialist
DX: M17.12 Unilateral primary osteoarthritis, left knee (principal); M25.762 Osteophyte, left knee
CPT/HCPCS: 73700

== ENCOUNTER → 2024-01-19 11:37 | Outpatient (BNVA) | payer MEDICAID, SELFPAY | PROVIDERS: PCP Nurse Practitioner; Visit Provider Family Medicine | DX: Z01.818 Encounter for other preprocedural examination (principal) | CPT/HCPCS: 81003; 93005 ==

== ENCOUNTER 2024-01-29 15:52 | Observation (INO) | payer MEDICAID, SELFPAY ==
[2024-01-29] VITALS (12 sets, daily range): BP systolic 105–171; BP diastolic 71–95; PULSE 76–96; RESP 10–18; TEMP 36.4–37.1; O2SAT 94–99; BMI 27.9
--- NOTE | 2024-01-29 09:30 | P.HPUD_ITS ---
Surgery/Procedure H&P Update DATE OF PROCEDURE: January 29, 2024 DATE H&P PERFORMED: 01/19/24 H&P UPDATE INFORMATION: I have reviewed H&P completed within last 30 days, Changes to prior documentation as noted here and H&P is in [facility] EMR on date indicated PLANNED PROCEDURE: Operation Date: 01/29/24 14:20 Proposed Procedures p Maurice Robot Total Knee Arthroplasty(Left) - Christina Bishop MD Related Problem List Diagnoses (1) Left knee DJD: Qualifiers: Osteoarthritis type: primary Qualified Code(s): M17.12 - Unilateral primary osteoarthritis, left knee
[2024-01-29] MEDS: sodium chloride 0.9% 1,000 ML 30 ML IV (09:42)
[2024-01-29] MEDS: acetaminophen 1,000 MG/100 ML PIGGYBACK 400 MG IV (09:42)
[2024-01-29] MEDS: CELEcoxib 200 mg Capsule 400 MG PO (09:42)
[2024-01-29] MEDS: gabapentin 300 mg Capsule PO (09:42)
--- NOTE | 2024-01-29 10:00 | ANES.PREANE2 ---
Pre-Anesthetic Assessment Height/Weight: Height 1.55 m Weight 67.132 kg Temp Pulse Resp BP Pulse Ox O2 Del Method 97.9 F 77 18 171/95 96 Room Air 01/29/24 09:16 01/29/24 09:16 01/29/24 09:16 01/29/24 09:16 01/29/24 09:16 01/29/24 09:23 Operation Date: 01/29/24 14:20 Proposed Procedures p Maurice Robot Total Knee Arthroplasty(Left) - Christina Bishop MD Familial anesthetic complications: none Was Beta Kassy taken within 24 hours: N/A Was Clonidine taken within 24 hours: N/A Last intake: Intake Last Liquid Date 01/28/24 Last Liquid Time 22:00 Last Solid Date 01/28/24 Last Solid Time 20:30 Social No alcohol and No tobacco (former smoker) Exam alert, oriented x 3, clear to auscultation bilaterally and regular rate & rhythm Pulmonary Asthma and Chronic Obstructive Pulmonary Disease CV/HEM Coronary Artery Disease (small ischemia on stress test - medical management per cardiology with no further inteverventions or modifications required to optimize her cardiac status for knee surgery; patient denies any changes in cardiac clinical status since cardiology visit, no cp, no syncope), Hypertension and Peripheral Vascular Disease (SC artery bypass at age 38) Metabolic Diabetes Mellitus Anesthetic Plan ASA status: 3 Anesthesia: Regional (specify below) Risk of > 500 ml blood loss (7ml/kg in children): No Medications/Allergies Home Medications Medication Instructions Recorded Confirmed Last Taken Type aspirin 81 mg tablet,delayed 81 mg PO DAILY@0800 03/14/20 01/28/24 01/19/24 History release (Adult Low Dose Aspirin) nmoqjcsk-ghcf-htta 8 mg-folic 400 1 tab PO DAILY@0800 #30 tabs 07/18/22 01/28/24 01/28/24 Rx mcg-K 50 mcg-lutein 300 mcg tablet (Multivitamin Women 50 Plus) Lactobac 51-Bifidobac 1 cap PO DAILY #30 caps 06/02/23 01/28/24 01/28/24 Rx 3-L.lactis-S.thermophilus 4 billion cell capsule (Daily Probiotic (10 Strains)) albuterol sulfate 90 mcg/actuation 2 puff inhalation QID PRN 11/10/23 01/28/24 01/25/24 Rx aerosol inhaler (ProAir HFA) shortness of breath or wheezing #18 grams atorvastatin 40 mg tablet 40 mg PO BEDTIME #30 tabs 11/10/23 01/28/24 01/28/24 Rx dapagliflozin propanediol 5 mg 5 mg PO QAM #30 tabs 11/10/23 01/28/24 01/28/24 Rx tablet (Farxiga) escitalopram oxalate 20 mg tablet 20 mg PO DAILY@0800 #30 tabs 11/10/23 01/28/24 01/28/24 Rx fenofibrate nanocrystallized 145 145 mg PO DAILY #30 tabs 11/10/23 01/26/24 Unknown Rx mg tablet (Tricor) hydroxyzine pamoate 25 mg capsule 25 mg PO TID@0800,12,20 #90 caps 11/10/23 01/28/24 01/28/24 Rx hyoscyamine sulfate 0.125 mg 0.125 mg PO BID #60 tabs 11/10/23 01/28/24 01/28/24 Rx tablet (Levsin) latanoprost (PF) 0.005 % eye drops 1 drp ophthalmic (eye) 11/10/23 01/28/24 01/28/24 Rx BEDTIME@2000 #7.5 mL polyethylene glycol 3350 17 17 g PO DAILY PRN Constipation 11/10/23 01/28/24 Unknown Rx gram/dose oral powder (Miralax) #510 grams quetiapine 300 mg tablet,extended 300 mg PO .at bedtime for sleep 11/10/23 01/28/24 01/28/24 Rx release 24 hr (Seroquel XR) #30 tabs sodium chloride 1 gram tablet 1,000 mg PO DAILY #30 tabs 11/10/23 01/28/24 01/28/24 Rx sucralfate 1 gram tablet (Carafate) 1 g PO BID #60 tabs 11/10/23 01/28/24 01/28/24 Rx trazodone 100 mg tablet See Rx Instructions PO .at bedtime 11/10/23 01/28/24 01/28/24 Rx #60 tabs umeclidinium 62.5 mcg-vilanterol 1 inh inhalation Q24H #60 ea 03/04/24 05/22/24 05/22/24 Rx 25 mcg/actuation powdr for inhalation (Anoro Ellipta) promethazine 12.5 mg rectal 12.5 mg [place] Q6H PRN nausea and 12/11/23 01/28/24 Unknown Rx suppository vomiting #12 ea ondansetron 8 mg disintegrating 8 mg PO .q6 PRN nausea and 12/29/23 01/28/24 Unknown Rx tablet vomiting #14 tabs promethazine 25 mg rectal 25 mg [place] Q6H PRN nausea and 12/29/23 01/28/24 Unknown Rx suppository vomiting #12 ea fluticasone propionate 50 1 spray intranasal DAILY #16 grams 01/26/24 01/28/24 01/28/24 Rx mcg/actuation nasal spray,suspension (Flonase Allergy Relief) valsartan 40 mg tablet (Diovan) 40 mg PO DAILY #30 tabs 01/26/24 01/28/24 Unknown Rx Allergies Allergy/AdvReac Type Severity Reaction Status Date / Time lisinopril AdvReac Severe ADR-Cough Verified 01/26/24 10:43 benztropine [From Cogentin] AdvReac visual Verified 01/26/24 10:16 disturbance zolpidem [From Ambien] AdvReac Sleep walk Verified 01/26/24 10:16 Current Medications Generic Name Dose Route Start Last Admin Trade Name Freq PRN Reason Stop Dose Admin Sodium Chloride 1,000 mls @ 30 mls/hr 01/29/24 09:00 01/29/24 09:42 Sodium Chloride 0.9% IV 01/30/24 08:59 30 mls/hr .Q24H JENNIFER Administration PFSH Anesthesia Medical History Diabetes mellitus with hyperglycemia, without long-term current use of insulin Insomnia due to medical condition Cyclical vomiting with nausea Nasal congestion with rhinorrhea Glaucoma (increased eye pressure) Smoker Urinary frequency COPD (chronic obstructive pulmonary disease) Dyslipidemia Osteoarthritis Anxiety and depression Essential (primary) hypertension Surgical History History of cataract extraction Bilateral 2020 Hx of arthroscopic knee surgery (~2012) left History of carpal tunnel release of both wrists Family History Other COPD (chronic obstructive pulmonary disease) Cancer Social History Smoking and tobacco/nicotine status: former use of tobacco/nicotine Second hand smoke exposure: Yes Alcohol intake: never Substance/Drug Use: unknown Adopted: No Caregiver/support person: No Lives independently: Yes Household members: spouse Housing: House Marital status: service: No Current occupational status: unemployed Current occupational exposures/hazards: No Do you think of yourself as: Straight/Heterosexual Current gender identity: Female Data Anesthesia Cardiac Studies: Echocardiogram 08/04/23 Sestamibi Stress Test (Cardiology) 08/04/23 Holter Monitor 02/13/21
[2024-01-29] MEDS: midazolam 1 mg/mL INJ 5 ML 5 MG IVP (10:03)
--- NOTE | 2024-01-29 10:17 | ANES.PROC ---
Anesthesia Procedures Procedure/Date: 01/29/24 Nerve Block ^: Nerve Block 1: Main Anesthesia: spinal anesthesia block Time Out Performed: Yes Consent: requested by attending/covering physician, from patient, from other, risks and benefits reviewed and patient agrees to proceed Nerve block location: adductor canal (L) Anesthesia monitors applied: pulse oximetry, EKG, BP cuff and oxygen Nerve block position: supine Anesthetic Used: ropivicaine 0.5% (30 ml) and with decadron (4 mg) Ultrasound used to: recognize landmarks and visualize and ID femerol nerve Nerve Stimulator Used?: No Interscalene/Femoral BLK: 4 stimuplex 21 g needle used for position and inplane approach, visualize local anesthetic spread and no vascular puncture identified Injection: neg aspiration of heme Patient Tolerated Procedure: well and no complications Complications: none
[2024-01-29] MEDS: midazolam 1 mg/mL INJ 2 mL 2 MG IVP (11:40)
[2024-01-29] MEDS: fentaNYL 50 mcg/mL INJ 2mL IVP (11:43)
--- NOTE | 2024-01-29 11:44 | SUR.PREOP ---
11:40 PT WITH C/O KNEE PAIN AND ANXIETY. PT MEDICATED. SIDE RAILS UP CALL [place] IN REACH. PT REMAINS ON PULSE OX AND O2.
[2024-01-29] MEDS: ceFAZolin 2,000 MG in sodium chloride 0.9% (plus) 50 ML 100 MG IV (13:33)
[2024-01-29] MEDS: tranexamic acid 1,000 mg/10mL SDV 1000 MG IV (14:05)
[2024-01-29] MEDS: BUPivacaine 0.5% INJ 10 mL 20 ML INJECTION (14:40)
[2024-01-29] MEDS: BUPivacaine liposome 13.3 mg/mL SDV 10 mL 266 MG INFILTRATI (14:40)
[2024-01-29] MEDS: ceFAZolin 1,000 mg SDV 2000 MG IRRIGATION (14:41)
[2024-01-29] MEDS: vancomycin 1,000 MG SDV 1000 MG XX (14:43)
--- NOTE | 2024-01-29 16:49 | XRR_ITS ---
PROCEDURE INFORMATION: Exam: XR Left Knee Exam date and time: 01/29/2024 5:01 PM Age: 63 years old Clinical indication: Device placement; Other: Post knee arthroplasty; Additional info: Status post left total knee arthroplasty TECHNIQUE: Imaging protocol: Radiologic exam of the left knee. Views: 1 or 2 views. COMPARISON: CT knee LT [facility] [id number] 01/01/2024 8:08 AM FINDINGS: Bones/joints: Total knee arthroplasty without evidence of hardware failure or loosening. Postsurgical soft tissue thickening , soft tissue gas along the medial distal thigh and intra-articular soft tissue gas presumed related to recent surgery . No periprosthetic or other fractures. Soft tissues: No additional abnormality. XR/XR knee LT 1-2V [id number] IMPRESSION: Soft tissue air in the distal thigh and intra-articular air presumed due to recent total knee arthroplasty. No evidence of hardware failure or loosening.
--- NOTE | 2024-01-29 17:20 | PM.OP ---
Operative Report Date of procedure: January 29, 2024 Pre-op diagnosis: Severe degenerative osteoarthritis of the left knee Post-op diagnosis: Severe degenerative osteoarthritis of the left knee Post-op findings: Significant degenerative osteoarthritis of the left knee with slight flexion contracture Procedure done: Left total knee arthroplasty with Maurice guidance Implants: The [place] total knee system with a size 2 triathlon cruciate retaining femur left, a triathlon TriTanium tibial component size 3, a triathlon X3 tibial bearing CS insert size 3 X 9 mm and a triathlon TriTanium asymmetric patella size 29 x 9 mm Specimens removed/disposition: Bone, disposed of Surgeon: Christina Bishop MD Wildlife Refuge Manager: [email or web address] operating room technicians Anesthesia: Spinal (With MAC, ASA 3) Estimated blood loss (mL): 100 Tourniquet time (min): 0 (Not utilized) IV fluids (mL): 1,500 Urine output (mL): 200 Complications: None Findings: Significant degenerative osteoarthritis with some laxity laterally. Condition: stable Disposition: PACU (Then transfer to floor for postop rehabilitation and pain management) Brief History: This 63-year-old woman presents today for same-day surgery in the form of left total knee arthroplasty. The patient noted her pain preoperatively was 9 of 10. She has been treated with multiple conservative measures, and she has significant impact on her activities of daily living. At this point, the patient wished to proceed with total knee arthroplasty. Risks and complications were discussed with her in the office. Consents were signed and questions were answered. Procedure: The patient was brought to the operating theater, and she was administered a spinal anesthesia with MAC, ASA 3. The patient also had a supplemental adductor block.? Following this, the left lower extremity was prepped with Dura-Prep and draped in usual fashion following placement of a tourniquet high on the leg. The leg was then draped free.? Tourniquet was not elevated during the case.? A surgical pause was performed, and at the time of the surgical pause, we confirmed the site and side of surgery. Additionally, we confirmed the appropriate and timely administration of preoperative antibiotics, Ancef 2 g and Transexemic acid 1 g.? The availability of equipment was confirmed, and the patient's identity was verbalized as well. Following the surgical pause, an incision was made centering over the patella continuing proximally and distally as necessary to allow access to the knee joint. Dissection continued through skin and soft tissues using a scalpel. Hemostasis was obtained using electrocautery. The skin incision was followed by a median parapatellar arthrotomy. The leg was extended and the patella was able to be displaced laterally without difficulty.? Medial release was initially accomplished to allow placement for the Maurice array.? Appropriate arrays and markers were placed in appropriate position for use of the Maurice.? Preoperative planning had been accomplished and was discussed in detail with the [facility] human resources representative.? Intraoperative mapping of the femur and tibia was accomplished after the arrays were placed.? Internal markers were also placed.? Once we had accomplished the [facility] mapping, we began the appropriate resections for placement of the prosthesis.? The plan was for a cruciate retaining right total knee arthroplasty.? Medial releases were accomplished prior to the surgical procedure to allow balancing of the knee. Once appropriate mapping had been accomplished retraction was established using manual retraction by surgical technicians and also the [facility] leg positioner and retractors.? The knee was evaluated.? There was significant osteoarthritic change with significant osteophyte formation and significant varus.? First cuts were made on the femur.? Appropriate resection of bone was accomplished with the Maurice guidance.? The femur was sized to a size 2.? Following the tibial cut, the tibia to a size 3.? Osteophytes were removed prior to beginning bony resection. A trial reduction was accomplished after osteophytes have been removed as well as the medial and lateral menisci.? We had removed the anterior cruciate ligament at the beginning of the case and preserved the posterior cruciate ligament.? Trial reduction was accomplished with a size 2 femoral posterior cruciate retaining component and a size 3 tibial tray with a size 3 x 9mm CS tibial bearing insert.? Alignment and balance were felt to be appropriate. Trial components were removed after the femur had been drilled.? Prior to removal of the tibial tray which had been pinned in position with appropriate rotation as determined by the [facility] plan, we broached the tibia.? All trial components were removed, and the wound was irrigated.? Plans were made for insertion of the prosthetic components.? Prior to this, the patella was manually prepared.? After resection of the articular surface with the patellar james, it was measured and measured a 29 mm asymmetric patella.? We resected approximately 7 mm of patella as it was noted to be quite thin.? Patellar height was restored with the patellar component. Once again, the wound was irrigated.? The Tritanium tibia was impacted into position.? The beaded femur was then impacted into position in a cementless fashion. The CS tibial insert was placed prior to placement of the femoral component. The patella was pressed into position with a patellar clamp.? Exparel was injected about the components deep and superficially.? The knee was then copiously irrigated with betadine and saline and suctioned dry. Attention was then directed to closure. Closure was accomplished with 0 Vicryl in the fascial tissues.? The suture line of 0 Vicryl was supplemented with strata fix, #1, with a running stitch from proximal to distal and a second running stitch from distal to proximal.? This was followed by Surgiflo and vancomycin powder.? Following this, a 2-0 Monocryl was used in the subcutaneous tissues, and the skin was closed with 3-0 Strata fix.? Care was taken to assure an excellent subcutaneous as well as skin closure.? A sterile dressing was then placed consisting of Dermabond Prineo, OpSite, ABD, sterile soft roll, and an Travis wrap including over the foot. The patient was returned the Recovery Room in a satisfactory condition. X-rays were obtained and reviewed there.? The patient will be discharged to the floor for postoperative rehabilitation and pain management. Related Problem List Diagnoses (1) Left knee DJD:
[2024-01-29] MEDS: atorvastatin 40 mg Tablet PO (20:52)
[2024-01-29] MEDS: trazodone 100 mg Tablet PO (20:52)
[2024-01-29] MEDS: latanoprost 0.005% Op Soln 2.5 mL Btl 1 DROP EYE-BOTH (20:52)
[2024-01-29] MEDS: hyDROXYzine 25 mg Capsule PO (20:52)
[2024-01-29] MEDS: oxyCODONE 5 mg IR Tab/Cap PO (20:53)
[2024-01-29] MEDS: tranexamic acid 1,000 MG/100 ML PREMIX 600 MG IV (21:44)
[2024-01-30] VITALS (10 sets, daily range): BP systolic 102–137; BP diastolic 58–84; PULSE 64–89; RESP 16–20; TEMP 36.4–36.9; O2SAT 94–100; BMI 29.5
[2024-01-30] MEDS: TRAMadol 50 mg Tablet PO ×3 (00:23→14:18)
[2024-01-30] MEDS: oxyCODONE 5 mg IR Tab/Cap PO ×3 (07:10→16:19)
[2024-01-30] MEDS: losartan 50 mg Tablet PO (08:17)
[2024-01-30] MEDS: fluticasone nasal spray 16gm Btl 1 SPRAY INTRANASAL (08:18)
[2024-01-30] MEDS: hyDROXYzine 25 mg Capsule PO ×2 (08:18→11:48)
[2024-01-30] MEDS: escitalopram 10 mg Tablet 20 MG PO (08:19)
[2024-01-30] MEDS: hyoscyamine ODT 0.125 mg Tablet PO (08:19)
[2024-01-30] MEDS: ipratropium-albuterol 3 mL Neb INHALATION (12:02)
--- NOTE | 2024-01-30 15:26 | P.DS_ITS ---
Discharge Providers Date of Admission: 01/29/24 15:52 Date of Discharge: January 30, 2024 Attending Provider at Admission: Christina Bishop MD Attending Provider at Discharge: Christina Bishop MD Primary Care Provider: AQUILES Celestin Diagnoses at Discharge Discharge Diagnosis (1) Status post total left knee replacement using cement: Status: Acute Permanent problem details: Date of procedure: January 29, 2024 Diagnosis: Severe degenerative osteoarthritis of the left knee Procedure done: Left total knee arthroplasty with Maurice guidance Implants: The [place] total knee system with a size 2 triathlon cruciate retaining femur left, a triathlon TriTanium tibial component size 3, a triathlon X3 tibial bearing CS insert size 3 X 9 mm and a triathlon TriTanium asymmetric patella size 29 x 9 mm (2) Left knee DJD: Status: Acute Qualifiers: Osteoarthritis type: primary Qualified Code(s): M17.12 - Unilateral primary osteoarthritis, left knee Reason for Visit Reason for Visit: M17.12 Brief History: This 63-year-old woman presents today for same-day surgery in the form of left total knee arthroplasty. The patient noted her pain preoperatively was 9 of 10. She has been treated with multiple conservative measures, and she has significant impact on her activities of daily living. At this point, the patient wished to proceed with total knee arthroplasty. Risks and complications were discussed with her in the office. Consents were signed and questions were answered. Hospital Course Hospital Course This 63 year old woman was admitted under observation status postoperatively. She did well without complication. On the first postoperative day, the patient was independent and was felt safe to be discharged home. Her dressing was dry and intact. There was no evidence of DVT. She had been up with physical therapy. Plans were made for her discharge home. She will have home physical therapy. Physical Exam Const: COMMON NORMALS: no acute distress, average body habitus, patient oriented x3 and alert GENERAL APPEARANCE: cooperative and comfortable ORIENTATION/CONSCIOUSNESS: Yes awake HENMT: COMMON NORMALS: normocephalic and atraumatic HEAD & SCALP: normocephalic and atraumatic Eye: GENERAL EYE: appearance normal, both eyes and all related structures Chest: COMMONS NORMALS: normal inspection of the chest Resp: COMMON NORMALS: normal respiratory effort EFFORT & INSPECTION: Yes able to speak in complete sentences and Yes symmetric chest movement Extremity: LEFT LOWER EXTREMITY: Yes knee joint (Minimal to no swelling.) Left knee: Yes inspection (Dressing is dry and intact.), Yes palpation (Minimal tenderness.), Yes ROM (Not evaluated.) and Yes neurovascular exam (No evidence of DVT) Neuro: COMMON NORMALS: patient oriented x3 SENSORIUM/ORIENTATION: Yes alert Psych: COMMON NORMALS: mental status grossly normal APPEARANCE: Yes grossly normal ATTITUDE: Yes calm and Yes engaged ATTENTION/CONCENTRATION: Yes attention grossly intact Skin: COMMON NORMALS: no rashes or lesions noted GENERAL SKIN EXAM: no rashes or lesions noted Urinary Catheter Management: Craig: Cath Placed During This Visit: yes, but has since been removed by the nurse Reason for Continuing Indwelling Catheter: Decision to DC Catheter Date Urinary Catheter Removed: 01/30/24 Time Urinary Catheter Discontinued: 06:13 Discharge Data Studies Completed and Pending Completed Studies During Hospitalization Category Date Time Status XR knee LT 1-2V [id number] Routine Exams 01/29/24 16:49 Completed Radiology Impressions Knee X-Ray 01/29/24 16:49 IMPRESSION: Soft tissue air in the distal thigh and intra-articular air presumed due to recent total knee arthroplasty. No evidence of hardware failure or loosening. Vitals Last Vital Signs Temp 97.5 F L 01/30/24 11:50 Pulse 64 01/30/24 12:00 Resp 18 01/30/24 12:00 BP 137/58 01/30/24 11:50 Pulse Ox 96 01/30/24 12:00 O2 Del Method Room Air 01/30/24 12:00 Discharge Plan Discharge Patient Disposition: Home Health Service Condition: Stable Prescriptions: New oxycodone 5 mg Tablet 10 mg PO Q4H PRN (Reason: Moderate Pain) 7 Days Qty: 40 0RF Celebrex 200 mg capsule 200 mg PO DAILY Qty: 30 0RF Tylenol Extra Strength 500 mg tablet 1,000 mg PO TID 15 Days Qty: 90 0RF Continued aspirin [Adult Low Dose Aspirin] 81 mg tablet,delayed release (DR/EC) 81 mg PO DAILY@0800 Multivitamin Women 50 Plus 8 mg iron-400 mcg-300 mcg tablet 1 tab PO DAILY@0800 Qty: 30 2RF Daily Probiotic (10 Strains) 4 billion cell capsule 1 cap PO DAILY Qty: 30 2RF albuterol sulfate [ProAir HFA] 90 mcg/actuation HFA aerosol inhaler 2 puff INHALATION QID PRN (Reason: shortness of breath or wheezing) Qty: 18 5RF atorvastatin 40 mg tablet 40 mg PO BEDTIME Qty: 30 5RF Farxiga 5 mg tablet 5 mg PO QAM Qty: 30 5RF escitalopram oxalate 20 mg tablet 20 mg PO DAILY@0800 Qty: 30 5RF fenofibrate nanocrystallized [Tricor] 145 mg tablet 145 mg PO DAILY Qty: 30 5RF hydroxyzine pamoate 25 mg capsule 25 mg PO TID@0800,12,20 Qty: 90 5RF hyoscyamine sulfate [Levsin] 0.125 mg tablet 0.125 mg PO BID Qty: 60 5RF latanoprost (PF) 0.005 % drops 1 drp ophthalmic (eye) BEDTIME@2000 Qty: 7.5 2RF Miralax 17 gram/dose powder 17 g PO DAILY PRN (Reason: Constipation) Qty: 510 5RF quetiapine [Seroquel XR] 300 mg tablet extended release 24 hr 300 mg PO .at bedtime for sleep Qty: 30 5RF sodium chloride 1 gram tablet 1,000 mg PO DAILY Qty: 30 5RF sucralfate [Carafate] 1 gram tablet 1 g PO BID Qty: 60 5RF trazodone 100 mg tablet See Rx Instructions PO .at bedtime Qty: 60 5RF Rx Instructions: 100mg-200mg orally AT BEDTIME; Anoro Ellipta 62.5-25 mcg/actuation blister with device 1 inh inhalation Q24H Qty: 60 5RF valsartan [Diovan] 40 mg tablet 40 mg PO DAILY Qty: 30 2RF fluticasone propionate [Flonase Allergy Relief] 50 mcg/actuation sp ray,suspension 1 spray intranasal DAILY Qty: 16 2RF Rx Instructions: administer into each nostril promethazine 12.5 mg suppository 12.5 mg [place] Q6H PRN (Reason: nausea and vomiting) Qty: 12 0RF promethazine 25 mg suppository 25 mg [place] Q6H PRN (Reason: nausea and vomiting) Qty: 12 0RF ondansetron 8 mg tablet,disintegrating 8 mg PO .q6 PRN (Reason: nausea and vomiting) Qty: 14 0RF Discharge Orders: Discharge Order (Routine); Ordered 01/30/24 Ordered By: Christina Bishop Referrals: Christina Bishop MD [Physician] - 03/01/24 1:45 pm Discharge Diet: Advance as tolerated, Usual diet and As Directed Discharge Activity: Increase activity as tolerated, Limit activity as instructed, Use walker/crutches as instructed and As per PT/OT instructions Patient Instructions: Acetaminophen (By mouth), Celecoxib (By mouth), Oxycodone, Slow Release (By mouth), Joint Replacement Surgery (DC), Opioid Safety Activity Restrictions/Additional Instructions: Ice and elevation to left knee. You may weight-bear as tolerated. Maintain current dressing until it comes off on its own. If the edges lifts up and it gets moisture, please remove it. Physical therapy for gait training, ambulation, and strengthening. Discharge Attestations Time Spent in Discharge Care*: greater than 30 min Specific Discharge Activities: educating patient, documenting/other paperwork and evaluating patient/reviewing data Quality Metrics Clinical Quality Measures [ No reported AMI, CVA or VTE this stay] Coding Level of Care Code Acute Code for Chg Fwd Diagnoses Status post total left knee replacement using cement Z96.652 Primary osteoarthritis of left knee M17.12 Osteoarthritis type: primary
== END 2024-01-30 17:39 | disposition home health service (06) ==
LOC: MEDSURG 15:52
PROVIDERS: Admitting Provider Specialist; PCP Nurse Practitioner; Visit Provider Specialist
PROC: 8E0Y0CZ Robotic Assisted Procedure of Lower Extremity, Open Approach (ICD-10-PCS; CPT 27447; principal; 2024-01-29 13:50)
DX: M17.12 Unilateral primary osteoarthritis, left knee (principal); M24.562 Contracture, left knee; J44.9 Chronic obstructive pulmonary disease, unspecified; I25.10 Atherosclerotic heart disease of native coronary artery without angina pectoris; I10 Essential (primary) hypertension; I73.9 Peripheral vascular disease, unspecified; Z95.1 Presence of aortocoronary bypass graft; E11.65 Type 2 diabetes mellitus with hyperglycemia; Z79.82 Long term (current) use of aspirin; Z87.891 Personal history of nicotine dependence
CPT/HCPCS: 20985; 27447; 73560; 94640; 97110; 97116; 97161; 97165; C1776; C9290; G0378; J0131; J0690; J1100; J1885; J2250; J2405; J2704; J2795; J3010; J3370; J3490; J7030; J7050

== ENCOUNTER 2024-02-05 09:56 | Emergency (ER) | payer MEDICAID, SELFPAY ==
[2024-02-05 09:58] VITALS: BP 154/99; PULSE 89; RESP 16; TEMP 36.7; O2SAT 99; BMI 23.6
--- NOTE | 2024-02-05 10:57 | XR_ITS ---
WS: [id number] Exam: XR chest 1V portable [id number] Date/Time of Exam: 02/05/2024 11:00 AM Reason For Exam: dyspnea/cough Comparison 12/29/2023. Lungs are fully expanded and clear. Normal cardiomediastinal silhouette. Surgical clips seen along th e superior LEFT chest. Bony structures are intact. XR/XR chest 1V portable [id number] IMPRESSION: 1. No acute cardiopulmonary finding.
--- NOTE | 2024-02-05 10:58 | ED_ITS ---
HPI - Nausea/Vomiting/Diarrhea 2 General: Chief complaint: Nausea/Vomiting/Diarrhea Stated complaint: N/V Time Seen by Provider: 02/05/24 10:13 Source: patient Mode of arrival: EMS History of Present Illness: 63-year-old female presents emergency ro om with onset of nausea vomiting around 3 AM she denies any medic easier melena hematemesis or coffee-ground emesis vomiting is mostly bilious. She has generalized ache in her abdomen but nowhere specific. She had a left knee arthroplasty last week. She denies dysuria urgency or frequency no chest pain or shortness of breath. MD elicited complaint: nausea and vomiting Onset (ago): hour(s) Description of vomiting: watery and bilious Associated nausea: Yes Quality: cramping Exacerbating factors: none Relieving factors: none Associated symtoms: Reports anorexia and nausea; Denies altered mental status, anxiety, bloating, change in vision, chest pain, cough, diaphoresis, decreased urine output, dizziness, dysuria, epistaxis, fatigue, fecal incontinence, fevers/chills, headache(s), malaise, myalgias, numbness, palpitations, rash, short of breath, syncope, tenesmus, tinnitus or weakness Review of Systems 2 Const: Denies: fatigue, malaise or diaphoresis Eyes: Denies: change in vision ENMT: Denies: tinnitus or epistaxis Card: Denies: chest pain, palpitations or syncope Resp: Denies: dyspnea GI: Reports: nausea; Denies: bloating or fecal incontinence : Denies: dysuria Musc: Denies: neck pain or back pain Skin/Breast: Denies: rash Neuro: Denies: headache(s) or dizziness Psych: Denies: anxiety PFSH ED 2 PFSH: Medical History Diabetes mellitus with hyperglycemia, without long-term current use of insulin Insomnia due to medical condition Cyclical vomiting with nausea Nasal congestion with rhinorrhea Glaucoma (increased eye pressure) Smoker Urinary frequency COPD (chronic obstructive pulmonary disease) Dyslipidemia Osteoarthritis Anxiety and depression Essential (primary) hypertension Surgical History History of cataract extraction Bilateral 2020 Hx of arthroscopic knee surgery (~2012) left History of carpal tunnel release of both wrists Family History Other COPD (chronic obstructive pulmonary disease) Cancer Social History Smoking and tobacco/nicotine status: former use of tobacco/nicotine Second hand smoke exposure: Yes Alcohol intake: never Substance/Drug Use: unknown Adopted: No Caregiver/support person: No Lives independently: Yes Household members: spouse Housing: House Marital status: service: No Current occupational status: unemployed Current occupational exposures/hazards: No Do you think of yourself as: Straight/Heterosexual Current gender identity: Female Physical Exam 2 Const: COMMON NORMALS: no acute distress EXAM LIMITATIONS: no altered mental status GENERAL APPEARANCE: cooperative and comfortable O RIENTATION/CONSCIOUSNESS: Yes awake, Yes oriented to person, Yes oriented to place and Yes oriented to time HENMT: COMMON NORMALS: normocephalic, atraumatic and hearing grossly normal bilaterally HEAD & SCALP: normocephalic and atraumatic Resp: COMMON NORMALS: normal respiratory effort, No retractions, No use of accessory muscles and clear to auscultation bilaterally AUSCULTATION: clear to auscultation bilaterally Cardio: COMMON NORMALS: regular rate, regular rhythm and No murmurs present (Cardio) RATE: regular rate RHYTHM: regular rhythm GI: COMMON NORMALS: Soft to palpation and No hepatosplenomegaly present A USCULTATION: Yes normoactive bowel sounds PALPATION: Yes Soft to palpation, No Tenderness to palpation present (GI), No Guarding due to palpation present (GI) and Yes No hepatosplenomegaly present Extremity: COMMON NORMALS: normal to inspection, capillary refill normal, no clubbing, cyanosis or edema, no calf tenderness and no pedal edema Neuro: SENSORIUM/ORIENTATION: Yes oriented to person, Yes oriented to place and Yes oriented to time Skin: COMMON NORMALS: no rashes or lesions noted GENERAL SKIN EXAM: no rashes or lesions noted Course 2 Vital Signs: Vital signs: Vital Signs Temperature 98.0 F 02/05/24 09:58 Pulse Rate 81 02/05/24 14:01 Respiratory Rate 16 02/05/24 09:58 Blood Pressure 122/72 02/05/24 14:01 Pulse Oximetry 96 05/30/24 14:01 Oxygen Delivery Me thod Room Air 02/05/24 14:01 MDM - Nausea/Vomiting/Diarrhea Medical Decision Making Labs and imaging reviewed. Suspect patient has viral gastroenteritis. CT did not show any acute findings. Will discharge her home clear liquid diet promethazine use. Return if has further problems. Medical Records I reviewed the patient's medical records. Lab Data I reviewed the patient's lab results. 02/05/24 11:31 02/05/24 11:31 Radiology Impressions Chest X-Ray 02/05/24 10:57 IMPRESSION: 1. No acute cardiopulmonary finding. Abdomen/Pelvis CT 02/05/24 10:58 IMPRESSION: 1. No acute findings in the abdomen or pelvis. 2. Sigmoid diverticulosis. No evidence of acute diverticulitis. 3. Mild cecal constipation. 4. Normal appendix. 5. No hydronephrosis in either kidney. 6. Mild fluid distention of the gallbladder which is otherwise normal in appearance. 7. Small esophageal hiatal hernia. 8. Grade 1 anterolisthesis L5 on S1 with chronic spondylolysis similar to previous. 9. Prior hysterectomy Gallbladder Ultrasound 02/05/24 12:48 IMPRESSION: Normal right upper quadrant ultrasound. Laboratory Results WBC 7.29 10^3/uL (3.29-11.43) 02/05/24 11:31 RBC 3.33 10^6/uL (3.85-5.65) L 02/05/24 11:31 Hgb 10.00 g/dL (11.27-16.99) L 02/05/24 11:31 Hct 31.4 % (36-47) L 02/05/24 11:31 MCV 94.3 fl (85-98) 02/05/24 11:31 MCH 30.0 pg (27-33) 02/05/24 11:31 MCHC 31.8 g/dL (30-55) 02/05/24 11:31 RDW 14.0 % (12.1-15.1) 02/05/24 11:31 Plt Count 348 10^3/cmm (157-399) 02/05/24 11:31 MPV 8.6 fL (7.4-10.4) 02/05/24 11:31 Neut % (Auto) 79.1 % 02/05/24 11:31 Lymph % (Auto) 15.6 % 02/05/24 11:31 [place] % (Auto) 3.2 % 02/05/24 11:31 Eos % (Auto) 0.3 % 02/05/24 11:31 Baso % (Auto) 0.4 % 02/05/24 11:31 Neut # (Auto) 5.77 10^3/uL (1.8-7.7) 02/05/24 11:31 Lymph # (Auto) 1.1 10^3/uL (0.8-4.8) 02/05/24 11:31 [place] # (Auto) 0.2 10^3/uL (0.2-0.9) 02/05/24 11:31 Eos # (Auto) 0.0 10^3/uL (0.0-0.8) 02/05/24 11:31 Baso # (Auto) 0.0 10^3/uL (0.0-0.1) 02/05/24 11:31 Nucleated RBC % (auto) 0 % 02/05/24 11:31 Nucleated RBCs # 0.0 /100WBC 02/05/24 11:31 Sodium 137 mmol/L (136-145) 02/05/24 11:31 Potassium 3.7 mmol/L (3.5-5.1) 02/05/24 11:31 Chloride 103 mmol/L (98-107) 02/05/24 11:31 Carbon Dioxide 18 mmol/L (22-29) L 02/05/24 11:31 Anion Gap 19.7 (5-19) H 02/05/24 11:31 BUN 11 mg/dL (8-23) 02/05/24 11:31 Creatinine 0.8 mg/dL (0.5-0.9) 02/05/24 11:31 GFR Calculation 72.4 mL/min (90-130) L 02/05/24 11:31 Glucose 123 mg/dL (65-115) H 02/05/24 11:31 Calculated Osmolality 285 mOsm/kg (285-295) 02/05/24 11:31 Calcium 9.5 mg/dL (8.5-10.5) 02/05/24 11:31 Total Bilirubin 0.4 mg/dL (0.15-1.2) 02/05/24 11:31 AST 44 U/L (0-32) H 02/05/24 11:31 ALT 47 U/L (0-33) H 02/05/24 11:31 Alkaline Phosphatase 77 U/L (35-105) 02/05/24 11:31 Total Protein 7.7 g/dL (6.6-8.7) 02/05/24 11:31 Albumin 4.2 g/dL (3.5-5.2) 02/05/24 11:31 Globulin 3.5 g/dL (1.3-4.6) 02/05/24 11:31 Lipase 17 U/L (13-60) 02/05/24 11:31 Urine Color Yellow (Yellow) 02/05/24 12:45 Urine Appearance Clear (CLEAR) 02/05/24 12:45 Urine pH 5 (5-7) 02/05/24 12:45 Ur Specific [place] 1.025 (1.005-1.030) 02/05/24 12:45 Urine Protein Neg (Negative) 02/05/24 12:45 Urine Glucose (UA) 4+ (Normal) H 02/05/24 12:45 Urine Ketones 2+ (Negative) H 02/05/24 12:45 Urine Blood 3+ (Negative) H 02/05/24 12:45 Urine Nitrate Negative (Negative) 02/05/24 12:45 Urine Bilirubin Neg (Negative) 02/05/24 12:45 Urine Urobilinogen Norm mg/dL (Negative) 02/05/24 12:45 Ur Leukocyte Esterase Negative (Negative) 02/05/24 12:45 Urine RBC 0-4 /hpf (0-2) H 02/05/24 12:45 Urine WBC 0-4 /hpf (0-5) H 02/05/24 12:45 Ur Squamous Epith Cells Rare /hpf (0-5) 02/05/24 12:45 Amorphous Sediment Not Reportable 02/05/24 12:45 Urine Bacteria None /hpf (NONE) 02/05/24 12:45 Urine Mucus 1+ /hpf 02/05/24 12:45 All radiology interpretation(s) finalized by discharge Discharge Plan Discharge Patient Disposition: Home Clinical Impression: Gastroenteritis Condition: Stable Prescriptions: New promethazine 25 mg tablet 25 mg PO Q6H PRN (Reason: nausea and vomiting) Qty: 20 0RF No Action aspirin [Adult Low Dose Aspirin] 81 mg tablet,delayed release (DR/EC) 81 mg PO DAILY@0800 Multivitamin Women 50 Plus 8 mg iron-400 mcg-300 mcg tablet 1 tab PO DAILY@0800 Qty: 30 2RF Daily Probiotic (10 Strains) 4 billion cell capsule 1 cap PO DAILY Qty: 30 2RF albuterol sulfate [ProAir HFA] 90 mcg/actuation HFA aerosol inhaler 2 puff INHALATION QID PRN (Reason: shortness of breath or wheezing) Qty: 18 5RF atorvastatin 40 mg tablet 40 mg PO BEDTIME Qty: 30 5RF Farxiga 5 mg tablet 5 mg PO QAM Qty: 30 5RF escitalopram oxalate 20 mg tablet 20 mg PO DAILY@0800 Qty: 30 5RF fenofibrate nanocrystallized [Tricor] 145 mg tablet 145 mg PO DAILY Qty: 30 5RF hydroxyzine pamoate 25 mg capsule 25 mg PO TID@0800,12,20 Qty: 90 5RF hyoscyamine sulfate [Levsin] 0.125 mg tablet 0.125 mg PO BID Qty: 60 5RF Miralax 17 gram/dose powder 17 g PO DAILY PRN (Reason: Constipation) Qty: 510 5RF quetiapine [Seroquel XR] 300 mg tablet extended release 24 hr 300 mg PO .at bedtime for sleep Qty: 30 5RF sucralfate [Carafate] 1 gram tablet 1 g PO BID Qty: 60 5RF Anoro Ellipta 62.5-25 mcg/actuation blister with device 1 inh inhalation Q24H Qty: 60 5RF valsartan [Diovan] 40 mg tablet 40 mg PO DAILY Qty: 30 2RF fluticasone propionate [Flonase Allergy Relief] 50 mcg/actuation spray,suspension 1 spray intranasal DAILY Qty: 16 2RF Rx Instructions: administer into each nostril celecoxib [Celebrex] 200 mg capsule 200 mg PO DAILY Qty: 30 0RF promethazine 25 mg suppository 25 mg MT Q6H PRN (Reason: nausea and vomiting) Qty: 12 0RF latanoprost 0.005 % drops 1 drp ophthalmic (eye) QPM Tylenol Extra Strength 500 mg tablet 1,000 mg PO TID PRN (Reason: Pain) ondansetron 8 mg tablet,disintegrating 8 mg PO Q6H PRN (Reason: nausea and vomiting) trazodone 100 mg tablet 100 - 200 mg PO BEDTIME Discharge Orders: Discharge ED (Routine); Ordered 02/05/24 Ordered By: Arslan Jimenes Referrals: Vero Moon, [employer] [Primary Care Provider] - Patient Instructions: Opioid Safety, Pain Management Activity Restrictions/Additional Instructions: You are seen today with complaints of nausea and vomiting. Your laboratory test did not show any elevation of white count your hemoglobin was down from previous and this should be checked up next week. There is a slight increase in your liver enzymes however your gallbladder ultrasound and the remainder of your CT of your abdomen did not show any acute abnormalities. Recommend clear liquid diet for the next 48 hours you can use promethazine as needed for nausea and vomiting then advance diet as tolerated. Return if you have further problems. Coding Level of Care Code ED [place] for [place] Mayes
--- NOTE | 2024-02-05 10:58 | CT_ITS ---
WS: [id number] CT ABDOMEN PELVIS TECHNIQUE: Noncontrast CT of the abdomen and pelvis with coronal and sagittal reformatted images. CLINICAL INFORMATION: Abdominal pain COMPARISON: None. DLP: 518.[address] scans at [facility] use at least one of these dose optimization techniques: automated e xposure control; mA and/or kV adjustment per patient size (includes targeted exams where dose is matc hed to clinical indication); or iterative reconstruction. FINDINGS: Prior hysterectomy. Sigmoid diverticulosis. No evidence of acute diverticulitis. Colon is decompresse d. Constipation in the cecum. Normal appendix. Lung bases are well aerated. Noncontrast liver is normal. Mild fluid distention of the gallbladder wh ich otherwise appears normal. Small esophageal hernia. Splenic granulomas. Noncontrast pancreas appea rs normal. Adrenal glands are normal. No hydronephrosis in either kidney. Normal caliber abdominal aorta. Mild aortic calcification. No free fluid in the abdomen or pelvis. [place] rgical clips LEFT inguinal region. Chronic spondylolysis L5-S1 with grade 1 anterolisthesis similar t o previous. Disc narrowing worse at L5-S1. CT/CT abdomen pelvis wo con [id number] IMPRESSION: 1. No acute findings in the abdomen or pelvis. 2. Sigmoid diverticulosis. No evidence of acute diverticulitis. 3. Mild cecal constipation. 4. Normal appendix. 5. No hydronephrosis in either kidney. 6. Mild fluid distention of the gallbladder which is otherwise normal in appea yanna. 7. Small esophageal hiatal hernia. 8. Grade 1 anterolisthesis L5 on S1 with chronic spondylolysis similar to prev ious. 9. Prior hysterectomy
[2024-02-05 11:00] VITALS: PULSE 84; O2SAT 94
[2024-02-05] MEDS: ondansetron 2 mg/ML SDV 2 mL 4 MG IVP (11:38)
--- NOTE | 2024-02-05 11:38 | PC.PHAR ---
PT USES [facility] FOR WEEKLY MEDICATION SET UP-THEY ARE FAXING CURRENT MED LIST.02/05/24 11:39AM
[2024-02-05] MEDS: sodium chloride 0.9% 1,000 ML 999 ML IV (11:39)
[2024-02-05 11:53] LABS: Basophils % 0.4 %; Eosinophils % 0.3 %; Hematocrit 31.4 % (36-47); Lymphocytes # 1.1 10^3/uL (0.8-4.8); Lymphocytes % 15.6 %; Mean Corpuscular HGB Conc 31.8 g/dL (30-55); Mean Corpuscular Volume 94.3 fl (85-98); Mean Platelet Volume 8.6 fL (7.4-10.4); Monocytes # 0.2 10^3/uL (0.2-0.9); Monocytes % 3.2 %; Neutrophils # 5.77 10^3/uL (1.8-7.7); Neutrophils % 79.1 %; Nucleated Red Blood Cells % 0 %; Platelet Count 348 10^3/cmm (157-399); Red Blood Count 3.33 10^6/uL (3.85-5.65); White Blood Count 7.29 10^3/uL (3.29-11.43)
[2024-02-05 12:00] VITALS: PULSE 87; O2SAT 100
[2024-02-05 12:33] VITALS: PULSE 85; O2SAT 92
[2024-02-05 12:34] LABS: Alanine Aminotransferase 47 U/L (0-33); Albumin Level 4.2 g/dL (3.5-5.2); Alkaline Phosphatase 77 U/L (35-105); Anion Gap 19.7 (5-19); Aspartate Amino Transferase 44 U/L (0-32); Blood Urea Nitrogen 11 mg/dL (8-23); Calcium 9.5 mg/dL (8.5-10.5); Carbon Dioxide 18 mmol/L (22-29); Chloride 103 mmol/L (98-107); Creatinine Clr Calc Pharmacy 58.3591; Globulin 3.5 g/dL (1.3-4.6); Glomerular Filtration Rate 72.4 mL/min (90-130); Glucose 123 mg/dL (65-115); Lipase 17 U/L (13-60); Osmolality Calculated 285 mOsm/kg (285-295); Potassium 3.7 mmol/L (3.5-5.1); Sodium 137 mmol/L (136-145); Total Bilirubin 0.4 mg/dL (0.15-1.2); Total Protein 7.7 g/dL (6.6-8.7)
--- NOTE | 2024-02-05 12:47 | PC.PHAR ---
PHONED ASSIST RAYMOND 4 TIMES W/O ANY RESULTS. MED REC COMPLETED BY PT MEDICATION LIST ON FILE WITH CURRENT FILL DATES. PT STATES HAS NOT TAKEN ANY MEDICATIONS IN OVER A WEEK.
--- NOTE | 2024-02-05 12:48 | US_ITS ---
WS: [id number] RIGHT UPPER QUADRANT ULTRASOUND HISTORY: abd pain, n/v COMPARISON: CT 02/05/2024 Liver: 15.1 cm in length. Normal size liver and echogenicity. No bile duct dilatation or mass. Portal Vein: Normal hepatopetal flow with monophasic waveform. Gallbladder: Normally distended gallbladder with no stones or wall thickening. CBD: 0.5 cm Pancreas: Normal size and echogenicity. Right kidney: 10.2 cm in length. Normal size and echogenicity. No hydronephrosis or mass. Aorta and IVC: Unremarkable abdominal aorta and IVC. No ascites. US/US gall bladder [id number] IMPRESSION: Normal right upper quadrant ultrasound.
[2024-02-05 13:33] LABS: Add Urine Microscopic? YES; Bilirubin Urine Neg (Negative); Blood Urine 3+ (Negative); Glucose Urine UA 4+ (Normal); Ketones Urine 2+ (Negative); Leukocyte Esterase Urine Negative (Negative); Nitrate Urine Negative (Negative); Protein Urine Neg (Negative); Specific Gravity, Urine 1.025 (1.005-1.030); Urine Appearance Clear (CLEAR); Urine Color Yellow (Yellow); Urobilinogen Urine Norm (Negative); pH Urine 5 (5-7)
[2024-02-05 13:40] LABS: Add Urine Culture? No; Mucus Urine 1+ /hpf; RBC Urine 0-4 /hpf (0-2); Squamous Epithelial Cell Urine RARE /hpf (0-5); WBC Urine 0-4 /hpf (0-5)
[2024-02-05 14:01] VITALS: BP 122/72; PULSE 81; O2SAT 96
[2024-02-05] MEDS: metoclopramide 5 mg/mL SDV 2 mL 10 MG IVP (15:01)
[2024-02-05] MEDS: ketorolac 30 mg/mL INJ IVP (15:01)
== END 2024-02-05 15:58 | disposition home or self-care (01) ==
PROVIDERS: Emergency Medicine; Emergency Provider Family Medicine; PCP Nurse Practitioner
DX: K52.9 Noninfective gastroenteritis and colitis, unspecified (principal); Z79.82 Long term (current) use of aspirin; Z87.891 Personal history of nicotine dependence; J44.9 Chronic obstructive pulmonary disease, unspecified; E78.5 Hyperlipidemia, unspecified; I10 Essential (primary) hypertension
CPT/HCPCS: 71045; 74176; 76705; 80053; 81001; 83690; 85025; 96361; 96374; 96375; 99285; J1885; J2405; J2765; J7030

== ENCOUNTER 2024-02-24 14:26 | Outpatient (CLI) | payer MEDICAID, SELFPAY ==
--- NOTE | 2024-02-24 14:40 | MM_ITS ---
WS: [id number] BILATERAL 3D TOMOSYNTHESIS DIGITAL SCREENING MAMMOGRAPHY WITH CAD CLINICAL INFORMATION: SCREENING HISTORY: Screening mammogram. No current complaints. COMPARISON: 2014 TECHNIQUE: Bilateral CC and MLO views. FINDINGS: Scattered fibroglandular densities bilaterally. No suspicious focal mass, asymmetry, calcifications, or architectural distortion. No evidence of malignancy. Few incidental punctate calcifications. MM/[place] [id number] IMPRESSION: BI-RADS: 2-Benign FOLLOW UP: 1 Year Follow-up Recommend return to annual screening mammography.
== END 2024-02-24 14:27 | disposition home or self-care (01) ==
LOC: MOBLMAM 14:31
PROVIDERS: PCP Nurse Practitioner; Visit Provider Nurse Practitioner
DX: Z12.31 Encounter for screening mammogram for malignant neoplasm of breast (principal)
CPT/HCPCS: 77063; 77067

== ENCOUNTER → 2024-03-01 13:26 | Outpatient (BNVA) | payer MEDICAID, SELFPAY | PROVIDERS: PCP Nurse Practitioner; Visit Provider Nurse Practitioner | DX: Z96.652 Presence of left artificial knee joint (principal) | CPT/HCPCS: 73560; 73565; 99024 ==

== ENCOUNTER → 2024-05-17 11:53 | Outpatient (BNVA) | payer MEDICAID, SELFPAY | PROVIDERS: PCP Nurse Practitioner; Visit Provider Nurse Practitioner | DX: I10 Essential (primary) hypertension (principal); E78.5 Hyperlipidemia, unspecified; E11.65 Type 2 diabetes mellitus with hyperglycemia | CPT/HCPCS: 80053; 80061; 82306; 82607; 84443 ==

== ENCOUNTER → 2024-05-31 12:55 | Outpatient (BNVA) | payer MEDICAID, SELFPAY | PROVIDERS: PCP Nurse Practitioner; Visit Provider Nurse Practitioner | DX: Z96.652 Presence of left artificial knee joint (principal) | CPT/HCPCS: 73560; 73565; 99213 ==

== ENCOUNTER → 2024-07-01 11:25 | Outpatient (BNVA) | payer MEDICAID, SELFPAY | PROVIDERS: PCP Nurse Practitioner; Visit Provider Nurse Practitioner | DX: I10 Essential (primary) hypertension (principal); E78.5 Hyperlipidemia, unspecified; E11.65 Type 2 diabetes mellitus with hyperglycemia | CPT/HCPCS: 83036 ==

== ENCOUNTER → 2024-08-02 10:47 | Outpatient (BNVA) | payer MEDICAID, SELFPAY | PROVIDERS: PCP Nurse Practitioner; Visit Provider Nurse Practitioner | DX: E11.65 Type 2 diabetes mellitus with hyperglycemia | CPT/HCPCS: 81000 ==

== ENCOUNTER 2024-08-03 15:09 | Outpatient (CLI) | payer MEDICAID, SELFPAY ==
--- NOTE | 2024-08-03 15:26 | MR_ITS ---
WS: [id number] MRA HEAD TECHNIQUE: Axial 3-D TOF images obtained with axial images and axial, sagittal, and coronal 2-D refor matted images. 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 Distal vertebr als are patent. Basilar artery is patent. Persistent RIGHT BURNT LIME DRAWER. Normal vascularity to the BURNT LIME DRAWER t erritory bilaterally. Normal vascularity to the [place] territory. Both ICAs are patent at the skull base. Small RIGHT A1 segment. Normal vascularity to the MCA territo ry bilaterally. Anterior communicating artery aneurysm described above. Stable Chiari I malformation. 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 Recommend neurosurgery con sultation.
== END 2024-08-03 15:10 | disposition home or self-care (01) ==
PROVIDERS: PCP Nurse Practitioner; Visit Provider Nurse Practitioner
DX: I67.1 Cerebral aneurysm, nonruptured (principal); G93.5 Compression of brain; R41.3 Other amnesia
CPT/HCPCS: 70544

== ENCOUNTER 2024-08-05 15:46 | Emergency (ER) | payer MEDICAID, SELFPAY ==
[2024-08-05 15:49] VITALS: BP 183/88; PULSE 67; RESP 18; TEMP 36.4; O2SAT 99
--- NOTE | 2024-08-05 16:17 | ED_ITS ---
HPI - Nausea/Vomiting/Diarrhea 2 General: Chief complaint: Nausea/Vomiting/Diarrhea Stated complaint: n/v, headache Time Seen by Provider: 08/05/24 15:55 History of Present Illness: 64-year-old female who presents to the e mergency room complaining of persistent nausea and vomiting. She has had this multiple times in the past associated with his regular marijuana use. She usually uses a THC vape pen regularly. She has not used any today she started throwing up overnight and has been persistent she has tried some Zofran with no relief she denies hematochezia or melena. Generalized abdominal pain and cramping Associated nausea: Yes Associated symtoms: Reports nausea; Denies chest pain or dysuria Related Data Home Medications Medication Instructions Recorded Confirmed aspirin 81 mg tablet,delayed 81 mg PO DAILY@0800 03/14/20 08/04/24 release (Adult Low Dose Aspirin) acetaminophen 500 mg tablet 1,000 mg PO TID PRN Pain 02/05/24 08/04/24 (Tylenol Extra Strength) latanoprost 0.005 % eye drops 1 drp ophthalmic (eye) QPM 02/05/24 08/04/24 ondansetron 8 mg disintegrating 8 mg PO Q6H PRN nausea and vomiting 02/05/24 08/04/24 tablet Previous Rx's Medication Instructions Recorded [id number] 8 mg-folic 400 1 tab PO DAILY@0800 #30 tabs 07/18/22 mcg-K 50 mcg-lutein 300 mcg tablet (Multivitamin Women 50 Plus) Lactobac 51-Bifidobac 1 cap PO DAILY #30 caps 06/02/23 3-L.lactis-S.thermophilus 4 billion cell capsule (Daily Probiotic (10 Strains)) meloxicam 15 mg tablet 15 mg PO DAILY #90 tabs 03/01/24 albuterol sulfate 90 mcg/actuation 2 puff inhalation QID PRN 05/17/24 aerosol inhaler shortness of breath or wheezing #18 grams atorvastatin 40 mg tablet 40 mg PO BEDTIME #30 tabs 05/17/24 escitalopram oxalate 20 mg tablet 20 mg PO DAILY@0800 #30 tabs 05/17/24 fenofibrate nanocrystallized 145 145 mg PO DAILY #30 tabs 05/17/24 mg tablet (Tricor) fluticasone propionate 50 1 spray intranasal DAILY #16 grams 05/17/24 mcg/actuation nasal spray,suspension (Flonase Allergy Relief) hydroxyzine pamoate 25 mg capsule 25 mg PO TID@0800,12,20 #90 caps 05/17/24 hyoscyamine sulfate 0.125 mg 0.125 mg PO BID #60 tabs 05/17/24 tablet (Levsin) polyethylene glycol 3350 17 17 g PO DAILY PRN Constipation 05/17/24 gram/dose oral powder (Miralax) #510 grams quetiapine 300 mg tablet,extended 300 mg PO .at bedtime for sleep 05/17/24 release 24 hr (Seroquel XR) #30 tabs sucralfate 1 gram tablet (Carafate) 1 g PO BID #60 tabs 05/17/24 trazodone 100 mg tablet 100 - 200 mg (1 - 2 x 100 mg) PO 05/17/24 BEDTIME #60 tabs umeclidinium 62.5 mcg-vilanterol 1 inh inhalation Q24H #60 ea 05/17/24 25 mcg/actuation powdr for inhalation (Anoro Ellipta) valsartan 40 mg tablet (Diovan) 40 mg PO DAILY #30 tabs 05/17/24 cholecalciferol (vitamin D3) 25 25 mcg PO DAILY #30 caps 08/02/24 mcg (1,000 unit) capsule dapagliflozin propanediol 10 mg 10 mg PO QAM #30 tabs 08/04/24 tablet (Farxiga) lorazepam 2 mg tablet (Ativan) 2 mg sublingual Q8H PRN nausea and 08/05/24 vomiting #20 tabs olanzapine 10 mg disintegrating 10 mg PO Q6H PRN nausea and 08/05/24 tablet vomiting #14 tabs Allergies Allergy/AdvReac Type Severity Reaction Status Date / Time lisinopril AdvReac Severe ADR-Cough Verified 08/04/24 09:22 benztropine [From Cogentin] AdvReac visual Verified 08/04/24 09:22 disturbance zolpidem [From Ambien] AdvReac Sleep walk Verified 08/04/24 09:22 Review of Systems 2 Const: Denies: fever(s) or chills Card: Denies: chest pain Resp: Denies: dyspnea GI: Reports: abdominal pain, nausea and vomiting : Denies: dysuria, urinary frequency or urinary urgency Musc: Denies: neck pain or back pain Skin/Breast: Denies: rash PFSH ED 2 PFSH: Medical History CKD (chronic kidney disease) stage 3, GFR 30-59 ml/min Diabetes mellitus with hyperglycemia, without long-term current use of insulin Insomnia due to medical condition Cyclical vomiting with nausea Nasal congestion with rhinorrhea Glaucoma (increased eye pressure) Smoker Urinary frequency COPD (chronic obstructive pulmonary disease) Dyslipidemia Osteoarthritis Anxiety and depression Essential (primary) hypertension Surgical History History of cataract extraction Bilateral 2020 Hx of arthroscopic knee surgery (~2012) left History of carpal tunnel release of both wrists Family History Other COPD (chronic obstructive pulmonary disease) Cancer Social History Smoking and tobacco/nicotine status: former use of tobacco/nicotine Second hand smoke exposure: Yes Alcohol intake: never Substance/Drug Use: unknown Adopted: No Caregiver/support person: No Lives independently: Yes Household members: spouse Housing: House Marital status: service: No Current occupational status: unemployed Current occupational exposures/hazards: No Do you think of yourself as: Straight/Heterosexual Current gender identity: Female Physical Exam 2 Const: GENERAL APPEARANCE: cooperative ORIENTATION/CONSCIOUSNESS: Yes awake, Yes oriented to person, Yes oriented to place and Yes oriented to time HENMT: COMMON NORMALS: normocephalic, atraumatic and hearing grossly normal bilaterally HEAD & SCALP: normocephalic and atraumatic Resp: COMMON NORMALS: normal respiratory effort, No retractions, No use of accessory muscles and clear to auscultation bilaterally AUSCULTATION: clear to auscultation bilaterally Cardio: COMMON NORMALS: regular rate, regular rhythm and No murmurs present (Cardio) RATE: regular rate RHYTHM: regular rhythm GI: COMMON NORMALS: No hepatosplenomegaly present AUSCULTATION: Yes normoactive bowel sounds PALPATION: Yes Tenderness to palpation present (GI) (Generalized), No Guarding due to palpation present (GI) and Yes No hepatosplenomegaly present Extremity: COMMON NORMALS: normal to inspection, capillary refill normal, no clubbing, cyanosis or edema, no calf tenderness and no pedal edema Neuro: SENSORIUM/ORIENTATION: Yes oriented to person, Yes oriented to place and Yes oriented to time Skin: COMMON NORMALS: no rashes or lesions noted GENERAL SKIN EXAM: no rashes or lesions noted Course 2 Vital Signs: Vital signs: Vital Signs Temperature 97.6 F 08/05/24 15:49 Pulse Rate 99 08/05/24 20:28 Respiratory Rate 16 08/05/24 20:28 Blood Pressure 125/83 08/05/24 20:28 Pulse Oximetry 95 08/05/24 20:28 Oxygen Delivery Me thod Room Air 08/05/24 18:29 MDM - Nausea/Vomiting/Diarrhea Medical Decision Making Patient responded well to the Ativan and Haldol nausea and vomiting have resolved no more abdominal pain or cramping. Discussion with the patient about the use of THC products and the role they complain clustering the nausea and vomiting. Discharge patient home with olanzapine and Ativan to use as needed. Medical Records I reviewed the patient's medical records. Lab Data I reviewed the patient's lab results. 08/05/24 16:24 08/05/24 16:24 Laboratory Results WBC 8.93 10^3/uL (3.29-11.43) 08/05/24 16:24 RBC 4.48 10^6/uL (3.85-5.65) 08/05/24 16:24 Hgb 13.10 g/dL (11.27-16.99) 08/05/24 16:24 Hct 41.8 % (36-47) 08/05/24 16:24 MCV 93.3 fl (85-98) 08/05/24 16: MCH 29.2 pg (27-33) 08/05/24 16: MCHC 31.3 g/dL (30-55) 08/05/24 16:24 RDW 14.6 % (12.1-15.1) 08/05/24 16:24 Plt Count 264 10^3/cmm (157-399) 08/05/24 16:24 MPV 10.0 fL (7.4-10.4) 08/05/24 16: Neut % (Auto) 82.7 % 08/05/24 16:24 Lymph % (Auto) 12.3 % 08/05/24 16:24 Eddy % (Auto) 4.1 % 08/05/24 16:24 Eos % (Auto) 0.0 % 08/05/24 16:24 Baso % (Auto) 0.2 % 08/05/24 16:24 Neut # (Auto) 7.38 10^3/uL (1.8-7.7) 08/05/24 16:24 Lymph # (Auto) 1.1 10^3/uL (0.8-4.8) 08/05/24 16:24 Eddy # (Auto) 0.4 10^3/uL (0.2-0.9) 08/05/24 16:24 Eos # (Auto) 0.0 10^3/uL (0.0-0.8) 08/05/24 16:24 Baso # (Auto) 0.0 10^3/uL (0.0-0.1) 08/05/24 16:24 Nucleated RBC % (auto) 0 % 08/05/24 16: Nucleated RBCs # 0.0 /100WBC 08/05/24 16:24 Sodium 139 mmol/L (136-145) 08/05/24 16:24 Potassium 3.6 mmol/L (3.5-5.1) 08/05/24 16:24 Chloride 104 mmol/L (98-107) 08/05/24 16:24 Carbon Dioxide 16 mmol/L (22-29) L 08/05/24 16:24 Anion Gap 22.6 (5-19) H 08/05/24 16:24 BUN 20 mg/dL (8-23) 08/05/24 16:24 Creatinine 0.7 mg/dL (0.5-0.9) 08/05/24 16:24 GFR Calculation 84.2 mL/min (90-130) L 08/05/24 16:24 Glucose 145 mg/dL (65-115) H 08/05/24 16:24 Calculated Osmolality 293 mOsm/kg (285-295) 08/05/24 16:24 Calcium 10.2 mg/dL (8.5-10.5) 08/05/24 16:24 Total Bilirubin 0.3 mg/dL (0.15-1.2) 08/05/24 16:24 AST 24 U/L (0-32) 08/05/24 16:24 ALT 19 U/L (0-33) 08/05/24 16:24 Alkaline Phosphatase 41 U/L (35-105) 08/05/24 16:24 Total Protein 7.5 g/dL (6.6-8.7) 08/05/24 16:24 Albumin 4.9 g/dL (3.5-5.2) 08/05/24 16:24 Globulin 2.6 g/dL (1.3-4.6) 08/05/24 16:24 Lipase 20 U/L (13-60) 08/05/24 16:24 No radiology studies performed this visit Discharge Plan Discharge Patient Disposition: Home Clinical Impression: Cannabinoid hyperemesis syndrome Condition: Stable Prescriptions: New olanzapine 10 mg tablet,disintegrating 10 mg PO Q6H PRN (Reason: nausea and vomiting) Qty: 14 0RF lorazepam [Ativan] 2 mg tablet 2 mg sublingual Q8H PRN (Reason: nausea and vomiting) Qty: 20 0RF No Action aspirin [Adult Low Dose Aspirin] 81 mg tablet,delayed release (DR/EC) 81 mg PO DAILY@0800 meloxicam 15 mg tablet 15 mg PO DAILY Qty: 90 1RF Multivitamin Women 50 Plus 8 mg iron-400 mcg-300 mcg tablet 1 tab PO DAILY@0800 Qty: 30 2RF Daily Probiotic (10 Strains) 4 billion cell capsule 1 cap PO DAILY Qty: 30 2RF albuterol sulfate 90 mcg/actuation HFA aerosol inhaler 2 puff INHALATION QID PRN (Reason: shortness of breath or wheezing) Qty: 18 5RF atorvastatin 40 mg tablet 40 mg PO BEDTIME Qty: 30 5RF escitalopram oxalate 20 mg tablet 20 mg PO DAILY@0800 Qty: 30 5RF fenofibrate nanocrystallized [Tricor] 145 mg tablet 145 mg PO DAILY Qty: 30 5RF fluticasone propionate [Flonase Allergy Relief] 50 mcg/actuation spray,suspension 1 spray intranasal DAILY Qty: 16 2RF Rx Instructions: administer into each nostril hydroxyzine pamoate 25 mg capsule 25 mg PO TID@0800,12,20 Qty: 90 5RF hyoscyamine sulfate [Levsin] 0.125 mg tablet 0.125 mg PO BID Qty: 60 5RF Miralax 17 gram/dose powder 17 g PO DAILY PRN (Reason: Constipation) Qty: 510 5RF quetiapine [Seroquel XR] 300 mg tablet extended release 24 hr 300 mg PO .at bedtime for sleep Qty: 30 5RF sucralfate [Carafate] 1 gram tablet 1 g PO BID Qty: 60 5RF Anoro Ellipta 62.5-25 mcg/actuation blister with device 1 inh inhalation Q24H Qty: 60 5RF valsartan [Diovan] 40 mg tablet 40 mg PO DAILY Qty: 30 5RF trazodone 100 mg tablet 100 - 200 mg PO BEDTIME Qty: 60 5RF cholecalciferol (vitamin D3) 25 mcg (1,000 unit) capsule 25 mcg PO DAILY Qty: 30 2RF dapagliflozin propanediol [Farxiga] 10 mg tablet 10 mg PO QAM Qty: 30 2RF latanoprost 0.005 % drops 1 drp ophthalmic (eye) QPM Tylenol Extra Strength 500 mg tablet 1,000 mg PO TID PRN (Reason: Pain) ondansetron 8 mg tablet,disintegrating 8 mg PO Q6H PRN (Reason: nausea and vomiting) Discharge Orders: Discharge ED (Routine); Ordered 08/05/24 Ordered By: Arslan Jimenes Referrals: Vero Moon, [facility] [Primary Care Provider] - Discharge Diet: Clear Liquid Discharge Activity: Increase activity as tolerated Patient Instructions: Opioid Safety, Pain Management Activity Restrictions/Additional Instructions: Thank you for choosing [facility] for your healthcare needs today. It is very important that you follow up as instructed or that you return to the Emergency Department should you have concerns or if your condition changes or worsens in any way. You are seen in the emergency room with persistent nausea and vomiting. This is likely related to marijuana use. Recommended decreasing the use or switching from vape source or edibles to other sources which are less concentrated. You can use the Ativan and olanzapine as prescribed for persistent nausea and vomiting. Recommend clear liquids for the next 24 to 48 hours. Coding Level of Care Code ED Staff Nuclear Medicine Technologist for [facility]
[2024-08-05 16:28] LABS: Basophils % 0.2 %; Hematocrit 41.8 % (36-47); Lymphocytes # 1.1 10^3/uL (0.8-4.8); Lymphocytes % 12.3 %; Mean Corpuscular HGB Conc 31.3 g/dL (30-55); Mean Corpuscular Hemoglobin 29.2 pg (27-33); Mean Corpuscular Volume 93.3 fl (85-98); Monocytes # 0.4 10^3/uL (0.2-0.9); Monocytes % 4.1 %; Neutrophils # 7.38 10^3/uL (1.8-7.7); Neutrophils % 82.7 %; Nucleated Red Blood Cells % 0 %; Platelet Count 264 10^3/cmm (157-399); Red Blood Count 4.48 10^6/uL (3.85-5.65); Red Cell Distribution Width 14.6 % (12.1-15.1); White Blood Count 8.93 10^3/uL (3.29-11.43)
[2024-08-05 16:48] LABS: Alanine Aminotransferase 19 U/L (0-33); Albumin Level 4.9 g/dL (3.5-5.2); Alkaline Phosphatase 41 U/L (35-105); Anion Gap 22.6 (5-19); Aspartate Amino Transferase 24 U/L (0-32); Blood Urea Nitrogen 20 mg/dL (8-23); Calcium 10.2 mg/dL (8.5-10.5); Carbon Dioxide 16 mmol/L (22-29); Chloride 104 mmol/L (98-107); Globulin 2.6 g/dL (1.3-4.6); Glomerular Filtration Rate 84.2 mL/min (90-130); Glucose 145 mg/dL (65-115); Lipase 20 U/L (13-60); Osmolality Calculated 293 mOsm/kg (285-295); Potassium 3.6 mmol/L (3.5-5.1); Sodium 139 mmol/L (136-145); Total Bilirubin 0.3 mg/dL (0.15-1.2); Total Protein 7.5 g/dL (6.6-8.7)
[2024-08-05] MEDS: LORazepam 2 mg/mL INJ 1 mL IVP (17:22)
[2024-08-05] MEDS: haloperidol inj 5 mg/mL INJ 1 mL IVP (17:23)
[2024-08-05] MEDS: sodium chloride 0.9% 1,000 ML 999 ML IV (17:25)
[2024-08-05 18:29] VITALS: BP 186/93; PULSE 69; O2SAT 94
[2024-08-05 19:31] VITALS: BP 157/96
[2024-08-05 20:15] VITALS: PULSE 103; O2SAT 93
[2024-08-05 20:28] VITALS: BP 125/83; PULSE 99; RESP 16; O2SAT 95
== END 2024-08-05 20:32 | disposition home or self-care (01) ==
PROVIDERS: Emergency Provider Family Medicine; PCP Nurse Practitioner
DX: R11.10 Vomiting, unspecified (principal); Z79.82 Long term (current) use of aspirin; E11.22 Type 2 diabetes mellitus with diabetic chronic kidney disease; I12.9 Hypertensive chronic kidney disease with stage 1 through stage 4 chronic kidney disease, or unspecified chronic kidney disease; N18.30 Chronic kidney disease, stage 3 unspecified; E78.5 Hyperlipidemia, unspecified; J44.9 Chronic obstructive pulmonary disease, unspecified
CPT/HCPCS: 36415; 80053; 83690; 85025; 96374; 96375; 99284; J1630; J2060; J7030

== ENCOUNTER → 2024-11-29 16:01 | Outpatient (BNVA) | payer MEDICAID, SELFPAY | PROVIDERS: PCP Nurse Practitioner; Visit Provider Nurse Practitioner | DX: E11.65 Type 2 diabetes mellitus with hyperglycemia (principal); I10 Essential (primary) hypertension | CPT/HCPCS: 80053; 80061; 83036 ==

== ENCOUNTER → 2025-02-01 15:49 | Outpatient (BNVA) | payer MEDICAID, SELFPAY | PROVIDERS: PCP Nurse Practitioner; Visit Provider Nurse Practitioner | DX: I10 Essential (primary) hypertension (principal); E11.65 Type 2 diabetes mellitus with hyperglycemia | CPT/HCPCS: 80053; 81000 ==

== ENCOUNTER → 2025-02-07 08:56 | Outpatient (BNVA) | payer MEDICAID, SELFPAY | PROVIDERS: PCP Nurse Practitioner; Visit Provider Nurse Practitioner | DX: Z96.652 Presence of left artificial knee joint (principal) | CPT/HCPCS: 73560; 73565; 99213 ==

== ENCOUNTER → 2025-05-24 08:55 | Outpatient (BNVA) | payer MEDICAID, SELFPAY | PROVIDERS: PCP Nurse Practitioner; Visit Provider Nurse Practitioner | DX: E11.65 Type 2 diabetes mellitus with hyperglycemia (principal); E55.9 Vitamin D deficiency, unspecified | CPT/HCPCS: 80053; 80061; 81000; 82043; 82306; 83036; 84443 ==

== ENCOUNTER → 2025-07-07 16:47 | Outpatient (BNVA) | payer MEDICARE, MEDICAID, SELFPAY | PROVIDERS: PCP Nurse Practitioner; Visit Provider Nurse Practitioner | DX: R58 Hemorrhage, not elsewhere classified (principal) | CPT/HCPCS: 85025 ==